=== PATIENT | male | born 1945 | race Caucasian/White ===

== ENCOUNTER → 2020-04-19 11:30 | Outpatient (BNVA) | payer MEDICARE, MEDICAID, SELFPAY | PROVIDERS: PCP Internal Medicine; Visit Provider Internal Medicine Endocrinology, Diabetes & Metabolism | DX: Z13.89 Encounter for screening for other disorder (principal) | CPT/HCPCS: Q3014 ==

== ENCOUNTER → 2020-05-31 14:21 | Outpatient (BNVA) | payer MEDICARE, MEDICAID, SELFPAY | PROVIDERS: PCP Internal Medicine; Visit Provider Nurse Practitioner Gerontology | DX: M81.0 Age-related osteoporosis without current pathological fracture (principal) | CPT/HCPCS: 96402 ==

== ENCOUNTER 2020-06-21 10:52 | Outpatient (REF) | payer MEDICARE, MEDICAID, SELFPAY ==
[2020-06-21 11:31] LABS: MANUAL DIFF FLAG NO
[2020-06-21 11:42] LABS: Basophils Percent Auto 0.7 % (0-2); Eosinophils Absolute Auto 0.1 X10*3/uL (0.0-0.4); Eosinophils Percent Auto 2.5 % (0-4); Hematocrit 31.5 % (42-52); Imm Gran Abs Auto 0.01 X10*3/uL (0.00-0.03); Imm Gran Pct Auto 0.2 % (0.0-0.4); Immature Retic Fraction 17.3 % (2.3-13.4); Lymphocytes Absolute Auto 0.9 X10*3/uL (1.2-4.9); Lymphocytes Percent Auto 20.5 % (20-40); Mean Corpuscular HGB Conc 31.7 g/dl (31.0-36.0); Mean Corpuscular Hemoglobin 30.7 pg (27.0-33.0); Mean Corpuscular Volume 96.6 fL (80-98); Mean Platelet Volume 9.9 fL (9.4-12.4); Monocytes Absolute Auto 0.4 X10*3/uL (0.1-1.2); Monocytes Percent Auto 8.1 % (2-11); Platelet Count 220 X10*3/uL (160-400); Red Blood Count 3.26 X10*6/uL (4.60-5.80); Red Cell Distribution Width 14.5 % (11.0-16.0); Retic HGB Equivalent 34.8 pg (30.0-35.0); Reticulocyte Percent 1.3 % (0.5-1.8); Reticulocytes Absolute 0.042 X10*6/uL (0.026-0.095); White Blood Count 4.4 X10*3/uL (4.8-10.8)
[2020-06-21 11:45] LABS: Estimated Average Glucose 111 mg/dL; Hemoglobin A1c % 5.5 %
[2020-06-21 12:08] LABS: Albumin Level 3.5 g/dL (3.5-5.0); Calcium 8.4 mg/dL (8.4-10.2)
[2020-06-21 12:17] LABS: Ferritin 37 ng/mL (20-250); Free T4 (Free Thyroxine) 1.26 ng/dL (0.71-1.85); Thyroid Stimulating Hormone 1.12 uIU/mL (0.32-4.0); Vitamin D 25-OH Total 47.9 ng/mL (>30)
[2020-06-21 12:18] LABS: Alanine Aminotransferase 25 U/L (0-40); Albumin Level 3.6 g/dL (3.5-5.0); Alkaline Phosphatase 57 U/L (39-117); Anion Gap 11 (12-20); Aspartate Amino Transferase 21 U/L (5-37); Bilirubin Total 0.6 mg/dL (0.0-1.0); Blood Urea Nitrogen 31 mg/dL (9-16); Calcium 8.3 mg/dL (8.4-10.2); Carbon Dioxide 25 mmol/L (22-29); Chloride 110 mmol/L (96-108); Cholesterol 165 mg/dL; Estimated Glomerular Filt Rate 37; Glucose Random 136 mg/dL (60-115); HDL Cholesterol 61 mg/dL; Iron 106 mcg/dL (45-160); LDL Cholesterol Calculated 84 mg/dl; Percent Iron Saturation 35 % (15-50); Sodium 141 mmol/L (135-145); Total Iron Binding Capacity 307 mcg/dL (228-428); Total Protein 6.2 g/dL (6.5-8.0); Triglycerides 102 mg/dL; Unsaturated Iron Binding 201 ug/dL
[2020-06-21 12:58] LABS: Folate > 20.0 ng/mL (> or = 4.0); Vitamin B12 1331 pg/mL (200-900)
== END 2020-06-21 10:53 | disposition home or self-care (01) ==
LOC: HO.LAB 10:52
PROVIDERS: Absent Provider Internal Medicine Endocrinology, Diabetes & Metabolism; PCP Internal Medicine; Visit Provider Internal Medicine
DX: M81.0 Age-related osteoporosis without current pathological fracture (principal); M80.80XD Other osteoporosis with current pathological fracture, unspecified site, subsequent encounter for fracture with routine healing; R73.01 Impaired fasting glucose; I10 Essential (primary) hypertension; I25.10 Atherosclerotic heart disease of native coronary artery without angina pectoris; E78.00 Pure hypercholesterolemia, unspecified
CPT/HCPCS: 36415; 80053; 80061; 82040; 82306; 82310; 82607; 82728; 82746; 83036; 83540; 84439; 84443; 85025; 85045

== ENCOUNTER 2020-06-25 16:08 | Outpatient (REF) | payer MEDICARE, MEDICAID, SELFPAY ==
[2020-07-03 10:22] LABS: N-Telopeptide 18 (see note); NTXCreaRU 83 mg/dL (20-320)
== END 2020-06-25 16:09 | disposition home or self-care (01) ==
LOC: HO.LNP 16:08
PROVIDERS: Visit Provider Internal Medicine Endocrinology, Diabetes & Metabolism
DX: M80.80XD Other osteoporosis with current pathological fracture, unspecified site, subsequent encounter for fracture with routine healing (principal)
CPT/HCPCS: 82523

== ENCOUNTER → 2020-07-03 14:02 | Outpatient (BNVA) | payer MEDICARE, MEDICAID, SELFPAY | PROVIDERS: PCP Internal Medicine; Visit Provider Nurse Practitioner | DX: K22.4 Dyskinesia of esophagus (principal); K22.2 Esophageal obstruction; K21.9 Gastro-esophageal reflux disease without esophagitis | CPT/HCPCS: Q3014 ==

== ENCOUNTER 2020-07-17 15:07 | Outpatient (REF) | payer MEDICARE, MEDICAID, SELFPAY ==
[2020-07-17 17:13] LABS: Prostate Specific Antigen < 0.05 ng/mL (<0.05-4.0)
== END 2020-07-17 15:08 | disposition home or self-care (01) ==
LOC: HO.LAB 15:07
PROVIDERS: Internal Medicine Endocrinology, Diabetes & Metabolism; PCP Internal Medicine; Visit Provider Urology
DX: Z12.5 Encounter for screening for malignant neoplasm of prostate (principal); C61 Malignant neoplasm of prostate; N13.8 Other obstructive and reflux uropathy; N40.1 Benign prostatic hyperplasia with lower urinary tract symptoms; M81.0 Age-related osteoporosis without current pathological fracture
CPT/HCPCS: 36415; 82306; 84153

== ENCOUNTER → 2020-07-18 14:01 | Outpatient (BNVA) | payer MEDICARE, MEDICAID, SELFPAY | PROVIDERS: PCP Internal Medicine; Visit Provider Urology | DX: C61 Malignant neoplasm of prostate (principal); R39.15 Urgency of urination; R35.0 Frequency of micturition | CPT/HCPCS: 99212 ==

== ENCOUNTER → 2020-10-25 12:22 | Outpatient (BNVA) | payer MEDICARE, MEDICAID, SELFPAY | PROVIDERS: PCP Internal Medicine; Visit Provider Internal Medicine Endocrinology, Diabetes & Metabolism | DX: Z13.89 Encounter for screening for other disorder (principal) | CPT/HCPCS: Q3014 ==

== ENCOUNTER 2020-11-22 19:05 | Emergency (ER) | payer MEDICARE, MEDICAID, SELFPAY ==
--- NOTE | ~2020-11-22 | XR_ITS ---
Examination: XR knee LT 4V, XR tibia fibula RT 2V, XR hip RT w PEL1V Indication: Pain s/p fall Comparison: No pertinent prior studies are currently available for comparison. Technique: Frontal view the pelvis with coned frontal and lateral views of the right hip including the entirety of the right femoral intramedullary ronaldo. 2 views of the right tibia and fibula and 4 views of the left knee. Findings: Pelvis/right hip: Femoral heads are both well-seated in their respected acetabula. Compression hip screw with long intramedullary ronaldo is seen extending through the right femur with no evidence for periprosthetic fracture. The previously noted fracture line is no longer apparent. No evidence for periprosthetic fracture or loosening. Prominent vascular calcification is seen. Vertebroplasty cement in the visualized lower lumbar spine. Right tibia and fibula: Bones are normal anatomic alignment with no acute fracture or dislocation seen. Mild degenerative changes in the knee. Left knee: No significant joint effusion. Bones are normal anatomic alignment with no acute fracture or dislocation. Prominent vascular calcification XR/XR knee LT 4V Impression: Chronic appearing and postoperative changes but no acute fracture or dislocation noted.
--- NOTE | ~2020-11-22 | XR_ITS ---
Examination: XR knee LT 4V, XR tibia fibula RT 2V, XR hip RT w PEL1V Indication: Pain s/p fall Comparison: No pertinent prior studies are currently available for comparison. Technique: Frontal view the pelvis with coned frontal and lateral views of the right hip including the entirety of the right femoral intramedullary ronaldo. 2 views of the right tibia and fibula and 4 views of the left knee. Findings: Pelvis/right hip: Femoral heads are both well-seated in their respected acetabula. Compression hip screw with long intramedullary ronaldo is seen extending through the right femur with no evidence for periprosthetic fracture. The previously noted fracture line is no longer apparent. No evidence for periprosthetic fracture or loosening. Prominent vascular calcification is seen. Vertebroplasty cement in the visualized lower lumbar spine. Right tibia and fibula: Bones are normal anatomic alignment with no acute fracture or dislocation seen. Mild degenerative changes in the knee. Left knee: No significant joint effusion. Bones are normal anatomic alignment with no acute fracture or dislocation. Prominent vascular calcification XR/XR hip RT w PEL1V Impression: Chronic appearing and postoperative changes but no acute fracture or dislocation noted.
--- NOTE | ~2020-11-22 | XR_ITS ---
Examination: XR knee LT 4V, XR tibia fibula RT 2V, XR hip RT w PEL1V Indication: Pain s/p fall Comparison: No pertinent prior studies are currently available for comparison. Technique: Frontal view the pelvis with coned frontal and lateral views of the right hip including the entirety of the right femoral intramedullary ronaldo. 2 views of the right tibia and fibula and 4 views of the left knee. Findings: Pelvis/right hip: Femoral heads are both well-seated in their respected acetabula. Compression hip screw with long intramedullary ronaldo is seen extending through the right femur with no evidence for periprosthetic fracture. The previously noted fracture line is no longer apparent. No evidence for periprosthetic fracture or loosening. Prominent vascular calcification is seen. Vertebroplasty cement in the visualized lower lumbar spine. Right tibia and fibula: Bones are normal anatomic alignment with no acute fracture or dislocation seen. Mild degenerative changes in the knee. Left knee: No significant joint effusion. Bones are normal anatomic alignment with no acute fracture or dislocation. Prominent vascular calcification XR/XR tibia fibula RT 2V Impression: Chronic appearing and postoperative changes but no acute fracture or dislocation noted.
[2020-11-22 20:45] VITALS: BP 140/78; PULSE 77; RESP 16; TEMP 36.6; O2SAT 100; BMI 26.4
[2020-11-22 21:29] VITALS: BP 128/38; PULSE 63; RESP 18; O2SAT 100
--- NOTE | 2020-11-22 23:11 | ED.EXTPRO ---
HPI - Extremity Problem General Chief complaint: Extremity Injury, Lower Stated complaint: leg pain Time Seen by Provider: 11/22/20 23:11 Source: patient Mode of arrival: ambulatory Limitations: no limitations History of Present Illness HPI Narrative: 75-year-old male came in for evaluation of right lower extremities pain that started few months ago. Patient status post right femur fracture that required ronaldo placement. Patient declined any recent fall or trauma to his right leg, patient complain of chronic right leg pain for at least 6-7 months but lately is getting worse, patient is still able to ambulate using the walker, patient using also a chronic pain medication prescribed to him by his PCP. Related Data Home Medications Medication Instructions Recorded Confirmed albuterol sulfate 2.5 mg INHALATION Q4-6H PRN 03/22/20 10/25/20 bupropion HCl 200 mg tablet,12 hr PO 03/22/20 10/25/20 sustained-release cyanocobalamin (vitamin B-12) 1,000 mcg PO DAILY 03/22/20 10/25/20 1,000 mcg capsule fluticasone propionate 50 2 spray INTRANASAL DAILY 03/22/20 10/25/20 mcg/actuation nasal spray,suspension mirabegron 25 mg tablet,extended 25 mg PO DAILY 03/22/20 10/25/20 release 24 hr (Myrbetriq) mometasone 0.1 % topical ointment 1 appl TOPICAL DAILY 03/22/20 10/25/20 nitroglycerin 0.4 mg sublingual 0.4 mg SUBLINGUAL Q5M PRN 03/22/20 10/25/20 tablet paroxetine HCl 40 mg tablet 40 mg PO DAILY 03/22/20 10/25/20 tamsulosin 0.4 mg capsule 0.4 mg PO DAILY 03/22/20 10/25/20 trazodone 150 mg tablet 150 mg PO BEDTIME PRN 03/22/20 10/25/20 vitamin B complex 1 tab PO DAILY 03/22/20 10/25/20 paroxetine HCl 30 mg tablet 30 mg PO DAILY 07/03/20 10/25/20 furosemide 20 mg tablet 20 mg PO DAILY 10/25/20 10/25/20 Previous Rx's Medication Instructions Recorded aspirin 81 mg tablet,delayed 81 mg PO DAILY #90 tab 02/28/20 release (Adult Low Dose Aspirin) polyethylene glycol 3350 17 17 g PO DAILY PRN 130 Days #2210 g 02/29/20 gram/dose oral powder (Miralax) denosumab 60 mg/mL subcutaneous 60 mg SUBCUT [id number] 1 Days #1 ml 03/05/20 syringe (Prolia) ketoconazole 2 % topical cream 1 appl TOPICAL BID #30 g 03/22/20 albuterol sulfate 90 mcg/actuation 2 puff INHALATION QID PRN #8.5 g 04/05/20 aerosol inhaler budesonide-formoterol HFA 160 2 puff INHALATION BID #10.2 g 04/19/20 mcg-4.5 mcg/actuation aerosol inhaler (Symbicort) folic acid 1 mg tablet 1 mg PO DAILY #30 tab 05/03/20 mirabegron 50 mg tablet,extended 50 mg PO DAILY 90 Days #90 tab 07/24/20 release 24 hr (Myrbetriq) imipramine HCl 10 mg tablet 10 mg PO BID 90 Days #180 tab 08/07/20 omeprazole 20 mg capsule,delayed 20 mg PO BID #180 cap 09/17/20 release ezetimibe 10 mg tablet 10 mg PO DAILY #90 tab 09/20/20 lactulose 20 gram/30 mL oral 20 g PO BID 90 Days #5400 ml 09/20/20 solution oxycodone 5 mg tablet 5 mg PO BID PRN #50 tab 09/20/20 rosuvastatin 40 mg tablet 40 mg PO DAILY 90 Days #90 tab 09/20/20 calcium citrate 500 mg PO BID 30 Days #120 tab 10/25/20 cholecalciferol (vitamin D3) 25 25 mcg PO DAILY 90 Days #90 cap 10/25/20 mcg (1,000 unit) capsule atenolol 25 mg tablet 25 mg PO DAILY 90 Days #90 tab 11/09/20 Allergies Allergy/AdvReac Type Severity Reaction Status Date / Time quetiapine [From SEROQUEL] Allergy Unknown UNKNOWN Verified 10/25/20 12:25 Review of Systems Review of Systems: All other systems are reviewed and are negative Constitutional: Reports as per HPI and Reports no additional constitutional complaints Eyes: Reports as per HPI and Reports no additional eye complaints Reports system reviewed and no additional complaints, except as documented Cardiovascular: Reports as per HPI and Reports no additional cardiovascular complaints Respiratory: Reports as per HPI and Reports no additional respiratory complaints Gastrointestinal: Reports as per HPI and Reports no additional gastrointestinal complaints Genitourinary: Reports no additional female genitourinary complaints Musculoskeletal: Reports no additional musculoskeletal complaints Skin/Breast: Reports system reviewed and no additional complaints, except as docu Psychiatric: Reports no additional psychiatric complaints Endocrine: Reports no additional endocrine complaints Hematologic/Lymphatic: Reports no additional hematologic/lymphatic complaints Allergic/Immunologic: Reports no additional allergic/immunologic complaints Reports system reviewed and no additional complaints, except as documented and Reports Abnormal speech present [facility] Past Medical History Medical History Bipolar disorder Chronic kidney disease (CKD) stage G3b/A1, moderately decreased glomerular filtration rate (GFR) between 30-44 mL/min/1.73 square meter and albuminuria creatinine ratio less than 30 mg/g COPD (chronic obstructive pulmonary disease) Coronary artery disease DDD (degenerative disc disease), lumbar Dementia in Alzheimer's disease Hypercholesterolemia Hypertension Impaired fasting glucose Metacarpal bone fracture Non-toxic multinodular goiter Obstructive sleep apnea Osteoporosis Peripheral vascular disease Prostate cancer T12 compression fracture Thyroid nodule Vitamin B12 deficiency Surgical History History of angioplasty History of appendectomy History of cataract surgery History of esophageal dilatation History of orthopedic surgery Family History Family History Father Thyroid cancer Mother Colon cancer Daughter Primary squamous cell carcinoma of throat Social History Social History Household Members: Children Housing: House Alcohol intake: former Patient Tobacco Use Status: Former Tobacco user Tobacco use type: Cigarette Advance Directives: No Advance Directives Information Provided: No Current occupational status: disabled Current occupational exposures/hazards: No Physical Exam Vital Signs: Vital Signs: Last Vital Signs Temp 97.9 F 11/22/20 20:45 Pulse 63 11/22/20 21:29 Resp 18 11/22/20 21:29 BP 128/38 L 11/22/20 21:29 Pulse Ox 100 11/22/20 21:29 Body Mass Index 26.4 Vital signs have been reviewed as appeared to be correct. Blood pressure normal. Heart rate normal. Respiration rate normal. Temperature normal. Oxygen saturation normal. Appearance: Alert. Oriented X3. No acute distress. Head: Normal external exam. Normocephalic. Atraumatic. No Trejo signs noted. No raccoon eyes noted Eyes: PERRLA. EOMI. Conjunctiva and sclera normal. Eyelids normal. ENT: TM's Normal. Pharynx normal. Uvula midline. Moist mucous membranes. No trismus noted. No drooling noted. No muffled voice noted. Neck: Normal inspection. Neck supple. FROM. No adenopathy. Thyroid Normal. No meningeal signs. No neck mass noted. CVS: Normal heart rate and rhythm. Heart sound normal. No murmurs noted. Pulses normal throughout. Respiratory: No respiratory distress. Painless inspiration. Breath sounds normal. No wheezes/rales/rhonchi noted. Chest nontender. No accessory muscle usage noted or decreased air movement noted. Abdomen: Soft and nontender. Bowel sounds normal in all 4 quadrants. No distention noted. No organomegaly noted. No visible injury noted. Back: No CVA tenderness. Full range of motion noted. Skin: Skin warm and dry. Normal skin color. Normal skin turgor. No rashes/lesions/lacerations noted. Extremities: No lower extremity edema. Extremities exhibit normal range of motion. Extremities nontender. Neuro: Oriented X 3. Cranial nerve exam: II-XII are grossly intact No motor deficit. No sensory deficit. Reflexes normal. Course Course Course Narrative: Chronic right lower extremities pain with previous surgery in the past. No recent trauma or fall, x-ray is unremarkable, patient to follow-up with orthopedic. MDM - Extremity (Nontraumatic) Imaging Data Right hip/right femur/right knee/tib fib x-ray: Radiologist's impression: Impression: Chronic appearing and postoperative changes but no acute fracture or dislocation noted. Discharge Plan Discharge Clinical Impression: DDD (degenerative disc disease), lumbar, Hip pain, right Patient Disposition: Home, Self-Care Instructions: Arthritis (ED) Prescriptions: No Action aspirin [Adult Low Dose Aspirin] 81 mg tablet,delayed release (DR/EC) 81 mg PO DAILY Qty: 90 RF: 3 polyethylene glycol 3350 [Miralax] 17 gram/dose powder 17 g PO DAILY PRN (Reason: constipation) 130 Days Qty: 2210 RF: 2 Prolia 60 mg/mL syringe 60 mg subcut [id number] 1 Days Qty: 1 RF: 1 albuterol sulfate 90 mcg/actuation HFA aerosol inhaler 2 puff inhalation QID PRN (Reason: shortness of breath or wheezing) Qty: 8.5 RF: 0 budesonide-formoterol [Symbicort] 160-4.5 mcg/actuation HFA aerosol inhaler 2 puff inhalation BID Qty: 10.2 RF: 11 folic acid 1 mg tablet 1 mg PO DAILY Qty: 30 RF: 11 Myrbetriq 50 mg tablet extended release 24 hr 50 mg PO DAILY 90 Days Qty: 90 RF: 2 imipramine HCl 10 mg tablet 10 mg PO BID 90 Days Qty: 180 RF: 2 omeprazole 20 mg capsule,delayed release(DR/EC) 20 mg PO BID Qty: 180 RF: 0 atenolol 25 mg tablet 25 mg PO DAILY 90 Days Qty: 90 RF: 0 nitroglycerin 0.4 mg tablet, sublingual 0.4 mg sublingual Q5M PRNRF: 0 tamsulosin 0.4 mg capsule 0.4 mg PO DAILY RF: 0 Myrbetriq 25 mg tablet extended release 24 hr 25 mg PO DAILY RF: 0 cyanocobalamin (vitamin B-12) 1,000 mcg capsule 1,000 mcg PO DAILY RF: 0 vitamin B complex Tablet 1 tab PO DAILY RF: 0 fluticasone propionate 50 mcg/actuation spray,suspension 2 spray intranasal DAILY RF: 0 mometasone 0.1 % ointment 1 appl topical DAILY RF: 0 trazodone 150 mg tablet 150 mg PO BEDTIME PRNRF: 0 paroxetine HCl 40 mg tablet 40 mg PO DAILY RF: 0 bupropion HCl 200 mg tablet sustained-release 12 hr PO RF: 0 albuterol sulfate 2.5 mg /3 mL (0.083 %) solution for nebulization 2.5 mg inhalation Q4-6H PRNRF: 0 ketoconazole 2 % cream 1 appl topical BID Qty: 30 RF: 0 rosuvastatin 40 mg tablet 40 mg PO DAILY 90 Days Qty: 90 RF: 1 ezetimibe 10 mg tablet 10 mg PO DAILY Qty: 90 RF: 1 oxycodone 5 mg tablet 5 mg PO BID PRN (Reason: pain) Qty: 50 RF: 0 lactulose 20 gram/30 mL solution 20 g PO BID 90 Days Qty: 5400 RF: 0 paroxetine HCl 30 mg tablet 30 mg PO DAILY RF: 0 furosemide 20 mg tablet 20 mg PO DAILY RF: 0 calcium citrate 250 mg calcium tablet 500 mg PO BID 30 Days Qty: 120 RF: 6 cholecalciferol (vitamin D3) 25 mcg (1,000 unit) capsule 25 mcg PO DAILY 90 Days Qty: 90 RF: 2 Referrals: Ashish Loza MD [Physician] - 2 days
[2020-11-22 23:21] VITALS: BP 128/55; PULSE 68; RESP 17; O2SAT 99
== END 2020-11-22 23:36 | disposition home or self-care (01) ==
PROVIDERS: Emergency Provider Emergency Medicine; PCP Internal Medicine
DX: M51.36 Other intervertebral disc degeneration, lumbar region (principal); M25.551 Pain in right hip; M79.661 Pain in right lower leg; I12.9 Hypertensive chronic kidney disease with stage 1 through stage 4 chronic kidney disease, or unspecified chronic kidney disease; N18.30 Chronic kidney disease, stage 3 unspecified; G30.9 Alzheimer's disease, unspecified; F02.80 Dementia in other diseases classified elsewhere, unspecified severity, without behavioral disturbance, psychotic disturbance, mood disturbance, and anxiety; Z79.899 Other long term (current) drug therapy; Z79.82 Long term (current) use of aspirin
CPT/HCPCS: 73502; 73564; 73590; 99283; 99284

== ENCOUNTER 2020-11-26 08:27 | Emergency (ER) | payer MEDICARE, MEDICAID, SELFPAY ==
--- NOTE | ~2020-11-26 | XR_ITS ---
EXAMINATION: XR CHEST CLINICAL INFORMATION: Chest pain. COMPARISON: None TECHNIQUE: Frontal view of the chest was obtained. FINDINGS: The lungs are well-expanded and clear of acute process. Heart size and pulmonary vascularity is normal. There is old healed the fracture left lateral seventh rib XR/XR chest 1V IMPRESSION: No acute cardiopulmonary process seen. There is an old the left lateral seventh rib fracture
--- NOTE | 2020-11-26 08:30 | ED.CHESTPAIN ---
HPI - Chest Pain General Chief Complaint: Chest Pain Stated Complaint: CHEST PAIN Time Seen by Provider: 11/26/20 08:30 Source: patient and EMS Mode of arrival: EMS Limitations: no limitations History of Present Illness MD complaint: chest pain Pertinent past history: coronary artery disease Onset (ago): hour(s) (woke up with symptoms around 4am) Timing of current episode: constant Prior episodes: Yes Onset: during rest Pain location: substernal Pain radiation: none Severity: mild Quality: other (pressure) Relieving factors: nothing Exacerbating factors: nothing Associated symptoms: dyspnea Treatment prior to arrival: aspirin Related Data Home Medications Medication Instructions Recorded Confirmed albuterol sulfate 2.5 mg INHALATION Q4-6H PRN 03/22/20 10/25/20 bupropion HCl 200 mg tablet,12 hr PO 03/22/20 10/25/20 sustained-release cyanocobalamin (vitamin B-12) 1,000 mcg PO DAILY 03/22/20 10/25/20 1,000 mcg capsule fluticasone propionate 50 2 spray INTRANASAL DAILY 03/22/20 10/25/20 mcg/actuation nasal spray,suspension mirabegron 25 mg tablet,extended 25 mg PO DAILY 03/22/20 10/25/20 release 24 hr (Myrbetriq) mometasone 0.1 % topical ointment 1 appl TOPICAL DAILY 03/22/20 10/25/20 nitroglycerin 0.4 mg sublingual 0.4 mg SUBLINGUAL Q5M PRN 03/22/20 10/25/20 tablet paroxetine HCl 40 mg tablet 40 mg PO DAILY 03/22/20 10/25/20 tamsulosin 0.4 mg capsule 0.4 mg PO DAILY 03/22/20 10/25/20 trazodone 150 mg tablet 150 mg PO BEDTIME PRN 03/22/20 10/25/20 vitamin B complex 1 tab PO DAILY 03/22/20 10/25/20 paroxetine HCl 30 mg tablet 30 mg PO DAILY 07/03/20 10/25/20 furosemide 20 mg tablet 20 mg PO DAILY 10/25/20 10/25/20 Previous Rx's Medication Instructions Recorded aspirin 81 mg tablet,delayed 81 mg PO DAILY #90 tab 02/28/20 release (Adult Low Dose Aspirin) polyethylene glycol 3350 17 17 g PO DAILY PRN 130 Days #2210 g 02/29/20 gram/dose oral powder (Miralax) denosumab 60 mg/mL subcutaneous 60 mg SUBCUT [id number] 1 Days #1 ml 03/05/20 syringe (Prolia) ketoconazole 2 % topical cream 1 appl TOPICAL BID #30 g 03/22/20 albuterol sulfate 90 mcg/actuation 2 puff INHALATION QID PRN #8.5 g 04/05/20 aerosol inhaler budesonide-formoterol HFA 160 2 puff INHALATION BID #10.2 g 04/19/20 mcg-4.5 mcg/actuation aerosol inhaler (Symbicort) folic acid 1 mg tablet 1 mg PO DAILY #30 tab 05/03/20 mirabegron 50 mg tablet,extended 50 mg PO DAILY 90 Days #90 tab 07/24/20 release 24 hr (Myrbetriq) imipramine HCl 10 mg tablet 10 mg PO BID 90 Days #180 tab 08/07/20 omeprazole 20 mg capsule,delayed 20 mg PO BID #180 cap 09/17/20 release ezetimibe 10 mg tablet 10 mg PO DAILY #90 tab 09/20/20 lactulose 20 gram/30 mL oral 20 g PO BID 90 Days #5400 ml 09/20/20 solution oxycodone 5 mg tablet 5 mg PO BID PRN #50 tab 09/20/20 rosuvastatin 40 mg tablet 40 mg PO DAILY 90 Days #90 tab 09/20/20 calcium citrate 500 mg PO BID 30 Days #120 tab 10/25/20 cholecalciferol (vitamin D3) 25 25 mcg PO DAILY 90 Days #90 cap 10/25/20 mcg (1,000 unit) capsule atenolol 25 mg tablet 25 mg PO DAILY 90 Days #90 tab 11/09/20 Allergies Allergy/AdvReac Type Severity Reaction Status Date / Time quetiapine [From SEROQUEL] Allergy Unknown UNKNOWN Verified 10/25/20 12:25 Review of Systems Review of Systems: Constitutional : No Weight loss, No Fever, No Chills ENT/Mouth : No sore throat, No Rhinorrhea Eyes: No Eye Pain, No Swelling Cardiovascular : pos Chest Pain, pos SOB, no Dyspnea on Exertion, No Orthopnea, No Edema, No Palpitations Respiratory : No Cough, No Sputum Gastrointestinal : no Nausea, No Vomiting, No Diarrhea, No abdominal Pain, No Hematochezia, No Melena Genitourinary : No Dysuria, No Urinary Frequency Musculoskeletal : No joint pain, No Myalgias, No Joint Swelling Skin : No Skin Lesions, No rash Neuro : No Weakness, No Numbness, No Dizziness, No Headache Psych : No Anxiety/Panic, No Depression Heme/Lymph: No Bruising, No Lymphadenopathy Endocrine : No Polyuria, No Polydipsia All other systems reviewed and are negative [facility] Past Medical History Attestation statement: The following information was validated with the patient. Medical History Bipolar disorder Chronic kidney disease (CKD) stage G3b/A1, moderately decreased glomerular filtration rate (GFR) between 30-44 mL/min/1.73 square meter and albuminuria creatinine ratio less than 30 mg/g COPD (chronic obstructive pulmonary disease) COPD (chronic obstructive pulmonary disease) Coronary artery disease DDD (degenerative disc disease), lumbar Dementia in Alzheimer's disease Hypercholesterolemia Hypertension Impaired fasting glucose Metacarpal bone fracture Non-toxic multinodular goiter Obstructive sleep apnea Osteoporosis Peripheral vascular disease Prostate cancer T12 compression fracture Thyroid nodule Vitamin B12 deficiency Surgical History History of angioplasty History of appendectomy History of cataract surgery History of esophageal dilatation History of orthopedic surgery Family History Family History Father Thyroid cancer Mother Colon cancer Daughter Primary squamous cell carcinoma of throat Social History Social History Household Members: Children Housing: House Alcohol intake: former Patient Tobacco Use Status: Former Tobacco user Tobacco use type: Cigarette Use of substances other than those prescribed or required for medical reasons: No Advance Directives: Yes Advance Directives Information Provided: Yes Advance Directives on File: No Current occupational status: disabled Current occupational exposures/hazards: No Physical Exam Vital Signs: Vital Signs: Last Vital Signs Temp 97.7 F 11/26/20 08:39 Pulse 59 11/26/20 11:40 Resp 18 11/26/20 11:40 BP 107/53 L 11/26/20 11:40 Pulse Ox 97 11/26/20 11:40 Body Mass Index 26.4 Appearance: Alert. Oriented X3. No acute distress. Eyes: Pupils equal, round and reactive to light. ENT: Pharynx normal. Neck: Normal inspection. Neck supple. CVS: Normal heart rate and rhythm. Pulses normal. Respiratory: No respiratory distress. Breath sounds slightly diminished throughout Abdomen: Soft and non-tender. Skin: Skin warm and dry. pale skin color. Normal skin turgor. Extremities: No lower extremity edema. No calf ttp Neuro: Oriented X 3. No motor deficit. No sensory deficit. Course Course Course Narrative: pain resolved on its own, not related to nitro, feels fine now, two troponins flat, negative EKG - will instruct patient to follow up with Delivery Table Feeder MDM - Chest Pain MDM Narrative Medical decision making narrative: 75 yo male with hx of COPD, GERD, esophageal dysmotility, CAD s/p stent he states 20 years ago, CKD comes in with almost 5 hours of chest pain and mild shortness of breath. Already given aspirin [address] [address] [employer]. At this time EKG, troponin x 2, nitro for pain. Could be ACS vs esophageal spasm. Not pleuritic no signs of DVT, no hypoxia doubt PE. Dispo per results and findings. Lab Data Result diagrams: 11/26/20 09:12 11/26/20 09:12 Labs: Lab Results 11/26/20 11/26/20 11/26/20 Range/Units 09:11 09:12 09:12 WBC 9.1 (4.8-10.8) X10*3/uL RBC 3.09 L (4.60-5.80) X10*6/uL Hgb 9.5 L (14.0-18.0) g/dl Hct 29.2 L (42-52) % MCV 94.5 (80-98) fL MCH 30.7 (27.0-33.0) pg MCHC 32.5 (31.0-36.0) g/dl RDW 13.9 (11.0-16.0) % Plt Count 178 (160-400) X10*3/uL MPV 10.1 (9.4-12.4) fL Immature Gran % (Auto) 0.3 (0.0-0.4) % Neut % (Auto) 73.4 H (45-73) % Lymph % (Auto) 13.7 L (20-40) % Falls % (Auto) 8.8 (2-11) % Eos % (Auto) 3.4 (0-4) % Baso % (Auto) 0.4 (0-2) % Lymph # (Auto) 1.2 (1.2-4.9) X10*3/uL Falls # (Auto) 0.8 (0.1-1.2) X10*3/uL Eos # (Auto) 0.3 (0.0-0.4) X10*3/uL Baso # (Auto) 0.0 (0.0-0.2) X10*3/uL Abs Immat Gran (auto) 0.03 (0.00-0.03) X10*3/uL Absolute Neuts (auto) 6.7 (2.0-8.3) X10*3/uL Absolute Nucleated RBC 0.000 (0.0-0.012) X10*3/uL Nucleated RBC % (auto) 0.0 (0.0-0.2) /100WBC PT (9.9-13.0) SEC INR (0.9-1.1) APTT (24.1-38.0) SEC Sodium 141 (135-145) mmol/L Potassium 4.9 (3.3-5.1) mmol/L Chloride 108 (96-108) mmol/L Carbon Dioxide 25 (22-29) mmol/L Anion Gap 13 (12-20) BUN 34 H (9-16) mg/dL Creatinine 1.84 H (0.5-1.4) mg/dL Estim Creat Clear Calc 25.9 Estimated GFR 36 Random Glucose 129 H (60-115) mg/dL Calcium 8.9 (8.4-10.2) mg/dL Magnesium (1.6-2.6) mg/dL Total Bilirubin 0.4 (0.0-1.0) mg/dL Direct Bilirubin < 0.2 (0.0-0.5) mg/dL AST 25 (5-37) U/L ALT 33 (0-40) U/L Alkaline Phosphatase 43 D (39-117) U/L Troponin I High Sens (<3.5-35.0) ng/L B-Natriuretic Peptide (<100) pg/mL Total Protein 6.0 L (6.5-8.0) g/dL Albumin 3.5 (3.5-5.0) g/dL Lipase 32 (8-78) U/L COVID-19 (RENNY) Negative (Negative) COVID-19 Clin Com See Note 11/26/20 11/26/20 11/26/20 Range/Units 09:12 09:12 09:12 WBC (4.8-10.8) X10*3/uL RBC (4.60-5.80) X10*6/uL Hgb (14.0-18.0) g/dl Hct (42-52) % MCV (80-98) fL MCH (27.0-33.0) pg MCHC (31.0-36.0) g/dl RDW (11.0-16.0) % Plt Count (160-400) X10*3/uL MPV (9.4-12.4) fL Immature Gran % (Auto) (0.0-0.4) % Neut % (Auto) (45-73) % Lymph % (Auto) (20-40) % Falls % (Auto) (2-11) % Eos % (Auto) (0-4) % Baso % (Auto) (0-2) % Lymph # (Auto) (1.2-4.9) X10*3/uL Falls # (Auto) (0.1-1.2) X10*3/uL Eos # (Auto) (0.0-0.4) X10*3/uL Baso # (Auto) (0.0-0.2) X10*3/uL Abs Immat Gran (auto) (0.00-0.03) X10*3/uL Absolute Neuts (auto) (2.0-8.3) X10*3/uL Absolute Nucleated RBC (0.0-0.012) X10*3/uL Nucleated RBC % (auto) (0.0-0.2) /100WBC PT 11.0 (9.9-13.0) SEC INR 1.0 (0.9-1.1) APTT 29.1 (24.1-38.0) SEC Sodium (135-145) mmol/L Potassium (3.3-5.1) mmol/L Chloride (96-108) mmol/L Carbon Dioxide (22-29) mmol/L Anion Gap (12-20) BUN (9-16) mg/dL Creatinine (0.5-1.4) mg/dL Estim Creat Clear Calc Estimated GFR Random Glucose (60-115) mg/dL Calcium (8.4-10.2) mg/dL Magnesium 2.4 (1.6-2.6) mg/dL Total Bilirubin (0.0-1.0) mg/dL Direct Bilirubin (0.0-0.5) mg/dL AST (5-37) U/L ALT (0-40) U/L Alkaline Phosphatase (39-117) U/L Troponin I High Sens (<3.5-35.0) ng/L B-Natriuretic Peptide 55 (<100) pg/mL Total Protein (6.5-8.0) g/dL Albumin (3.5-5.0) g/dL Lipase (8-78) U/L COVID-19 (RENNY) (Negative) COVID-19 Clin Com 11/26/20 11/26/20 Range/Units 09:12 11:40 WBC (4.8-10.8) X10*3/uL RBC (4.60-5.80) X10*6/uL Hgb (14.0-18.0) g/dl Hct (42-52) % MCV (80-98) fL MCH (27.0-33.0) pg MCHC (31.0-36.0) g/dl RDW (11.0-16.0) % Plt Count (160-400) X10*3/uL MPV (9.4-12.4) fL Immature Gran % (Auto) (0.0-0.4) % Neut % (Auto) (45-73) % Lymph % (Auto) (20-40) % Falls % (Auto) (2-11) % Eos % (Auto) (0-4) % Baso % (Auto) (0-2) % Lymph # (Auto) (1.2-4.9) X10*3/uL Falls # (Auto) (0.1-1.2) X10*3/uL Eos # (Auto) (0.0-0.4) X10*3/uL Baso # (Auto) (0.0-0.2) X10*3/uL Abs Immat Gran (auto) (0.00-0.03) X10*3/uL Absolute Neuts (auto) (2.0-8.3) X10*3/uL Absolute Nucleated RBC (0.0-0.012) X10*3/uL Nucleated RBC % (auto) (0.0-0.2) /100WBC PT (9.9-13.0) SEC INR (0.9-1.1) APTT (24.1-38.0) SEC Sodium (135-145) mmol/L Potassium (3.3-5.1) mmol/L Chloride (96-108) mmol/L Carbon Dioxide (22-29) mmol/L Anion Gap (12-20) BUN (9-16) mg/dL Creatinine (0.5-1.4) mg/dL Estim Creat Clear Calc Estimated GFR Random Glucose (60-115) mg/dL Calcium (8.4-10.2) mg/dL Magnesium (1.6-2.6) mg/dL Total Bilirubin (0.0-1.0) mg/dL Direct Bilirubin (0.0-0.5) mg/dL AST (5-37) U/L ALT (0-40) U/L Alkaline Phosphatase (39-117) U/L Troponin I High Sens 6.1 6.2 (<3.5-35.0) ng/L B-Natriuretic Peptide (<100) pg/mL Total Protein (6.5-8.0) g/dL Albumin (3.5-5.0) g/dL Lipase (8-78) U/L COVID-19 (RENNY) (Negative) COVID-19 Clin Com ECG Data ECG #1: Attestation: I personally reviewed and interpreted this ECG as follows: ECG interpretation date: 11/26/20 ECG interpretation time: 08:56 Interpretation: Rate: 78 Rhythm: NSR [place]: left Normal P waves. Normal TO. Normal QRS complex. ST T wave : no [place], nonspecific qTC: normal prior studies: no acute ischemia The study has been interpreted contemporaneously by me. . Discharge Plan Discharge Clinical Impression: Chest pain Qualifiers: Chest pain type: unspecified Qualified Code(s): R07.9 - Chest pain, unspecified Patient Disposition: Home, Self-Care Instructions: Chest Pain (ED) Additional Instructions: return to ED for any worsening symptoms or concerns please follow up with your human resources district manager Prescriptions: No Action aspirin [Adult Low Dose Aspirin] 81 mg tablet,delayed release (DR/EC) 81 mg PO DAILY Qty: 90 RF: 3 polyethylene glycol 3350 [Miralax] 17 gram/dose powder 17 g PO DAILY PRN (Reason: constipation) 130 Days Qty: 2210 RF: 2 Prolia 60 mg/mL syringe 60 mg subcut [id number] 1 Days Qty: 1 RF: 1 albuterol sulfate 90 mcg/actuation HFA aerosol inhaler 2 puff inhalation QID PRN (Reason: shortness of breath or wheezing) Qty: 8.5 RF: 0 budesonide-formoterol [Symbicort] 160-4.5 mcg/actuation HFA aerosol inhaler 2 puff inhalation BID Qty: 10.2 RF: 11 folic acid 1 mg tablet 1 mg PO DAILY Qty: 30 RF: 11 Myrbetriq 50 mg tablet extended release 24 hr 50 mg PO DAILY 90 Days Qty: 90 RF: 2 imipramine HCl 10 mg tablet 10 mg PO BID 90 Days Qty: 180 RF: 2 omeprazole 20 mg capsule,delayed release(DR/EC) 20 mg PO BID Qty: 180 RF: 0 atenolol 25 mg tablet 25 mg PO DAILY 90 Days Qty: 90 RF: 0 nitroglycerin 0.4 mg tablet, sublingual 0.4 mg sublingual Q5M PRNRF: 0 tamsulosin 0.4 mg capsule 0.4 mg PO DAILY RF: 0 Myrbetriq 25 mg tablet extended release 24 hr 25 mg PO DAILY RF: 0 cyanocobalamin (vitamin B-12) 1,000 mcg capsule 1,000 mcg PO DAILY RF: 0 vitamin B complex Tablet 1 tab PO DAILY RF: 0 fluticasone propionate 50 mcg/actuation spray,suspension 2 spray intranasal DAILY RF: 0 mometasone 0.1 % ointment 1 appl topical DAILY RF: 0 trazodone 150 mg tablet 150 mg PO BEDTIME PRNRF: 0 paroxetine HCl 40 mg tablet 40 mg PO DAILY RF: 0 bupropion HCl 200 mg tablet sustained-release 12 hr PO RF: 0 albuterol sulfate 2.5 mg /3 mL (0.083 %) solution for nebulization 2.5 mg inhalation Q4-6H PRNRF: 0 ketoconazole 2 % cream 1 appl topical BID Qty: 30 RF: 0 rosuvastatin 40 mg tablet 40 mg PO DAILY 90 Days Qty: 90 RF: 1 ezetimibe 10 mg tablet 10 mg PO DAILY Qty: 90 RF: 1 oxycodone 5 mg tablet 5 mg PO BID PRN (Reason: pain) Qty: 50 RF: 0 lactulose 20 gram/30 mL solution 20 g PO BID 90 Days Qty: 5400 RF: 0 paroxetine HCl 30 mg tablet 30 mg PO DAILY RF: 0 furosemide 20 mg tablet 20 mg PO DAILY RF: 0 calcium citrate 250 mg calcium tablet 500 mg PO BID 30 Days Qty: 120 RF: 6 cholecalciferol (vitamin D3) 25 mcg (1,000 unit) capsule 25 mcg PO DAILY 90 Days Qty: 90 RF: 2 Referrals: Gokul James MD [Physician] - 1 week (call for appointment)
--- NOTE | 2020-11-26 08:36 | ECG_ITS ---
Test Reason : CHEST PAIN Blood Pressure : / mmHG Vent. Rate : 078 BPM Atrial Rate : 078 BPM P-R Int : 150 ms QRS Dur : 082 ms QT Int : 394 ms P-R-T Axes : 002 -30 -07 degrees QTc Int : 449 ms Sinus rhythm with marked sinus arrhythmia Left axis deviation Abnormal ECG When compared with ECG of 07-SEP-2018 17:46, No significant change was found Referred By: Estee Sadler Electronically Signed By:PATTIE LARSON
[2020-11-26 08:39] VITALS: BP 145/78; BP 147/70; PULSE 70; PULSE 77; RESP 18; TEMP 36.5; O2SAT 97; O2SAT 98; BMI 26.4
[2020-11-26 09:18] LABS: MANUAL DIFF FLAG NO
[2020-11-26 09:21] VITALS: BP 130/63; PULSE 75
[2020-11-26] MEDS: Nitroglycerin 0.4 MG TAB.SUBL SUBLINGUAL (09:21)
[2020-11-26 09:24] VITALS: BP 130/63; PULSE 76; RESP 18
[2020-11-26 09:25] LABS: Basophils Percent Auto 0.4 % (0-2); Eosinophils Absolute Auto 0.3 X10*3/uL (0.0-0.4); Eosinophils Percent Auto 3.4 % (0-4); Hematocrit 29.2 % (42-52); Hemoglobin 9.5 g/dl (14.0-18.0); Imm Gran Abs Auto 0.03 X10*3/uL (0.00-0.03); Imm Gran Pct Auto 0.3 % (0.0-0.4); Lymphocytes Absolute Auto 1.2 X10*3/uL (1.2-4.9); Lymphocytes Percent Auto 13.7 % (20-40); Mean Corpuscular HGB Conc 32.5 g/dl (31.0-36.0); Mean Corpuscular Hemoglobin 30.7 pg (27.0-33.0); Mean Corpuscular Volume 94.5 fL (80-98); Mean Platelet Volume 10.1 fL (9.4-12.4); Monocytes Absolute Auto 0.8 X10*3/uL (0.1-1.2); Monocytes Percent Auto 8.8 % (2-11); Neutrophils Absolute Auto 6.7 X10*3/uL (2.0-8.3); Neutrophils Percent Auto 73.4 % (45-73); Platelet Count 178 X10*3/uL (160-400); Red Blood Count 3.09 X10*6/uL (4.60-5.80); Red Cell Distribution Width 13.9 % (11.0-16.0); White Blood Count 9.1 X10*3/uL (4.8-10.8)
[2020-11-26 09:29] LABS: Partial Thromboplastin Time 29.1 SEC (24.1-38.0)
[2020-11-26 09:38] LABS: COVID-19 Test Negative (Negative)
[2020-11-26 09:41] LABS: Magnesium 2.4 mg/dL (1.6-2.6)
[2020-11-26 09:46] LABS: B Type Natriuretic Peptide 55 pg/mL (<100); Troponin-I High Sensitivity 6.1 ng/L (<3.5-35.0)
[2020-11-26 09:50] LABS: Alanine Aminotransferase 33 U/L (0-40); Albumin Level 3.5 g/dL (3.5-5.0); Alkaline Phosphatase 43 U/L (39-117); Anion Gap 13 (12-20); Aspartate Amino Transferase 25 U/L (5-37); Bilirubin Direct < 0.2 mg/dL (0.0-0.5); Bilirubin Total 0.4 mg/dL (0.0-1.0); Blood Urea Nitrogen 34 mg/dL (9-16); Calcium 8.9 mg/dL (8.4-10.2); Carbon Dioxide 25 mmol/L (22-29); Chloride 108 mmol/L (96-108); Creatinine Clr Calc Pharmacy 25.9; Estimated Glomerular Filt Rate 36; Glucose Random 129 mg/dL (60-115); Lipase 32 U/L (8-78); Potassium 4.9 mmol/L (3.3-5.1); Sodium 141 mmol/L (135-145)
--- NOTE | 2020-11-26 09:52 | PC.NURSE ---
PT REPORTS FEELING A LITTLE BETTER AFTER THE NITRO X1, PAIN AT 2/10, NS ON THE MONITOR
[2020-11-26 09:53] VITALS: BP 109/64; PULSE 74; RESP 18
[2020-11-26 10:53] VITALS: BP 128/53; PULSE 58; RESP 18
[2020-11-26 11:40] VITALS: BP 107/53; PULSE 59; RESP 18; O2SAT 97
[2020-11-26 12:14] LABS: Troponin-I High Sensitivity 6.2 ng/L (<3.5-35.0)
== END 2020-11-26 12:57 | disposition home or self-care (01) ==
PROVIDERS: Emergency Provider Emergency Medicine
DX: R07.9 Chest pain, unspecified (principal); R06.00 Dyspnea, unspecified; I25.10 Atherosclerotic heart disease of native coronary artery without angina pectoris; F17.210 Nicotine dependence, cigarettes, uncomplicated; Z79.899 Other long term (current) drug therapy; Z71.6 Tobacco abuse counseling; Z20.822 Contact with and (suspected) exposure to COVID-19
CPT/HCPCS: 36415; 71045; 80048; 80076; 83690; 83735; 83880; 84484; 85025; 85610; 85730; 87635; 93005; 99283; 99285

== ENCOUNTER 2020-12-03 14:13 | Outpatient (REF) | payer MEDICARE, MEDICAID, SELFPAY ==
[2020-12-03 16:17] LABS: Albumin Level 3.6 g/dL (3.5-5.0); Calcium 9.2 mg/dL (8.4-10.2)
[2020-12-03 16:45] LABS: Vitamin D 25-OH Total 55.9 ng/mL (>30)
== END 2020-12-03 14:14 | disposition home or self-care (01) ==
LOC: HO.LAB 14:13
PROVIDERS: Absent Provider Internal Medicine Endocrinology, Diabetes & Metabolism; PCP Internal Medicine; Visit Provider Internal Medicine
DX: I25.10 Atherosclerotic heart disease of native coronary artery without angina pectoris (principal); I10 Essential (primary) hypertension; Z79.899 Other long term (current) drug therapy; M81.0 Age-related osteoporosis without current pathological fracture
CPT/HCPCS: 36415; 82040; 82306; 82310; 99212

== ENCOUNTER 2020-12-04 14:52 | Outpatient (REF) | payer MEDICARE, MEDICAID, SELFPAY ==
[2020-12-08 13:57] LABS: N-Telopeptide 33 (see note); NTXCreaRU 135 mg/dL (20-320)
== END 2020-12-04 14:53 | disposition home or self-care (01) ==
LOC: HO.LNP 14:52
PROVIDERS: Visit Provider Internal Medicine Endocrinology, Diabetes & Metabolism
DX: M81.0 Age-related osteoporosis without current pathological fracture (principal)
CPT/HCPCS: 82523

== ENCOUNTER → 2020-12-06 10:04 | Outpatient (BNVA) | payer MEDICARE, MEDICAID, SELFPAY | PROVIDERS: PCP Internal Medicine; Visit Provider Internal Medicine | DX: M18.0 Bilateral primary osteoarthritis of first carpometacarpal joints (principal) | CPT/HCPCS: 96372 ==

== ENCOUNTER 2021-02-09 08:57 | Outpatient (REF) | payer MEDICARE, MEDICAID, SELFPAY ==
[2021-02-09 11:02] LABS: Alanine Aminotransferase 21 U/L (0-40); Albumin Level 3.5 g/dL (3.5-5.0); Alkaline Phosphatase 42 U/L (39-117); Anion Gap 12 (12-20); Aspartate Amino Transferase 23 U/L (5-37); Bilirubin Total 0.6 mg/dL (0.0-1.0); Blood Urea Nitrogen 29 mg/dL (9-16); Calcium 9.2 mg/dL (8.4-10.2); Carbon Dioxide 25 mmol/L (22-29); Chloride 110 mmol/L (96-108); Cholesterol 152 mg/dL; Estimated Glomerular Filt Rate 41; Glucose Random 153 mg/dL (60-115); HDL Cholesterol 55 mg/dL; LDL Cholesterol Calculated 73 mg/dl; Potassium 5.4 mmol/L (3.3-5.1); Sodium 142 mmol/L (135-145); Triglycerides 121 mg/dL
[2021-02-09 11:15] LABS: Prostate Specific Antigen < 0.05 ng/mL (<0.05-4.0)
[2021-02-11 13:21] LABS: Calcium (PTHI) 9.3 mg/dL (8.6-10.3); PTHI 46 pg/mL (14-64)
== END 2021-02-09 08:58 | disposition home or self-care (01) ==
LOC: HO.LAB 08:57
PROVIDERS: Urology; Absent Provider Internal Medicine; PCP Internal Medicine; Visit Provider Internal Medicine
DX: Z12.5 Encounter for screening for malignant neoplasm of prostate (principal); C61 Malignant neoplasm of prostate; M81.0 Age-related osteoporosis without current pathological fracture; E78.00 Pure hypercholesterolemia, unspecified
CPT/HCPCS: 36415; 80053; 80061; 82565; 83970; 84153

== ENCOUNTER → 2021-04-30 16:01 | Outpatient (REF) | payer MEDICARE, MEDICAID, SELFPAY ==
[2021-04-30 16:37] LABS: Estimated Average Glucose 117 mg/dL; Hemoglobin A1c % 5.7 %
[2021-04-30 16:56] LABS: Alanine Aminotransferase 18 U/L (0-40); Albumin Level 3.5 g/dL (3.5-5.0); Alkaline Phosphatase 42 U/L (39-117); Anion Gap 12 (12-20); Aspartate Amino Transferase 19 U/L (5-37); Bilirubin Total 0.3 mg/dL (0.0-1.0); Blood Urea Nitrogen 26 mg/dL (9-16); Calcium 9.4 mg/dL (8.4-10.2); Carbon Dioxide 25 mmol/L (22-29); Chloride 110 mmol/L (96-108); Estimated Glomerular Filt Rate 48; Glucose Random 135 mg/dL (60-115); Potassium 4.9 mmol/L (3.3-5.1); Sodium 142 mmol/L (135-145); Total Protein 6.1 g/dL (6.5-8.0)
== END ==
LOC: HO.SL 16:01
PROVIDERS: PCP Internal Medicine; Visit Provider Internal Medicine
DX: R73.01 Impaired fasting glucose (principal); G47.33 Obstructive sleep apnea (adult) (pediatric)
CPT/HCPCS: 36415; 80053; 83036; 95806

== ENCOUNTER → 2021-06-10 15:02 | Outpatient (BNVA) | payer MEDICARE, MEDICAID, SELFPAY | PROVIDERS: PCP Internal Medicine; Visit Provider Nurse Practitioner Gerontology | DX: M81.0 Age-related osteoporosis without current pathological fracture (principal) | CPT/HCPCS: 96372 ==

== ENCOUNTER → 2021-07-04 15:03 | Outpatient (BNVA) | payer MEDICARE, MEDICAID, SELFPAY | PROVIDERS: PCP Internal Medicine; Visit Provider Internal Medicine | DX: G47.33 Obstructive sleep apnea (adult) (pediatric) (principal); J43.9 Emphysema, unspecified | CPT/HCPCS: 99202 ==

== ENCOUNTER 2021-07-09 08:22 | Outpatient (REF) | payer MEDICARE, MEDICAID, SELFPAY ==
--- NOTE | ~2021-07-09 | US_ITS ---
EXAMINATION: US THYROID CLINICAL INFORMATION: Nontoxic multinodular goiter. COMPARISON: Thyroid ultrasound 10/25/2019 and 08/25/2018. TECHNIQUE: Linear transducer grayscale and color Doppler examination with attention to the region of the thyroid. Technically limited study secondary to low position in neck (especially right side). FINDINGS: SIZE: Measurements of the thyroid lobes and nodules are given in sagittal, anteroposterior and transverse dimensions respectively. Right Thyroid Lobe: 3.0 x 1.1 x 1.9 cm, volume 3.4 mL. Previously 4.1 x 1.5 x 1.2 cm, volume 3.9 mL. Parenchyma: The gland echotexture is homogeneous. Thyroid vascularity is normal. Left Thyroid Lobe: 4.3 x 1.9 x 1.7 cm, volume 7.6 mL. Previously 4.3 x 2.2 x 1.4 cm, volume 6.8 mL. Parenchyma: The gland echotexture is homogeneous. Thyroid vascularity is normal. Isthmus: 0.5 cm in maximum AP dimension. Previously 0.5 cm. Estimated total number of nodules greater than or equal to 1 cm: 1. Plumbing Mechanic nodules are described as follows: 1. Location: Left inferior. Size: 1.6 x 1.5 x 1.4 cm, volume 1.73 mL. Previously: 1.2 x 1.4 x 1.1 cm, volume 0.97 mL. Nodule characteristics: Composition: Solid (2). Echogenicity: Isoechoic (1). Shape: Not taller than wide (0). Margins: Smooth (0). Echogenic Foci: None (0). ACR TI-RADS total points: 3 ACR TI-RADS category: 3 Significant change in size (>/= 20% in 2 dimensions and minimal increase of 2 mm or 50% or greater increase in volume): Yes Change in features: No Change in ACR TI-RADS risk category: Not applicable 2. Location: Left mid. Size: 0.4 x 0.6 x 0.4 cm, volume 0.06 mL. Previously: Not seen on the previous study. Nodule characteristics: Composition: Solid (2). Echogenicity: Hypoechoic (2). Shape: Not taller than wide (0). Margins: Smooth (0). Echogenic Foci: None (0). ACR TI-RADS total points: 4 ACR TI-RADS category: 4 3. Location: Left superior. Size: 0.3 x 0.3 x 0.2 cm, volume 0.01 mL. Previously: Not seen on the previous study. Nodule characteristics: Composition: Solid (2). Echogenicity: Hypoechoic (2). Shape: Not taller than wide (0). Margins: Smooth (0). Echogenic Foci: None (0). ACR TI-RADS total points: 4 ACR TI-RADS category: 4 4. Location: Right mid. Size: 0.6 x 0.5 x 0.3 cm, volume 0.05 mL. Previously: 0.5 x 0.3 x 0.4 cm, volume 0.03 mL. Nodule characteristics: Composition: Cystic(0). ACR TI-RADS total points: 0 ACR TI-RADS category: 1 Significant change in size (>/= 20% in 2 dimensions and minimal increase of 2 mm or 50% or greater increase in volume): No Change in features: No Change in ACR TI-RADS risk category: Not applicable NODES: No lymphadenopathy is seen in the tissue surrounding the thyroid gland. US/US thyroid IMPRESSION: 2 small newly appreciated thyroid nodules. Interval increase in size in the nodule in the inferior left lobe. Stable nodule in the mid right lobe. ACR TI-RADS RECOMMENDATION REFERENCE: Ultrasound-guided fine-needle aspiration, followup ultrasound, no further follow up. * TR1 (0 point) and TR 2 (2 points): No FNA or follow up * TR3 (3 points): FNA if more than or equal to 2.5 cm in maximum dimension, followup ultrasound in 1, 3 and 5 years if 1.5 to 2.4 cm in maximum dimension. * TR4 (4-6 points): FNA if more than or equal to 1.5 cm in maximum dimension, followup ultrasound in 1, 2, 3 and 5 years if 1 to 1.4 cm in maximum dimension. * TR5 (more than or equal to 7 points): FNA if more than or equal to 1 cm in maximum dimension, followup ultrasound every year for 5 years if 0.5 to 0.9 cm in maximum dimension. * TR3, TR4 or TR5 nodules that are below the size threshold for follow up receive no follow up.
== END 2021-07-09 08:23 | disposition home or self-care (01) ==
LOC: HO.US 08:22
PROVIDERS: PCP Internal Medicine Endocrinology, Diabetes & Metabolism; Visit Provider Internal Medicine Endocrinology, Diabetes & Metabolism
DX: E04.2 Nontoxic multinodular goiter (principal)
CPT/HCPCS: 76536

== ENCOUNTER 2021-07-16 14:25 | Outpatient (REF) | payer MEDICARE, MEDICAID, SELFPAY ==
[2021-07-16 14:42] LABS: MANUAL DIFF FLAG NO
[2021-07-16 15:05] LABS: Basophils Percent Auto 0.5 % (0-2); Eosinophils Absolute Auto 0.2 X10*3/uL (0.0-0.4); Eosinophils Percent Auto 2.7 % (0-4); Hematocrit 31.8 % (42.0-52.0); Hemoglobin 10.3 g/dl (14.0-18.0); Imm Gran Abs Auto 0.01 X10*3/uL (0.00-0.03); Imm Gran Pct Auto 0.2 % (0.0-0.4); Lymphocytes Absolute Auto 1.6 X10*3/uL (1.2-4.9); Lymphocytes Percent Auto 27.8 % (20-40); Mean Corpuscular HGB Conc 32.4 g/dl (31.0-36.0); Mean Corpuscular Hemoglobin 30.7 pg (27.0-33.0); Mean Corpuscular Volume 94.9 fL (80.0-98.0); Mean Platelet Volume 9.9 fL (9.4-12.4); Monocytes Absolute Auto 0.6 X10*3/uL (0.1-1.2); Monocytes Percent Auto 9.9 % (2-11); Neutrophils Absolute Auto 3.3 x10*3/uL (2.0-8.3); Neutrophils Percent Auto 58.9 % (45-73); Platelet Count 199 X10*3/uL (160-400); Red Blood Count 3.35 X10*6/uL (4.60-5.80); Red Cell Distribution Width 13.1 % (11.0-16.0); White Blood Count 5.6 X10*3/uL (4.8-10.8)
[2021-07-16 15:24] LABS: Appearance Urine CLEAR; Color Urine YELLOW; Glucose Urine UA NEG (NEG); Leukocyte Esterase Urine NEG (NEG); Nitrite Urine NEG (NEG); PH 5.5 (5.0-8.0); Urine Blood NEG (NEG); Urine Ketones NEG (NEG); Urine Protein NEG (NEG-TRACE)
[2021-07-16 15:29] LABS: Albumin Level 3.5 g/dL (3.5-5.0); Anion Gap 14 (12-20); Blood Urea Nitrogen 39 mg/dL (9-16); Calcium 9.5 mg/dL (8.4-10.2); Carbon Dioxide 26 mmol/L (22-29); Chloride 107 mmol/L (96-108); Estimated Glomerular Filt Rate 33; Magnesium 2.2 mg/dL (1.6-2.6); Phosphorus 4.3 mg/dL (2.7-4.5); Potassium 5.1 mmol/L (3.3-5.1); Sodium 142 mmol/L (135-145)
[2021-07-16 15:48] LABS: Microalbum/Creatinine Ratio Ur 16.8 ug/mg cr; Total Protein Urine Random < 7 mg/dL (<12)
[2021-07-16 15:51] LABS: Vitamin D 25-OH Total 57.3 ng/mL (>30)
[2021-07-17 11:31] LABS: Calcium (PTHI) 9.1 mg/dL (8.6-10.3); PTHI 62 pg/mL (16-77)
== END 2021-07-16 14:26 | disposition home or self-care (01) ==
LOC: HO.LAB 14:25
PROVIDERS: PCP Internal Medicine; Visit Provider Internal Medicine Nephrology
DX: N25.0 Renal osteodystrophy (principal); N18.32 Chronic kidney disease, stage 3b; M81.0 Age-related osteoporosis without current pathological fracture; E04.2 Nontoxic multinodular goiter
CPT/HCPCS: 36415; 80051; 81003; 82040; 82043; 82306; 82310; 82565; 83735; 83970; 84100; 84156; 84520; 85025; 87086; 99212

== ENCOUNTER → 2021-08-09 13:26 | Outpatient (BNVA) | payer MEDICARE, MEDICAID, SELFPAY | PROVIDERS: PCP Internal Medicine; Visit Provider Nurse Practitioner | DX: K21.9 Gastro-esophageal reflux disease without esophagitis (principal); K22.2 Esophageal obstruction; K22.4 Dyskinesia of esophagus | CPT/HCPCS: 99212 ==

== ENCOUNTER → 2021-12-03 15:03 | Outpatient (BNVA) | payer MEDICARE, MEDICAID, SELFPAY | PROVIDERS: PCP Internal Medicine; Referring Provider Internal Medicine; Visit Provider Internal Medicine | DX: I25.10 Atherosclerotic heart disease of native coronary artery without angina pectoris (principal); I10 Essential (primary) hypertension | CPT/HCPCS: 93005; 99212 ==

== ENCOUNTER 2021-12-18 07:33 | Outpatient (REF) | payer MEDICARE, MEDICAID, SELFPAY ==
[2021-12-18 07:49] LABS: MANUAL DIFF FLAG NO
[2021-12-18 07:56] LABS: Basophils Absolute Auto 0.1 X10*3/uL (0.0-0.2); Basophils Percent Auto 0.9 % (0-2); Eosinophils Absolute Auto 0.2 X10*3/uL (0.0-0.4); Eosinophils Percent Auto 3.3 % (0-4); Hematocrit 31.2 % (42.0-52.0); Hemoglobin 10.4 g/dl (14.0-18.0); Imm Gran Abs Auto 0.01 X10*3/uL (0.00-0.03); Imm Gran Pct Auto 0.2 % (0.0-0.4); Lymphocytes Percent Auto 36.2 % (20-40); Mean Corpuscular HGB Conc 33.3 g/dl (31.0-36.0); Mean Corpuscular Volume 93.1 fL (80.0-98.0); Mean Platelet Volume 9.8 fL (9.4-12.4); Monocytes Absolute Auto 0.5 X10*3/uL (0.1-1.2); Monocytes Percent Auto 9.8 % (2-11); Neutrophils Absolute Auto 2.7 x10*3/uL (2.0-8.3); Neutrophils Percent Auto 49.6 % (45-73); Platelet Count 186 X10*3/uL (160-400); Red Blood Count 3.35 X10*6/uL (4.60-5.80); Red Cell Distribution Width 12.9 % (11.0-16.0); White Blood Count 5.4 X10*3/uL (4.8-10.8)
[2021-12-18 08:05] LABS: Estimated Average Glucose 120 mg/dL; Hemoglobin A1c % 5.8 %
[2021-12-18 08:22] LABS: Alanine Aminotransferase 31 U/L (0-40); Albumin Level 3.5 g/dL (3.5-5.0); Alkaline Phosphatase 46 U/L (39-117); Anion Gap 15 (12-20); Aspartate Amino Transferase 29 U/L (5-37); Bilirubin Total 0.2 mg/dL (0.0-1.0); Blood Urea Nitrogen 39 mg/dL (9-16); Calcium 9.1 mg/dL (8.4-10.2); Carbon Dioxide 24 mmol/L (22-29); Chloride 107 mmol/L (96-108); Cholesterol 152 mg/dL; Estimated Glomerular Filt Rate 36; Glucose Random 116 mg/dL (60-115); HDL Cholesterol 56 mg/dL; Iron 76 mcg/dL (45-160); LDL Cholesterol Calculated 72 mg/dl; Percent Iron Saturation 24 % (15-50); Potassium 4.4 mmol/L (3.3-5.1); Sodium 142 mmol/L (135-145); Total Iron Binding Capacity 313 mcg/dL (228-428); Total Protein 6.1 g/dL (6.5-8.0); Triglycerides 124 mg/dL; Unsaturated Iron Binding 237 ug/dL
[2021-12-18 08:43] LABS: Ferritin 21 ng/mL (20-250); Free T4 (Free Thyroxine) 1.38 ng/dL (0.71-1.85); Thyroid Stimulating Hormone 1.21 uIU/mL (0.32-4.0); Vitamin D 25-OH Total 56.3 ng/mL (>30)
[2021-12-18 09:22] LABS: Folate > 20.0 ng/mL (> or = 4.0); Vitamin B12 > 2000 pg/mL (200-900)
[2021-12-25 21:06] LABS: PSA, Ultra Sensitive <0.02 ng/mL
== END 2021-12-18 07:34 | disposition home or self-care (01) ==
LOC: HO.LAB 07:33
PROVIDERS: Absent Provider Urology; PCP Internal Medicine; Visit Provider Internal Medicine Endocrinology, Diabetes & Metabolism
DX: Z12.5 Encounter for screening for malignant neoplasm of prostate (principal); E11.65 Type 2 diabetes mellitus with hyperglycemia; I10 Essential (primary) hypertension; C61 Malignant neoplasm of prostate; E78.00 Pure hypercholesterolemia, unspecified; M81.0 Age-related osteoporosis without current pathological fracture
CPT/HCPCS: 36415; 80053; 80061; 82043; 82306; 82607; 82728; 82746; 83036; 83540; 84153; 84439; 84443; 85025

== ENCOUNTER 2021-12-18 07:53 | Outpatient (REF) | payer MEDICARE, MEDICAID, SELFPAY ==
[2021-12-19 08:55] LABS: Creatinine Urine 154.06 mg/dL
[2021-12-19 08:57] LABS: Creatinine Urine 156.13 mg/dL; Microalbum/Creatinine Ratio Ur 8.3 ug/mg cr
== END 2021-12-18 07:54 | disposition home or self-care (01) ==
LOC: HO.LNP 07:53
PROVIDERS: Visit Provider Internal Medicine
DX: Z13.89 Encounter for screening for other disorder (principal)
CPT/HCPCS: 82043

== ENCOUNTER → 2021-12-19 14:06 | Outpatient (BNVA) | payer MEDICARE, MEDICAID, SELFPAY | PROVIDERS: PCP Internal Medicine; Visit Provider Internal Medicine Endocrinology, Diabetes & Metabolism | DX: M81.0 Age-related osteoporosis without current pathological fracture (principal); E04.2 Nontoxic multinodular goiter | CPT/HCPCS: 96372; 99212 ==

== ENCOUNTER → 2021-12-31 11:05 | Outpatient (BNVA) | payer MEDICARE, MEDICAID, SELFPAY | PROVIDERS: PCP Internal Medicine; Visit Provider Internal Medicine | DX: J43.9 Emphysema, unspecified (principal); G47.33 Obstructive sleep apnea (adult) (pediatric); Z79.899 Other long term (current) drug therapy; Z99.89 Dependence on other enabling machines and devices | CPT/HCPCS: 99212 ==

== ENCOUNTER 2022-01-01 10:20 | Outpatient (REF) | payer MEDICARE, MEDICAID, SELFPAY ==
--- NOTE | ~2022-01-01 | MM_ITS ---
EXAMINATION: BONE DENSITOMETRY CLINICAL INDICATION: Age-related osteoporosis without current pathological fracture. Prior lumbar vertebral augmentation at L3-L5. COMPARISON: Previous BD dated 12/22/2019 and baseline BD dated 12/06/2015. TECHNIQUE: Using a [employer] DXA System (software version: 13.1) manufactured by [employer], dual-energy x-ray absorptiometry was performed of the lumbar spine and left hip. The images are of good technical quality. Summary results are attached. FINDINGS: AP SPINE L1-L2 (excluding L3 and L4): The data of L1-L4 has been changed to exclude the L3 and L4 vertebral bodies, because prior vertebral augmentation at these levels may cause overestimation of lumbar spine density. Current: BMD 0.980 g/cm2, Z-score -0.6, T-score -1.8, osteopenia, 5.7% increase from previous, 75.3% increase from baseline (<5% change is not significant). Prior: BMD 0.927 g/cm2. Baseline: BMD 0.559 g/cm2. LEFT FEMUR, NECK: Current: BMD 0.742 g/cm2, Z-score -0.7, T-score -2.5, osteoporosis. Prior: BMD 0.739 g/cm2. Baseline: BMD 0.733 g/cm2. LEFT FEMUR, TOTAL: Current: BMD 0.614 g/cm2, Z-score -2.0, T-score -3.4, osteoporosis, 1.3% decrease from previous, 5.9% increase from baseline (<5% change is not significant). Prior: BMD 0.622 g/cm2. Baseline: BMD 0.580 g/cm2. IDENTIFIED RISK FACTORS: Osteoporosis, renal, dementia, height loss, history of fracture (adult). HISTORY OF FRACTURE: Spine, femur/hip, wrist. MEDICATIONS: Calcium supplements or multivitamin, vitamin D. MM/XR DEXA axial skeleton IMPRESSION: 1. DIAGNOSIS: Osteoporosis based on the lowest T-score value of -3.4 in the total femur applying World Health Organization criteria. 2. 10-YEAR FRACTURE RISK PREDICTION, FRAX: According to the guidelines, FRAX calculation should only be performed on patients in the osteopenia bone density category. Therefore, FRAX was not performed on this patient. 3. Treatment Recommendations: NOF guidelines recommend consideration for treatment in postmenopausal women and men age 50 and older presenting with the following: -A hip or vertebral (clinical or morphometric) fracture. -T-score less than or equal to -2.5 at the femoral neck or spine after appropriate evaluation to exclude secondary causes. -Low bone mass at the hip or spine and a 10-year fracture probability by FRAX of greater than or equal to 3% for hip fracture or greater than or equal to 20% for major osteoporotic fracture based on the [place] adapted WHO algorithm. 4. Other Recommendations: All treatment decisions require clinical judgment and consideration of individual patient factors, including patient preferences, comorbidities, previous drug use, risk factors not captured in the FRAX model (e.g. frailty, falls, vitamin D deficiency, increased bone turnover, interval significant decline in bone density) and possible under or overestimation of fracture risk by FRAX. Additional medical evaluation for secondary cause of low bone mineral density may be appropriate. FUTURE SCAN RECOMMENDATION: People with diagnosed cases of osteoporosis or at high risk for fracture should have regular bone mineral density tests. For patients eligible for Medicare, routine testing is allowed once every 2 years. The testing frequency can be increased to one year for patients who have rapidly progressing disease, those who are receiving or discontinuing medical therapy to restore bone mass, or have additional risk factors.
== END 2022-01-01 10:21 | disposition home or self-care (01) ==
LOC: HO.MAMMO 10:20
PROVIDERS: PCP Internal Medicine; Visit Provider Internal Medicine Endocrinology, Diabetes & Metabolism
DX: M81.0 Age-related osteoporosis without current pathological fracture (principal)
CPT/HCPCS: 77080

== ENCOUNTER 2022-01-31 19:13 | Emergency (ER) | payer MEDICARE, MEDICAID, SELFPAY ==
--- NOTE | ~2022-01-31 | XR_ITS ---
EXAMINATION: XR FOOT, RIGHT CLINICAL INFORMATION: Fifth toe infection rule out bony erosion. COMPARISON: None TECHNIQUE: AP, lateral, and oblique views of the right foot. FINDINGS: There is soft tissue swelling at the fifth toe. No appreciable osteolysis to indicate acute osteomyelitis. No additional soft tissue swelling is evident in the dorsal aspect of the forefoot and midfoot. No fractures. Mild first MTP osteoarthritis. Bones are osteopenic diffusely. XR/XR foot RT 2V IMPRESSION: Soft tissue swelling at the fifth toe. No radiographic findings of osteomyelitis.
[2022-01-31 20:31] VITALS: BP 111/47; PULSE 63; RESP 17; TEMP 36.8; O2SAT 99; BMI 26.5
--- NOTE | 2022-01-31 23:01 | ED_ITS ---
HPI - Extremity Problem General Chief complaint: Wound/Laceration Stated complaint: infection right toe swollen Time Seen by Provider: 01/31/22 22:49 Source: patient Mode of arrival: ambulatory Limitations: no limitations History of Present Illness HPI Narrative: Patient with history of mild diabetes noticed small callus with surrounding redness at the tip of right 5th toe 3 days ago home visiting nurse came started 3 days ago to cut the toenail but did not touch it as it seems to be infected since then redness has increased from the toe to the dorsum of the foot. No fever no pus discharge Related Data Home Medications Medication Instructions Recorded Confirmed bupropion HCl 200 mg tablet,12 hr PO 03/22/20 12/03/21 sustained-release cyanocobalamin (vitamin B-12) 1,000 mcg PO DAILY 03/22/20 12/03/21 1,000 mcg capsule trazodone 150 mg tablet 150 mg PO BEDTIME PRN 03/22/20 12/03/21 vitamin B complex 1 tab PO DAILY 03/22/20 12/03/21 furosemide 20 mg tablet 20 mg PO DAILY 10/25/20 12/03/21 citalopram 10 mg tablet 10 mg PO DAILY 12/03/21 12/03/21 Previous Rx's Medication Instructions Recorded albuterol sulfate 90 mcg/actuation 2 puff inhalation QID PRN 04/05/20 aerosol inhaler shortness of breath or wheezing #8.5 grams cholecalciferol (vitamin D3) 25 25 mcg PO DAILY 90 days #90 caps 10/25/20 mcg (1,000 unit) capsule nitroglycerin 0.4 mg sublingual 0.4 mg sublingual Q5M PRN chest 12/03/20 tablet pain #30 tabs commode bedside #1 ea 12/21/20 mirabegron 50 mg tablet,extended 50 mg PO DAILY 90 days #90 tabs 01/23/21 release 24 hr (Myrbetriq) ezetimibe 10 mg tablet 10 mg PO DAILY #90 tabs 03/11/21 aspirin 81 mg tablet,delayed 81 mg PO DAILY #90 tabs 03/26/21 release (Adult Low Dose Aspirin) rosuvastatin 40 mg tablet 40 mg PO DAILY 90 days #90 tabs 03/26/21 folic acid 1 mg tablet 1 mg PO DAILY #90 tabs 04/26/21 AUTOPAP 6-20 cm H20 humidified air #1 ea 05/27/21 budesonide-formoterol HFA 160 2 puff inhalation BID #10.2 grams 07/08/21 mcg-4.5 mcg/actuation aerosol inhaler (Symbicort) omeprazole 20 mg capsule,delayed 20 mg PO BID #180 caps 08/09/21 release oxycodone 5 mg tablet 5 mg PO BID PRN pain #30 tabs 10/24/21 atenolol 25 mg tablet 25 mg PO DAILY #90 tabs 11/19/21 calcium citrate 500 mg PO BID #120 tabs 01/08/22 imipramine HCl 10 mg tablet 10 mg PO BID 30 days #60 tabs 01/21/22 cephalexin 500 mg capsule 500 mg PO QID 10 days #40 caps 01/31/22 doxycycline hyclate 100 mg tablet 100 mg PO BID #20 tabs 01/31/22 mupirocin 2 % topical ointment 1 appl topical BID #15 grams 01/31/22 Allergies Allergy/AdvReac Type Severity Reaction Status Date / Time quetiapine [From SEROQUEL] Allergy Unknown UNKNOWN Verified 01/31/22 20:33 Review of Systems Review of Systems: Yes all other systems are reviewed and are negative PMFSH Past Medical History Medical History Bipolar disorder Chronic kidney disease (CKD) stage G3b/A1, moderately decreased glomerular filtration rate (GFR) between 30-44 mL/min/1.73 square meter and albuminuria creatinine ratio less than 30 mg/g COPD (chronic obstructive pulmonary disease) COPD (chronic obstructive pulmonary disease) Coronary artery disease DDD (degenerative disc disease), lumbar Dementia in Alzheimer's disease Hypercholesterolemia Impaired fasting glucose Metacarpal bone fracture Non-toxic multinodular goiter Obstructive sleep apnea Osteoporosis Peripheral vascular disease Prostate cancer T12 compression fracture Thyroid nodule Vitamin B12 deficiency Surgical History H/O kyphoplasty History of angioplasty History of appendectomy History of cataract surgery History of esophageal dilatation History of orthopedic surgery S/P fine needle aspiration Family History Family History Father Thyroid cancer Mother Colon cancer Daughter Primary squamous cell carcinoma of throat Social History Social History Household Members: Children Housing: House Alcohol intake: former Patient Tobacco Use Status: Former Tobacco user Tobacco use type: Cigarette e-Cigarette/Vaping Use: Never Used Second Hand Smoke Exposure: No Advance Directives: No Current occupational status: disabled Current occupational exposures/hazards: No Cognitive needs: No Hearing needs: Yes Vision needs: No Physical Exam Vital Signs: Vital Signs: Last Vital Signs Temp 98 F 01/31/22 23:39 Pulse 71 01/31/22 23:39 Resp 15 01/31/22 23:39 BP 184/74 H 01/31/22 23:39 Pulse Ox 99 01/31/22 23:39 O2 Del Method 01/31/22 23:39 BMI result Body Mass Index 26.5 Appearance: Alert. Oriented X3. No acute distress. CVS: Normal heart rate and rhythm. Pulses normal. Respiratory: No respiratory distress. Equal air entry bilateral, no wheezing/r ales/rhonchi Abdomen: Soft and nontender. Bowel sounds are present, Skin: Skin warm and dry. Normal skin color. Normal skin turgor. Extremities: No lower extremity edema. No calf tenderness/cellulitis on the dorsum of the right foot with infected callus right 5th toe no pus discharge Neuro: Oriented X 3. No motor deficit. No sensory deficit Extrem: Ankle/foot/toe images: 1. Small scab with surrounding cellulitis MDM - Extremity (Nontraumatic) MDM Narrative Medical decision making narrative: Patient with scab with cellulitis of 5th r toe, scab was removed ,will prescribe doxycycline Keflex, poc was 94 Procedures Abscess I/D Site: foot Side (if applicable): right Local Anesthetic: lidocaine 1% Amount of anesthesia used (mL): 1 Technique: incised with blade Amount of fluid expressed (mL): 0.5 Sent for culture/gram staining?: No Irrigation: No Discharge Plan Discharge Clinical Impression: Cellulitis of fifth toe of right foot Patient Disposition: Home, Self-Care Instructions: Cellulitis (ED) Additional Instructions: Local care as advised Apply Bactroban ointment twice daily at the affected area Antibiotic as prescribed Report to the ER/PCP spreading of the redness or swelling or fever Prescriptions: New cephalexin 500 mg capsule 500 mg PO QID 10 Days Qty: 40 0RF doxycycline hyclate 100 mg tablet 100 mg PO BID Qty: 20 0RF mupirocin 2 % ointment 1 appl topical BID Qty: 15 0RF No Action albuterol sulfate 90 mcg/actuation HFA aerosol inhaler 2 puff inhalation QID PRN (Reason: shortness of breath or wheezing) Qty: 8.5 0RF Myrbetriq 50 mg tablet extended release 24 hr 50 mg PO DAILY 90 Days Qty: 90 2RF ezetimibe 10 mg tablet 10 mg PO DAILY Qty: 90 3RF folic acid 1 mg tablet 1 mg PO DAILY Qty: 90 3RF budesonide-formoterol [Symbicort] 160-4.5 mcg/actuation HFA aerosol inhaler 2 puff inhalation BID Qty: 10.2 11RF atenolol 25 mg tablet 25 mg PO DAILY Qty: 90 3RF calcium citrate 250 mg calcium tablet 500 mg PO BID Qty: 120 0RF imipramine HCl 10 mg tablet 10 mg PO BID 30 Days Qty: 60 1RF (DME) commode bedside See Rx Instructions .Route .MEDSUPPLY Qty: 1 0RF Rx Instructions: As directed aspirin [Adult Low Dose Aspirin] 81 mg tablet,delayed release (DR/EC) 81 mg PO DAILY Qty: 90 3RF rosuvastatin 40 mg tablet 40 mg PO DAILY 90 Days Qty: 90 3RF cyanocobalamin (vitamin B-12) 1,000 mcg capsule 1,000 mcg PO DAILY vitamin B complex Tablet 1 tab PO DAILY trazodone 150 mg tablet 150 mg PO BEDTIME PRN bupropion HCl 200 mg tablet sustained-release 12 hr PO oxycodone 5 mg tablet 5 mg PO BID PRN (Reason: pain) Qty: 30 0RF Rx Instructions: Partial Fill upon patient request. (DME) AUTOPAP 6-20 cm H20 humidified air See Rx Instructions .Route .MEDSUPPLY Qty: 1 0RF Rx Instructions: As directed nitroglycerin 0.4 mg tablet, sublingual 0.4 mg sublingual Q5M PRN (Reason: chest pain) Qty: 30 5RF Rx Instructions: do not exceed 3 doses per episode citalopram 10 mg tablet 10 mg PO DAILY furosemide 20 mg tablet 20 mg PO DAILY cholecalciferol (vitamin D3) 25 mcg (1,000 unit) capsule 25 mcg PO DAILY 90 Days Qty: 90 2RF omeprazole 20 mg capsule,delayed release(DR/EC) 20 mg PO BID Qty: 180 2RF
[2022-01-31 23:39] VITALS: BP 184/74; PULSE 71; RESP 15; TEMP 36.6; O2SAT 99
--- NOTE | 2022-01-31 23:45 | PC.NURSE ---
Dr. Fox requested PT POC . Results at 92. AWARE OF RESULTS
[2022-01-31 23:50] LABS: Glucose, Whole Blood 92 mg/dL (60-115)
[2022-01-31] MEDS: Lidocaine HCl 1 % MPF 2 ML VIAL INFILTRATI (23:55)
== END 2022-01-31 23:58 | disposition home or self-care (01) ==
PROVIDERS: Emergency Provider Internal Medicine; PCP Internal Medicine
DX: L03.031 Cellulitis of right toe (principal); Z87.891 Personal history of nicotine dependence; Z79.899 Other long term (current) drug therapy
CPT/HCPCS: 10060; 73620; 82947; 99283; 99284

== ENCOUNTER 2022-02-11 11:13 | Outpatient (REF) | payer MEDICARE, MEDICAID, SELFPAY ==
[2022-02-11 12:05] LABS: MANUAL DIFF FLAG NO
[2022-02-11 12:45] LABS: Basophils Absolute Auto 0.1 X10*3/uL (0.0-0.2); Basophils Percent Auto 0.8 % (0-2); Eosinophils Absolute Auto 0.1 X10*3/uL (0.0-0.4); Eosinophils Percent Auto 1.6 % (0-4); Hematocrit 33.4 % (42.0-52.0); Imm Gran Abs Auto 0.02 X10*3/uL (0.00-0.03); Imm Gran Pct Auto 0.3 % (0.0-0.4); Lymphocytes Absolute Auto 1.5 X10*3/uL (1.2-4.9); Lymphocytes Percent Auto 22.8 % (20-40); Mean Corpuscular HGB Conc 32.9 g/dl (31.0-36.0); Mean Corpuscular Hemoglobin 30.6 pg (27.0-33.0); Mean Platelet Volume 10.1 fL (9.4-12.4); Monocytes Absolute Auto 0.4 X10*3/uL (0.1-1.2); Monocytes Percent Auto 6.9 % (2-11); Neutrophils Absolute Auto 4.3 x10*3/uL (2.0-8.3); Neutrophils Percent Auto 67.6 % (45-73); Platelet Count 207 X10*3/uL (160-400); Red Blood Count 3.59 X10*6/uL (4.60-5.80); Red Cell Distribution Width 13.3 % (11.0-16.0); White Blood Count 6.4 X10*3/uL (4.8-10.8)
[2022-02-11 13:36] LABS: Alanine Aminotransferase 23 U/L (0-40); Albumin Level 3.4 g/dL (3.5-5.0); Alkaline Phosphatase 50 U/L (39-117); Anion Gap 14 (12-20); Aspartate Amino Transferase 26 U/L (5-37); Bilirubin Total 0.3 mg/dL (0.0-1.0); Blood Urea Nitrogen 58 mg/dL (9-16); Calcium 9.5 mg/dL (8.4-10.2); Carbon Dioxide 23 mmol/L (22-29); Chloride 107 mmol/L (96-108); Estimated Glomerular Filt Rate 33; Glucose Random 140 mg/dL (60-115); Sodium 139 mmol/L (135-145); TSH reflex Free T4 0.64 uIU/mL (0.32-4.0)
[2022-02-11 16:19] LABS: Folate > 20.0 ng/mL (> or = 4.0); Vitamin B12 > 2000 pg/mL (200-900)
[2022-02-12 05:48] LABS: Syphilis Screen Nonreactive (Nonreactive)
== END 2022-02-11 11:14 | disposition home or self-care (01) ==
LOC: HO.LAB 11:13
PROVIDERS: Absent Provider Nurse Practitioner Psychiatric/Mental Health; PCP Internal Medicine; Visit Provider Urology
DX: K21.9 Gastro-esophageal reflux disease without esophagitis (principal); K22.2 Esophageal obstruction; K22.4 Dyskinesia of esophagus; K59.00 Constipation, unspecified; D12.6 Benign neoplasm of colon, unspecified
CPT/HCPCS: 36415; 80053; 82607; 82746; 84443; 85025; 86780; 99212

== ENCOUNTER → 2022-02-25 11:06 | Outpatient (BNVA) | payer MEDICARE, MEDICAID, SELFPAY | PROVIDERS: PCP Internal Medicine; Visit Provider Urology | DX: C61 Malignant neoplasm of prostate (principal); R35.0 Frequency of micturition | CPT/HCPCS: Q3014 ==

== ENCOUNTER 2022-04-11 10:32 | Outpatient (RCR) | payer MEDICARE, MEDICAID, SELFPAY | END 2022-05-06 13:59 | disposition home or self-care (01) | LOC: HO.WCC 10:32 | PROVIDERS: PCP Internal Medicine; Visit Provider Physician Assistant | DX: L97.511 Non-pressure chronic ulcer of other part of right foot limited to breakdown of skin (principal); I73.9 Peripheral vascular disease, unspecified; R60.9 Edema, unspecified; M20.40 Other hammer toe(s) (acquired), unspecified foot; R73.03 Prediabetes; J44.9 Chronic obstructive pulmonary disease, unspecified; I25.10 Atherosclerotic heart disease of native coronary artery without angina pectoris; I25.2 Old myocardial infarction; I12.9 Hypertensive chronic kidney disease with stage 1 through stage 4 chronic kidney disease, or unspecified chronic kidney disease; N18.9 Chronic kidney disease, unspecified; Z87.891 Personal history of nicotine dependence; Z92.3 Personal history of irradiation | CPT/HCPCS: 97597; 99212 ==

== ENCOUNTER 2022-04-21 12:52 | Outpatient (REF) | payer MEDICARE, MEDICAID, SELFPAY ==
--- NOTE | ~2022-04-21 | US_ITS ---
EXAMINATION: NONINVASIVE ASSESSMENT OF THE ARTERIES OF THE RIGHT LOWER EXTREMITIES WITH PVR EXAM AND RIGHT LOWER EXTREMITY DUPLEX Antoinette Archibald MD CLINICAL INFORMATION: Peripheral vascular disease TECHNIQUE: Ankle pulse volume recordings, ankle pressure measurements and ankle brachial indices were obtained of the lower extremity arterial system bilaterally in addition to duplex Doppler techniques with wave form analysis and measurement of velocities in the common femoral, profunda femoral, superficial femoral, popliteal and tibial arteries. The study was performed only at rest. COMPARISON: None FINDINGS: a) AT REST: RIGHT LE. The right ankle-brachial index is: 0.79 * >0.97-1.25 = normal - no significant arterial disease * 0.75-0.96 = mild peripheral arterial disease * 0.5-0.74 = moderate peripheral arterial disease * <0.50 = severe peripheral arterial disease 2. Right ankle pressure: Abnormal 3. Right ankle PVR waveform: Abnormal 4. Right direct duplex Doppler findings: Common femoral artery: 91 cm/s, monophasic Profunda femoris artery: 456 cm/s, monophasic4 Superficial femoral artery (proximal): 481 cm/s, monophasic Superficial femoral artery (mid): 21 cm/s, monophasic Superficial femoral artery (distal): Occluded Proximal Popliteal artery: 530 cm/s, monophasic Mid posterior tibial artery: 41 cm/s, monophasic US/US arterial duplex LE RT IMPRESSION: RIGHT LOWER EXTREMITY: Severe peripheral arterial disease with monophasic flow throughout the right lower extremity. Severe stenosis of the right profunda, proximal-mid SFA, and popliteal artery. Short segment occlusion of the distal SFA.
--- NOTE | ~2022-04-21 | US_ITS ---
EXAMINATION: NONINVASIVE ASSESSMENT OF THE ARTERIES OF THE RIGHT LOWER EXTREMITIES WITH PVR EXAM AND RIGHT LOWER EXTREMITY DUPLEX Antoinette Archibald MD CLINICAL INFORMATION: Peripheral vascular disease TECHNIQUE: Ankle pulse volume recordings, ankle pressure measurements and ankle brachial indices were obtained of the lower extremity arterial system bilaterally in addition to duplex Doppler techniques with wave form analysis and measurement of velocities in the common femoral, profunda femoral, superficial femoral, popliteal and tibial arteries. The study was performed only at rest. COMPARISON: None FINDINGS: a) AT REST: RIGHT LE. The right ankle-brachial index is: 0.79 * >0.97-1.25 = normal - no significant arterial disease * 0.75-0.96 = mild peripheral arterial disease * 0.5-0.74 = moderate peripheral arterial disease * <0.50 = severe peripheral arterial disease 2. Right ankle pressure: Abnormal 3. Right ankle PVR waveform: Abnormal 4. Right direct duplex Doppler findings: Common femoral artery: 91 cm/s, monophasic Profunda femoris artery: 456 cm/s, monophasic4 Superficial femoral artery (proximal): 481 cm/s, monophasic Superficial femoral artery (mid): 21 cm/s, monophasic Superficial femoral artery (distal): Occluded Proximal Popliteal artery: 530 cm/s, monophasic Mid posterior tibial artery: 41 cm/s, monophasic US/US KIMI complete IMPRESSION: RIGHT LOWER EXTREMITY: Severe peripheral arterial disease with monophasic flow throughout the right lower extremity. Severe stenosis of the right profunda, proximal-mid SFA, and popliteal artery. Short segment occlusion of the distal SFA.
== END 2022-04-21 12:53 | disposition home or self-care (01) ==
LOC: HO.US 12:52
PROVIDERS: PCP Internal Medicine; Visit Provider Physician Assistant
DX: L97.511 Non-pressure chronic ulcer of other part of right foot limited to breakdown of skin (principal); I73.9 Peripheral vascular disease, unspecified
CPT/HCPCS: 93923; 93926

== ENCOUNTER 2022-06-18 13:51 | Outpatient (REF) | payer MEDICARE, MEDICAID, SELFPAY ==
[2022-06-18 16:19] LABS: Albumin Level 3.1 g/dL (3.5-5.0); Anion Gap 12 (12-20); Blood Urea Nitrogen 26 mg/dL (9-16); Calcium 8.7 mg/dL (8.4-10.2); Carbon Dioxide 26 mmol/L (22-29); Chloride 111 mmol/L (96-108); Estimated Glomerular Filt Rate 50; Glucose Random 83 mg/dL (60-115); Potassium 5.3 mmol/L (3.3-5.1); Sodium 144 mmol/L (135-145)
== END 2022-06-18 13:52 | disposition home or self-care (01) ==
LOC: HO.LAB 13:51
PROVIDERS: PCP Internal Medicine; Visit Provider Internal Medicine Endocrinology, Diabetes & Metabolism
DX: M81.0 Age-related osteoporosis without current pathological fracture (principal); E04.2 Nontoxic multinodular goiter
CPT/HCPCS: 36415; 80048; 82040; 99212

== ENCOUNTER → 2022-08-12 14:22 | Outpatient (BNVA) | payer MEDICARE, MEDICAID, SELFPAY | PROVIDERS: PCP Internal Medicine; Visit Provider Internal Medicine Endocrinology, Diabetes & Metabolism | DX: M81.0 Age-related osteoporosis without current pathological fracture (principal) | CPT/HCPCS: 96372 ==

== ENCOUNTER 2022-08-19 14:23 | Outpatient (REF) | payer MEDICARE, MEDICAID, SELFPAY ==
--- NOTE | ~2022-08-19 | XR_ITS ---
EXAMINATION: XR LUMBOSACRAL SPINE CLINICAL INFORMATION: Lower back pain after fall. COMPARISON: CT lumbar spine 04/14/2016. TECHNIQUE: Three views of the lumbosacral spine. FINDINGS: There is normal lumbar lordosis. There is cement augmentation for old compression fractures L3, L4, and L5 vertebra. Moderate loss of L1, T12 and T10 vertebral heights is noted. The L1 compression fracture is new since 2017 CT. There is diffuse osteopenia. No lytic or sclerotic process seen. The paravertebral soft tissues are normal. SI joints are normal. XR/XR lumbar spine 2-3V IMPRESSION: 1. L1 compression fracture is new since the 2016 CT. 2. There are old compression fractures L3, L4 and L5 vertebra with cement augmentation. 3. There is moderate loss of T10, T12 and L1 vertebral heights. The T12 fracture is old and visualized on previous CT exam 2017. 4. There is diffuse osteopenia.
== END 2022-08-19 14:24 | disposition home or self-care (01) ==
LOC: HO.XRAY 14:23
PROVIDERS: PCP Internal Medicine; Visit Provider Internal Medicine
DX: M51.36 Other intervertebral disc degeneration, lumbar region (principal)
CPT/HCPCS: 72100

== ENCOUNTER 2022-08-26 14:13 | Outpatient (REF) | payer MEDICARE, MEDICAID, SELFPAY ==
[2022-08-26 14:42] LABS: MANUAL DIFF FLAG NO
[2022-08-26 15:11] LABS: Basophils Percent Auto 0.5 % (0-2); Eosinophils Absolute Auto 0.1 X10*3/uL (0.0-0.4); Eosinophils Percent Auto 2.2 % (0-4); Hematocrit 30.8 % (42.0-52.0); Hemoglobin 9.9 g/dl (14.0-18.0); Imm Gran Abs Auto 0.01 X10*3/uL (0.00-0.03); Imm Gran Pct Auto 0.2 % (0.0-0.4); Lymphocytes Absolute Auto 1.5 X10*3/uL (1.2-4.9); Lymphocytes Percent Auto 26.5 % (20-40); Mean Corpuscular HGB Conc 32.1 g/dl (31.0-36.0); Mean Corpuscular Hemoglobin 30.2 pg (27.0-33.0); Mean Corpuscular Volume 93.9 fL (80.0-98.0); Monocytes Absolute Auto 0.5 X10*3/uL (0.1-1.2); Monocytes Percent Auto 9.3 % (2-11); Neutrophils Absolute Auto 3.4 x10*3/uL (2.0-8.3); Neutrophils Percent Auto 61.3 % (45-73); Platelet Count 215 X10*3/uL (160-400); Red Blood Count 3.28 X10*6/uL (4.60-5.80); Red Cell Distribution Width 14.2 % (11.0-16.0); White Blood Count 5.5 X10*3/uL (4.8-10.8)
[2022-08-26 15:13] LABS: Appearance Urine Clear; Color Urine Yellow; Glucose Urine UA Negative (Negative); Leukocyte Esterase Urine Negative (Negative); Nitrite Urine Negative (Negative); PH 5.5 (5.0-9.0); Urine Blood Negative (Negative); Urine Ketones Negative (Negative); Urine Protein Negative (Neg-Trace)
[2022-08-26 15:44] LABS: Albumin Level 3.4 g/dL (3.5-5.0); Anion Gap 10 (12-20); Blood Urea Nitrogen 31 mg/dL (9-16); Calcium 8.2 mg/dL (8.4-10.2); Carbon Dioxide 23 mmol/L (22-29); Chloride 114 mmol/L (96-108); Creatinine Urine 65.48 mg/dL; Estimated Glomerular Filt Rate 47; Magnesium 2.4 mg/dL (1.6-2.6); Microalbum/Creatinine Ratio Ur 35.1 ug/mg cr; Phosphorus 2.8 mg/dL (2.7-4.5); Potassium 5.2 mmol/L (3.3-5.1); Protein/Creatinine Ratio, Ur 0.12 (<0.2); Sodium 142 mmol/L (135-145); Total Protein Urine Random 8 mg/dL (<12)
[2022-08-26 16:00] LABS: Vitamin D 25-OH Total 60.9 ng/mL (>30)
[2022-08-26 16:05] LABS: Prostate Specific Antigen < 0.10 ng/mL (<0.05-4.0)
[2022-08-27 14:09] LABS: Calcium (PTHI) 8.3 mg/dL (8.6-10.3); PTHI 187 pg/mL (16-77)
== END 2022-08-26 14:14 | disposition home or self-care (01) ==
LOC: HO.LAB 14:13
PROVIDERS: Urology; PCP Internal Medicine; Visit Provider Internal Medicine Nephrology
DX: Z12.5 Encounter for screening for malignant neoplasm of prostate (principal); R35.0 Frequency of micturition; C61 Malignant neoplasm of prostate; Z13.89 Encounter for screening for other disorder
CPT/HCPCS: 36415; 80051; 81003; 82040; 82043; 82306; 82310; 82565; 83735; 83970; 84100; 84153; 84156; 84520; 85025; 87086; 87088; 87186

== ENCOUNTER → 2022-10-01 10:21 | Outpatient (BNVA) | payer MEDICARE, MEDICAID, SELFPAY | PROVIDERS: PCP Internal Medicine; Visit Provider Nurse Practitioner | DX: Z01.818 Encounter for other preprocedural examination (principal); K21.9 Gastro-esophageal reflux disease without esophagitis; K59.00 Constipation, unspecified; Z86.010 Personal history of colon polyps; Z79.899 Other long term (current) drug therapy | CPT/HCPCS: 99212 ==

== ENCOUNTER 2023-01-06 15:04 | Outpatient (AMB) | payer MEDICARE, MEDICAID, SELFPAY ==
[2023-01-06 15:19] VITALS: BP 130/62; PULSE 66; BMI 27.0
--- NOTE | 2023-01-06 15:19 | MHC.OFFVIS ---
Intake Vital Signs 01/06/23 15:19 Height 5 ft Weight 138 lb 0.15 oz BMI 27.0 BP 130/62 Blood Pressure Location Lt brachial Position Sitting Pulse 66 Intake Visit Reasons: 1 year follow up Intake Note: 1 year f/u Allergies quetiapine [From SEROQUEL] Allergy (Unknown, Verified 01/06/23 15:24) UNKNOWN Medication List - Last Reconciled 01/06/23 by MEDARDO Harper albuterol sulfate 90 mcg/actuation 2 puffs inhalation QID PRN aspirin (Adult Low Dose Aspirin) 81 mg PO DAILY atenolol 25 mg PO DAILY [AUTOPAP 6-20 cm H20 humidified air As directed] budesonide-formoterol 160-4.5 mcg/actuation (Symbicort) 2 puffs inhalation BID bupropion HCl 200 mg PO DAILY calcium citrate 500 mg (2 x 250 mg calcium) PO BID cholecalciferol (vitamin D3) 25 mcg PO DAILY 90 days citalopram 15 mg PO DAILY [commode bedside As directed] cyanocobalamin (vitamin B-12) 1,000 mcg PO DAILY denosumab (Prolia) 60 mg subcut [id number] ezetimibe 10 mg PO DAILY folic acid 1 mg PO DAILY furosemide 20 mg PO DAILY imipramine HCl 10 mg PO BID 90 days lactulose mL PO mirabegron ER (Myrbetriq) 50 mg PO DAILY 30 days mupirocin 2% 1 appl topical BID nitroglycerin 0.4 mg sublingual Q5M PRN omeprazole 20 mg PO BID oxycodone 5 mg PO BID PRN peg 3350-electrolytes 236-22.74-6.74 -5.86 gram (Golytely) 240 mL PO Q10M 1 day rosuvastatin 40 mg PO DAILY 90 days trazodone 150 mg PO BEDTIME PRN vitamin B complex 1 tab PO DAILY HPI 1 year follow up HPI Details Jorge Luis is a 77-year-old male with past medical history of hyperlipidemia, impaired fasting glucose, peripheral vascular disease, coronary artery disease who presents for follow-up. Today he reports that he has not had any known cardiac issues since his last visit here 12/03/2021. He has had issues with compression fractures and underwent kyphoplasty on 2 or 3 occasions. He also describes having a nonhealing wound on his right toe then had amputation of the toe and stents placed in his right leg arteries. He has not been experiencing any chest discomfort at rest or with activity. He is only mild shortness of breath with exertion but admits to being mostly sedentary. No shortness of breath at rest, PND, orthopnea. He does have some mildly pitting edema in his lower legs, left greater than right. According to patient this is not a new finding for him. Ambulates only short distances at home due to his back. He is in a wheelchair at this visit. Family member present. Taking all meds as directed. [facility] Medical History (Updated 01/06/23 @ 16:27 by Purvi Rodríguez, ELIAN-C) Presence of stent in artery COPD (chronic obstructive pulmonary disease) Non-toxic multinodular goiter T12 compression fracture Peripheral vascular disease Hypercholesterolemia Thyroid nodule Vitamin B12 deficiency Chronic kidney disease (CKD) stage G3b/A1, moderately decreased glomerular filtration rate (GFR) between 30-44 mL/min/1.73 square meter and albuminuria creatinine ratio less than 30 mg/g Prostate cancer Obstructive sleep apnea Dementia in Alzheimer's disease Bipolar disorder COPD (chronic obstructive pulmonary disease) Coronary artery disease Metacarpal bone fracture Impaired fasting glucose Osteoporosis DDD (degenerative disc disease), lumbar Surgical History H/O colonoscopy S/P fine needle aspiration H/O kyphoplasty History of esophageal dilatation History of cataract surgery History of orthopedic surgery History of angioplasty History of appendectomy Family History Father Thyroid cancer Mother Colon cancer Daughter Primary squamous cell carcinoma of throat Social History Household Members: Children Housing: House Alcohol intake: former Patient Tobacco Use Status: Former Tobacco user Tobacco use type: Cigarette e-Cigarette/Vaping Use: Never Used Second Hand Smoke Exposure: No service: No Current occupational status: disabled Current occupational exposures/hazards: No Cognitive needs: No Hearing needs: Yes Vision needs: No Review of Systems Const Details: Chronic back pain, mostly sedentary, using wheelchair today, uses walker at home All systems reviewed & are unremarkable except as noted in HPI and below ENT Denies dizziness Card Denies chest pain, Denies chest pain at rest, Denies chest pain with activity, Denies pedal edema, Denies edema, Denies leg edema, Denies lightheadedness, Denies palpitations, Denies dyspnea, Reports dyspnea on exertion and Denies orthopnea Resp Denies cough, Denies dyspnea and Reports dyspnea on exertion GI Denies hematochezia and Denies change in stool character Musc Reports abnormal gait, Reports limited range of motion, Denies muscle cramps, Denies muscle weakness, Denies numbness, Denies radiating pain into limb, Denies stiffness and Denies tingling Neuro Reports abnormal gait, Denies dizziness, Denies numbness and Denies tingling Endo Denies palpitations Physical Exam Vital Signs: Last Vital Signs Pulse 66 01/06/23 15:19 BP 130/62 01/06/23 15:19 BMI result Body Mass Index 27.0 Const Other: Frail elderly male General: cooperative, comfortable and no acute distress Orientation/consciousness: patient oriented x3 Neck Neck: Yes normal visual inspection Resp Effort & Inspection: normal respiratory effort Auscultation: clear to auscultation bilaterally, no crackles, no rales, no rhonchi and no wheezes Cardio Jugular venous distension: no JVD Rate: regular rate Rhythm: regular rhythm Heart sounds: S1 normal heart sound present, S2 normal heart sound present, no murmurs and no rubs Neuro General: patient oriented x3 Extrem General: Yes normal to inspection Psych Appearance: grossly normal Mental Status: mental status grossly normal Assessment & Plan Assessment & Plan (1) Coronary artery disease: Comment: Lack stent placement in left circumflex 1999 clear stress test August 2008 and negative stress test August 05 1019-echo normal LV grade 1 diastolic dysfunction August 2018 Code(s): I25.10 - Atherosclerotic heart disease of [place] coronary artery without angina pectoris Qualifiers: Associated angina: without angina Coronary Disease-Associated Artery/Lesion type: [place] artery [place] vs. transplanted heart: [place] heart Qualified Code(s): I25.10 - Atherosclerotic heart disease of [place] coronary artery without angina pectoris Plan: Reported history of CAD with prior left circumflex stent, remotely. Last echo done 2018 showing EF 60-65%, mild diastolic dysfunction, mild aortic regurgitation. EKG done today showing normal sinus rhythm with no acute ST or T-wave abnormalities, rate 66, QTC 457 milliseconds. No reports of chest discomfort at rest or with activity. Mostly sedentary. Will continue med management for stable CAD including aspirin indefinitely, continue rosuvastatin and Zetia with LDL goal less than 70. Last lipids in our system 12/18/21 shows LDL 72. He is due for updated lipid profile, labs followed by PCP. Signs and symptoms of angina reviewed with him. Emergency care if ever needed for symptoms. Cardiology follow-up in 1 year, sooner if needed (2) Essential hypertension: Code(s): I10 - Essential (primary) hypertension Plan: Well controlled at present. No med changes made. Continue atenolol (3) Peripheral vascular disease: Code(s): I73.9 - Peripheral vascular disease, unspecified Plan: Lower extremity peripheral vascular disease followed by Dr. Booth at [facility] [place]. Recently had PCI to his right leg receiving right SFA to right popliteal stent and 2nd stent in right SFA. Coding Level of Care Code Est Pt Level 4 (66792) Diagnoses Coronary artery disease involving [place] coronary artery of [place] heart without angina pectoris I25.10 Associated angina: without angina Coronary Disease-Associated Artery/Lesion type: [place] artery [place] vs. transplanted heart: [place] heart Essential hypertension I10 Peripheral vascular disease I73.9 Time Spent (min) 28
== END 2023-01-06 15:53 | disposition home or self-care (01) ==
PROVIDERS: PCP Internal Medicine; Visit Provider Nurse Practitioner Family
DX: I25.10 Atherosclerotic heart disease of native coronary artery without angina pectoris (principal); I10 Essential (primary) hypertension; I73.9 Peripheral vascular disease, unspecified
CPT/HCPCS: 99214

== ENCOUNTER → 2023-01-06 15:04 | Outpatient (BNVA) | payer MEDICARE, MEDICAID, SELFPAY | PROVIDERS: PCP Internal Medicine; Visit Provider Nurse Practitioner Family | DX: I25.10 Atherosclerotic heart disease of native coronary artery without angina pectoris (principal); I10 Essential (primary) hypertension; I73.9 Peripheral vascular disease, unspecified; Z79.82 Long term (current) use of aspirin; Z79.899 Other long term (current) drug therapy; Z95.820 Peripheral vascular angioplasty status with implants and grafts | CPT/HCPCS: 99212 ==

== ENCOUNTER 2023-02-03 06:59 | Day surgery (SDC) | payer MEDICARE, MEDICAID, SELFPAY ==
[2023-01-30 13:56] VITALS: BMI 25.8
[2023-02-03 07:13] VITALS: BMI 26.4
--- NOTE | 2023-02-03 07:34 | P.CONAN_ITS ---
[facility] Active Problems Active Problems: All Active Problems (Updated 01/30/23 @ 13:44 by Yulisa Ferrer RN) Pre-op examination (Acute) Lumbar vertebral fracture (Acute) Peripheral arterial disease (Acute) Foot ulcer, right (Acute) Cellulitis of toe of right foot (Acute) Tubular adenoma of colon (Acute) Type 2 diabetes mellitus with hyperglycemia (Acute) Onychodystrophy (Acute) Essential hypertension (Acute) Atherosclerotic cardiovascular disease (Acute) Constipation (Acute) Hip pain, right (Acute) Urinary frequency (Acute) Urinary urgency (Acute) Esophageal dysmotility (Acute) Esophageal stricture (Acute) GERD (gastroesophageal reflux disease) (Acute) Dermatitis (Acute) Tinea corporis (Acute) Somnambulism (Acute) Peripheral vascular disease (Acute) DDD (degenerative disc disease), lumbar (Acute) Osteoporosis (Acute) Coronary artery disease (Acute) COPD (chronic obstructive pulmonary disease) (Acute) Bipolar disorder (Acute) Obstructive sleep apnea (Acute) Prostate cancer (Acute) Chronic kidney disease (CKD) stage G3b/A1, moderately decreased glomerular filtration rate (GFR) between 30-44 mL/min/1.73 square meter and albuminuria creatinine ratio less than 30 mg/g (Acute) Hypercholesterolemia (Acute) Non-toxic multinodular goiter (Acute) Past Medical History Medical History CAD (coronary artery disease) Presence of stent in artery Non-toxic multinodular goiter T12 compression fracture Peripheral vascular disease Hypercholesterolemia Thyroid nodule Vitamin B12 deficiency Chronic kidney disease (CKD) stage G3b/A1, moderately decreased glomerular filtration rate (GFR) between 30-44 mL/min/1.73 square meter and albuminuria creatinine ratio less than 30 mg/g Prostate cancer Obstructive sleep apnea Dementia in Alzheimer's disease Bipolar disorder COPD (chronic obstructive pulmonary disease) Coronary artery disease Metacarpal bone fracture Impaired fasting glucose Osteoporosis DDD (degenerative disc disease), lumbar Family History Family History Father Thyroid cancer Mother Colon cancer Daughter Primary squamous cell carcinoma of throat Surgical History Surgical History H/O colonoscopy S/P fine needle aspiration H/O kyphoplasty History of esophageal dilatation History of cataract surgery History of orthopedic surgery History of angioplasty History of appendectomy History of Problems with Anesthesia: No Social History Social History Household Members: Children Housing: House Alcohol intake: former Patient Tobacco Use Status: Former Tobacco user Quit Date: 30 yr ago Tobacco use type: Cigarette e-Cigarette/Vaping Use: Never Used Second Hand Smoke Exposure: No Use of substances other than those prescribed or required for medical reasons: No Are you DNR?: No Advance Directives: No Advance Directives Information Provided: Yes service: No Current occupational status: disabled Current occupational exposures/hazards: No Cognitive needs: No Hearing needs: Yes Vision needs: No Meds Allergies Allergy/AdvReac Type Severity Reaction Status Date / Time quetiapine [From SEROQUEL] Allergy Unknown UNKNOWN Verified 01/06/23 15:24 Active Medications: Current Medications Lactated Ringer's (Lr) 1,000 mls @ 50 mls/hr IVCONT .Q20H [facility] Home Medications Medication Instructions Recorded Confirmed Last Taken Type cyanocobalamin (vitamin B-12) 1,000 mcg PO DAILY 03/22/20 01/30/23 Unknown History 1,000 mcg capsule trazodone 150 mg tablet 150 mg PO BEDTIME PRN Insomnia 03/22/20 01/30/23 Unknown History vitamin B complex 1 tab PO DAILY 03/22/20 01/30/23 Unknown History bupropion HCl 200 mg tablet,12 hr 200 mg PO DAILY 02/11/22 01/30/23 Unknown History sustained-release lactulose 10 gram/15 mL oral 10 ml PO DAILY 02/11/22 01/30/23 Unknown History solution citalopram 10 mg tablet 15 mg PO DAILY 08/19/22 01/30/23 Unknown History Exam Exam Date and Time: February 03, 2023 0734 Height,Weight and Vital Signs: Height 5 ft Weight 61.235 kg Airway Mallampati Class: II (edentulous) Loose/Missing/Broken Teeth: Yes, Upper and Lower Heart: RRR Lungs: CTA Assessment and Plan Assessment Anesthesia Assessment: Anesthesia Plan Discussed and Chart Reviewed Final Anesthetic Review History of Problems with Anesthesia: No NPO: Yes ASA Class: III Final Preanesthetic Review: Meds/Allgs Chart Reviewed, Consent Obtained/Reviewed and Anes Risks/Benef Reviewed Patient Risk: Intermediate Procedure Risk: Low Anesthetic Plan Anesthetic Plan: MAC: Disposition: Standard PACU
[2023-02-03 07:35] VITALS: BP 186/70; PULSE 78; RESP 18; TEMP 36.1; O2SAT 99
[2023-02-03 07:41] LABS: Glucose, Whole Blood 110 mg/dL (60-115)
--- NOTE | 2023-02-03 08:10 | MHC.SHP ---
Pre-Procedural Eval Section A Date of Service: 02/03/23 Section B Chief Complaint: Benign neoplasm of colon,constipation Relevant Family History (Specify if Yes): No Relevant Social History: None Present Medications: see Short Stay Collaborative assessment Medical History: Significant History (CAD (coronary artery disease) Presence of stent in artery Non-toxic multinodular goiter T12 compression fracture Peripheral vascular disease Hypercholesterolemia Thyroid nodule Vitamin B12 deficiency Chronic kidney disease (CKD) stage G3b/A1, moderately decreased glomerular filtration rate (GFR) bet) History of Previous Operations: Relevant previous surgery/procedure and date(s) (CAD (coronary artery disease) Presence of stent in artery Non-toxic multinodular goiter T12 compression fracture Peripheral vascular disease Hypercholesterolemia Thyroid nodule Vitamin B12 deficiency Chronic kidney disease (CKD) stage G3b/A1, moderately decreased glomerular filtration rate (GFR) bet) Allergies: Allergies Allergy/AdvReac Type Severity Reaction Status Date / Time quetiapine [From SEROQUEL] Allergy Unknown UNKNOWN Verified 01/06/23 15:24 Review of Systems Sugical H&P ROS: Negative: Constitution, Cardiovascular, Respiratory, Neurological, Psychiatric, Hem-Onc, Allergic/Immunologic, Gastrointestinal, Genitourinary, Musculoskeletal, Integumentary, Endocrine and Eyes/Ears/Nose/Throat Exam Surgical H&P Exam: Normal: HEENT, Normal: Heart, Normal: Lungs, Normal: Extremities, Normal: Abdomen, Normal: Skin and Normal: Neurological Plan Diagnosis/Plan: Unchanged I have reviewed the history and physical and performed a pertinent physical examination on my patient. No changes have occurred unless specified. Time Spent With Patient Time: Total time managing care of this patient today ____ minutes.
--- NOTE | 2023-02-03 09:01 | W.PM.OPN ---
Operative Note Operative Note Date of Service: 02/03/23 Narrative: Operative Information Procedure Description: Colonoscopy Indication: hx of colon polyps Anesthesia: MAC COLONOSCOPY Instrument: Olympus variable stiffness pediatric scope 190L Colonoscopy Monitoring: Vital signs and clinical assessment, continuous EKG monitoring, Pulse oximetry, Carbon Dioxide monitoring and blood pressure monitoring were done throughout the procedure. Colon withdrawal time was 19 minutes. Procedure: The patient was placed in the left lateral decubitis position and pre-procedure medications were administered. After a digital rectal examination of the ano-rectum, the video colonoscope was inserted into the rectum and advanced through the colon to the cecum/TI. The colonoscope was slowly withdrawn in a retrograde panoramic fashion and the colon mucosa was carefully examined including a retroflexed view of the rectum. Findings and interventions are described below. Procedure Difficulty: moderate Findings: Terminal Ileum-normal Cecum: x2 sessile polyps 6-9 mm, one was over the orifice and was lifted with eleview. Both were removed with cold forceps. Ascending Colon: x2 sessile polyps 10-12 mm removed with cold snare Transverse Colon - x 2 sessile polyps, 5-12 mm removed with cold snare, x 1 clip applied for hemostasis Descending Colon:normal Sigmoid Colon: moderate severe diverticulosis Rectum: Retroflexion with small internal hemorrhoids, grade I Anorectum - normal Colon preparation: [place] Bowel Preparation Scale Right colon; 1-2 Transverse colon: 2 Left colon; 2 (0 = Unprepared colon segment with mucosa not seen due to solid stool that cannot be cleared. 1 = Portion of mucosa of the colon segment seen, but other areas of the colon segment not well seen due to staining, residual stool and/or opaque liquid. 2 = Minor amount of residual staining, small fragments of stool and/or opaque liquid, but mucosa of colon segment seen well. 3 = Entire mucosa of colon segment seen well with no residual staining, small fragments of stool or opaque liquid) Impression and Post Procedure Diagnosis: polyps internal hemorrhoids diverticular disease Plan: High fiber diet leaflet Avoid straining at stool, epsom salts and sitz bath, anusol supps or cream Repeat Colonoscopy in 1-2 years due to polyp burden if health allows or earlier if clinically indicated Above findings were reviewed with the patient and relevant handouts were provided if indicated.
[2023-02-03 09:10] VITALS: BP 166/66; PULSE 78; RESP 18; TEMP 36.2; O2SAT 100
[2023-02-03 09:25] VITALS: BP 181/78; PULSE 79; RESP 18; TEMP 36.2; O2SAT 100
== END 2023-02-03 10:20 | disposition home or self-care (01) ==
PROVIDERS: PCP Internal Medicine; Visit Provider Internal Medicine Gastroenterology
PROC: 0DJD8ZZ Inspection of Lower Intestinal Tract, Via Natural or Artificial Opening Endoscopic (ICD-10-PCS; CPT 45378; principal; 2023-02-03 08:10)
DX: Z12.11 Encounter for screening for malignant neoplasm of colon (principal); Z86.010 Personal history of colon polyps; D12.0 Benign neoplasm of cecum; D12.2 Benign neoplasm of ascending colon; D12.3 Benign neoplasm of transverse colon; K57.30 Diverticulosis of large intestine without perforation or abscess without bleeding; K64.0 First degree hemorrhoids; K59.00 Constipation, unspecified; K21.9 Gastro-esophageal reflux disease without esophagitis; K22.2 Esophageal obstruction; K22.4 Dyskinesia of esophagus; N18.32 Chronic kidney disease, stage 3b; E11.22 Type 2 diabetes mellitus with diabetic chronic kidney disease; E11.65 Type 2 diabetes mellitus with hyperglycemia; I12.9 Hypertensive chronic kidney disease with stage 1 through stage 4 chronic kidney disease, or unspecified chronic kidney disease; I25.10 Atherosclerotic heart disease of native coronary artery without angina pectoris; Z95.5 Presence of coronary angioplasty implant and graft; G30.9 Alzheimer's disease, unspecified; F02.80 Dementia in other diseases classified elsewhere, unspecified severity, without behavioral disturbance, psychotic disturbance, mood disturbance, and anxiety; J44.9 Chronic obstructive pulmonary disease, unspecified; E78.00 Pure hypercholesterolemia, unspecified; I73.9 Peripheral vascular disease, unspecified; G47.33 Obstructive sleep apnea (adult) (pediatric); E04.2 Nontoxic multinodular goiter; Z79.51 Long term (current) use of inhaled steroids; Z79.82 Long term (current) use of aspirin; Z79.899 Other long term (current) drug therapy; Z88.8 Allergy status to other drugs, medicaments and biological substances; Z87.891 Personal history of nicotine dependence
CPT/HCPCS: 45385; 45380; 45381; 82947; 88305

== ENCOUNTER → 2023-02-03 06:59 | Outpatient (BNV) | payer MEDICARE, MEDICAID, SELFPAY | PROVIDERS: PCP Internal Medicine; Visit Provider Internal Medicine Gastroenterology | DX: Z12.11 Encounter for screening for malignant neoplasm of colon (principal); Z86.010 Personal history of colon polyps; D12.0 Benign neoplasm of cecum; D12.2 Benign neoplasm of ascending colon; D12.3 Benign neoplasm of transverse colon; K57.30 Diverticulosis of large intestine without perforation or abscess without bleeding; K64.0 First degree hemorrhoids | CPT/HCPCS: 45380; 45381; 45385 ==

== ENCOUNTER 2023-02-11 12:14 | Outpatient (REF) | payer MEDICARE, MEDICAID, SELFPAY ==
[2023-02-11 12:28] LABS: MANUAL DIFF FLAG NO
[2023-02-11 13:48] LABS: Basophils Percent Auto 0.7 % (0-2); Eosinophils Absolute Auto 0.2 X10*3/uL (0.0-0.4); Eosinophils Percent Auto 2.6 % (0-4); Hematocrit 30.2 % (42.0-52.0); Hemoglobin 9.6 g/dl (14.0-18.0); Imm Gran Abs Auto 0.03 X10*3/uL (0.00-0.03); Imm Gran Pct Auto 0.5 % (0.0-0.4); Lymphocytes Absolute Auto 1.3 X10*3/uL (1.2-4.9); Lymphocytes Percent Auto 22.7 % (20-40); Mean Corpuscular HGB Conc 31.8 g/dl (31.0-36.0); Mean Corpuscular Hemoglobin 30.1 pg (27.0-33.0); Mean Corpuscular Volume 94.7 fL (80.0-98.0); Mean Platelet Volume 10.9 fL (9.4-12.4); Monocytes Absolute Auto 0.5 X10*3/uL (0.1-1.2); Monocytes Percent Auto 8.3 % (2-11); Neutrophils Absolute Auto 3.8 x10*3/uL (2.0-8.3); Neutrophils Percent Auto 65.2 % (45-73); Platelet Count 193 X10*3/uL (160-400); Red Blood Count 3.19 X10*6/uL (4.60-5.80); Red Cell Distribution Width 13.9 % (11.0-16.0); Retic HGB Equivalent 35.9 pg (30.0-35.0); Reticulocyte Percent 1.3 % (0.5-1.8); Reticulocytes Absolute 0.042 X10*6/uL (0.026-0.095); White Blood Count 5.8 X10*3/uL (4.8-10.8)
[2023-02-11 14:25] LABS: Alanine Aminotransferase 22 U/L (0-40); Albumin Level 3.4 g/dL (3.5-5.0); Alkaline Phosphatase 47 U/L (39-117); Anion Gap 12 (12-20); Aspartate Amino Transferase 22 U/L (5-37); Bilirubin Total 0.3 mg/dL (0.0-1.0); Blood Urea Nitrogen 32 mg/dL (9-16); Calcium 9.4 mg/dL (8.4-10.2); Carbon Dioxide 27 mmol/L (22-29); Chloride 108 mmol/L (96-108); Cholesterol 132 mg/dL (<200); Estimated Glomerular Filt Rate 42; Glucose Random 84 mg/dL (60-115); HDL Cholesterol 52 mg/dL (>40); Iron 75 mcg/dL (45-160); LDL Cholesterol Calculated 61 mg/dL (<100); Percent Iron Saturation 30 % (15-50); Potassium 4.4 mmol/L (3.3-5.1); Sodium 143 mmol/L (135-145); Total Iron Binding Capacity 252 mcg/dL (228-428); Total Protein 6.3 g/dL (6.5-8.0); Triglycerides 96 mg/dL (<150); Unsaturated Iron Binding 177 ug/dL
[2023-02-11 14:42] LABS: Ferritin 32 ng/mL (20-250); PSA,Total (Free>4and<10) < 0.10 ng/mL (0.00-4.00); Thyroid Stimulating Hormone 0.83 uIU/mL (0.32-4.0)
[2023-02-11 14:57] LABS: Folate > 20.0 ng/mL (> or = 4.0); Vitamin B12 > 2000 pg/mL (200-900)
[2023-02-11 15:01] LABS: Appearance Urine Clear; Color Urine Yellow; Glucose Urine UA Negative (Negative); Leukocyte Esterase Urine Negative (Negative); Nitrite Urine Negative (Negative); Urine Blood Negative (Negative); Urine Ketones Negative (Negative); Urine Protein Negative (Neg-Trace)
[2023-02-11 15:07] LABS: Bacteria Urine None Seen (None Seen); Hyaline Casts Urine 0-2 /LPF (0-2); RBC Urine 0-2 /HPF (0-2); Squamous Epithelial Cell Urine 0-2 /HPF (0-2); WBC Urine 0-5 /HPF (0-5)
== END 2023-02-11 12:15 | disposition home or self-care (01) ==
LOC: HO.LAB 12:14
PROVIDERS: Absent Provider Internal Medicine Endocrinology, Diabetes & Metabolism; PCP Internal Medicine; Visit Provider Internal Medicine
DX: C61 Malignant neoplasm of prostate (principal); I25.10 Atherosclerotic heart disease of native coronary artery without angina pectoris; E78.00 Pure hypercholesterolemia, unspecified; Z12.5 Encounter for screening for malignant neoplasm of prostate
CPT/HCPCS: 36415; 80053; 80061; 81001; 82607; 82728; 82746; 83540; 84153; 84439; 84443; 85025; 85045

== ENCOUNTER 2023-02-11 14:08 | Outpatient (AMB) | payer MEDICARE, MEDICAID, SELFPAY ==
--- NOTE | 2023-02-11 14:14 | A.OFFPC_ITS ---
Vital Signs 02/11/23 14:15 Height 5 ft Weight 137 lb 2.04 oz BMI 26.8 BP 110/60 Blood Pressure Location Lt brachial Position Sitting Pulse 63 Pulse Source Pulse Oximeter Pulse Oximetry (%) 98 Oxygen Delivery Method Room Air Intake Visit Reasons: Med Follow up Intake Note: Patient is here to follow up on medication management, post- colonoscopy Vice President Of Customer Service Required: No Fan Engine Engineer: Present Accompanied by: Daughter Allergies quetiapine [From SEROQUEL] Allergy (Unknown, Verified 02/11/23 14:15) UNKNOWN Medication List - Last Reconciled 02/11/23 by Jermaine Lopez MD albuterol sulfate 90 mcg/actuation 2 puffs inhalation QID PRN aspirin (Adult Low Dose Aspirin) 81 mg PO DAILY atenolol 25 mg PO DAILY [AUTOPAP 6-20 cm H20 humidified air As directed] budesonide-formoterol 160-4.5 mcg/actuation (Symbicort) 2 puffs inhalation BID bupropion HCl 200 mg PO DAILY calcium citrate 500 mg (2 x 250 mg calcium) PO BID cholecalciferol (vitamin D3) 25 mcg PO DAILY 90 days citalopram 15 mg PO DAILY [commode bedside As directed] cyanocobalamin (vitamin B-12) 1,000 mcg PO DAILY denosumab (Prolia) 60 mg subcut [id number] ezetimibe 10 mg PO DAILY folic acid 1 mg PO DAILY furosemide 20 mg PO DAILY imipramine HCl 10 mg PO BID 90 days lactulose 10 mL PO DAILY mupirocin 2% 1 appl topical BID nitroglycerin 0.4 mg sublingual Q5M PRN omeprazole 20 mg PO BID oxycodone 5 mg PO BID PRN rosuvastatin 40 mg PO DAILY 90 days trazodone 150 mg PO BEDTIME PRN vitamin B complex 1 tab PO DAILY Tobacco use date assessed: 02/11/23 Fall risk assessment: 2 + Falls in past year Last assessed Fall Risk: 02/11/23 Dental Screening Dental Screen Date: 02/11/23 Did you have a dental visit in the last 12 months?: No Did you have a dental problem in the last 6 months where you did not have access to dental care?: No Was dental information given to patient?: No HPI Med Follow up HPI Details 77-year-old male with a history of coron jessie artery disease COPD diabetes mellitus osteoporosis lumbar degenerative disc disease peripheral tear disease bipolar disorder chronic kidney disease GERD coming in for follow-up. Last seen in August 2022. Patient's colonoscopy is up-to-date had it done January 2023 and advised to follow-up in 1-2 years. Bone density up-to-date with December 2021. This was done in May 2022 patient had under abdominal aortogram with right leg angiography with 3rd order catheterization right, common femoral shock wave lithotripsy and angioplasty using drug coated balloon right SFA and popliteal artery angioplasty with stent placement and right 5th toe amputation to the proximal phalanx.. Patient follows up with Cardiology CAD aspirin, rosuvastatin. October [address] Mcdonough regarding the kyphoplasty T6-7 8 vertebral bodies. Patient also follows up with vascular for leg arterial disease. Patient also has followed up with Nephrology August 2022 diagnosis of chronic kidney disease stage 3 hypertension continue with present medication [facility] Medical History CAD (coronary artery disease) Presence of stent in artery Non-toxic multinodular goiter T12 compression fracture Peripheral vascular disease Hypercholesterolemia Thyroid nodule Vitamin B12 deficiency Chronic kidney disease (CKD) stage G3b/A1, moderately decreased glomerular filtration rate (GFR) between 30-44 mL/min/1.73 square meter and albuminuria creatinine ratio less than 30 mg/g Prostate cancer Obstructive sleep apnea Dementia in Alzheimer's disease Bipolar disorder COPD (chronic obstructive pulmonary disease) Coronary artery disease Metacarpal bone fracture Impaired fasting glucose Osteoporosis DDD (degenerative disc disease), lumbar Surgical History H/O colonoscopy S/P fine needle aspiration H/O kyphoplasty History of esophageal dilatation History of cataract surgery History of orthopedic surgery History of angioplasty History of appendectomy Family History (Updated 02/11/23 @ 14:14 by DINAH Zabala) Father Thyroid cancer Mother Colon cancer Daughter Primary squamous cell carcinoma of throat Social History Household Members: Children Housing: House Alcohol intake: former Patient Tobacco Use Status: Former Tobacco user Quit Date: 30 yr ago Tobacco use type: Cigarette e-Cigarette/Vaping Use: Never Used Second Hand Smoke Exposure: No service: No Current occupational status: disabled Current occupational exposures/hazards: No Cognitive needs: Yes (wheelchair, walker) Hearing needs: Yes (hearing aide) Vision needs: No Questionnaire Thrive Questionnaire Date Thrive assessed: 05/16/22 OWEN-7 AMB Questionnaire OWEN-7 Date OWEN - 7 assessed: 05/16/22 Source: Developed by Drs. Orlando Adams, Janna Mahoney, Casey Acevedo and colleagues, with an educational adam from [employer] Physical exam (Primary Care) Vital Signs: Last Vital Signs Pulse 63 02/11/23 14:15 BP 110/60 02/11/23 14:15 Pulse Ox 98 02/11/23 14:15 Oxygen Delivery Method Room Air 02/11/23 14:15 BMI result Body Mass Index 26.8 Tobacco/Smoking Status: Tobacco use Status Tobacco use date assessed 02/11/23 02/11/23 14:27 Patient Tobacco Use Status Former Tobacco user 02/11/23 14:27 Tobacco use type Cigarette 02/11/23 14:27 e-Cigarette/Vaping Use Never Used 02/11/23 14:27 Thrive Assessment: Date of Thrive Assessment Date Thrive assessed 05/16/22 02/11/23 14:27 Const General: alert; No acute distress Eyes Conjunctivae: conjunctivae normal Resp Auscultation: clear to auscultation bilaterally Cardio Rate: regular rate Rhythm: regular rhythm GI Inspection: Yes normal to inspection Extrem General: Yes normal to inspection and No edema Assessment and Plan Assessment & Plan (1) Hypercholesterolemia: Code(s): E78.00 - Pure hypercholesterolemia, unspecified Plan: Avoid fried foods, chicken skin, eggs, butter margarine, pastries and meat. Be it pork or beef they have a lot of cholesterol LDL goal of less than 70 and triglyceride of less than 150 patient is on Zetia and rosuvastatin (2) Chronic kidney disease (CKD) stage G3b/A1, moderately decreased glomerular f iltration rate (GFR) between 30-44 mL/min/1.73 square meter and albuminuria creatinine ratio less than 30 mg/g: Code(s): N18.32 - Chronic kidney disease, stage 3b Plan: Continue to follow-up with Nephrology avoid NSAIDs keep well hydrated (3) Bipolar disorder: Comment: psychiatrist [place] Code(s): F31.9 - Bipolar disorder, unspecified Qualifiers: Active/Remission status: currently active Current bipolar episode type: mixed Current episode severity: moderate Qualified Code(s): F31.62 - Bipolar disorder, current episode mixed, moderate Plan: Continue with counseling and therapy (4) COPD (chronic obstructive pulmonary disease): Comment: PATIENT HAS PAST HISTORY OF SMOKING, HE HAS CLINICAL FEATURES OF CHRONIC OBSTRUCTIVE PULMONARY DISEASE, PROBABLY MILD AND STABLE AT THIS TIME. TX CONTINUE SYMBICORT 160-4.52 PUFFS AT LEAST ONCE A DAY IN THE MORNING AND IF SYMPTOMS GET WORSE THEN GO BACK TO B.I.D. AND ALBUTEROL HFA 2 PUFFS Q 4-6 HOURS ONLY P.R.N.. Code(s): J44.9 - Chronic obstructive pulmonary disease, unspecified Qualifiers: COPD type: emphysema Emphysema type: unspecified Qualified Code(s): J43.9 - Emphysema, unspecified Plan: Continue with inhalers as needed (5) Coronary artery disease: Comment: Lack stent placement in left circumflex 1999 clear stress test August 2008 and negative stress test August 05 1019-echo normal LV grade 1 diastolic dysfunction August 2018 Code(s): I25.10 - Atherosclerotic heart disease of [place] coronary artery without angina pectoris Qualifiers: Coronary Disease-Associated Artery/Lesion type: [place] artery [place] vs. transplanted heart: [place] heart Associated angina: without angina Qualified Code(s): I25.10 - Atherosclerotic heart disease of [place] coronary artery without angina pectoris Plan: Control the cholesterol, weight, blood pressure, diabetes continue with aspirin 81 mg once a day (6) Osteoporosis: Comment: December 2021 bone density Code(s): M81.0 - Age-related osteoporosis without current pathological fracture Qualifiers: Osteoporosis type: age-related Presence of current pathological fracture: without current pathological fracture Qualified Code(s): M81.0 - Age- related osteoporosis without current pathological fracture Plan: Calcium and vitamin-D and on Prolia right now (7) GERD (gastroesophageal reflux disease): Code(s): K21.9 - Gastro-esophageal reflux disease without esophagitis Qualifiers: Esophagitis presence: without esophagitis Qualified Code(s): K21.9 - Gastro-esophageal reflux disease without esophagitis Plan: Avoid the foods that causes that usually spicy foods, tomato products, juices, coffee, soda and foods that your sensitive to. After eating do not lie down, allow 3-4 hours before in lie down. And keep the head of bed above 30 degrees to avoid the acid from going up. (8) Esophageal stricture: Comment: No remaining ring on EGD 2018, esophageal dysmotility, [facility] Code(s): K22.2 - Esophageal obstruction Plan: Continue to follow-up with gastroenterology (9) Type 2 diabetes mellitus with hyperglycemia: Code(s): E11.65 - Type 2 diabetes mellitus with hyperglycemia Plan: Decrease the amount of carbohydrate intake, pasta, bread, rice and potatoes are all sugar and that is aside from all the sweet stuff, remember that fruits are good but they are Sweet also. Diet controlled (10) Lumbar vertebral fracture: Code(s): S32.009A - Unspecified fracture of unspecified lumbar vertebra, initial encounter for closed fracture Plan: Patient has had kyphoplasty, concerns on fractures stable Medications: Changed From lactulose 10 mL PO DAILY To lactulose 30 mL PO DAILY PRN 946 mL 0RF constipation Refilled budesonide-formoterol 160-4.5 mcg/actuation (Symbicort) 2 puffs inhalation BID 10.2 grams 11RF J43.9 - Emphysema, unspecified Coding Level of Care Code Est Pt Level 4 (73780) Diagnoses Hypercholesterolemia E78.00 Chronic kidney disease (CKD) stage G3b/A1, moderately decreased glomerular filtration rate (GFR) between 30-44 mL/min/1.73 square meter and albuminuria creatinine ratio less than 30 mg/g N18.32 Bipolar disorder, current episode mixed, moderate F31.62 Active/Remission status: currently active Current bipolar episode type: mixed Current episode severity: moderate Pulmonary emphysema, unspecified emphysema type J43.9 COPD type: emphysema Emphysema type: unspecified Coronary artery disease involving [place] coronary artery of [place] heart without angina pectoris I25.10 Coronary Disease-Associated Artery/Lesion type: [place] artery [place] vs. transplanted heart: [place] heart Associated angina: without angina Age-related osteoporosis without current pathological fracture M81.0 Osteoporosis type: age-related Presence of current pathological fracture: without current pathological fracture Gastroesophageal reflux disease without esophagitis K21.9 Esophagitis presence: without esophagitis Esophageal stricture K22.2 Type 2 diabetes mellitus with hyperglycemia E11.65 Lumbar vertebral fracture S32.009A
[2023-02-11 14:15] VITALS: BP 110/60; PULSE 63; O2SAT 98; BMI 26.8
== END 2023-02-11 15:00 | disposition home or self-care (01) ==
PROVIDERS: PCP Internal Medicine; Visit Provider Internal Medicine
DX: N18.32 Chronic kidney disease, stage 3b (principal); F31.62 Bipolar disorder, current episode mixed, moderate; J43.9 Emphysema, unspecified; E11.65 Type 2 diabetes mellitus with hyperglycemia; S32.009A Unspecified fracture of unspecified lumbar vertebra, initial encounter for closed fracture; E78.00 Pure hypercholesterolemia, unspecified; M81.0 Age-related osteoporosis without current pathological fracture; I25.10 Atherosclerotic heart disease of native coronary artery without angina pectoris; K21.9 Gastro-esophageal reflux disease without esophagitis; K22.2 Esophageal obstruction
CPT/HCPCS: 99214

== ENCOUNTER 2023-02-12 14:24 | Outpatient (AMB) | payer MEDICARE, MEDICAID, SELFPAY ==
[2023-02-12 14:31] VITALS: BP 120/50; PULSE 63
--- NOTE | 2023-02-12 14:31 | A.OFFVIS_ITS ---
Intake Vital Signs 02/12/23 14:31 Height 5 ft BP 120/50 L Blood Pressure Location Lt brachial Position Sitting Pulse 63 Pulse Source Pulse Oximeter Intake Visit Reasons: f/u osteoporosis and MNG/Prolia Intake Note: Patient present for Osteoporosis and MNG follow up visit. 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 Accompanied by: Daughter Allergies quetiapine [From SEROQUEL] Allergy (Unknown, Verified 02/12/23 14:38) UNKNOWN Medication List - Last Reconciled 02/12/23 by Orlando Chavez MD albuterol sulfate 90 mcg/actuation 2 puffs inhalation QID PRN aspirin (Adult Low Dose Aspirin) 81 mg PO DAILY atenolol 25 mg PO DAILY [AUTOPAP 6-20 cm H20 humidified air As directed] budesonide-formoterol 160-4.5 mcg/actuation (Symbicort) 2 puffs inhalation BID bupropion HCl 200 mg PO DAILY calcium citrate 500 mg (2 x 250 mg calcium) PO BID cholecalciferol (vitamin D3) 25 mcg PO DAILY 90 days citalopram 15 mg PO DAILY [commode bedside As directed] cyanocobalamin (vitamin B-12) 1,000 mcg PO DAILY denosumab (Prolia) 60 mg subcut [id number] ezetimibe 10 mg PO DAILY folic acid 1 mg PO DAILY furosemide 20 mg PO DAILY imipramine HCl 10 mg PO BID 90 days lactulose 30 mL PO DAILY PRN mupirocin 2% 1 appl topical BID nitroglycerin 0.4 mg sublingual Q5M PRN omeprazole 20 mg PO BID oxycodone 5 mg PO BID PRN rosuvastatin 40 mg PO DAILY 90 days trazodone 150 mg PO BEDTIME PRN vitamin B complex 1 tab PO DAILY HPI HPI Comments History of Present Illness Details 77 yo male today for fup visit, His feeling well. He has severe osteoporosis, with vertebral fractures, NTMNG. He has been on Prolia since 2016 , his last dose was 06/2021. His calcium remains normal. He had FNA on 09/10/17 of left lower pole medial and lateral nodules, both nodules benign consistent with follicular nodules. He had FNA on 04/24/16 inadequate, repeat FNA on 07/03/16 was consistent with benign follicular nodule. Recent ultrasound showed minimal increase in left lower pole nodule but stable compared to original l ultrasound Patient has history of high risk prostate cancer S/P 2 dose of Lupron, s/p RT, esophageal stricture, CKD 3, secondary hyperparathyroidism. + multiple spine compression fracture s/p kyphoplasty of L4, Calcium intake: calcium citrate 1000 mg daily. Vitamin D: 1000 units daily. 10/25/2019 US thyroid Right Thyroid Lobe: 4.1 x 1.5 x 1.2 cm, volume 3.9 mL. Previously 4.6 x 1.7 x 1.3 cm, volume 5.4 mL. Parenchyma: The gland echotexture is homogeneous. Thyroid vascularity is normal. Left Thyroid Lobe: 4.3 x 2.2 x 1.4 cm, volume 6.8 mL. Previously 5.9 x 2.5 x 1.5 cm, volume 11.5 mL. Parenchyma: The gland echotexture is homogeneous. Thyroid vascularity is normal. Isthmus: 0.5 cm in maximum AP dimension. Previously 0.3 cm. RIGHT THYROID LOBE: There are 3 nodules seen. 1. Location: Mid. Size: 0.8 x 0.7 x 0.8 cm. Previous: 0.8 x 0.6 x 0.7 cm. Nodule characteristics: Isoechoic, hypoechoic rind with peripheral intranodular flow. 2. Location: Lower. Size: 0.5 x 0.3 x 0.4 cm. Previous: 0.6 x 0.3 x 0.4 cm. Nodule characteristics: Hypoechoic, smoothly marginated with no intranodular flow. 3. Location: Upper/mid. Size: 0.4 x 0.2 x 0.3 cm. Previous: 0.4 x 2.2 x 0.3 cm. Nodule characteristics: Hypoechoic, smoothly marginated with no intranodular flow. ISTHMUS: No nodules. LEFT THYROID LOBE: There is 1 nodule seen. 1. Location: Lower. Size: 1.2 x 1.4 x 1.1 cm. Previous: 1.9 x 1.4 x 1.6 cm. Nodule characteristics: Heterogeneous with a hypoechoic rind and intranodular flow. NODES: No lymphadenopathy is seen in the tissue surrounding the thyroid gland. Laboratory Tests 06/21/20 06/25/20 07/17/20 11:20 11:00 15:35 Creatinine 1.80 H Estimated GFR 37 Calcium 8.3 L Albumin 3.6 N-Telopeptide X-li nked 18 25-OH Vitamin D To sara 48.0 TSH 1.12 Free T4 1.26 Laboratory Tests 05/30/19 11/21/19 12:39 14:47 Creatinine 1.95 H Est GFR (Non-Af Am er) 34 Calcium 9.0 Albumin 3.6 Collgn I C-Telopep tide 104 25-OH Vitamin D To sara 50.1 Free T4 1.31 TSH 3rd Generation 0.75 He is due for his Prolia injection today.. Recent DEXA showed increases in bone density . MRI in 08/2022 showed subacute chronic fractures after a fall [facility] Medical History CAD (coronary artery disease) Presence of stent in artery Non-toxic multinodular goiter T12 compression fracture Peripheral vascular disease Hypercholesterolemia Thyroid nodule Vitamin B12 deficiency Chronic kidney disease (CKD) stage G3b/A1, moderately decreased glomerular filtration rate (GFR) between 30-44 mL/min/1.73 square meter and albuminuria creatinine ratio less than 30 mg/g Prostate cancer Obstructive sleep apnea Dementia in Alzheimer's disease Bipolar disorder COPD (chronic obstructive pulmonary disease) Coronary artery disease Metacarpal bone fracture Impaired fasting glucose Osteoporosis DDD (degenerative disc disease), lumbar Surgical History H/O colonoscopy S/P fine needle aspiration H/O kyphoplasty History of esophageal dilatation History of cataract surgery History of orthopedic surgery History of angioplasty History of appendectomy Family History (Updated 02/11/23 @ 14:14 by DINAH Zabala) Father Thyroid cancer Mother Colon cancer Daughter Primary squamous cell carcinoma of throat Social History Household Members: Children Housing: House Alcohol intake: former Patient Tobacco Use Status: Former Tobacco user Quit Date: 30 yr ago Tobacco use type: Cigarette e-Cigarette/Vaping Use: Never Used Second Hand Smoke Exposure: No service: No Current occupational status: disabled Current occupational exposures/hazards: No Cognitive needs: Yes (wheelchair, walker) Hearing needs: Yes (hearing aide) Vision needs: No Physical Exam Vital Signs: Last Vital Signs Pulse 63 02/12/23 14:31 BP 120/50 L 02/12/23 14:31 Assessment & Plan Assessment & Plan (1) Osteoporosis: Comment: December 2021 bone density Code(s): M81.0 - Age-related osteoporosis without current pathological fracture Qualifiers: Osteoporosis type: age-related Presence of current pathological fracture: without current pathological fracture Qualified Code(s): M81.0 - Age- related osteoporosis without current pathological fracture Plan: This 76-year-old white male with a history of osteoporosis being treated with Prolia in the setting of CKD. He has a history of vertebral compression fractures . Plan is to continue the current treatment. Will give Prolia injection today. . Subacute compression fracture may have been a result of trauma from fall (2) Non-toxic multinodular goiter: Code(s): E04.2 - Nontoxic multinodular goiter Plan: Is status post FNA of 2 left lower pole nodule with benign cytology. Recent thyroid ultrasound shows stability of the size of the nodules . He appears to be clinically and biochemically euthyroid Plan is for continued observation . Orders: Orders AMB Denosumab Injection Patient Supplied Today M81.0 - Age-related osteoporosis without current pathological fracture Medications: New Prolia (denosumab) 60 mg subcut ONCE 1 mL 0RF NS M81.0 - Age-related osteoporosis without current pathological fracture Refilled denosumab (Prolia) 60 mg subcut [id number] 1 mL 6RF Coding Level of Care Code Est Pt Level 3 (51924) Diagnoses Age-related osteoporosis without current pathological fracture M81.0 Osteoporosis type: age-related Presence of current pathological fracture: without current pathological fracture Non-toxic multinodular goiter E04.2
--- NOTE | 2023-02-12 14:50 | AM.OFFVISNUR ---
Intake Vital Signs 02/12/23 14:31 Height 5 ft BP 120/50 L Blood Pressure Location Lt brachial Position Sitting Pulse 63 Pulse Source Pulse Oximeter Intake Visit Reasons: f/u osteoporosis and MNG/Prolia Allergies quetiapine [From SEROQUEL] Allergy (Unknown, Verified 02/12/23 14:38) UNKNOWN Medication List - Last Reconciled 02/12/23 by Orlando Chavez MD albuterol sulfate 90 mcg/actuation 2 puffs inhalation QID PRN aspirin (Adult Low Dose Aspirin) 81 mg PO DAILY atenolol 25 mg PO DAILY [AUTOPAP 6-20 cm H20 humidified air As directed] budesonide-formoterol 160-4.5 mcg/actuation (Symbicort) 2 puffs inhalation BID bupropion HCl 200 mg PO DAILY calcium citrate 500 mg (2 x 250 mg calcium) PO BID cholecalciferol (vitamin D3) 25 mcg PO DAILY 90 days citalopram 15 mg PO DAILY [commode bedside As directed] cyanocobalamin (vitamin B-12) 1,000 mcg PO DAILY denosumab (Prolia) 60 mg subcut [id number] ezetimibe 10 mg PO DAILY folic acid 1 mg PO DAILY furosemide 20 mg PO DAILY imipramine HCl 10 mg PO BID 90 days lactulose 30 mL PO DAILY PRN mupirocin 2% 1 appl topical BID nitroglycerin 0.4 mg sublingual Q5M PRN omeprazole 20 mg PO BID oxycodone 5 mg PO BID PRN rosuvastatin 40 mg PO DAILY 90 days trazodone 150 mg PO BEDTIME PRN vitamin B complex 1 tab PO DAILY Nursing Note Patient A&O x3. Signed consent form. He denies adverse effects including pain, nausea, and rash. Administered 1mL of 60mg denosumab in the patient's right arm. Office Meds Prolia 60 mg/mL subcutaneous syringe Performing Provider: Orlando Chavez MD [place] [facility] [place] Administered by: Rashid Limon RN on 02/12/23 14:50 Dose Route Admin Location Dispensed Lot Number Expiration Date NDC Zipper Slide Attacher 60 mg subcut R arm 1 mL [id number] 06/03/25 Coding Diagnoses Age-related osteoporosis without current pathological fracture M81.0 Osteoporosis type: age-related Presence of current pathological fracture: without current pathological fracture Non-toxic multinodular goiter E04.2 Assessment & Plan Assessment & Plan (1) Osteoporosis: Comment: December 2021 bone density Code(s): M81.0 - Age-related osteoporosis without current pathological fracture Qualifiers: Osteoporosis type: age-related Presence of current pathological fracture: without current pathological fracture Qualified Code(s): M81.0 - Age-related osteoporosis without current pathological fracture (2) Non-toxic multinodular goiter: Code(s): E04.2 - Nontoxic multinodular goiter Orders: Orders AMB Denosumab Injection Patient Supplied Today M81.0 - Age-related osteoporosis without current pathological fracture Medications: Refilled denosumab (Prolia) 60 mg subcut [id number] 1 mL 6RF
== END 2023-02-12 14:49 | disposition home or self-care (01) ==
PROVIDERS: PCP Internal Medicine; Visit Provider Internal Medicine Endocrinology, Diabetes & Metabolism
DX: M81.0 Age-related osteoporosis without current pathological fracture (principal); E04.2 Nontoxic multinodular goiter
CPT/HCPCS: 99213

== ENCOUNTER → 2023-02-12 14:24 | Outpatient (BNVA) | payer MEDICARE, MEDICAID, SELFPAY | PROVIDERS: PCP Internal Medicine; Visit Provider Internal Medicine Endocrinology, Diabetes & Metabolism | DX: M81.0 Age-related osteoporosis without current pathological fracture (principal); E04.2 Nontoxic multinodular goiter; Z79.620 Long term (current) use of immunosuppressive biologic | CPT/HCPCS: 96372; 99212; J0897 ==

== ENCOUNTER 2023-03-17 16:02 | Outpatient (AMB) | payer MEDICARE, MEDICAID, SELFPAY ==
--- NOTE | 2023-03-17 16:09 | MHC.OFFVIS ---
Intake Vital Signs 03/17/23 16:13 Height 5 ft Weight 137 lb BMI 26.8 BP 137/60 Blood Pressure Location Lt brachial Position Sitting Pulse 65 Intake Visit Reasons: S/p colon García Intake Note: Jorge Luis presents in the office as a follow up colonoscopy. CC: states that he is not having any concerns since his procedure. Allergies quetiapine [From SEROQUEL] Allergy (Unknown, Verified 03/17/23 16:13) UNKNOWN HPI S/p colon García HPI Details Assessment & Plan (1) GERD (gastroesophageal reflux disease): Code(s): K21.9 - Gastro-esophageal reflux disease without esophagitis Qualifiers: Esophagitis presence: without esophagitis Qualified Code(s): K21.9 - Gastro-esophageal reflux disease without esophagitis Plan: He is here today with a female family member who is supportive. He fell and developed several thoracic compression fractures - he is having kyphoplasty at [facility]. He can't walk very far now he will shake in pain. His GERD and dysphagia continues to do well. He is due for colonoscopy screening r/t TA. He is agreeable to having the scheduled. There are no prior problems with anesthesia or sedation. He has DAXA and COPD that is controlled, hx of CAD with stent that is stable. No ID problems ROV 6 mos and after colonoscopy (2) Esophageal stricture: Comment: No remaining ring on EGD 2018, esophageal dysmotility, but stricture seen at [facility] on barium swallow after EGD Code(s): K22.2 - Esophageal obstruction (3) Constipation: Code(s): K59.00 - Constipation, unspecified (4) Tubular adenoma of colon: Comment: last 2017=TA repeat 2022 aeb Code(s): D12.6 - Benign neoplasm of colon, unspecified (5) Pre-op examination: Code(s): Z01.818 - Encounter for other preprocedural examination Medications: New peg 3350-electroly leon 236-22.74-6.74 -5.86 gram (Golyt artem) until feca l effluent is willam r; do not exceed a total volume of 2 ,000 mL 240 mL PO Q10M 1 day 4,000 mL 0RF Z12.11 - Encounter for screening for malignant neoplas m of colon Refilled omeprazole 20 mg PO BID 180 caps 2RF COLONOSCOPY 02/03/23 Findings: Terminal Ileum-normal Cecum: x2 sessile polyps 6-9 mm, one was over the orifice and was lifted with eleview. Both were removed with cold forceps. Ascending Colon: x2 sessile polyps 10-12 mm removed with cold snare Transverse Colon - x 2 sessile polyps, 5-12 mm removed with cold snare, x 1 clip applied for hemostasis Descending Colon:normal Sigmoid Colon: moderate severe diverticulosis Rectum: Retroflexion with small internal hemorrhoids, grade I Anorectum - normal Impression and Post Procedure Diagnosis: polyps internal hemorrhoids diverticular disease Plan: High fiber diet leaflet Avoid straining at stool, epsom salts and sitz bath, anusol supps or cream Repeat Colonoscopy in 1-2 years due to polyp burden if health allows or earlier if clinically indicated BIOPSY Received: 02/03/23 Diagnosis A. Colon, ascending, polypectomies (2): Fragments of tubular adenomata; negative for high-grade dysplasia or carcinoma. B. Cecum, polypectomies (2): Fragments of tubular adenomata; negative for high-grade dysplasia or carcinoma. C. Colon, transverse, polypectomies (2): Fragments of tubular and tubulovillous adenomata; negative for high-grade dysplasia or carcinoma. TODAY'S VISIT THE PROCEDURE SHOULD BE REPEATED in 1-2 years if his health allows due to the finding of 5 tubular adenomas and 1 tubulovillous a too cold and I think we can accommodate this. The procedure was well tolerated. The results were explained and the patient is agreeable to the follow-up interval as stated. The bowel pattern has returned to normal. Education was provided to tell any 1st degree relatives about their findings to be sure that they are screened by age 45. Educated that they will be put on a recall list when it is time for their repeat scope but should they move out of state or away from the hospital they will need to remember along with their primary to repeat the procedure in a timely fashion to avoid any adverse complications. He then tells me that he is coughing up everything that he tries to swallow so it is likely that his esophageal stricture has returned and needs to be dilated. He has responded extremely well to dilations in the past. Because choking is an extremely serious possible complication we will try to get an corky EGD and I will see him after the procedure. Has COPD and DAXA which he says are well controlled as well as his cardiac problems. He also has chronic kidney disease stage 3. There are no prior problems with anesthesia or sedation. There are no infectious disease problems.. For I will see him after the procedure, but in the future they would like to do a 1 year follow-up sometime perhaps in the fall before the weather gets PFSH Medical History (Updated 03/17/23 @ 16:33 by BARB Cruz) Pre-op examination Lumbar vertebral fracture Hip pain, right Urinary frequency Urinary urgency Dermatitis Non-toxic multinodular goiter Tinea corporis Prostate cancer CAD (coronary artery disease) Presence of stent in artery T12 compression fracture Peripheral vascular disease Hypercholesterolemia Thyroid nodule Vitamin B12 deficiency Chronic kidney disease (CKD) stage G3b/A1, moderately decreased glomerular filtration rate (GFR) between 30-44 mL/min/1.73 square meter and albuminuria creatinine ratio less than 30 mg/g Obstructive sleep apnea Dementia in Alzheimer's disease Bipolar disorder COPD (chronic obstructive pulmonary disease) Coronary artery disease Metacarpal bone fracture Impaired fasting glucose Osteoporosis DDD (degenerative disc disease), lumbar Surgical History H/O colonoscopy S/P fine needle aspiration H/O kyphoplasty History of esophageal dilatation History of cataract surgery History of orthopedic surgery History of angioplasty History of appendectomy Family History Father Thyroid cancer Mother Colon cancer Daughter Primary squamous cell carcinoma of throat Social History Household Members: Children Housing: House Alcohol intake: former Patient Tobacco Use Status: Former Tobacco user Quit Date: 30 yr ago Tobacco use type: Cigarette e-Cigarette/Vaping Use: Never Used Second Hand Smoke Exposure: No service: No Current occupational status: disabled Current occupational exposures/hazards: No Cognitive needs: Yes (wheelchair, walker) Hearing needs: Yes (hearing aide) Vision needs: No Review of Systems Const Denies fatigue, Denies fever(s), Denies night sweats, Denies poor appetite and Denies weight loss ENT Reports Normal hearing present, Denies dental pain, Reports dysphagia, Denies hearing loss, Denies mouth pain, Denies odynophagia, Denies throat swelling, Denies tongue swelling and Reports other (Dentition adequate) Card Reports no additional complaints Resp Reports no additional complaints GI Denies abdominal pain, Denies melena, Denies bloating, Denies hematochezia, Reports constipation, Denies GI cramping, Reports dysphagia, Denies excessive flatus, Denies early satiety, Reports heartburn, Denies diarrhea, Denies nausea, Denies odynophagia, Denies vomiting and Denies hematemesis Musc Reports abnormal gait and Reports back pain Skin/Breast Denies pruritus, Denies lesions, Denies rash and Denies jaundice Neuro Reports Normal hearing present, Denies Abnormal speech present and Reports abnormal gait Endo Denies fatigue Aller/Immun Denies throat swelling and Denies tongue swelling Physical Exam Vital Signs: Last Vital Signs Pulse 65 03/17/23 16:13 BP 137/60 03/17/23 16:13 BMI result Body Mass Index 26.8 Const General: cooperative, no acute distress, well developed and well groomed Nutritional Appearance: average body habitus and well nourished Orientation/consciousness: oriented to person, oriented to place and oriented to time Limitations: No language barrier and wheelchair HEENT Head: Yes normocephalic and Yes atraumatic Eyes General: appearance normal, both eyes and all related structures Pupils: Equal, round and reactive pupils present Neck Neck: Yes normal visual inspection and Yes no lymphadenopathy Thyroid: Thyroid normal Resp Effort & Inspection: normal respiratory effort and able to speak in complete sentences Auscultation: clear to auscultation bilaterally Cardio Rate: regular rate Rhythm: regular rhythm Heart sounds: Normal, physiologic split S2 sound present Peripheral pulses: radial pulses present and posterior tibial pulses present GI Inspection: No distended and No Abdominal panniculus present Palpation (GI): Soft to palpation, nontender, no guarding, not rigid and No hepatosplenomegaly present Percussion: Yes normal to percussion Auscultation: normal bowel sounds Rectal Exam - Male: Yes deferred Skin General skin exam: no rashes or lesions noted, turgor normal, skin not dry, no jaundice, No spider nevi and no striae Rashes: no rashes Nails: normal Neuro General: oriented to person, oriented to place and oriented to time Cranial nerves: Yes Equal, round and reactive pupils present and Yes Normal hearing present Speech: No Abnormal speech present Extrem General: Yes normal to inspection, No clubbing, No cyanosis and No edema Psych Appearance: grossly normal and well kempt Mental Status: mental status grossly normal Speech and movement: Normal speech and movement present Affect: normal affect Attitude: cooperative Thought process: Circumstantial thought process present and not confabulating Thought content: Normal thought content present Insight: Limited insight present (Psych) Judgement: Limited judgement present (Psych) Assessment & Plan Assessment & Plan (1) Tubulovillous adenoma of colon: Comment: On 2022 scope along with 5 other tubular adenomas repeat in 1-2 years Code(s): D12.6 - Benign neoplasm of colon, unspecified (2) Tubular adenoma of colon: Comment: 2022 scope= 5 TA is and 1 tva repeat in 1-2 years; last 2018=TA repeat 2022 aeb Code(s): D12.6 - Benign neoplasm of colon, unspecified (3) Multiple adenomatous polyps: Code(s): D36.9 - Benign neoplasm, unspecified site (4) GERD (gastroesophageal reflux disease): Code(s): K21.9 - Gastro-esophageal reflux disease without esophagitis Qualifiers: Esophagitis presence: without esophagitis Qualified Code(s): K21.9 - Gastro-esophageal reflux disease without esophagitis (5) Esophageal stricture: Comment: No remaining ring on EGD 2018, [facility] dysmotility, [facility] Code(s): K22.2 - Esophageal obstruction (6) Esophageal dysmotility: Code(s): K22.4 - Dyskinesia of esophagus (7) Dysphagia: Code(s): R13.10 - Dysphagia, unspecified (8) Obstructive sleep apnea: Comment: THIS GENTLEMAN DOES HAVE RATHER SEVERE DEGREE OF OBSTRUCTIVE SLEEP APNEA, TST AHI= 58.5 IN THE PAST HE USED CPAP FOR A WHILE AND THEN STOPPED. HE IS USING HIS CPAP VERY REGULARLY EVERY NIGHT, HE FEELS BETTER, AND SLEEPS GOOD FOR AT LEAST 6 HOURS PER NIGHT. THERE IS A MILD TO MODERATE AIR LEAK ISSUE. IS BECAUSE OF HIS FELDMAN, HE IS ADVISED TO TIGHTEN THE STRAPS AT NIGHT MUCH HE CAN. Code(s): G47.33 - Obstructive sleep apnea (adult) (pediatric) (9) Chronic kidney disease (CKD) stage G3b/A1, moderately decreased glomerular filtration rate (GFR) between 30-44 mL/min/1.73 square meter and albuminuria creatinine ratio less than 30 mg/g: Code(s): N18.32 - Chronic kidney disease, stage 3b (10) COPD (chronic obstructive pulmonary disease): Comment: PATIENT HAS PAST HISTORY OF SMOKING, HE HAS CLINICAL FEATURES OF CHRONIC OBSTRUCTIVE PULMONARY DISEASE, PROBABLY MILD AND STABLE AT THIS TIME. TX CONTINUE SYMBICORT 160-4.52 PUFFS AT LEAST ONCE A DAY IN THE MORNING AND IF SYMPTOMS GET WORSE THEN GO BACK TO B.I.D. AND ALBUTEROL HFA 2 PUFFS Q 4-6 HOURS ONLY P.R.N.. Code(s): J44.9 - Chronic obstructive pulmonary disease, unspecified Qualifiers: COPD type: emphysema Emphysema type: unspecified Qualified Code(s): J43.9 - Emphysema, unspecified Plan THE PROCEDURE SHOULD BE REPEATED in 1-2 years if his health allows due to the finding of 5 tubular adenomas and 1 tubulovillous a too cold and I think we can accommodate this. The procedure was well tolerated. The results were explained and the patient is agreeable to the follow-up interval as stated. The bowel pattern has returned to normal. Education was provided to tell any 1st degree relatives about their findings to be sure that they are screened by age 45. Educated that they will be put on a recall list when it is time for their repeat scope but should they move out of state or away from the hospital they will need to remember along with their primary to repeat the procedure in a timely fashion to avoid any adverse complications. He then tells me that he is coughing up everything that he tries to swallow so it is likely that his esophageal stricture has returned and needs to be dilated. He has responded extremely well to dilations in the past. Because choking is an extremely serious possible complication we will try to get an corky EGD and I will see him after the procedure. Has COPD and DAXA which he says are well controlled as well as his cardiac problems. He also has chronic kidney disease stage 3. There are no prior problems with anesthesia or sedation. There are no infectious disease problems.. For I will see him after the procedure, but in the future they would like to do a 1 year follow-up sometime perhaps in the fall before the weather gets Orders: Orders EGD with [facility] - GI Use Only Today K22.2 - Esophageal obstruction, K22.4 - Dyskinesia of esophagus, R13.10 - Dysphagia, unspecified Coding Level of Care Code Est Pt Level 4 (63996) Diagnoses Tubulovillous adenoma of colon D12.6 Tubular adenoma of colon D12.6 Multiple adenomatous polyps D36.9 Gastroesophageal reflux disease without esophagitis K21.9 Esophagitis presence: without esophagitis Esophageal stricture K22.2 Esophageal dysmotility K22.4 Dysphagia R13.10 Obstructive sleep apnea G47.33 Chronic kidney disease (CKD) stage G3b/A1, moderately decreased glomerular filtration rate (GFR) between 30-44 mL/min/1.73 square meter and albuminuria creatinine ratio less than 30 mg/g N18.32 Pulmonary emphysema, unspecified emphysema type J43.9 COPD type: emphysema Emphysema type: unspecified
[2023-03-17 16:13] VITALS: BP 137/60; PULSE 65; BMI 26.8
== END 2023-03-17 16:59 | disposition home or self-care (01) ==
PROVIDERS: PCP Internal Medicine; Visit Provider Nurse Practitioner
DX: D12.6 Benign neoplasm of colon, unspecified (principal); D36.9 Benign neoplasm, unspecified site; K21.9 Gastro-esophageal reflux disease without esophagitis; K22.2 Esophageal obstruction; K22.4 Dyskinesia of esophagus; R13.10 Dysphagia, unspecified; G47.33 Obstructive sleep apnea (adult) (pediatric); N18.32 Chronic kidney disease, stage 3b; J43.9 Emphysema, unspecified
CPT/HCPCS: 99214

== ENCOUNTER → 2023-03-17 16:02 | Outpatient (BNVA) | payer MEDICARE, MEDICAID, SELFPAY | PROVIDERS: PCP Internal Medicine; Visit Provider Nurse Practitioner | DX: D12.6 Benign neoplasm of colon, unspecified (principal); D36.9 Benign neoplasm, unspecified site; K21.9 Gastro-esophageal reflux disease without esophagitis; K22.2 Esophageal obstruction; K22.4 Dyskinesia of esophagus; R13.10 Dysphagia, unspecified; G47.33 Obstructive sleep apnea (adult) (pediatric); N18.32 Chronic kidney disease, stage 3b; J43.9 Emphysema, unspecified | CPT/HCPCS: 99212 ==

== ENCOUNTER 2023-03-23 10:44 | Outpatient (AMB) | payer MEDICARE, MEDICAID, SELFPAY ==
[2023-03-23 10:51] VITALS: BP 132/88; PULSE 68; O2SAT 95; BMI 26.8
--- NOTE | 2023-03-23 10:51 | A.OFFPC_ITS ---
Vital Signs 03/23/23 10:51 Height 5 ft Weight 137 lb 5.568 oz BMI 26.8 BP 132/88 Blood Pressure Location Lt brachial Position Sitting Pulse 68 Pulse Source Pulse Oximeter Pulse Oximetry (%) 95 Oxygen Delivery Method Room Air Intake Visit Reasons: right leg pain Python Web Developer Required: No Accompanied by: Self / Same As Patient Allergies quetiapine [From SEROQUEL] Allergy (Unknown, Verified 03/23/23 11:27) UNKNOWN Medication List - Last Reconciled 03/23/23 by Justin Fontaine MD albuterol sulfate 90 mcg/actuation 2 puffs inhalation QID PRN aspirin (Adult Low Dose Aspirin) 81 mg PO DAILY atenolol 25 mg PO DAILY [AUTOPAP 6-20 cm H20 humidified air As directed] budesonide-formoterol 160-4.5 mcg/actuation (Symbicort) 2 puffs inhalation BID bupropion HCl 200 mg PO DAILY calcium citrate 500 mg (2 x 250 mg calcium) PO BID cholecalciferol (vitamin D3) 25 mcg PO DAILY 90 days citalopram 15 mg PO DAILY [commode bedside As directed] cyanocobalamin (vitamin B-12) 1,000 mcg PO DAILY denosumab (Prolia) 60 mg subcut [id number] ezetimibe 10 mg PO DAILY folic acid 1 mg PO DAILY furosemide 20 mg PO DAILY imipramine HCl 10 mg PO BID 90 days lactulose 30 mL PO DAILY PRN mupirocin 2% 1 appl topical BID nitroglycerin 0.4 mg sublingual Q5M PRN omeprazole 20 mg PO BID oxycodone 5 mg PO BID PRN rosuvastatin 40 mg PO DAILY 90 days trazodone 150 mg PO BEDTIME PRN vitamin B complex 1 tab PO DAILY Tobacco use date assessed: 03/23/23 Fall risk assessment: 2 + Falls in past year Last assessed Fall Risk: 03/23/23 Dental Screening Dental Screen Date: 03/23/23 Did you have a dental visit in the last 12 months?: No Did you have a dental problem in the last 6 months where you did not have access to dental care?: No Was dental information given to patient?: No HPI right leg pain HPI Details Patient comes in today complaining of on and off increased pain in his right lower leg States that he's had the right leg pain for a while but feels that the pain is getting worse lately States that the pain is mostly over the side of his leg and he describes his symptoms as a painful tight sensation in his leg often Notes that the pain is usually worse when he is standing on his leg and putting weight on it; states that it does not bother him as much when he is sitting down Also reports increasing right knee pain lately States that he recently completed PT for his low back pain and is wondering if his physical therapy sessions may have triggered something to cause his increased leg pain; he denies any other recent injury or trauma Recalls (+) Hx of fracture of his right femur and is hoping that his current symptoms have nothing to do with his Hx of femur/thigh fracture No other acute issues or complaints are noted at present [facility] Medical History Pre-op examination Lumbar vertebral fracture Hip pain, right Urinary frequency Urinary urgency Dermatitis Non-toxic multinodular goiter Tinea corporis Prostate cancer CAD (coronary artery disease) Presence of stent in artery T12 compression fracture Peripheral vascular disease Hypercholesterolemia Thyroid nodule Vitamin B12 deficiency Chronic kidney disease (CKD) stage G3b/A1, moderately decreased glomerular filtration rate (GFR) between 30-44 mL/min/1.73 square meter and albuminuria creatinine ratio less than 30 mg/g Obstructive sleep apnea Dementia in Alzheimer's disease Bipolar disorder COPD (chronic obstructive pulmonary disease) Coronary artery disease Metacarpal bone fracture Impaired fasting glucose Osteoporosis DDD (degenerative disc disease), lumbar Surgical History H/O colonoscopy S/P fine needle aspiration H/O kyphoplasty History of esophageal dilatation History of cataract surgery History of orthopedic surgery History of angioplasty History of appendectomy Family History Father Thyroid cancer Mother Colon cancer Daughter Primary squamous cell carcinoma of throat Social History Household Members: Children Housing: House Alcohol intake: former Patient Tobacco Use Status: Former Tobacco user Quit Date: 30 yr ago Tobacco use type: Cigarette e-Cigarette/Vaping Use: Never Used Second Hand Smoke Exposure: No service: No Current occupational status: disabled Current occupational exposures/hazards: No Cognitive needs: Yes (wheelchair, walker) Hearing needs: Yes (hearing aide) Vision needs: No Questionnaire PHQ-9 Over the last 2 weeks, how often have you been bothered by any of the following problems? 1. Little interest or pleasure in doing things: not at all 2. Feeling down, depressed, or hopeless: not at all 3. Trouble falling or staying asleep, or sleeping too much: not at all 4. Feeling tired or having little energy: not at all 5. Poor appetite or overeating: not at all 6. Feeling bad about yourself - or that you are a failure or have let yourself or your family down: not at all 7. Trouble concentrating on things, such as reading the newspaper or watching television: not at all 8. Moving or speaking so slowly that other people could have noticed. Or the opposite - being so fidgety or restless that you have been moving around a lot more than usual: not at all 9. Thoughts that you would be better off or of hurting yourself in some way: not at all Total score: 0 Depression Screening Interpretation: Negative Depression Screening Done: Yes 42946 - PHQ-9 Billing: Yes Source: Developed by Drs. Orlando Adams, Janna Mahoney, Casey Acevedo and colleagues, with an educational adam from [employer]. Thrive Questionnaire Date Thrive assessed: 03/23/23 I am a: Patient What is your living situation today?: I have a steady place to live Within the past 12 months, did the food you bought not last and you didn't have the money to get more?: Never true Within the past 12 months, did you worry whether your food would run out before you got money to buy more?: Never true Do you have trouble paying for medicines?: No Do you have trouble getting transportation to medical appointments?: No Do you have trouble paying your heating and electricity bill?: No Do you have trouble taking care of your child, family member or friend?: No Do you have trouble with day-to-day activities such as bathing, preparing meals, shopping, managing finances, etc.?: No Are you currently unemployed and looking for a job?: No Are you interested in more education?: No Please select the resources that you would like help with: None Currently or been in a relationship where the following occur: no concerns reported AUDIT C Alcohol Use Questionnaire (AUDIT-C) 1. How often do you have a drink containing alcohol?: Never 3. How often do you have six or more drinks on one occasion?: Never Total Score: 0 Score Reviewed/Action Taken: Yes OWEN-7 AMB Questionnaire OWEN-7 Date OWEN - 7 assessed: 03/23/23 Feeling nervous, anxious, or on edge: 0 = Not at all Not being able to stop or control worryin = Not at all Worrying too much about different things: 0 = Not at all Trouble relaxin = Not at all Being so restless that it is hard to sit still: 0 = Not at all Becoming easily annoyed or irritable: 0 = Not at all Feeling afraid as if something awful might happen: 0 = Not at all Total OWEN-7 score (0-4 normal; 5-9 mild; 10-14 moderate; 15-21 severe): 0 Source: Developed by Drs. Orlando Adams, Janna Mahoney, Casey Acevedo and colleagues, with an educational adam from [employer]. Review of Systems Const Reports fatigue, Denies fever(s) and Denies headache(s) ENT Denies dysphagia, Denies dizziness, Denies headache(s), Denies neck pain, Denies odynophagia and Denies sore throat Card Denies chest pain, Denies palpitations and Denies dyspnea Resp Denies cough and Denies dyspnea GI Denies abdominal pain, Denies constipation, Denies dysphagia, Denies heartburn, Denies diarrhea, Denies nausea, Denies odynophagia and Denies vomiting Denies dysuria, Denies nocturia and Denies urinary frequency Musc Reports back pain (chronic), Reports arthralgias (involving multiple joints; increased right knee/leg pain lately), Reports muscle cramps (on and off in the right leg), Denies neck pain and Reports stiffness Skin/Breast Denies rash Neuro Denies dizziness and Denies headache(s) Endo Reports fatigue and Denies palpitations Physical exam (Primary Care) Vital Signs: Last Vital Signs Pulse 68 03/23/23 10:51 BP 132/88 03/23/23 10:51 Pulse Ox 95 03/23/23 10:51 Oxygen Delivery Method Room Air 03/23/23 10:51 BMI result Body Mass Index 26.8 Tobacco/Smoking Status: Tobacco use Status Tobacco use date assessed 03/23/23 03/23/23 10:58 Patient Tobacco Use Status Former Tobacco user 03/23/23 10:58 Tobacco use type Cigarette 03/23/23 10:58 e-Cigarette/Vaping Use Never Used 03/23/23 10:58 PHQ-9: PHQ-9 Score PHQ-9: Total score 0 03/23/23 10:58 Depression Screening Interpretation: Negative Thrive Assessment: Date of Thrive Assessment Date Thrive assessed 03/23/23 03/23/23 10:58 Currently or been in a relationship where the following occur: no concerns reported Const General: no acute distress and alert HENMT Throat: Yes posterior oropharynx normal and Yes tonsils normal Neck Neck: Yes no lymphadenopathy and Yes supple Resp Auscultation: clear to auscultation bilaterally, no rales and no wheezes Cardio Rate: regular rate Rhythm: regular rhythm Heart sounds: no murmurs GI Palpation (GI): Soft to palpation and nontender Auscultation: normal bowel sounds Back/Spine/Pelvis Thoracic/Lumbar Spine: lumbar spinal tenderness Skin Rashes: no rashes Extrem General: No clubbing, No cyanosis and Yes edema (trace, bilaterally) Right lower extremity: knee Details: no tenderness and no swelling and lower leg Details: no tenderness Assessment and Plan Assessment & Plan (1) Right leg pain: Code(s): M79.604 - Pain in right leg Plan: Patient is advised that his recently increasing right lower leg pain is most likely due to musculoskeletal pain (also possible muscle cramping) related to his right knee issues as physical exam today on his right leg failed to elicit any pertinent findings - there is NO reproducible pain noted on exam of his knee or leg Will send him for x-rays of the right lower leg for further evaluation although doubt this his leg x-rays will reveal anything significant Previous x-rays done in 2020 revealed only (+) chronic appearing post-op changes in the tibia and fibula with no acute findings (2) Right knee pain: Code(s): M25.561 - Pain in right knee Qualifiers: Chronicity: unspecified Qualified Code(s): M25.561 - Pain in right knee Plan: Will send patient for x-rays of the right knee for further evaluation Advised that further intervention or Tx will depend on how his x-rays come out Plan Follow up with PCP as scheduled in May 2023 Orders: Orders XR knee RT 4V Today M25.561 - Pain in right knee XR tibia fibula RT 2V Today M79.604 - Pain in right leg Coding Level of Care Code Est Pt Level 3 (23078) Diagnoses Right leg pain M79.604 Right knee pain, unspecified chronicity M25.561 Chronicity: unspecified
== END 2023-03-23 11:36 | disposition home or self-care (01) ==
PROVIDERS: PCP Internal Medicine; Visit Provider Internal Medicine
DX: M79.604 Pain in right leg (principal); M25.561 Pain in right knee
CPT/HCPCS: 99213

== ENCOUNTER 2023-03-23 11:56 | Outpatient (REF) | payer MEDICARE, MEDICAID, SELFPAY ==
--- NOTE | ~2023-03-23 | XR_ITS ---
EXAMINATION: XR TIBIA AND FIBULA, RIGHT CLINICAL INFORMATION: Pain COMPARISON: Right tibia-fibula November 2020 TECHNIQUE: AP and lateral views of the right tibia and fibula were obtained. FINDINGS: Arterial calcification present. Bone and joints otherwise unremarkable. No fracture. No osseous lesions. XR/XR tibia fibula RT 2V IMPRESSION: 1. No acute abnormality. 2. Calcific atherosclerotic disease.
--- NOTE | ~2023-03-23 | XR_ITS ---
EXAMINATION: XR KNEE, RIGHT CLINICAL INFORMATION: Pain in the right knee COMPARISON: X-ray the right femur May 2016 TECHNIQUE: Four views of the right knee. FINDINGS: Distal end of the femoral ronaldo and screws noted with unchanged appearance. No periprosthetic fracture or suspicious area of lucency. Vascular graft noted in the femoral region. Minimal osteoarthritis of the medial compartment and patellofemoral compartment manifested by small marginal osteophytes without joint space narrowing. Lateral compartment normal. XR/XR knee RT 4V IMPRESSION: Postoperative changes partially visualized in the distal femur unchanged. Minimal osteoarthritis of the right knee
== END 2023-03-23 11:57 | disposition home or self-care (01) ==
LOC: HO.XRAY 11:56
PROVIDERS: PCP Internal Medicine; Visit Provider Internal Medicine
DX: M79.604 Pain in right leg (principal); M25.561 Pain in right knee
CPT/HCPCS: 73564; 73590

== ENCOUNTER 2023-03-26 09:21 | Day surgery (SDC) | payer MEDICARE, MEDICAID, SELFPAY ==
--- NOTE | 2023-03-25 10:50 | HO.ANESPROP2 ---
Documented by User: Radha Eagle NP 03/25/23 10:55 HPI - Anesthesia Eval Consult details Narrative: 77yo M for Upper Endoscopy with Balloon Dilitation [place] [facility] [place] with stent 1999. 2018 cardiac testing WNL. Last office visit 01/2023, stable and 1 year f/u COUNT INCLUDES [facility] Active Problems Active Problems: All Active Problems (Updated 03/23/23 @ 12:42 by Justin Fontaine MD) Right leg pain (Acute) Right knee pain (Acute) Dysphagia (Acute) Multiple adenomatous polyps (Acute) Tubulovillous adenoma of colon (Acute) Peripheral arterial disease (Acute) Foot ulcer, right (Acute) Cellulitis of toe of right foot (Acute) Tubular adenoma of colon (Acute) Type 2 diabetes mellitus with hyperglycemia (Acute) Onychodystrophy (Acute) Essential hypertension (Acute) Atherosclerotic cardiovascular disease (Acute) Constipation (Acute) Esophageal dysmotility (Acute) Esophageal stricture (Acute) GERD (gastroesophageal reflux disease) (Acute) Somnambulism (Acute) Peripheral vascular disease (Acute) DDD (degenerative disc disease), lumbar (Acute) Osteoporosis (Acute) Coronary artery disease (Acute) COPD (chronic obstructive pulmonary disease) (Acute) Bipolar disorder (Acute) Obstructive sleep apnea (Acute) Chronic kidney disease (CKD) stage G3b/A1, moderately decreased glomerular filtration rate (GFR) between 30-44 mL/min/1.73 square meter and albuminuria creatinine ratio less than 30 mg/g (Acute) Hypercholesterolemia (Acute) Past Medical History Medical History GERD (gastroesophageal reflux disease) CAD (coronary artery disease) Pre-op examination Presence of stent in artery Lumbar vertebral fracture Hip pain, right Urinary frequency Urinary urgency Dermatitis Non-toxic multinodular goiter Tinea corporis T12 compression fracture Peripheral vascular disease Hypercholesterolemia Thyroid nodule Vitamin B12 deficiency Chronic kidney disease (CKD) stage G3b/A1, moderately decreased glomerular filtration rate (GFR) between 30-44 mL/min/1.73 square meter and albuminuria creatinine ratio less than 30 mg/g Prostate cancer Obstructive sleep apnea Dementia in Alzheimer's disease Bipolar disorder COPD (chronic obstructive pulmonary disease) Coronary artery disease Metacarpal bone fracture Impaired fasting glucose Osteoporosis DDD (degenerative disc disease), lumbar Family History Family History Father Thyroid cancer Mother Colon cancer Daughter Primary squamous cell carcinoma of throat Surgical History Surgical History H/O colonoscopy S/P fine needle aspiration H/O kyphoplasty History of esophageal dilatation History of cataract surgery History of orthopedic surgery History of angioplasty History of appendectomy History of Problems with Anesthesia: No Social History Social History Household Members: Children Housing: House Alcohol intake: former Patient Tobacco Use Status: Former Tobacco user Quit Date: 30 yrs ago Tobacco use type: Cigarette e-Cigarette/Vaping Use: Never Used Second Hand Smoke Exposure: No Use of substances other than those prescribed or required for medical reasons: No Are you DNR?: Yes Advance Directives: No Advance Directives Information Provided: Yes service: No Current occupational status: disabled Current occupational exposures/hazards: No Cognitive needs: Yes (wheelchair, walker) Hearing needs: Yes (hearing aide) Vision needs: No Meds Allergies Allergy/AdvReac Type Severity Reaction Status Date / Time quetiapine [From SEROQUEL] Allergy Unknown UNKNOWN Verified 03/26/23 09:37 Home Medications Medication Instructions Recorded Confirmed Last Taken Type cyanocobalamin (vitamin B-12) 1,000 mcg PO DAILY 03/22/20 03/26/23 Unknown History 1,000 mcg capsule trazodone 150 mg tablet 150 mg PO BEDTIME PRN Insomnia 03/22/20 03/26/23 Unknown History vitamin B complex 1 tab PO DAILY 03/22/20 03/26/23 Unknown History bupropion HCl 200 mg tablet,12 hr 200 mg PO DAILY 02/11/22 03/26/23 Unknown History sustained-release citalopram 10 mg tablet 15 mg PO DAILY 08/19/22 03/26/23 Unknown History ascorbic acid (vitamin C) 250 mg 250 mg PO DAILY 03/26/23 03/26/23 Unknown History tablet (Vitamin C) Exam Pertinent Lab Results Pertinent Lab Results: Laboratory Tests 02/11/23 12:27 WBC 5.8 Hgb 9.6 L Hct 30.2 L Plt Count 193 Sodium 143 Potassium 4.4 Chloride 108 Carbon Dioxide 27 BUN 32 H Creatinine 1.60 H Narrative Narrative: EKG 01/06/23 normal sinus rhythm, no acute ST or T-wave abnormalities, QTC 457 milliseconds, rate 66. Per 01/2023 cardiac note: negative stress test Aug 05 1018-echo normal LV grade 1 diastolic dysfunction August 2018 Assessment and Plan Assessment Anesthesia Assessment: Chart Reviewed Final Anesthetic Review History of Problems with Anesthesia: No Documented by User: Sherrill Cintron MD 03/26/23 10:19 COUNT INCLUDES [facility] Active Problems Active Problems: All Active Problems (Updated 03/26/23 @ 09:42 by Sherrill Cintron MD) Right leg pain (Acute) Right knee pain (Acute) Dysphagia (Acute) Multiple adenomatous polyps (Acute) Tubulovillous adenoma of colon (Acute) Peripheral arterial disease (Acute) Foot ulcer, right (Acute) Cellulitis of toe of right foot (Acute) Tubular adenoma of colon (Acute) Type 2 diabetes mellitus with hyperglycemia (Acute) Onychodystrophy (Acute) Essential hypertension (Acute) Atherosclerotic cardiovascular disease (Acute) Constipation (Acute) Esophageal dysmotility (Acute) Esophageal stricture (Acute) GERD (gastroesophageal reflux disease) (Acute) Somnambulism (Acute) Peripheral vascular disease (Acute) DDD (degenerative disc disease), lumbar (Acute) Osteoporosis (Acute) Coronary artery disease (Acute) COPD (chronic obstructive pulmonary disease) (Acute) Bipolar disorder (Acute) Obstructive sleep apnea (Acute) Chronic kidney disease (CKD) stage G3b/A1, moderately decreased glomerular filtration rate (GFR) between 30-44 mL/min/1.73 square meter and albuminuria creatinine ratio less than 30 mg/g (Acute) Hypercholesterolemia (Acute) Past Medical History Medical History GERD (gastroesophageal reflux disease) CAD (coronary artery disease) Pre-op examination Presence of stent in artery Lumbar vertebral fracture Hip pain, right Urinary frequency Urinary urgency Dermatitis Non-toxic multinodular goiter Tinea corporis T12 compression fracture Peripheral vascular disease Hypercholesterolemia Thyroid nodule Vitamin B12 deficiency Chronic kidney disease (CKD) stage G3b/A1, moderately decreased glomerular filtration rate (GFR) between 30-44 mL/min/1.73 square meter and albuminuria creatinine ratio less than 30 mg/g Prostate cancer Obstructive sleep apnea Dementia in Alzheimer's disease Bipolar disorder COPD (chronic obstructive pulmonary disease) Coronary artery disease Metacarpal bone fracture Impaired fasting glucose Osteoporosis DDD (degenerative disc disease), lumbar Family History Family History Father Thyroid cancer Mother Colon cancer Daughter Primary squamous cell carcinoma of throat Family history of problems with anesthesia: No Surgical History Surgical History H/O colonoscopy S/P fine needle aspiration H/O kyphoplasty History of esophageal dilatation History of cataract surgery History of orthopedic surgery History of angioplasty History of appendectomy Social History Social History Household Members: Children Housing: House Alcohol intake: former Patient Tobacco Use Status: Former Tobacco user Quit Date: 30 yrs ago Tobacco use type: Cigarette e-Cigarette/Vaping Use: Never Used Second Hand Smoke Exposure: No Use of substances other than those prescribed or required for medical reasons: No Are you DNR?: Yes Advance Directives: No Advance Directives Information Provided: Yes service: No Current occupational status: disabled Current occupational exposures/hazards: No Cognitive needs: Yes (wheelchair, walker) Hearing needs: Yes (hearing aide) Vision needs: No Meds Allergies Allergy/AdvReac Type Severity Reaction Status Date / Time quetiapine [From SEROQUEL] Allergy Unknown UNKNOWN Verified 03/26/23 09:37 Home Medications Medication Instructions Recorded Confirmed Last Taken Type cyanocobalamin (vitamin B-12) 1,000 mcg PO DAILY 03/22/20 03/26/23 Unknown History 1,000 mcg capsule trazodone 150 mg tablet 150 mg PO BEDTIME PRN Insomnia 03/22/20 03/26/23 Unknown History vitamin B complex 1 tab PO DAILY 03/22/20 03/26/23 Unknown History bupropion HCl 200 mg tablet,12 hr 200 mg PO DAILY 02/11/22 03/26/23 Unknown History sustained-release citalopram 10 mg tablet 15 mg PO DAILY 08/19/22 03/26/23 Unknown History ascorbic acid (vitamin C) 250 mg 250 mg PO DAILY 03/26/23 03/26/23 Unknown History tablet (Vitamin C) Exam Height,Weight and Vital Signs: Height 5 ft Weight 61.144 kg Vital Signs Temp Pulse Resp BP Pulse Ox O2 Del Method 03/26/23 09:39 97.0 F 66 18 186/64 H 99 Room Air Airway Mallampati Class: II TM Dist: >3cm Neck ROM: Full Denture: Upper and Lower Loose/Missing/Broken Teeth: Yes (No teeth. Left dentures at home) Heart: RRR Lungs: CTAB Assessment and Plan Assessment Anesthesia Assessment: Anesthesia Plan Discussed Final Anesthetic Review Family History of Problems with Anesthesia: No NPO: Yes ASA Class: III Final Preanesthetic Review: No Changes in Pt Med Stat, Meds/Allgs Chart Reviewed, Consent Obtained/Reviewed and Anes Risks/Benef Reviewed Patient Risk: Intermediate Procedure Risk: Low Assessment/Block/Sedation in SS: Assess/Block/Sedation-SS Anesthetic Plan Anesthetic Plan: MAC: Disposition: Standard PACU
--- NOTE | 2023-03-26 09:32 | MHC.SHP ---
Pre-Procedural Eval Section A Date of Service: 03/26/23 Section B Chief Complaint: Dyskinesia of esophagus,Esophageal obstruction Relevant Family History (Specify if Yes): No Relevant Social History: None Present Medications: see Short Stay Collaborative assessment Medical History: Significant History (Lumbar vertebral fracture Hip pain, right Urinary frequency Urinary urgency Dermatitis Non-toxic multinodular goiter Tinea corporis Prostate cancer CAD (coronary artery disease) Presence of stent in artery T12 compression fracture Peripheral vascular disease Hypercholesterolemia Thyroid nodule Vitam) History of Previous Operations: Relevant previous surgery/procedure and date(s) ( H/O colonoscopy S/P fine needle aspiration H/O kyphoplasty History of esophageal dilatation History of cataract surgery History of orthopedic surgery History of angioplasty History of appendectomy) Allergies: Allergies Allergy/AdvReac Type Severity Reaction Status Date / Time quetiapine [From SEROQUEL] Allergy Unknown UNKNOWN Verified 03/23/23 11:27 Review of Systems Sugical H&P ROS: Negative: Constitution, Cardiovascular, Respiratory, Neurological, Psychiatric, Hem-Onc, Allergic/Immunologic, Gastrointestinal, Genitourinary, Musculoskeletal, Integumentary, Endocrine and Eyes/Ears/Nose/Throat Exam Surgical H&P Exam: Normal: HEENT, Normal: Heart, Normal: Lungs, Normal: Extremities, Normal: Abdomen, Normal: Skin and Normal: Neurological Plan Diagnosis/Plan: Unchanged I have reviewed the history and physical and performed a pertinent physical examination on my patient. No changes have occurred unless specified. Time Spent With Patient Time: Total time managing care of this patient today ____ minutes.
[2023-03-26 09:39] VITALS: BP 186/64; PULSE 66; RESP 18; TEMP 36.1; O2SAT 99; BMI 26.3
[2023-03-26] MEDS: Lactated Ringers 1,000 ML 100 ML IVCONT (09:55)
--- NOTE | 2023-03-26 10:18 | W.PM.OPN ---
Operative Note Operative Note Date of Service: 03/26/23 Narrative: Procedure Description: EGD Indication: dysphagia Anesthesia: MAC FLEXIBLE TRANSORAL UPPER GASTROINTESTINAL ENDOSCOPY UPPER ENDOSCOPY Consent: Indications for the procedure and potential complications of bleeding, perforation, reaction to medications and missed diagnosis were discussed with the patient and informed consent was obtained. Instrument: Olympus GIF H 190 J mid size upper endoscope Monitoring: Vital signs and clinical assessment, continuous EKG monitoring, Pulse oximetry, Carbon Dioxide monitoring and blood pressure monitoring were done throughout the procedure. Procedure: The patient was placed in the left lateral decubitis position and pre-procedure medications were administered and a bite block was placed. The endoscope was inserted into the mouth and advanced under direct vision to the third part of duodenum. A careful inspection was made as the upper endoscope was withdrawn including a retroflexed examination of the proximal stomach; Findings and interventions are described below. Findings: Larynx:normal Esophagus: GE junction at 30 cm, diaphragm hiatus at 34 cm, 4 cm sliding hiatal hernia noted, balloon dilation done to 20 mm at UES and LES, no tears seen Stomach: Normal mucosa Grade 2 flap valve on retroflexed examination of the cardia. Duodenum: Normal bulb and descending duodenum, Intervention: Balloon dilation Impression/Findings: hiatal hernia PLAN: normal diet today as tolerated, if ongoing sx refer for hernia repair and possible manometry
[2023-03-26 10:23] VITALS: BP 160/59; PULSE 58; RESP 12; TEMP 36.6; O2SAT 99
[2023-03-26 10:38] VITALS: BP 129/45; PULSE 66; RESP 16; TEMP 36.4; O2SAT 97
== END 2023-03-26 11:20 | disposition home or self-care (01) ==
PROVIDERS: PCP Internal Medicine; Visit Provider Internal Medicine Gastroenterology
PROC: (CPT 43249; principal; 2023-03-26 14:40)
DX: K22.2 Esophageal obstruction (principal); K22.4 Dyskinesia of esophagus; K21.9 Gastro-esophageal reflux disease without esophagitis; K44.9 Diaphragmatic hernia without obstruction or gangrene; I25.10 Atherosclerotic heart disease of native coronary artery without angina pectoris; Z98.61 Coronary angioplasty status; I73.9 Peripheral vascular disease, unspecified; J43.9 Emphysema, unspecified; G47.33 Obstructive sleep apnea (adult) (pediatric); M81.0 Age-related osteoporosis without current pathological fracture; E11.22 Type 2 diabetes mellitus with diabetic chronic kidney disease; I12.9 Hypertensive chronic kidney disease with stage 1 through stage 4 chronic kidney disease, or unspecified chronic kidney disease; N18.32 Chronic kidney disease, stage 3b; E11.65 Type 2 diabetes mellitus with hyperglycemia; E04.2 Nontoxic multinodular goiter; G30.9 Alzheimer's disease, unspecified; F02.80 Dementia in other diseases classified elsewhere, unspecified severity, without behavioral disturbance, psychotic disturbance, mood disturbance, and anxiety; Z66 Do not resuscitate; Z99.89 Dependence on other enabling machines and devices; Z79.899 Other long term (current) drug therapy; Z88.8 Allergy status to other drugs, medicaments and biological substances; Z87.891 Personal history of nicotine dependence
CPT/HCPCS: 43249; C1726; J2704

== ENCOUNTER → 2023-03-26 09:21 | Outpatient (BNV) | payer MEDICARE, MEDICAID, SELFPAY | PROVIDERS: PCP Internal Medicine; Visit Provider Internal Medicine Gastroenterology | DX: R13.10 Dysphagia, unspecified (principal) | CPT/HCPCS: 43249 ==

== ENCOUNTER 2023-04-15 14:24 | Outpatient (AMB) | payer MEDICARE, MEDICAID, SELFPAY ==
--- NOTE | 2023-04-15 14:30 | A.OFFVIS_ITS ---
Intake Vital Signs 04/15/23 14:38 Height 5 ft BP 154/65 H Blood Pressure Location Rt brachial Position Sitting Pulse 66 Intake Visit Reasons: s/p urgent egd Intake Note: Patient presents to in office visit today in follow up s/p urgent EGD. CC: Mr. Giles underwent urgent EGD on 03/26/23. He reports doing well today and denies having any GI concerns. Allergies quetiapine [From SEROQUEL] Allergy (Unknown, Verified 04/15/23 14:42) UNKNOWN HPI s/p urgent egd HPI Details Assessment & Plan (1) Tubulovillous adenoma of colon: Comment: On 2022 scope along with 5 other tubular adenomas repeat in 1-2 years Code(s): D12.6 - Benign neoplasm of colon, unspecified (2) Tubular adenoma of colon: Comment: 2022 scope= 5 TA is and 1 tva repeat in 1-2 years; last 2018=TA repeat 2022 aeb Code(s): D12.6 - Benign neoplasm of colon, unspecified (3) Multiple adenomatous polyps: Code(s): D36.9 - Benign neoplasm, unspecified site (4) GERD (gastroesophageal reflux diseas e): Code(s): K21.9 - Gastro-esophageal reflux disease without esophagitis Qualifiers: Esophagitis presence: without esophagitis Qualified Code(s): K21.9 - Gastro-esophageal reflux disease without esophagitis (5) Esophageal stricture: Comment: No remaining ring on EGD 2018, esophageal dysmotility, but stricture seen at GE jxn on barium swallow after EGD Code(s): K22.2 - Esophageal obstruction (6) Esophageal dysmotility: Code(s): K22.4 - Dyskinesia of esophagus (7) Dysphagia: Code(s): R13.10 - Dysphagia, unspecified (8) Obstructive sleep apnea: Comment: THIS GENTLEMAN DOES HAVE RATHER SEVERE DEGREE OF OBSTRUCTIVE SLEEP APNEA, TST AHI= 58.5 IN THE PAST HE USED CPAP FOR A WHILE AND THEN STOPPED. HE IS USING HIS CPAP VERY REGULARLY EVERY NIGHT, HE FEELS BETTER, AND SLEEPS GOOD FOR AT LEAST 6 HOURS PER NIGHT. THERE IS A MILD TO MODERATE AIR LEAK ISSUE. IS BECAUSE OF HIS FELDMAN, HE IS ADVISED TO TIGHTEN THE STRAPS AT NIGHT MUCH HE CAN. Code(s): G47.33 - Obstructive sleep apnea (adult) (pediatric) (9) Chronic kidney disease (CKD) stage G 3b/A1, moderately decreased glomerular filtration rate (GFR) between 30-44 mL/min/1.73 square meter and albuminuria creatinine ratio less than 30 mg/g: Code(s): N18.32 - Chronic kidney disease, stage 3b (10) COPD (chronic obstructive pulmonary disease): Comment: PATIENT HAS PAST HISTORY OF SMOKING, HE HAS CLINICAL FEATURES OF CHRONIC OBSTRUCTIVE PULMONARY DISEASE, PROBABLY MILD AND STABLE AT THIS TIME. TX CONTINUE SYMBICORT 160-4.52 PUFFS AT LEAST ONCE A DAY IN THE MORNING AND IF SYMPTOMS GET WORSE THEN GO BACK TO B.I.D. AND ALBUTEROL HFA 2 PUFFS Q 4-6 HOURS ONLY P.R.N.. Code(s): J44.9 - Chronic obstructive pulmonary disease, unspecified Qualifiers: COPD type: emphysema Emphysema type: unspecified Qualified Code(s): J43.9 - Emphysema, unspecified Plan THE PROCEDURE SHOULD BE REPEATED in 1-2 years if his health allows due to the finding of 5 tubular adenomas and 1 tubulovillous a too cold and I think we can accommodate this. The procedure was well tolerated. The results were explained and the patient is agreeable to the follow-up interval as stated. The bowel pattern has returned to normal. Education was provided to tell any 1st degree relatives about their findings to be sure that they are screened by age 45. Educated that they will be put on a recall list when it is time for their repeat scope but should they move out of state or away from the hospital they will need to remember along with their primary to repeat the procedure in a timely fashion to avoid any adverse complications. He then tells me that he is coughing up everything that he tries to swallow so it is likely that his esophageal stricture has returned and needs to be dilated. He has responded extremely well to dilations in the past. Because choking is an extremely serious possible complication we will try to get an corky EGD and I will see him after the procedure. Has COPD and DAXA which he says are well controlled as well as his cardiac problems. He also has chronic kidney disease stage 3. There are no prior problems with anesthesia or sedation. There are no infectious disease problems.. For I will see him after the procedure, but in the future they would like to do a 1 year follow-up sometime perhaps in the fall before the weather gets Orders: Orders EGD with [facility] - G I Use Only Today K22.2 - Esophageal obstruction, K22. 4 - Dyskinesia of esophagus, R13.10 - Dysphagia, unspe cified EGD 03/26/23 Findings: Larynx:normal Esophagus: GE junction at 30 cm, diaphragm hiatus at 34 cm, 4 cm sliding hiatal hernia noted, balloon dilation done to 20 mm at UES and LES, no tears seen Stomach: Normal mucosa Grade 2 flap valve on retroflexed examination of the cardia. Duodenum: Normal bulb and descending duodenum, Intervention: Balloon dilation Impression/Findings: hiatal hernia PLAN: normal diet today as tolerated, if ongoing sx refer for hernia repair and possible manometry TODAY'S VISIT His swallowing is greatly improved. He continues on his omeprazole 20mg bid. ROV 6 mos. PFS Medical History GERD (gastroesophageal reflux disease) CAD (coronary artery disease) Pre-op examination Presence of stent in artery Lumbar vertebral fracture Hip pain, right Urinary frequency Urinary urgency Dermatitis Non-toxic multinodular goiter Tinea corporis T12 compression fracture Peripheral vascular disease Hypercholesterolemia Thyroid nodule Vitamin B12 deficiency Chronic kidney disease (CKD) stage G3b/A1, moderately decreased glomerular filtration rate (GFR) between 30-44 mL/min/1.73 square meter and albuminuria creatinine ratio less than 30 mg/g Prostate cancer Obstructive sleep apnea Dementia in Alzheimer's disease Bipolar disorder COPD (chronic obstructive pulmonary disease) Coronary artery disease Metacarpal bone fracture Impaired fasting glucose Osteoporosis DDD (degenerative disc disease), lumbar Surgical History History of esophagogastroduodenoscopy (EGD) H/O colonoscopy S/P fine needle aspiration H/O kyphoplasty History of esophageal dilatation History of cataract surgery History of orthopedic surgery History of angioplasty History of appendectomy Family History Father Thyroid cancer Mother Colon cancer Daughter Primary squamous cell carcinoma of throat Social History Household Members: Children Housing: House Alcohol intake: former Patient Tobacco Use Status: Former Tobacco user Quit Date: 30 yrs ago Tobacco use type: Cigarette e-Cigarette/Vaping Use: Never Used Second Hand Smoke Exposure: No service: No Current occupational status: disabled Current occupational exposures/hazards: No Cognitive needs: Yes (wheelchair, walker) Hearing needs: Yes (hearing aide) Vision needs: No Review of Systems Const Denies fatigue, Denies fever(s), Denies night sweats, Denies poor appetite and Denies weight loss ENT Reports Normal hearing present, Denies dental pain, Denies dysphagia, Denies hearing loss, Denies mouth pain, Denies odynophagia, Denies throat swelling, Denies tongue swelling and Reports other (Dentition adequate) Card Reports no additional complaints Resp Reports no additional complaints GI Denies abdominal pain, Denies melena, Denies bloating, Denies hematochezia, Denies constipation, Denies GI cramping, Denies dysphagia, Denies excessive flatus, Denies early satiety, Reports heartburn, Denies diarrhea, Denies nausea, Denies odynophagia, Denies vomiting and Denies hematemesis Musc Reports abnormal gait Skin/Breast Denies pruritus, Denies lesions, Denies rash and Denies jaundice Neuro Reports Normal hearing present, Denies Abnormal speech present and Reports abnormal gait Endo Denies fatigue Aller/Immun Denies throat swelling and Denies tongue swelling Physical Exam Vital Signs: Last Vital Signs Pulse 66 04/15/23 14:38 BP 154/65 H 04/15/23 14:38 Const General: cooperative, no acute distress, well developed and well groomed Nutritional Appearance: well nourished and thin Orientation/consciousness: oriented to person, oriented to place and oriented to time Limitations: No language barrier and wheelchair HEENT Head: Yes normocephalic and Yes atraumatic Eyes General: appearance normal, both eyes and all related structures Pupils: Equal, round and reactive pupils present Neck Neck: Yes normal visual inspection and Yes no lymphadenopathy Thyroid: Thyroid normal Resp Effort & Inspection: normal respiratory effort and able to speak in complete sentences Auscultation: clear to auscultation bilaterally Cardio Rate: regular rate Rhythm: regular rhythm Heart sounds: Normal, physiologic split S2 sound present Peripheral pulses: radial pulses present and posterior tibial pulses present GI Inspection: No distended and No Abdominal panniculus present Palpation (GI): Soft to palpation, nontender, no guarding, not rigid and No hepatosplenomegaly present Percussion: Yes normal to percussion Auscultation: normal bowel sounds Rectal Exam - Male: Yes deferred Skin General skin exam: no rashes or lesions noted, turgor normal, skin not dry, no jaundice, No spider nevi and no striae Rashes: no rashes Nails: normal Neuro General: oriented to person, oriented to place and oriented to time Cranial nerves: Yes Equal, round and reactive pupils present and Yes Normal hearing present Speech: No Abnormal speech present Extrem General: Yes normal to inspection, No clubbing, No cyanosis and No edema Psych Appearance: grossly normal and well kempt Mental Status: mental status grossly normal Speech and movement: Normal speech and movement present Affect: normal affect Attitude: cooperative Thought process: Normal thought process present and not confabulating Thought content: Normal thought content present Insight: Limited insight present (Psych) Judgement: Limited judgement present (Psych) Results Reviewed Results Reviewed: EGD 03/26/23 Findings: Larynx:normal Esophagus: GE junction at 30 cm, diaphragm hiatus at 34 cm, 4 cm sliding hiatal hernia noted, balloon dilation done to 20 mm at UES and LES, no tears seen Stomach: Normal mucosa Grade 2 flap valve on retroflexed examination of the cardia. Duodenum: Normal bulb and descending duodenum, Intervention: Balloon dilation Impression/Findings: hiatal hernia PLAN: normal diet today as tolerated, if ongoing sx refer for hernia repair and possible manometry Assessment & Plan Assessment & Plan (1) Esophageal stricture: Comment: No remaining ring on EGD 2018, esophageal dysmotility, but stricture seen at [facility] on barium swallow after EGD Code(s): K22.2 - Esophageal obstruction (2) GERD (gastroesophageal reflux disease): Code(s): K21.9 - Gastro-esophageal reflux disease without esophagitis Qualifiers: Esophagitis presence: without esophagitis Qualified Code(s): K21.9 - Gastro-esophageal reflux disease without esophagitis Plan His swallowing is greatly improved. He continues on his omeprazole 20mg bid. ROV 6 mos. Medications: Refilled omeprazole 20 mg PO BID 180 caps 2RF Coding Level of Care Code Est Pt Level 3 (50031) Diagnoses Esophageal stricture K22.2 Gastroesophageal reflux disease without esophagitis K21.9 Esophagitis presence: without esophagitis
[2023-04-15 14:38] VITALS: BP 154/65; PULSE 66
== END 2023-04-15 15:53 | disposition home or self-care (01) ==
PROVIDERS: PCP Internal Medicine; Visit Provider Nurse Practitioner
DX: K22.2 Esophageal obstruction (principal); K21.9 Gastro-esophageal reflux disease without esophagitis
CPT/HCPCS: 99213

== ENCOUNTER → 2023-04-15 14:24 | Outpatient (BNVA) | payer MEDICARE, MEDICAID, SELFPAY | PROVIDERS: PCP Internal Medicine; Visit Provider Nurse Practitioner | DX: K22.2 Esophageal obstruction (principal); K21.9 Gastro-esophageal reflux disease without esophagitis | CPT/HCPCS: 99212 ==

== ENCOUNTER 2023-04-21 10:59 | Outpatient (AMB) | payer MEDICARE, MEDICAID, SELFPAY ==
[2023-04-21 11:14] VITALS: BP 120/50; PULSE 63; O2SAT 98
--- NOTE | 2023-04-21 11:14 | A.OFFVIS_ITS ---
Intake Vital Signs 04/21/23 11:14 Height 5 ft BP 120/50 L Blood Pressure Location Lt brachial Position Sitting Pulse 63 Pulse Source Pulse Oximeter Pulse Oximetry (%) 98 Oxygen Delivery Method Room Air Intake Visit Reasons: jeff Intake Note: pt is here for follow up and states his breathing is going well. cpap usage is low, but he tries but just doesn't reach 4 hours. Certified Dental Assistant Required: No Allergies quetiapine [From SEROQUEL] Allergy (Unknown, Verified 04/21/23 11:31) UNKNOWN Medication List - Last Reconciled 04/21/23 by Hemal Manzanares MD albuterol sulfate 90 mcg/actuation 2 puffs inhalation QID PRN ascorbic acid (vitamin C) (Vitamin C) 250 mg PO DAILY aspirin (Adult Low Dose Aspirin) 81 mg PO DAILY atenolol 25 mg PO DAILY [AUTOPAP 6-20 cm H20 humidified air As directed] budesonide-formoterol 160-4.5 mcg/actuation (Symbicort) 2 puffs inhalation BID bupropion HCl 200 mg PO DAILY calcium citrate 500 mg (2 x 250 mg calcium) PO BID cholecalciferol (vitamin D3) 25 mcg PO DAILY 90 days citalopram 15 mg PO DAILY [commode bedside As directed] cyanocobalamin (vitamin B-12) 1,000 mcg PO DAILY denosumab (Prolia) 60 mg subcut [id number] ezetimibe 10 mg PO DAILY folic acid 1 mg PO DAILY furosemide 20 mg PO DAILY imipramine HCl 10 mg PO BID 90 days lactulose 30 mL PO DAILY PRN mupirocin 2% 1 appl topical BID nitroglycerin 0.4 mg sublingual Q5M PRN omeprazole 20 mg PO BID oxycodone 5 mg PO BID PRN rosuvastatin 40 mg PO DAILY 90 days trazodone 150 mg PO BEDTIME PRN vitamin B complex 1 tab PO DAILY Do you need a note to return to daycare/school/sports/work: No HPI jeff HPI Details THIS 77 YEARS OLD GENTLEMAN IS HERE FOR 6 MONTHS FOLLOW-UP FOR HIS SLEEP APNEA AND COPD. BREATHING ROSADO HAS BEEN STABLE, AND HE IS USING SYMBICORT ONLY NEEDED. ON DAILY BASIS HIS PHYSICAL ACTIVITY IS RELATIVELY LOW, HE IS REMAINING MOSTLY IN THE HOUSE, WALKS SLOWLY WITH THE WALKER, SO HE DOES NOT EXPERIENCE MUCH SHORTNESS OF BREATH. ALSO HE HAS HAD NO ATTACKS OF WHEEZING OR COUGH. FOR HIS SLEEP APNEA HE DOES HAVE CPAP AND PUTS THE CPAP ON EVERY NIGHT, BUT DURING THE NIGHT IT SOMEWHAT SLIPS OFF, AND HE USES ONLY FOR 1 OR 2 HOURS. HE CLAIMS THAT HE IS SLEEPING FAIRLY WELL. THIS GENTLEMAN HAS CHRONIC KIDNEY DISEASE, HYPERTENSION, ANEMIA, AND BIPOLAR DISORDER/DEPRESSION HIS HIS MAINLY THE CARE PROVIDER. [facility] Medical History GERD (gastroesophageal reflux disease) CAD (coronary artery disease) Pre-op examination Presence of stent in artery Lumbar vertebral fracture Hip pain, right Urinary frequency Urinary urgency Dermatitis Non-toxic multinodular goiter Tinea corporis T12 compression fracture Peripheral vascular disease Hypercholesterolemia Thyroid nodule Vitamin B12 deficiency Chronic kidney disease (CKD) stage G3b/A1, moderately decreased glomerular filtration rate (GFR) between 30-44 mL/min/1.73 square meter and albuminuria creatinine ratio less than 30 mg/g Prostate cancer Obstructive sleep apnea Dementia in Alzheimer's disease Bipolar disorder COPD (chronic obstructive pulmonary disease) Coronary artery disease Metacarpal bone fracture Impaired fasting glucose Osteoporosis DDD (degenerative disc disease), lumbar Surgical History History of esophagogastroduodenoscopy (EGD) H/O colonoscopy S/P fine needle aspiration H/O kyphoplasty History of esophageal dilatation History of cataract surgery History of orthopedic surgery History of angioplasty History of appendectomy Family History Father Thyroid cancer Mother Colon cancer Daughter Primary squamous cell carcinoma of throat Social History Household Members: Children Housing: House Alcohol intake: former Patient Tobacco Use Status: Former Tobacco user Quit Date: 30 yrs ago Tobacco use type: Cigarette e-Cigarette/Vaping Use: Never Used Second Hand Smoke Exposure: No service: No Current occupational status: disabled Current occupational exposures/hazards: No Cognitive needs: Yes (wheelchair, walker) Hearing needs: Yes (hearing aide) Vision needs: No Review of Systems Const All systems reviewed & are unremarkable except as noted in HPI and below Reports weakness (General muscle weakness) Eyes Reports no additional complaints ENT Reports no additional complaints Card Denies chest pain, Denies irregular heart rhythm, Denies leg edema and Reports dyspnea on exertion (Mild) Resp Reports cough (occasional ), Reports dyspnea on exertion (Mild) and Denies wheezing GI Reports no additional complaints Musc Reports abnormal gait and Reports back pain Skin/Breast Reports system reviewed and no additional complaints, except as documented Neuro Reports abnormal gait and Reports weakness (General muscle weakness) Psych Reports no additional complaints Aller/Immun Denies wheezing Physical Exam Vital Signs: Last Vital Signs Pulse 63 04/21/23 11:14 BP 120/50 L 04/21/23 11:14 Pulse Ox 98 04/21/23 11:14 Oxygen Delivery Method Room Air 04/21/23 11:14 Const General: comfortable, no acute distress, alert and awake Orientation/consciousness: patient oriented x3 HEENT Other: He is edentulous. There is some recession of the chin. Oropharynx is narrow with Mallampati class 4. Head: Yes normal to inspection General nose exam: No nasal polyps present and No nasal discharge present Face and sinus: Yes sinuses nontender Mouth: oropharynx normal Throat: Yes posterior oropharynx normal Eyes General: appearance normal, both eyes and all related structures Neck Neck: Yes normal visual inspection, Yes no lymphadenopathy, Yes trachea midline and Yes no JVD Thyroid: Thyroid normal Chest Chest palpation & inspection: normal inspection of the chest, normal palpation of entire chest wall and no tenderness Resp Other: Percussion note resonant on both sides. Breath sounds are distant with prolonged expiratory phase. Both lungs are very clear without any wheezes or Creps. Cardio Palpation: normal PMI Rate: regular rate Rhythm: regular rhythm Heart sounds: no gallops and no murmurs GI Palpation (GI): Soft to palpation, nontender, No hepatosplenomegaly present and no masses Auscultation: normal bowel sounds Back/Spine/Pelvis Other: There is a midline scar over the lumbosacral area. The whole spine is very stiff, with limited movements. Skin General skin exam: no rashes or lesions noted Neuro General: patient oriented x3, No gait normal (In wheelchair) and no focal motor deficits Cranial nerves: Yes CN's II-XII intact bilaterally Extrem General: Yes normal to inspection, Yes no clubbing, cyanosis or edema and Yes no calf tenderness Psych Appearance: grossly normal and well kempt Speech and movement: Normal speech and movement present Results Reviewed Results Reviewed: COMPLIANCE REPORT FOR THE LAST 30 NIGHTS IS REVIEWED. HE HAS USED 25/30 NIGHTS, 83%. HIS USAGE PER NIGHT IS ONLY 1 HOUR 9 MINUTES. PRESSURE USED 9-10 CM. THERE IS SIGNIFICANT AIR LEAK, MAXIMUM 73.1. THERE IS STILL CONSIDERABLE RESIDUAL SLEEP APNEA, AHI 33.6 AND ALSO HAS SOME DEGREE OF CENTRAL APNEA Assessment & Plan Assessment & Plan (1) COPD (chronic obstructive pulmonary disease): Comment: PATIENT HAS PAST HISTORY OF SMOKING, HE HAS CLINICAL FEATURES OF CHRONIC OBSTRUCTIVE PULMONARY DISEASE, PROBABLY MILD AND STABLE AT THIS TIME. Code(s): J44.9 - Chronic obstructive pulmonary disease, unspecified Qualifiers: COPD type: emphysema Emphysema type: unspecified Qualified Code(s): J43.9 - Emphysema, unspecified Plan: TX CONTINUE SYMBICORT 160-4.52 PUFFS AND MAY USE ONLY P.R.N.. AND ALBUTEROL HFA 2 PUFFS Q 4-6 HOURS ONLY P.R.N.. (2) Obstructive sleep apnea: Comment: THIS GENTLEMAN DOES HAVE RATHER SEVERE DEGREE OF OBSTRUCTIVE SLEEP APNEA, TST AHI= 58.5 ON HIS LAST VISIT THE COMPLIANCE WAS GOOD. THIS TIME THE COMPLIANCE REPORT INDICATES THAT HIS USAGE IS SUBOPTIMAL, USING ONLY ABOUT 1 HOUR PER NIGHT. ACCORDING TO HIS THE MASK DOES NOT STAY ON HIS FACE, AND THERE IS AIR LEAK. Code(s): G47.33 - Obstructive sleep apnea (adult) (pediatric) Plan: TALKED TO HIM ABOUT USE OF CPAP, REGULARLY EVERY NIGHT AND FOR AT LEAST 4-5 HOURS PER NIGHT. HE IS GOING TO TIGHTEN THE STRAPS AND TRY TO KEEP THE MASK ON HIS FACE THROUGH OUT THE NIGHT. HE WILL BE RECHECKED IN 3 MONTHS WITH COMPLIANCE REPORT. Coding Level of Care Code Est Pt Level 3 (41697) Diagnoses Pulmonary emphysema, unspecified emphysema type J43.9 COPD type: emphysema Emphysema type: unspecified Obstructive sleep apnea G47.33
== END 2023-04-21 11:29 | disposition home or self-care (01) ==
PROVIDERS: PCP Internal Medicine; Visit Provider Internal Medicine
DX: J43.9 Emphysema, unspecified (principal); G47.33 Obstructive sleep apnea (adult) (pediatric)
CPT/HCPCS: 99213

== ENCOUNTER → 2023-04-21 10:59 | Outpatient (BNVA) | payer MEDICARE, MEDICAID, SELFPAY | PROVIDERS: PCP Internal Medicine; Visit Provider Internal Medicine | DX: J43.9 Emphysema, unspecified (principal); G47.33 Obstructive sleep apnea (adult) (pediatric) | CPT/HCPCS: 99212 ==

== ENCOUNTER 2023-05-14 11:41 | Outpatient (AMB) | payer MEDICARE, MEDICAID, SELFPAY ==
[2023-05-14 11:42] VITALS: BP 146/60; PULSE 66; O2SAT 99; BMI 26.4
--- NOTE | 2023-05-14 11:42 | A.OFFPC_ITS ---
Vital Signs 05/14/23 11:42 Height 5 ft Weight 135 lb 5.821 oz BMI 26.4 BP 146/60 H Blood Pressure Location Lt brachial Position Sitting Pulse 66 Pulse Source Pulse Oximeter Pulse Oximetry (%) 99 Oxygen Delivery Method Room Air Intake Visit Reasons: Med Follow up Intake Note: Patient is here to follow up on medication [facility] Required: No Allergies quetiapine [From SEROQUEL] Allergy (Unknown, Verified 05/14/23 11:49) UNKNOWN Tobacco use date assessed: 05/14/23 Fall risk assessment: 1 Fall in past year Last assessed Fall Risk: 05/14/23 Dental Screening Dental Screen Date: 05/14/23 HPI Med Follow up HPI Details 77-year-old male with a history of chron ic kidney disease hypercholesterolemia COPD CAD GERD diabetes mellitus history of lumbar vertebral fracture on pain medication coming in for follow-up last seen in February 2023. Patient's colonoscopy is up-to-date January 2023 and bone density is due for later this year. Review of the notes has seen Pulmonary in April 21 obstructive sleep apnea problem and COPD on Symbicort and albuterol. Patient has sleep apnea AHI 58. Patient has also seen the gastroenterology EGD in 03/26/2023 had tubular adenoma on colon test [facility] Medical History GERD (gastroesophageal reflux disease) CAD (coronary artery disease) Pre-op examination Presence of stent in artery Lumbar vertebral fracture Hip pain, right Urinary frequency Urinary urgency Dermatitis Non-toxic multinodular goiter Tinea corporis T12 compression fracture Peripheral vascular disease Hypercholesterolemia Thyroid nodule Vitamin B12 deficiency Chronic kidney disease (CKD) stage G3b/A1, moderately decreased glomerular filtration rate (GFR) between 30-44 mL/min/1.73 square meter and albuminuria cr eatinine ratio less than 30 mg/g Prostate cancer Obstructive sleep apnea Dementia in Alzheimer's disease Bipolar disorder COPD (chronic obstructive pulmonary disease) Coronary artery disease Metacarpal bone fracture Impaired fasting glucose Osteoporosis DDD (degenerative disc disease), lumbar Surgical History History of esophagogastroduodenoscopy (EGD) H/O colonoscopy S/P fine needle aspiration H/O kyphoplasty History of esophageal dilatation History of cataract surgery History of orthopedic surgery History of angioplasty History of appendectomy Family History Father Thyroid cancer Mother Colon cancer Daughter Primary squamous cell carcinoma of throat Social History Household Members: Children Housing: House Alcohol intake: former Patient Tobacco Use Status: Former Tobacco user Quit Date: 30 yrs ago Tobacco use type: Cigarette e-Cigarette/Vaping Use: Never Used Second Hand Smoke Exposure: No service: No Current occupational status: disabled Current occupational exposures/hazards: No Cognitive needs: Yes (wheelchair, walker) Hearing needs: Yes (hearing aide) Vision needs: No Questionnaire Thrive Questionnaire Date Thrive assessed: 05/14/23 AUDIT C Alcohol Use Questionnaire (AUDIT-C) 1. How often do you have a drink containing alcohol?: Never 3. How often do you have six or more drinks on one occasion?: Never Total Score: 0 Score Reviewed/Action Taken: Yes OWEN-7 AMB Questionnaire OWEN-7 Date OWEN - 7 assessed: 05/14/23 Source: Developed by Drs. Orlando Adams, Janna Mahoney, Casey Acevedo and colleagues, with an educational adam from [employer]. Physical exam (Primary Care) Vital Signs: Last Vital Signs Pulse 66 05/14/23 11:42 BP 146/60 H 05/14/23 11:42 Pulse Ox 99 05/14/23 11:42 Oxygen Delivery Method Room Air 05/14/23 11:42 BMI result Body Mass Index 26.4 Tobacco/Smoking Status: Tobacco use Status Tobacco use date assessed 05/14/23 05/14/23 11:53 Patient Tobacco Use Status Former Tobacco user 05/14/23 11:53 Tobacco use type Cigarette 05/14/23 11:53 e-Cigarette/Vaping Use Never Used 05/14/23 11:53 Thrive Assessment: Date of Thrive Assessment Date Thrive assessed 05/14/23 05/14/23 11:53 Const General: alert; No acute distress Eyes Conjunctivae: conjunctivae normal Resp Auscultation: clear to auscultation bilaterally Cardio Rate: regular rate Rhythm: regular rhythm GI Inspection: Yes normal to inspection Extrem Other: R fifth toe amputation , 4th toe has 1 cm ulcer scabbed and midl redness General: Yes edema Results AMB Hemoglobin A1c AMB Hemoglobin A1c 6.3 % Last Edit by DINAH Agosto on 05/14/23 11:54 Results Reviewed Results Reviewed: Laboratory Last Values Hgb A1c (Clinic) 6.3 % (4.0-6.0) H 05/14/23 11:32 Assessment and Plan Assessment & Plan (1) Tubulovillous adenoma of colon: Comment: On 2022 scope along with 5 other tubular adenomas repeat in 1-2 years Code(s): D12.6 - Benign neoplasm of colon, unspecified Plan: Patient follows up with Gastroenterology and advised repeat colonoscopy in 1-2 years (2) Type 2 diabetes mellitus with hyperglycemia: Code(s): E11.65 - Type 2 diabetes mellitus with hyperglycemia Plan: Decrease the amount of carbohydrate intake, pasta, bread, rice and potatoes are all sugar and that is aside from all the sweet stuff, remember that fruits are good but they are Sweet also. Hemoglobin A1c goal of less than 7.0. Patient on diet control (3) Atherosclerotic cardiovascular disease: Code(s): I25.10 - Atherosclerotic heart disease of [place] coronary artery without angina pectoris Plan: Control the cholesterol, weight, blood pressure, diabetes continue with aspirin 81 mg once a day (4) GERD (gastroesophageal reflux disease): Code(s): K21.9 - Gastro-esophageal reflux disease without esophagitis Qualifiers: Esophagitis presence: without esophagitis Qualified Code(s): K21.9 - Gastro-esophageal reflux disease without esophagitis Plan: Avoid the foods that causes that usually spicy foods, tomato products, juices, coffee, soda and foods that your sensitive to. After eating do not lie down, allow 3-4 hours before in lie down. And keep the head of bed above 30 degrees to avoid the acid from going up. (5) COPD (chronic obstructive pulmonary disease): Comment: PATIENT HAS PAST HISTORY OF SMOKING, HE HAS CLINICAL FEATURES OF CHRONIC OBSTRUCTIVE PULMONARY DISEASE, PROBABLY MILD AND STABLE AT THIS TIME. Code(s): J44.9 - Chronic obstructive pulmonary disease, unspecified Qualifiers: COPD type: emphysema Emphysema type: unspecified Qualified Code(s): J43.9 - Emphysema, unspecified Plan: Continue with the inhaler albuterol follows up with Pulmonary. (6) Obstructive sleep apnea: Comment: THIS GENTLEMAN DOES HAVE RATHER SEVERE DEGREE OF OBSTRUCTIVE SLEEP APNEA, TST AHI= 58.5 ON HIS LAST VISIT THE COMPLIANCE WAS GOOD. THIS TIME THE COMPLIANCE REPORT INDICATES THAT HIS USAGE IS SUBOPTIMAL, USING ONLY ABOUT 1 HOUR PER NIGHT. ACCORDING TO HIS THE MASK DOES NOT STAY ON HIS FACE, AND THERE IS AIR LEAK. Code(s): G47.33 - Obstructive sleep apnea (adult) (pediatric) Plan: Patient follows up with Pulmonary and encouraged to continue using the CPAP every day (7) Chronic kidney disease (CKD) stage G3b/A1, moderately decreased glomerular filtration rate (GFR) between 30-44 mL/min/1.73 square meter and albuminuria creatinine ratio less than 30 mg/g: Code(s): N18.32 - Chronic kidney disease, stage 3b Plan: Keep well hydrated avoid NSAIDs (8) Hypercholesterolemia: Code(s): E78.00 - Pure hypercholesterolemia, unspecified Plan: Avoid fried foods, chicken skin, eggs, butter margarine, pastries and meat. Be it pork or beef they have a lot of cholesterol November last blood work LDL goal of less than 70. Patient is on rosuvastatin and Zetia (9) Toe ulcer, right: Comment: r 4th toe ulcer scab Code(s): L97.519 - Non-pressure chronic ulcer of other part of right foot with unspecified severity Plan: referral to Wound care Orders: Orders AMB Hemoglobin A1c Today E11.65 - Type 2 diabetes mellitus with hyperglycemia Referrals Wound Care Referral L97.519 - Non-pressure chronic ulcer of other part of right foot with unspecified severity Medications: Refilled nitroglycerin do not exceed 3 doses per episode 0.4 mg sublingual Q5M PRN 30 tabs 5RF chest pain budesonide-formoterol 160-4.5 mcg/actuation (Symbicort) 2 puffs inhalation BID 10.2 grams 11RF J43.9 - Emphysema, unspecified Coding Level of Care Code Est Pt Level 4 (46713) Diagnoses Tubulovillous adenoma of colon D12.6 Type 2 diabetes mellitus with hyperglycemia E11.65 Atherosclerotic cardiovascular disease I25.10 Gastroesophageal reflux disease without esophagitis K21.9 Esophagitis presence: without esophagitis Pulmonary emphysema, unspecified emphysema type J43.9 COPD type: emphysema Emphysema type: unspecified Obstructive sleep apnea G47.33 Chronic kidney disease (CKD) stage G3b/A1, moderately decreased glomerular filtration rate (GFR) between 30-44 mL/min/1.73 square meter and albuminuria creatinine ratio less than 30 mg/g N18.32 Hypercholesterolemia E78.00 Toe ulcer, right L97.519
== END 2023-05-14 12:51 | disposition home or self-care (01) ==
PROVIDERS: PCP Internal Medicine; Visit Provider Internal Medicine
DX: E11.65 Type 2 diabetes mellitus with hyperglycemia (principal); J43.9 Emphysema, unspecified; N18.32 Chronic kidney disease, stage 3b; L97.519 Non-pressure chronic ulcer of other part of right foot with unspecified severity; D12.6 Benign neoplasm of colon, unspecified; I25.10 Atherosclerotic heart disease of native coronary artery without angina pectoris; K21.9 Gastro-esophageal reflux disease without esophagitis; G47.33 Obstructive sleep apnea (adult) (pediatric); E78.00 Pure hypercholesterolemia, unspecified
CPT/HCPCS: 83036; 99214

== ENCOUNTER 2023-06-01 12:36 | Outpatient (RCR) | payer MEDICARE, MEDICAID, SELFPAY ==
--- NOTE | ~2023-06-01 | XR_ITS ---
EXAMINATION: XR FOOT, RIGHT CLINICAL INFORMATION: Nonhealing wound, fourth toe DIP. COMPARISON: None available. TECHNIQUE: AP, lateral, and oblique views of the right foot. FINDINGS: Evaluation of the fourth digit is somewhat limited, as it is held in flexion on all views, overlaps with the remaining digits on lateral view, and is obscured by overlying bandage. No lytic lesion or periosteal reaction of the fourth digit is identified to suggest osteomyelitis. No fracture or dislocation is seen. Suspect mild overlying soft tissue swelling. 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 Mild degenerative change of the first MTP joint. Joint spaces otherwise appear maintained. Small plantar calcaneal spur. XR/XR foot RT min 3V IMPRESSION: Findings as above.
== END 2023-07-13 12:09 | disposition home or self-care (01) ==
LOC: HO.WCC 12:36
PROVIDERS: PCP Internal Medicine; Visit Provider Surgery
DX: L97.518 Non-pressure chronic ulcer of other part of right foot with other specified severity (principal); R73.03 Prediabetes; I73.9 Peripheral vascular disease, unspecified; R68.89 Other general symptoms and signs; I10 Essential (primary) hypertension; N18.9 Chronic kidney disease, unspecified; Z92.3 Personal history of irradiation; Z87.891 Personal history of nicotine dependence; Z89.421 Acquired absence of other right toe(s)
CPT/HCPCS: 11042; 73630; 97597; 99212

== ENCOUNTER 2023-06-03 09:51 | Outpatient (AMB) | payer MEDICARE, MEDICAID, SELFPAY ==
[2023-06-03 10:11] VITALS: BP 114/62; PULSE 64; O2SAT 97; BMI 26.8
--- NOTE | 2023-06-03 10:11 | A.OFFPC_ITS ---
Vital Signs 06/03/23 10:11 Height 5 ft Weight 137 lb 2.04 oz BMI 26.8 BP 114/62 Blood Pressure Location Lt brachial Position Sitting Pulse 64 Pulse Source Pulse Oximeter Pulse Oximetry (%) 97 Oxygen Delivery Method Room Air Intake Visit Reasons: cad Allergies quetiapine [From SEROQUEL] Allergy (Unknown, Verified 06/03/23 10:11) UNKNOWN Medication List - Last Reconciled 06/03/23 by Jermaine Lopez, albuterol sulfate 90 mcg/actuation 2 puffs inhalation QID PRN ascorbic acid (vitamin C) (Vitamin C) 250 mg PO DAILY aspirin (Adult Low Dose Aspirin) 81 mg PO DAILY atenolol 25 mg PO DAILY [AUTOPAP 6-20 cm H20 humidified air As directed] budesonide-formoterol 160-4.5 mcg/actuation (Symbicort) 2 puffs inhalation BID bupropion HCl 200 mg PO DAILY calcium citrate 500 mg (2 x 250 mg calcium) PO BID cholecalciferol (vitamin D3) 25 mcg PO DAILY 90 days citalopram 15 mg PO DAILY [commode bedside As directed] cyanocobalamin (vitamin B-12) 1,000 mcg PO DAILY denosumab (Prolia) 60 mg subcut [id number] diclofenac sodium 1% (Arthritis Pain (diclofenac)) 4 grams topical QID ezetimibe 10 mg PO DAILY folic acid 1 mg PO DAILY furosemide 20 mg PO DAILY imipramine HCl 10 mg PO BID 90 days lactulose 30 mL PO DAILY PRN mupirocin 2% 1 appl topical BID nitroglycerin 0.4 mg sublingual Q5M PRN omeprazole 20 mg PO BID oxycodone 5 mg PO BID PRN rosuvastatin 40 mg PO DAILY 90 days trazodone 150 mg PO BEDTIME PRN vitamin B complex 1 tab PO DAILY Tobacco use date assessed: 05/14/23 Fall risk assessment: No Falls in past year Last assessed Fall Risk: 06/03/23 Dental Screening Dental Screen Date: 06/03/23 Did you have a dental visit in the last 12 months?: Yes Did you have a dental problem in the last 6 months where you did not have access to dental care?: No Was dental information given to patient?: Patient has dentist HPI cad HPI Details 77-year-old male with diabetes mellitus controlled coronary artery disease GERD COPD obstructive sleep apnea chronic kidney disease hypercholesterolemia last seen in May 2023. Patient had a right toe ulcer and has been referred to wound care. [facility] Medical History GERD (gastroesophageal reflux disease) CAD (coronary artery disease) Pre-op examination Presence of stent in artery Lumbar vertebral fracture Hip pain, right Urinary frequency Urinary urgency Dermatitis Non-toxic multinodular goiter Tinea corporis T12 compression fracture Peripheral vascular disease Hypercholesterolemia Thyroid nodule Vitamin B12 deficiency Chronic kidney disease (CKD) stage G3b/A1, moderately decreased glomerular filtration rate (GFR) between 30-44 mL/min/1.73 square meter and albuminuria creatinine ratio less than 30 mg/g Prostate cancer Obstructive sleep apnea Dementia in Alzheimer's disease Bipolar disorder COPD (chronic obstructive pulmonary disease) Coronary artery disease Metacarpal bone fracture Impaired fasting glucose Osteoporosis DDD (degenerative disc disease), lumbar Surgical History History of esophagogastroduodenoscopy (EGD) H/O colonoscopy S/P fine needle aspiration H/O kyphoplasty History of esophageal dilatation History of cataract surgery History of orthopedic surgery History of angioplasty History of appendectomy Family History Father Thyroid cancer Mother Colon cancer Daughter Primary squamous cell carcinoma of throat Social History Household Members: Children Housing: House Alcohol intake: former Patient Tobacco Use Status: Former Tobacco user Quit Date: 30 yrs ago Tobacco use type: Cigarette e-Cigarette/Vaping Use: Never Used Second Hand Smoke Exposure: No service: No Current occupational status: disabled Current occupational exposures/hazards: No Cognitive needs: Yes (wheelchair, walker) Hearing needs: Yes (hearing aide) Vision needs: No Questionnaire PHQ-9 Over the last 2 weeks, how often have you been bothered by any of the following problems? 1. Little interest or pleasure in doing things: not at all 2. Feeling down, depressed, or hopeless: not at all 3. Trouble falling or staying asleep, or sleeping too much: not at all 4. Feeling tired or having little energy: not at all 5. Poor appetite or overeating: not at all 6. Feeling bad about yourself - or that you are a failure or have let yourself or your family down: not at all 7. Trouble concentrating on things, such as reading the newspaper or watching television: not at all 8. Moving or speaking so slowly that other people could have noticed. Or the opposite - being so fidgety or restless that you have been moving around a lot more than usual: not at all 9. Thoughts that you would be better off or of hurting yourself in some way: not at all Total score: 0 Depression Screening Interpretation: Negative Depression Screening Done: Yes [id number] - PHQ-9 Billing: Yes Source: Developed by Drs. Orlando Adams, Janna Mahoney, Casey Acevedo and colleagues, with an educational adam from [employer]. Thrive Questionnaire Date Thrive assessed: 05/14/23 AUDIT C Alcohol Use Questionnaire (AUDIT-C) 1. How often do you have a drink containing alcohol?: Never 3. How often do you have six or more drinks on one occasion?: Never Total Score: 0 Score Reviewed/Action Taken: Yes OWEN-7 AMB Questionnaire OWEN-7 Date OWEN - 7 assessed: 05/14/23 Source: Developed by Drs. Orlando Adams, Janna Mahoney, Casey Acevedo and colleagues, with an educational adam from [employer]. Physical exam (Primary Care) Vital Signs: Last Vital Signs Pulse 64 06/03/23 10:11 BP 114/62 06/03/23 10:11 Pulse Ox 97 06/03/23 10:11 Oxygen Delivery Method Room Air 06/03/23 10:11 BMI result Body Mass Index 26.8 Tobacco/Smoking Status: Tobacco use Status Tobacco use date assessed 05/14/23 06/03/23 10:16 Patient Tobacco Use Status Former Tobacco user 06/03/23 10:16 Tobacco use type Cigarette 06/03/23 10:16 e-Cigarette/Vaping Use Never Used 06/03/23 10:16 PHQ-9: PHQ-9 Score PHQ-9: Total score 0 06/03/23 10:16 Depression Screening Interpretation: Negative Thrive Assessment: Date of Thrive Assessment Date Thrive assessed 05/14/23 06/03/23 10:16 Const General: alert; No acute distress Eyes Conjunctivae: conjunctivae normal Resp Auscultation: clear to auscultation bilaterally Cardio Rate: regular rate Rhythm: regular rhythm GI Inspection: Yes normal to inspection Assessment and Plan Assessment & Plan (1) Toe ulcer, right: Comment: r 4th toe ulcer scab Code(s): L97.519 - Non-pressure chronic ulcer of other part of right foot with unspecified severity Plan: Patient has been referred to wound care. Has been seen 2 days ago and x-ray was requested. (2) Type 2 diabetes mellitus with hyperglycemia: Code(s): E11.65 - Type 2 diabetes mellitus with hyperglycemia Plan: Decrease the amount of carbohydrate intake, pasta, bread, rice and potatoes are all sugar and that is aside from all the sweet stuff, remember that fruits are good but they are Sweet also. Hemoglobin A1c goal of less than 7.0 patient is on diet control (3) Essential hypertension: Code(s): I10 - Essential (primary) hypertension Plan: Continue with blood pressure medication. Decrease salt intake and exercise atenolol 25 mg once a day (4) Peripheral vascular disease: Code(s): I73.9 - Peripheral vascular disease, unspecified Plan: When sitting down elevate the legs, exercise, and support stockings (5) Bipolar disorder: Comment: psychiatrist [place] Code(s): F31.9 - Bipolar disorder, unspecified Qualifiers: Active/Remission status: currently active Current bipolar episode type: mixed Current episode severity: moderate Qualified Code(s): F31.62 - Bipolar disorder, current episode mixed, moderate Plan: Continue with counseling and therapy (6) Obstructive sleep apnea: Comment: THIS GENTLEMAN DOES HAVE RATHER SEVERE DEGREE OF OBSTRUCTIVE SLEEP APNEA, TST AHI= 58.5 ON HIS LAST VISIT THE COMPLIANCE WAS GOOD. THIS TIME THE COMPLIANCE REPORT INDICATES THAT HIS USAGE IS SUBOPTIMAL, USING ONLY ABOUT 1 HOUR PER NIGHT. ACCORDING TO HIS THE MASK DOES NOT STAY ON HIS FACE, AND THERE IS AIR LEAK. Code(s): G47.33 - Obstructive sleep apnea (adult) (pediatric) Plan: Continue to use the CPAP more than 4 hours a night and benefits from this. (7) Chronic kidney disease (CKD) stage G3b/A1, moderately decreased glomerular filtration rate (GFR) between 30-44 mL/min/1.73 square meter and albuminuria creatinine ratio less than 30 mg/g: Code(s): N18.32 - Chronic kidney disease, stage 3b Plan: Keep well hydrated, control the blood pressure control cholesterol avoid NSAIDs (8) Right knee pain: Code(s): M25.561 - Pain in right knee Qualifiers: Chronicity: unspecified Qualified Code(s): M25.561 - Pain in right knee Plan: Patient was asking for arthritis medication and discussed about diclofenac gel which is safe. Patient does have chronic kidney disease and was advised to avoid NSAIDs. Medications: New diclofenac sodium 1% (Arthritis Pain (diclofenac)) apply to single knee, ankle, foot; for foot includes sole/toes/top of foot 4 grams topical QID 100 grams 4RF M25.561 - Pain in right knee Changed From oxycodone Partial Fill upon patient request. 30-7-=23 5 mg PO BID PRN 23 tabs 0RF pain M51.36 - Other intervertebral disc degeneration, lumbar region To oxycodone 5 mg PO BID PRN 45 tabs 0RF pain M51.36 - Other intervertebral disc degeneration, lumbar region Coding Level of Care Code Est Pt Level 4 (95615) Diagnoses Toe ulcer, right L97.519 Type 2 diabetes mellitus with hyperglycemia E11.65 Essential hypertension I10 Peripheral vascular disease I73.9 Bipolar disorder, current episode mixed, moderate F31.62 Active/Remission status: currently active Current bipolar episode type: mixed Current episode severity: moderate Obstructive sleep apnea G47.33 Chronic kidney disease (CKD) stage G3b/A1, moderately decreased glomerular filtration rate (GFR) between 30-44 mL/min/1.73 square meter and albuminuria creatinine ratio less than 30 mg/g N18.32 Right knee pain, unspecified chronicity M25.561 Chronicity: unspecified
== END 2023-06-03 11:02 | disposition home or self-care (01) ==
PROVIDERS: PCP Internal Medicine; Visit Provider Internal Medicine
DX: E11.65 Type 2 diabetes mellitus with hyperglycemia (principal); L97.519 Non-pressure chronic ulcer of other part of right foot with unspecified severity; I73.9 Peripheral vascular disease, unspecified; N18.32 Chronic kidney disease, stage 3b; F31.62 Bipolar disorder, current episode mixed, moderate; I10 Essential (primary) hypertension; G47.33 Obstructive sleep apnea (adult) (pediatric); M25.561 Pain in right knee
CPT/HCPCS: 99214

== ENCOUNTER 2023-07-27 10:33 | Outpatient (AMB) | payer MEDICARE, MEDICAID, SELFPAY ==
--- NOTE | 2023-07-27 11:00 | MHC.OFFVIS ---
Vital Signs 07/27/23 11:01 Height 5 ft BP 102/62 Blood Pressure Location Lt brachial Position Sitting Pulse 58 Pulse Source Pulse Oximeter Pulse Oximetry (%) 98 Oxygen Delivery Method Room Air Intake Visit Reasons: jeff Intake Note: pt is here for follow up and states he is having some runny nose, but usng cpap but runny nose stops him from using it at times. Education And Training Coordinator Required: No Allergies quetiapine [From SEROQUEL] Allergy (Unknown, Verified 07/27/23 11:36) UNKNOWN Medication List - Last Reconciled 07/27/23 by Hemal Manzanares MD albuterol sulfate 90 mcg/actuation 2 puffs inhalation QID PRN ascorbic acid (vitamin C) (Vitamin C) 250 mg PO DAILY aspirin (Adult Low Dose Aspirin) 81 mg PO DAILY atenolol 25 mg PO DAILY [AUTOPAP 6-20 cm H20 humidified air As directed] budesonide-formoterol 160-4.5 mcg/actuation (Symbicort) 2 puffs inhalation BID bupropion HCl SR 200 mg PO DAILY calcium citrate 500 mg (2 x 250 mg calcium) PO BID cholecalciferol (vitamin D3) 25 mcg PO DAILY 90 days citalopram 15 mg PO DAILY [commode bedside As directed] cyanocobalamin (vitamin B-12) 1,000 mcg PO DAILY denosumab (Prolia) 60 mg subcut [id number] diclofenac sodium 1% (Arthritis Pain (diclofenac)) 4 grams topical QID ezetimibe 10 mg PO DAILY folic acid 1 mg PO DAILY furosemide 20 mg PO DAILY imipramine HCl 10 mg PO BID 90 days lactulose 30 mL PO DAILY PRN mupirocin 2% 1 appl topical BID nitroglycerin 0.4 mg sublingual Q5M PRN omeprazole 20 mg PO BID oxycodone 5 mg PO BID PRN rosuvastatin 40 mg PO DAILY 90 days trazodone 150 mg PO BEDTIME PRN vitamin B complex 1 tab PO DAILY Do you need a note to return to daycare/school/sports/work: No HPI HPI jeff: Details: Mr. Giles is 78 years old gentleman, comes in wheelchair. His COPD is relatively stable. He uses Symbicort 2 puffs b.i.d. but only p.r.n. on the days when he feels congested. Complains of frequent runny nose. As far as CPAP, is concerned he claims that he puts it on every night when he goes to sleep but then the mask slips off, And practically he is sleeps without the mask for most of the night. So is compliance remains grossly suboptimal . [facility]LY [facility] Medical History GERD (gastroesophageal reflux disease) CAD (coronary artery disease) Pre-op examination Presence of stent in artery Lumbar vertebral fracture Hip pain, right Urinary frequency Urinary urgency Dermatitis Non-toxic multinodular goiter Tinea corporis T12 compression fracture Peripheral vascular disease Hypercholesterolemia Thyroid nodule Vitamin B12 deficiency Chronic kidney disease (CKD) stage G3b/A1, moderately decreased glomerular filtration rate (GFR) between 30-44 mL/min/1.73 square meter and albuminuria creatinine ratio less than 30 mg/g Prostate cancer Obstructive sleep apnea Dementia in Alzheimer's disease Bipolar disorder COPD (chronic obstructive pulmonary disease) Coronary artery disease Metacarpal bone fracture Impaired fasting glucose Osteoporosis DDD (degenerative disc disease), lumbar Surgical History History of esophagogastroduodenoscopy (EGD) H/O colonoscopy S/P fine needle aspiration H/O kyphoplasty History of esophageal dilatation History of cataract surgery History of orthopedic surgery History of angioplasty History of appendectomy Family History Father Thyroid cancer Mother Colon cancer Daughter Primary squamous cell carcinoma of throat Social History Household Members: Children Housing: House Alcohol intake: former Patient Tobacco Use Status: Former Tobacco user Quit Date: 30 yrs ago Tobacco use type: Cigarette e-Cigarette/Vaping Use: Never Used Second Hand Smoke Exposure: No service: No Current occupational status: disabled Current occupational exposures/hazards: No Cognitive needs: Yes (wheelchair, walker) Hearing needs: Yes (hearing aide) Vision needs: No Review of Systems Const All systems reviewed & are unremarkable except as noted in HPI and below Reports weakness (General muscle weakness) Eyes Reports no additional complaints ENT Reports no additional complaints Card Denies chest pain, Denies irregular heart rhythm, Denies leg edema and Reports dyspnea on exertion (Mild) Resp Reports cough (occasional ), Reports dyspnea on exertion (Mild) and Denies wheezing GI Reports no additional complaints Musc Reports abnormal gait and Reports back pain Skin/Breast Reports system reviewed and no additional complaints, except as documented Neuro Reports abnormal gait and Reports weakness (General muscle weakness) Psych Reports no additional complaints Aller/Immun Denies wheezing Physical Exam Vital Signs: Last Vital Signs Pulse 58 07/27/23 11:01 BP 102/62 07/27/23 11:01 Pulse Ox 98 07/27/23 11:01 Oxygen Delivery Method Room Air 07/27/23 11:01 Const General: comfortable, no acute distress, alert and awake Orientation/consciousness: patient oriented x3 HEENT Other: He is edentulous. There is some recession of the chin. Oropharynx is narrow with Mallampati class 4. Head: Yes normal to inspection General nose exam: No nasal polyps present and No nasal discharge present Face and sinus: Yes sinuses nontender Mouth: oropharynx normal Throat: Yes posterior oropharynx normal Eyes General: appearance normal, both eyes and all related structures Neck Neck: Yes normal visual inspection, Yes no lymphadenopathy, Yes trachea midline and Yes no JVD Thyroid: Thyroid normal Chest Chest palpation & inspection: normal inspection of the chest, normal palpation of entire chest wall and no tenderness Resp Other: Percussion note resonant on both sides. Breath sounds are distant with prolonged expiratory phase. Both lungs are very clear without any wheezes or Creps. Cardio Palpation: normal PMI Rate: regular rate Rhythm: regular rhythm Heart sounds: no gallops and no murmurs GI Palpation (GI): Soft to palpation, nontender, No hepatosplenomegaly present and no masses Auscultation: normal bowel sounds Back/Spine/Pelvis Other: There is a midline scar over the lumbosacral area. The whole spine is very stiff, with limited movements. Skin General skin exam: no rashes or lesions noted Neuro General: patient oriented x3, No gait normal (In wheelchair) and no focal motor deficits Cranial nerves: Yes CN's II-XII intact bilaterally Extrem General: Yes normal to inspection, Yes no clubbing, cyanosis or edema and Yes no calf tenderness Psych Appearance: grossly normal and well kempt Speech and movement: Normal speech and movement present Results Reviewed Results Reviewed: Compliance report for. The last 30 nights Is reviewed he did used 27/30 nights., 90% But his average usage was 1 hours 16 minutes only. He still has residual AHI 22.7 Assessment & Plan Assessment & Plan (1) COPD (chronic obstructive pulmonary disease): Comment: PATIENT HAS PAST HISTORY OF SMOKING, HE HAS CLINICAL FEATURES OF CHRONIC OBSTRUCTIVE PULMONARY DISEASE, PROBABLY MILD TO MODERATE , AND STABLE AT THIS TIME. Code(s): J44.9 - Chronic obstructive pulmonary disease, unspecified Category: Medical Qualifiers: COPD type: emphysema Emphysema type: unspecified Qualified Code(s): J43.9 - Emphysema, unspecified Plan: SYMBICORT 160-4.52 PUFFS B.I.D., ADVISE THAT HE MAY USE IT P.R.N. IF HIS SYMPTOMS START GETTING ANY WORSE. ALBUTEROL HFA 2 PUFFS Q 4-6 HOURS P.R.N. (2) Obstructive sleep apnea: Comment: THIS GENTLEMAN DOES HAVE RATHER SEVERE DEGREE OF OBSTRUCTIVE SLEEP APNEA, TST AHI= 58.5 HE DOES USE CPAP EVERY NIGHT BUT HIS USAGE IS VERY SUBOPTIMAL. Code(s): G47.33 - Obstructive sleep apnea (adult) (pediatric) Category: Medical Plan: COUNSELED ABOUT THE PROPER USE OF CPAP. HE MUST USE IT AT LEAST FOR 4 HOURS PER NIGHT. ADVISED TO KEEP THE STRAPS TIGHTENED.
[2023-07-27 11:01] VITALS: BP 102/62; PULSE 58; O2SAT 98
== END 2023-07-27 11:24 | disposition home or self-care (01) ==
LOC: HO.HPS 10:35
PROVIDERS: PCP Internal Medicine; Visit Provider Internal Medicine
DX: J43.9 Emphysema, unspecified (principal); G47.33 Obstructive sleep apnea (adult) (pediatric)
CPT/HCPCS: 99213

== ENCOUNTER → 2023-07-27 10:35 | Outpatient (BNVA) | payer MEDICARE, MEDICAID, SELFPAY | PROVIDERS: PCP Internal Medicine; Visit Provider Internal Medicine | DX: G47.33 Obstructive sleep apnea (adult) (pediatric) (principal); J43.9 Emphysema, unspecified | CPT/HCPCS: 99212 ==

== ENCOUNTER 2023-08-12 10:53 | Outpatient (AMB) | payer MEDICARE, MEDICAID, SELFPAY ==
[2023-08-12 11:15] VITALS: BP 102/52; PULSE 57; O2SAT 98; BMI 25.6
--- NOTE | 2023-08-12 11:15 | A.OFFPC_ITS ---
Vital Signs 08/12/23 11:15 08/12/23 11:32 Height 5 ft Weight 130 lb 15.273 oz BMI 25.6 BP 102/52 L 120/80 Blood Pressure Location Lt brachial Lt brachial Position Sitting Sitting Pulse 57 Pulse Source Pulse Oximeter Pulse Oximetry (%) 98 Oxygen Delivery Method Room Air Intake Visit Reasons: Med Follow Up Allergies quetiapine [From SEROQUEL] Allergy (Unknown, Verified 08/12/23 11:16) UNKNOWN Tobacco use date assessed: 05/14/23 Fall risk assessment: No Falls in past year Last assessed Fall Risk: 08/12/23 Dental Screening Dental Screen Date: 06/03/23 HPI Med Follow Up HPI Details 78-year-old male with multiple medical p roblems diabetes mellitus with the right toe ulcer referred for wound care. Hypertension peripheral vascular disease bipolar disorder obstructive sleep apnea chronic kidney disease coming in for follow-up. Last seen in May 2023. Review of the notes has seen Pulmonary for the obstructive sleep apnea July 26 and COPD continuing with Symbicort and albuterol CPAP use suboptimal February 2023 last blood work. [facility] Medical History GERD (gastroesophageal reflux disease) CAD (coronary artery disease) Pre-op examination Presence of stent in artery Lumbar vertebral fracture Hip pain, right Urinary frequency Urinary urgency Dermatitis Non-toxic multinodular goiter Tinea corporis T12 compression fracture Peripheral vascular disease Hypercholesterolemia Thyroid nodule Vitamin B12 deficiency Chronic kidney disease (CKD) stage G3b/A1, moderately decreased glomerular filtration rate (GFR) between 30-44 mL/min/1.73 square meter and albuminuria creatinine ratio less than 30 mg/g Prostate cancer Obstructive sleep apnea Dementia in Alzheimer's disease Bipolar disorder COPD (chronic obstructive pulmonary disease) Coronary artery disease Metacarpal bone fracture Impaired fasting glucose Osteoporosis DDD (degenerative disc disease), lumbar Surgical History History of esophagogastroduodenoscopy (EGD) H/O colonoscopy S/P fine needle aspiration H/O kyphoplasty History of esophageal dilatation History of cataract surgery History of orthopedic surgery History of angioplasty History of appendectomy Family History Father Thyroid cancer Mother Colon cancer Daughter Primary squamous cell carcinoma of throat Social History Household Members: Children Housing: House Alcohol intake: former Patient Tobacco Use Status: Former Tobacco user Quit Date: 30 yrs ago Tobacco use type: Cigarette e-Cigarette/Vaping Use: Never Used Second Hand Smoke Exposure: No service: No Current occupational status: disabled Current occupational exposures/hazards: No Cognitive needs: Yes (wheelchair, walker) Hearing needs: Yes (hearing aide) Vision needs: No Questionnaire PHQ-9 Over the last 2 weeks, how often have you been bothered by any of the following problems? 1. Little interest or pleasure in doing things: not at all 2. Feeling down, depressed, or hopeless: not at all 3. Trouble falling or staying asleep, or sleeping too much: not at all 4. Feeling tired or having little energy: not at all 5. Poor appetite or overeating: not at all 6. Feeling bad about yourself - or that you are a failure or have let yourself or your family down: not at all 7. Trouble concentrating on things, such as reading the newspaper or watching television: not at all 8. Moving or speaking so slowly that other people could have noticed. Or the opposite - being so fidgety or restless that you have been moving around a lot more than usual: not at all 9. Thoughts that you would be better off or of hurting yourself in some way: not at all Total score: 0 Depression Screening Interpretation: Negative Depression Screening Done: Yes [id number] - PHQ-9 Billing: Yes Source: Developed by Drs. Orlando Adams, Casey Aleman and colleagues, with an educational adam from [employer]. Thrive Questionnaire Date Thrive assessed: 05/14/23 AUDIT C Alcohol Use Questionnaire (AUDIT-C) 1. How often do you have a drink containing alcohol?: Never 3. How often do you have six or more drinks on one occasion?: Never Total Score: 0 Score Reviewed/Action Taken: Yes OWEN-7 AMB Questionnaire OWEN-7 Date OWEN - 7 assessed: 05/14/23 Source: Developed by Drs. Orlando Adams, Casey Aleman and colleagues, with an educational adam from [employer]. Physical exam (Primary Care) Vital Signs: Last Vital Signs Pulse 57 08/12/23 11:15 BP 120/80 08/12/23 11:32 Pulse Ox 98 08/12/23 11:15 Oxygen Delivery Method Room Air 08/12/23 11:15 BMI result Body Mass Index 25.6 Tobacco/Smoking Status: Tobacco use Status Tobacco use date assessed 05/14/23 08/12/23 11:21 Patient Tobacco Use Status Former Tobacco user 08/12/23 11:21 Tobacco use type Cigarette 08/12/23 11:21 e-Cigarette/Vaping Use Never Used 08/12/23 11:21 PHQ-9: PHQ-9 Score PHQ-9: Total score 0 08/12/23 11:31 Depression Screening Interpretation: Negative Thrive Assessment: Date of Thrive Assessment Date Thrive assessed 05/14/23 08/12/23 11:21 Const General: alert; No acute distress Eyes Conjunctivae: conjunctivae normal Resp Auscultation: clear to auscultation bilaterally Cardio Rate: regular rate Rhythm: regular rhythm GI Inspection: Yes normal to inspection Extrem General: Yes normal to inspection and No edema Assessment and Plan Assessment & Plan (1) Toe ulcer, right: Comment: r 4th toe ulcer scab Code(s): L97.519 - Non-pressure chronic ulcer of other part of right foot with unspecified severity Plan: Patient is being seen by wound care. (2) Type 2 diabetes mellitus with hyperglycemia: Code(s): E11.65 - Type 2 diabetes mellitus with hyperglycemia Plan: Decrease the amount of carbohydrate intake, pasta, bread, rice and potatoes are all sugar and that is aside from all the sweet stuff, remember that fruits are good but they are Sweet also. Hemoglobin A1c goal of less than 7.0. (3) Essential hypertension: Code(s): I10 - Essential (primary) hypertension Plan: Continue with blood pressure medication. Decrease salt intake and exercise concern on hypotension on atenolol 25 mg only (4) GERD (gastroesophageal reflux disease): Code(s): K21.9 - Gastro-esophageal reflux disease without esophagitis Qualifiers: Esophagitis presence: without esophagitis Qualified Code(s): K21.9 - Gastro-esophageal reflux disease without esophagitis Plan: Avoid the foods that causes that usually spicy foods, tomato products, juices, coffee, soda and foods that your sensitive to. After eating do not lie down, allow 3-4 hours before in lie down. And keep the head of bed above 30 degrees to avoid the acid from going up. (5) Coronary artery disease: Comment: Lack stent placement in left circumflex 1999 clear stress test August 2008 and negative stress test August 05 1019-echo normal LV grade 1 diastolic dysfunction August 2018 Code(s): I25.10 - Atherosclerotic heart disease of [place] coronary artery without angina pectoris Qualifiers: Associated angina: without angina Coronary Disease-Associated Artery/Lesion type: [place] artery [place] vs. transplanted heart: [place] heart Qualified Code(s): I25.10 - Atherosclerotic heart disease of [place] coronary artery without angina pectoris Plan: Control the cholesterol, weight, blood pressure, diabetes continue with aspirin 81 mg once a day (6) COPD (chronic obstructive pulmonary disease): Comment: PATIENT HAS PAST HISTORY OF SMOKING, HE HAS CLINICAL FEATURES OF CHRONIC OBSTRUCTIVE PULMONARY DISEASE, PROBABLY MILD TO MODERATE , AND STABLE AT THIS TIME. Code(s): J44.9 - Chronic obstructive pulmonary disease, unspecified Qualifiers: COPD type: emphysema Emphysema type: unspecified Qualified Code(s): J43.9 - Emphysema, unspecified Plan: Patient followed up by Pulmonary on Symbicort. Reminded to rinse mouth after using it (7) Bipolar disorder: Comment: psychiatrist [place] Code(s): F31.9 - Bipolar disorder, unspecified Qualifiers: Active/Remission status: currently active Current bipolar episode type: mixed Current episode severity: moderate Qualified Code(s): F31.62 - Bipolar disorder, current episode mixed, moderate Plan: Continue with counseling and therapy (8) Obstructive sleep apnea: Comment: THIS GENTLEMAN DOES HAVE RATHER SEVERE DEGREE OF OBSTRUCTIVE SLEEP APNEA, TST AHI= 58.5 HE DOES USE CPAP EVERY NIGHT BUT HIS USAGE IS VERY SUBOPTIMAL. Code(s): G47.33 - Obstructive sleep apnea (adult) (pediatric) Plan: Patient has been using the CPAP suboptimally and has been advised Medications: Refilled oxycodone 5 mg PO BID PRN 45 tabs 0RF pain M51.36 - Other intervertebral disc degeneration, lumbar region Coding Level of Care Code Est Pt Level 4 (26710) Diagnoses Toe ulcer, right L97.519 Type 2 diabetes mellitus with hyperglycemia E11.65 Essential hypertension I10 Gastroesophageal reflux disease without esophagitis K21.9 Esophagitis presence: without esophagitis Coronary artery disease involving [place] coronary artery of [place] heart without angina pectoris I25.10 Associated angina: without angina Coronary Disease-Associated Artery/Lesion type: [place] artery [place] vs. transplanted heart: [place] heart Pulmonary emphysema, unspecified emphysema type J43.9 COPD type: emphysema Emphysema type: unspecified Bipolar disorder, current episode mixed, moderate F31.62 Active/Remission status: currently active Current bipolar episode type: mixed Current episode severity: moderate Obstructive sleep apnea G47.33
[2023-08-12 11:32] VITALS: BP 120/80
== END 2023-08-12 11:42 | disposition home or self-care (01) ==
PROVIDERS: PCP Internal Medicine; Visit Provider Internal Medicine
DX: E11.65 Type 2 diabetes mellitus with hyperglycemia (principal); L97.519 Non-pressure chronic ulcer of other part of right foot with unspecified severity; J43.9 Emphysema, unspecified; F31.62 Bipolar disorder, current episode mixed, moderate; I10 Essential (primary) hypertension; K21.9 Gastro-esophageal reflux disease without esophagitis; I25.10 Atherosclerotic heart disease of native coronary artery without angina pectoris; G47.33 Obstructive sleep apnea (adult) (pediatric)
CPT/HCPCS: 99214

== ENCOUNTER 2023-08-12 11:49 | Outpatient (REF) | payer MEDICARE, MEDICAID, SELFPAY ==
[2023-08-12 13:03] LABS: Albumin Level 3.5 g/dL (3.5-5.0); Anion Gap 13 (12-20); Blood Urea Nitrogen 42 mg/dL (9-16); Calcium 9.6 mg/dL (8.4-10.2); Carbon Dioxide 25 mmol/L (22-29); Chloride 108 mmol/L (96-108); Estimated Glomerular Filt Rate 33; Glucose Random 151 mg/dL (60-115); Potassium 5.2 mmol/L (3.3-5.1); Sodium 141 mmol/L (135-145)
== END 2023-08-12 11:50 | disposition home or self-care (01) ==
LOC: HO.LAB 11:49
PROVIDERS: PCP Internal Medicine; Visit Provider Internal Medicine Endocrinology, Diabetes & Metabolism
DX: M81.0 Age-related osteoporosis without current pathological fracture (principal)
CPT/HCPCS: 36415; 80048; 82040

== ENCOUNTER 2023-08-18 15:42 | Outpatient (AMB) | payer MEDICARE, MEDICAID, SELFPAY ==
--- NOTE | 2023-08-18 16:13 | AM.OFFVISNUR ---
Intake Intake Visit Reasons: Prolia Allergies quetiapine [From SEROQUEL] Allergy (Unknown, Verified 08/18/23 15:49) UNKNOWN Office Meds Prolia 60 mg/mL subcutaneous syringe Performing Provider: Orlando Chavez MD Performing Location: [facility] Endocr[facility]ology Administered by: Liz Camargo RN on 08/18/23 16:05 Dose Route Admin Location Dispensed Lot Number Expiration Date NDC Skoog Operator 60 mg subcut Right upper arm 1 mL [id number] 10/03/25 30808-229-34 AMGEN Comments: Consent form signed. Pt tolerated injection well. Pt declines any adverse reactions to past prolia injections Coding Assessment & Plan Assessment & Plan Orders: Orders AMB Denosumab Injection Patient Supplied Today M81.0 - Age-related osteoporosis without current pathological fracture Medications: New Prolia (denosumab) 60 mg subcut ONCE 1 mL 0RF NS M81.0 - Age-related osteoporosis without current pathological fracture
== END 2023-08-18 16:08 | disposition home or self-care (01) ==
PROVIDERS: PCP Internal Medicine; Visit Provider Internal Medicine Endocrinology, Diabetes & Metabolism
DX: M81.0 Age-related osteoporosis without current pathological fracture (principal)

== ENCOUNTER 2023-08-18 15:42 | Outpatient (AMB) | payer MEDICARE, MEDICAID, SELFPAY ==
[2023-08-18 15:45] VITALS: BP 120/48; PULSE 60
--- NOTE | 2023-08-18 15:45 | MHC.OFFVIS ---
Vital Signs 08/18/23 15:45 Height 5 ft BP 120/48 L Blood Pressure Location Rt brachial Position Sitting Pulse 60 Pulse Source Pulse Oximeter Intake Visit Reasons: Osteoporosis and prolia Intake Note: Patient presents today for Osteoporosis follow up. Salesperson Terrazzo Tiles Required: No Accompanied by: Daughter Allergies quetiapine [From SEROQUEL] Allergy (Unknown, Verified 08/18/23 15:49) UNKNOWN Medication List - Last Reconciled 08/18/23 by Orlando Chavez MD albuterol sulfate 90 mcg/actuation 2 puffs inhalation QID PRN ascorbic acid (vitamin C) (Vitamin C) 250 mg PO DAILY aspirin (Adult Low Dose Aspirin) 81 mg PO DAILY atenolol 25 mg PO DAILY [AUTOPAP 6-20 cm H20 humidified air As directed] budesonide-formoterol 160-4.5 mcg/actuation (Symbicort) 2 puffs inhalation BID bupropion HCl SR 200 mg PO DAILY calcium citrate 500 mg (2 x 250 mg calcium) PO BID cholecalciferol (vitamin D3) 25 mcg PO DAILY 90 days citalopram 15 mg PO DAILY [commode bedside As directed] cyanocobalamin (vitamin B-12) 1,000 mcg PO DAILY denosumab (Prolia) 60 mg subcut [id number] diclofenac sodium 1% (Arthritis Pain (diclofenac)) 4 grams topical QID ezetimibe 10 mg PO DAILY folic acid 1 mg PO DAILY furosemide 20 mg PO DAILY imipramine HCl 10 mg PO BID 90 days lactulose 30 mL PO DAILY PRN mupirocin 2% 1 appl topical BID nitroglycerin 0.4 mg sublingual Q5M PRN omeprazole 20 mg PO BID oxycodone 5 mg PO BID PRN rosuvastatin 40 mg PO DAILY 90 days trazodone 150 mg PO BEDTIME PRN vitamin B complex 1 tab PO DAILY HPI Comments Details: 78 yo male today for fup visit, His feeling well. He has severe osteoporosis, with vertebral fractures, NTMNG. He has been on Prolia since 2016 , his last dose was 06/2021. His calcium remains normal. He had FNA on 09/10/17 of left lower pole medial and lateral nodules, both nodules benign consistent with follicular nodules. He had FNA on 04/24/16 inadequate, repeat FNA on 07/03/16 was consistent with benign follicular nodule. Recent ultrasound showed minimal increase in left lower pole nodule but stable compared to original l ultrasound Patient has history of high risk prostate cancer S/P 2 dose of Lupron, s/p RT, esophageal stricture, CKD 3, secondary hyperparathyroidism. + multiple spine compression fracture s/p kyphoplasty of L4, Calcium intake: calcium citrate 1000 mg daily. Vitamin D: 1000 units daily. 10/25/2019 US thyroid Right Thyroid Lobe: 4.1 x 1.5 x 1.2 cm, volume 3.9 mL. Previously 4.6 x 1.7 x 1.3 cm, volume 5.4 mL. Parenchyma: The gland echotexture is homogeneous. Thyroid vascularity is normal. Left Thyroid Lobe: 4.3 x 2.2 x 1.4 cm, volume 6.8 mL. Previously 5.9 x 2.5 x 1.5 cm, volume 11.5 mL. Parenchyma: The gland echotexture is homogeneous. Thyroid vascularity is normal. Isthmus: 0.5 cm in maximum AP dimension. Previously 0.3 cm. RIGHT THYROID LOBE: There are 3 nodules seen. 1. Location: Mid. Size: 0.8 x 0.7 x 0.8 cm. Previous: 0.8 x 0.6 x 0.7 cm. Nodule characteristics: Isoechoic, hypoechoic rind with peripheral intranodular flow. 2. Location: Lower. Size: 0.5 x 0.3 x 0.4 cm. Previous: 0.6 x 0.3 x 0.4 cm. Nodule characteristics: Hypoechoic, smoothly marginated with no intranodular flow. 3. Location: Upper/mid. Size: 0.4 x 0.2 x 0.3 cm. Previous: 0.4 x 2.2 x 0.3 cm. Nodule characteristics: Hypoechoic, smoothly marginated with no intranodular flow. ISTHMUS: No nodules. LEFT THYROID LOBE: There is 1 nodule seen. 1. Location: Lower. Size: 1.2 x 1.4 x 1.1 cm. Previous: 1.9 x 1.4 x 1.6 cm. Nodule characteristics: Heterogeneous with a hypoechoic rind and intranodular flow. NODES: No lymphadenopathy is seen in the tissue surrounding the thyroid gland. Laboratory Tests 06/21/20 06/25/20 07/17/20 11:20 11:00 15:35 Creatinine 1.80 H Estimated GFR 37 Calcium 8.3 L Albumin 3.6 N-Telopeptide X-linked 18 25-OH Vitamin D Total 48.0 TSH 1.12 Free T4 1.26 Laboratory Tests 05/30/19 11/21/19 12:39 14:47 Creatinine 1.95 H Est GFR (Non-Af Amer) 34 Calcium 9.0 Albumin 3.6 Collgn I C-Telopeptide 104 25-OH Vitamin D Total 50.1 Free T4 1.31 TSH 3rd Generation 0.75 He is due for his Prolia injection today.. Recent DEXA showed increases in bone density . MRI in 08/2022 showed subacute chronic fractures after a fall [facility] Medical History GERD (gastroesophageal reflux disease) CAD (coronary artery disease) Pre-op examination Presence of stent in artery Lumbar vertebral fracture Hip pain, right Urinary frequency Urinary urgency Dermatitis Non-toxic multinodular goiter Tinea corporis T12 compression fracture Peripheral vascular disease Hypercholesterolemia Thyroid nodule Vitamin B12 deficiency Chronic kidney disease (CKD) stage G3b/A1, moderately decreased glomerular filtration rate (GFR) between 30-44 mL/min/1.73 square meter and albuminuria creatinine ratio less than 30 mg/g Prostate cancer Obstructive sleep apnea Dementia in Alzheimer's disease Bipolar disorder COPD (chronic obstructive pulmonary disease) Coronary artery disease Metacarpal bone fracture Impaired fasting glucose Osteoporosis DDD (degenerative disc disease), lumbar Surgical History History of esophagogastroduodenoscopy (EGD) H/O colonoscopy S/P fine needle aspiration H/O kyphoplasty History of esophageal dilatation History of cataract surgery History of orthopedic surgery History of angioplasty History of appendectomy Family History Father Thyroid cancer Mother Colon cancer Daughter Primary squamous cell carcinoma of throat Social History Household Members: Children Housing: House Alcohol intake: former Patient Tobacco Use Status: Former Tobacco user Quit Date: 30 yrs ago Tobacco use type: Cigarette e-Cigarette/Vaping Use: Never Used Second Hand Smoke Exposure: No service: No Current occupational status: disabled Current occupational exposures/hazards: No Cognitive needs: Yes (wheelchair, walker) Hearing needs: Yes (hearing aide) Vision needs: No Physical Exam Vital Signs: Last Vital Signs Pulse 60 08/18/23 15:45 BP 120/48 L 08/18/23 15:45 Assessment & Plan Assessment & Plan (1) Osteoporosis: Comment: December 2021 bone density Code(s): M81.0 - Age-related osteoporosis without current pathological fracture Category: Medical Qualifiers: Osteoporosis type: age-related Presence of current pathological fracture: without current pathological fracture Qualified Code(s): M81.0 - Age-related osteoporosis without current pathological fracture Plan: This 76-year-old white male with a history of osteoporosis being treated with Prolia in the setting of CKD. He has a history of vertebral compression fractures . Plan is to continue the current treatment. Will give Prolia injection today. . Considering the declining kidney function and lack of alternatives and high risk for fracture will continue Prolia for full 10 years and then could consider potentially transitioning to oral alendronate (2) Non-toxic multinodular goiter: Code(s): E04.2 - Nontoxic multinodular goiter Category: Medical Plan: Is status post FNA of 2 left lower pole nodule with benign cytology. Recent thyroid ultrasound shows stability of the size of the nodules . He appears to be clinically and biochemically euthyroid Plan is for continued observation . May obtain repeat ultrasound in 1 year's time Coding Level of Care Code Est Pt Level 3 (85315) Diagnoses Age-related osteoporosis without current pathological fracture M81.0 Osteoporosis type: age-related Presence of current pathological fracture: without current pathological fracture Non-toxic multinodular goiter E04.2
== END 2023-08-18 15:57 | disposition home or self-care (01) ==
PROVIDERS: PCP Internal Medicine; Visit Provider Internal Medicine Endocrinology, Diabetes & Metabolism
DX: M81.0 Age-related osteoporosis without current pathological fracture (principal); E04.2 Nontoxic multinodular goiter
CPT/HCPCS: 99213

== ENCOUNTER → 2023-08-18 15:42 | Outpatient (BNVA) | payer MEDICARE, MEDICAID, SELFPAY | PROVIDERS: PCP Internal Medicine; Visit Provider Internal Medicine Endocrinology, Diabetes & Metabolism | DX: M81.0 Age-related osteoporosis without current pathological fracture (principal); E04.2 Nontoxic multinodular goiter; N18.9 Chronic kidney disease, unspecified | CPT/HCPCS: 96372; 99212; J0897 ==

== ENCOUNTER 2023-09-25 14:17 | Outpatient (AMB) | payer MEDICARE, MEDICAID, SELFPAY ==
--- NOTE | 2023-09-25 14:22 | A.OFFPC_ITS ---
Vital Signs 09/25/23 14:23 Height 5 ft Weight 120 lb 5.958 oz BMI 23.5 BP 116/66 Blood Pressure Location Rt brachial Position Sitting Pulse 62 Pulse Source Pulse Oximeter Pulse Oximetry (%) 95 Oxygen Delivery Method Room Air Intake Visit Reasons: HDF ~ Post hospital discharge FU Intake Note: Patient is here for hospital discharge follow up. Patient was discharged from [facility] on 09/19/23. Cnc Operator Programmer Required: No Social Organization Professor: Present Accompanied by: Daughter Allergies quetiapine [From SEROQUEL] Allergy (Unknown, Verified 09/25/23 14:23) UNKNOWN Tobacco use date assessed: 09/25/23 Fall risk assessment: No Falls in past year Last assessed Fall Risk: 09/25/23 Dental Screening Dental Screen Date: 06/03/23 HPI HPI Comments History of Present Illness Details 78 y/o male patient who presents to the clinic today for Hospital discharge follow up. Accompanied by daughter who helps with history collecting. DOS: 09/08/23 and DOD: 09/11/23 Pt was admitted to [facility] 09/07 for right Femoral Endarterectomy. He has a f/u appointment with [facility] Vascular surgery Wednesday 09/27 for Post-Op Appointment. Today reports feeling well, no concerns. [facility] Medical History (Updated 09/25/23 @ 14:30 by DINAH Zabala) GERD (gastroesophageal reflux disease) CAD (coronary artery disease) Pre-op examination Presence of stent in artery Lumbar vertebral fracture Hip pain, right Urinary frequency Urinary urgency Dermatitis Non-toxic multinodular goiter Tinea corporis T12 compression fracture Peripheral vascular disease Hypercholesterolemia Thyroid nodule Vitamin B12 deficiency Chronic kidney disease (CKD) stage G3b/A1, moderately decreased glomerular filtration rate (GFR) between 30-44 mL/min/1.73 square meter and albuminuria creatinine ratio less than 30 mg/g Prostate cancer Obstructive sleep apnea Dementia in Alzheimer's disease Bipolar disorder COPD (chronic obstructive pulmonary disease) Coronary artery disease Metacarpal bone fracture Impaired fasting glucose Osteoporosis DDD (degenerative disc disease), lumbar Surgical History (Updated 09/25/23 @ 14:30 by DINAH Zabala) History of vascular surgery History of heart artery stent History of esophagogastroduodenoscopy (EGD) H/O colonoscopy S/P fine needle aspiration H/O kyphoplasty History of esophageal dilatation History of cataract surgery History of orthopedic surgery History of angioplasty History of appendectomy Family History Father Thyroid cancer Mother Colon cancer Daughter Primary squamous cell carcinoma of throat Social History Household Members: Children Housing: House Alcohol intake: former Patient Tobacco Use Status: Former Tobacco user Tobacco use type: Cigarette e-Cigarette/Vaping Use: Never Used Second Hand Smoke Exposure: No service: No Current occupational status: disabled Current occupational exposures/hazards: No Cognitive needs: Yes (wheelchair, walker) Hearing needs: Yes (hearing aide) Vision needs: No Questionnaire Thrive Questionnaire Date Thrive assessed: 05/14/23 OWEN-7 AMB Questionnaire OWEN-7 Date OWEN - 7 assessed: 05/14/23 Source: Developed by Drs. Orlando Adams, Janna Mahoney, Caesy Acevedo and colleagues, with an educational adam from [email or web address]. Review of Systems Const All systems reviewed & are unremarkable except as noted in HPI and below Physical exam (Primary Care) Vital Signs: Last Vital Signs Pulse 62 09/25/23 14:23 BP 116/66 09/25/23 14:23 Pulse Ox 95 09/25/23 14:23 Oxygen Delivery Method Room Air 09/25/23 14:23 BMI result Body Mass Index 23.5 Tobacco/Smoking Status: Tobacco use Status Tobacco use date assessed 09/25/23 09/25/23 14:32 Patient Tobacco Use Status Former Tobacco user 09/25/23 14:32 Tobacco use type Cigarette 09/25/23 14:32 e-Cigarette/Vaping Use Never Used 09/25/23 14:32 Thrive Assessment: Date of Thrive Assessment Date Thrive assessed 05/14/23 09/25/23 14:32 Const General: cooperative, comfortable and no acute distress Nutritional Appearance: thin Orientation/consciousness: patient oriented x3 Limitations: wheelchair Resp Effort & Inspection: normal respiratory effort Cardio Heart sounds: S1 normal heart sound present and S2 normal heart sound present Neuro General: patient oriented x3 and moves all extremities Psych Speech and movement: Normal speech and movement present Attitude: cooperative Vital Signs: Last Vital Signs Pulse 62 09/25/23 14:23 BP 116/66 09/25/23 14:23 Pulse Ox 95 09/25/23 14:23 Oxygen Delivery Method Room Air 09/25/23 14:23 BMI result Body Mass Index 23.5 Const General: cooperative, comfortable and no acute distress Nutritional Appearance: thin Orientation/consciousness: patient oriented x3 Limitations: wheelchair Resp Effort & Inspection: normal respiratory effort Cardio Heart sounds: S1 normal heart sound present and S2 normal heart sound present Neuro General: patient oriented x3 and moves all extremities Psych Speech and movement: Normal speech and movement present Attitude: cooperative Assessment and Plan Assessment & Plan (1) Peripheral vascular disease: Code(s): I73.9 - Peripheral vascular disease, unspecified Plan F/U with PCP PRN F/U with Vascular as scheduled. Stable , no concerns. Medications: Refilled rosuvastatin 40 mg PO DAILY 90 days 90 tabs 0RF E78.00 - Pure hypercholesterolemia, unspecified Coding Level of Care Code Est Pt Level 4 (59035) Diagnoses Peripheral vascular disease I73.9 Comment 20 minutes spent on review of Hospital notes.
[2023-09-25 14:23] VITALS: BP 116/66; PULSE 62; O2SAT 95; BMI 23.5
== END 2023-09-25 16:32 | disposition home or self-care (01) ==
PROVIDERS: PCP Internal Medicine; Visit Provider Nurse Practitioner Family
DX: I73.9 Peripheral vascular disease, unspecified (principal)
CPT/HCPCS: 99214

== ENCOUNTER 2023-10-06 07:49 | Outpatient (AMB) | payer MEDICARE, MEDICAID, SELFPAY ==
--- NOTE | 2023-10-06 07:54 | MHC.OFFVIS ---
Vital Signs 10/06/23 07:56 Height 5 ft Weight 127 lb BMI 24.8 BP 123/61 Blood Pressure Location Lt brachial Position Sitting Pulse 60 Intake Visit Reasons: 6 months follow up Intake Note: Patient follow up for Esophageal stricture Patient cc: Swallowing problems even with liquid. Denies any other GI issues. Wallpaper Installer Required: No Accompanied by: Spouse Allergies quetiapine [From SEROQUEL] Allergy (Unknown, Verified 10/06/23 07:54) UNKNOWN HPI HPI 6 months follow up: Details: Assessment & Plan (1) Esophageal stricture: Comment: No remaining ring on EGD 2018, esophageal dysmotility, but stricture seen at [facility] on barium swallow after EGD Code(s): K22.2 - Esophageal obstruction (2) GERD (gastroesophageal reflux disease): Code(s): K21.9 - Gastro-esophageal reflux disease without esophagitis Qualifiers: Esophagitis presence: without esophagitis Qualified Code(s): K21.9 - Gastro-esophageal reflux disease without esophagitis Plan His swallowing is greatly improved. He continues on his omeprazole 20mg bid. ROV 6 mos. Medications: Refilled omeprazole 20 mg PO BID 180 caps 2RF [facility] SPEECH THERAPY REPORT sick PHARYNGEAL PHASE: Mildly impaired. Subglottic aspiration of thin liquids during the swallow with straw and 2nd oral hold from a cup. Inconsistent cough response with subglottic aspiration of thin liquids. Flash laryngeal penetration of nectar thick liquids during the swallow that cleared the laryngeal vestibule. Mild vallecular residuals with applesauce and pudding. Additional posterior pharyngeal wall that dropped to pyriform residuals with putting. Secondary and tertiary swallows cleared pharyngeal residuals. Inconsistent complete epiglottic inversion and reduced hyolaryngeal elevation. Pharyngeal swallow trigger delayed with thin liquids at Piriforms but timely with all the consistencies. Recommendations: Dysphagia advanced level 3 diet and nectar thick liquids. No mixed solid/liquids. LABS FROM [facility] 09/11/2023 Anemia with a hemoglobin and hematocrit 8.5/25.8 elevated MCV of 94.9, platelets at [id number], GFR 45 TODAY'S VISIT He is here today with his daughter who is supportive. He was at [facility] for vascular stents for PAD and they discovered he was coughing with liquids. Mod swallow was performed with speech therapy that showed some delay of the lingual phase and they recommended thickened liquids and soft foods. We will try another dilation to see if lower esophageal dysfunction is c/t the upper problem, but they are educated this may be a neurologic dysfunction that only diet changes can address. He continues on omeprazole. [facility] Medical History (Updated 10/06/23 @ 16:09 by BARB Cruz) Pre-op examination GERD (gastroesophageal reflux disease) CAD (coronary artery disease) Presence of stent in artery Lumbar vertebral fracture Hip pain, right Urinary frequency Urinary urgency Dermatitis Non-toxic multinodular goiter Tinea corporis T12 compression fracture Peripheral vascular disease Hypercholesterolemia Thyroid nodule Vitamin B12 deficiency Chronic kidney disease (CKD) stage G3b/A1, moderately decreased glomerular filtration rate (GFR) between 30-44 mL/min/1.73 square meter and albuminuria creatinine ratio less than 30 mg/g Prostate cancer Obstructive sleep apnea Dementia in Alzheimer's disease Bipolar disorder COPD (chronic obstructive pulmonary disease) Coronary artery disease Metacarpal bone fracture Impaired fasting glucose Osteoporosis DDD (degenerative disc disease), lumbar Surgical History History of vascular surgery History of heart artery stent History of esophagogastroduodenoscopy (EGD) H/O colonoscopy S/P fine needle aspiration H/O kyphoplasty History of esophageal dilatation History of cataract surgery History of orthopedic surgery History of angioplasty History of appendectomy Family History Father Thyroid cancer Mother Colon cancer Daughter Primary squamous cell carcinoma of throat Social History Household Members: Children Housing: House Alcohol intake: former Patient Tobacco Use Status: Former Tobacco user Tobacco use type: Cigarette e-Cigarette/Vaping Use: Never Used Second Hand Smoke Exposure: No service: No Current occupational status: disabled Current occupational exposures/hazards: No Cognitive needs: Yes (wheelchair, walker) Hearing needs: Yes (hearing aide) Vision needs: No Review of Systems Const Denies fatigue, Denies fever(s), Denies night sweats, Denies poor appetite and Denies weight loss ENT Reports Normal hearing present, Denies dental pain, Reports dysphagia, Denies hearing loss, Denies mouth pain, Denies odynophagia, Denies throat swelling, Denies tongue swelling and Reports other (Dentition adequate) Card Reports no additional complaints Resp Reports no additional complaints GI Details: Denies abdominal pain, Denies melena, Denies bloating, Denies hematochezia, Denies constipation, Denies GI cramping, Reports dysphagia, Denies excessive flatus, Denies early satiety, Reports heartburn, Denies diarrhea, Denies nausea, Denies odynophagia, Denies vomiting and Denies hematemesis Musc Reports abnormal gait, Reports back pain and Reports myalgias Skin/Breast Denies pruritus, Denies lesions, Denies rash and Denies jaundice Neuro Reports Normal hearing present, Denies Abnormal speech present, Reports abnormal gait and Reports lack of coordination Endo Denies fatigue Aller/Immun Denies throat swelling and Denies tongue swelling Physical Exam Vital Signs: Last Vital Signs Pulse 60 10/06/23 07:56 BP 123/61 10/06/23 07:56 BMI result Body Mass Index 24.8 Const General: cooperative, no acute distress, well developed and well groomed Nutritional Appearance: average body habitus and well nourished Orientation/consciousness: oriented to person, oriented to place and oriented to time Limitations: No language barrier and wheelchair HEENT Head: Yes normocephalic and Yes atraumatic Eyes General: appearance normal, both eyes and all related structures Pupils: Equal, round and reactive pupils present Neck Neck: Yes normal visual inspection and Yes no lymphadenopathy Thyroid: Thyroid normal Resp Effort & Inspection: normal respiratory effort and able to speak in complete sentences Auscultation: diminished lung sounds bilateral in the lower lung hurt Cardio Rate: regular rate Rhythm: regular rhythm Heart sounds: Normal, physiologic split S2 sound present Peripheral pulses: radial pulses present and posterior tibial pulses present GI Inspection: No distended and No Abdominal panniculus present Palpation (GI): Soft to palpation, nontender, no guarding, not rigid and No hepatosplenomegaly present Percussion: Yes normal to percussion Auscultation: normal bowel sounds Rectal Exam - Male: Yes deferred Skin General skin exam: no rashes or lesions noted, turgor normal, skin not dry, no jaundice, No spider nevi and no striae Rashes: no rashes Nails: normal Neuro General: oriented to person, oriented to place and oriented to time Cranial nerves: Yes Equal, round and reactive pupils present and Yes Normal hearing present Speech: No Abnormal speech present Extrem General: Yes normal to inspection, No clubbing, No cyanosis and No edema Psych Appearance: grossly normal and well kempt Mental Status: mental status grossly normal Speech and movement: Normal speech and movement present Affect: normal affect Attitude: cooperative Thought process: Normal thought process present and not confabulating Thought content: Normal thought content present Insight: Limited insight present (Psych) Judgement: Limited judgement present (Psych) Results Reviewed Results Reviewed: [facility] SPEECH THERAPY REPORT sick PHARYNGEAL PHASE: Mildly impaired. Subglottic aspiration of thin liquids during the swallow with straw and 2nd oral hold from a cup. Inconsistent cough response with subglottic aspiration of thin liquids. Flash laryngeal penetration of nectar thick liquids during the swallow that cleared the laryngeal vestibule. Mild vallecular residuals with applesauce and pudding. Additional posterior pharyngeal wall that dropped to pyriform residuals with putting. Secondary and tertiary swallows cleared pharyngeal residuals. Inconsistent complete epiglottic inversion and reduced hyolaryngeal elevation. Pharyngeal swallow trigger delayed with thin liquids at Piriforms but timely with all the consistencies. Recommendations: Dysphagia advanced level 3 diet and nectar thick liquids. No mixed solid/liquids. LABS FROM [facility] 09/11/2023 Anemia with a hemoglobin and hematocrit 8.5/25.8 elevated MCV of 94.9, platelets at [id number], GFR 45 Assessment & Plan Assessment & Plan (1) Esophageal stricture: Comment: No remaining ring on EGD 2018, esophageal dysmotility, but stricture seen at [facility] [address] on barium swallow after EGD Code(s): K22.2 - Esophageal obstruction Category: Medical (2) Dysphagia: Code(s): R13.10 - Dysphagia, unspecified Category: Medical (3) Pre-op examination: Code(s): Z01.818 - Encounter for other preprocedural examination Category: Medical Plan He is here today with his daughter who is supportive. He was at [facility] for vascular stents for PAD and they discovered he was coughing with liquids. Mod swallow was performed with speech therapy that showed some delay of the lingual phase and they recommended thickened liquids and soft foods. We will try another dilation to see if lower esophageal dysfunction is c/t the upper problem, but they are educated this may be a neurologic dysfunction that only diet changes can address. He continues on omeprazole. Orders: Orders EGD with [facility] - GI Use Only Today K22.2 - Esophageal obstruction, R13.10 - Dysphagia, unspecified Coding Level of Care Code Est Pt Level 4 (25285) Diagnoses Esophageal stricture K22.2 Dysphagia R13.10 Pre-op examination Z01.818
[2023-10-06 07:56] VITALS: BP 123/61; PULSE 60; BMI 24.8
== END 2023-10-06 08:26 | disposition home or self-care (01) ==
PROVIDERS: PCP Internal Medicine; Visit Provider Nurse Practitioner
DX: K22.2 Esophageal obstruction (principal); R13.10 Dysphagia, unspecified; Z01.818 Encounter for other preprocedural examination
CPT/HCPCS: 99214

== ENCOUNTER → 2023-10-06 07:49 | Outpatient (BNVA) | payer MEDICARE, MEDICAID, SELFPAY | PROVIDERS: PCP Internal Medicine; Visit Provider Nurse Practitioner | DX: Z01.818 Encounter for other preprocedural examination (principal); K22.2 Esophageal obstruction; R13.10 Dysphagia, unspecified | CPT/HCPCS: 99212 ==

== ENCOUNTER 2023-10-13 15:42 | Outpatient (REF) | payer MEDICARE, MEDICAID, SELFPAY ==
[2023-10-13 16:27] LABS: Calcium 9.7 mg/dL (8.4-10.2)
[2023-10-13 16:57] LABS: Prostate Specific Antigen < 0.10 ng/mL (<0.05-4.0)
== END 2023-10-13 15:43 | disposition home or self-care (01) ==
LOC: HO.LAB 15:42
PROVIDERS: Absent Provider Internal Medicine Endocrinology, Diabetes & Metabolism; PCP Internal Medicine; Visit Provider Urology
DX: C61 Malignant neoplasm of prostate (principal); M81.0 Age-related osteoporosis without current pathological fracture; Z12.5 Encounter for screening for malignant neoplasm of prostate
CPT/HCPCS: 36415; 82310; 84153

== ENCOUNTER 2023-10-20 15:05 | Outpatient (AMB) | payer MEDICARE, MEDICAID, SELFPAY ==
--- NOTE | 2023-10-20 15:26 | MHC.OFFVIS ---
Intake Visit Reasons: follow up/PVR/PSA(set) Allergies quetiapine [From SEROQUEL] Allergy (Unknown, Verified 10/06/23 07:54) UNKNOWN [facility] Medical History (Updated 10/06/23 @ 16:09 by BARB Cruz) Pre-op examination GERD (gastroesophageal reflux disease) CAD (coronary artery disease) Presence of stent in artery Lumbar vertebral fracture Hip pain, right Urinary frequency Urinary urgency Dermatitis Non-toxic multinodular goiter Tinea corporis T12 compression fracture Peripheral vascular disease Hypercholesterolemia Thyroid nodule Vitamin B12 deficiency Chronic kidney disease (CKD) stage G3b/A1, moderately decreased glomerular filtration rate (GFR) between 30-44 mL/min/1.73 square meter and albuminuria creatinine ratio less than 30 mg/g Prostate cancer Obstructive sleep apnea Dementia in Alzheimer's disease Bipolar disorder COPD (chronic obstructive pulmonary disease) Coronary artery disease Metacarpal bone fracture Impaired fasting glucose Osteoporosis DDD (degenerative disc disease), lumbar Surgical History History of vascular surgery History of heart artery stent History of esophagogastroduodenoscopy (EGD) H/O colonoscopy S/P fine needle aspiration H/O kyphoplasty History of esophageal dilatation History of cataract surgery History of orthopedic surgery History of angioplasty History of appendectomy Family History Father Thyroid cancer Mother Colon cancer Daughter Primary squamous cell carcinoma of throat Social History Household Members: Children Housing: House Alcohol intake: former Patient Tobacco Use Status: Former Tobacco user Tobacco use type: Cigarette e-Cigarette/Vaping Use: Never Used Second Hand Smoke Exposure: No service: No Current occupational status: disabled Current occupational exposures/hazards: No Cognitive needs: Yes (wheelchair, walker) Hearing needs: Yes (hearing aide) Vision needs: No Coding
--- NOTE | 2023-10-20 15:32 | MHC.OFFVIS ---
Intake Visit Reasons: follow up PSA(set) Intake Note: Patient is Present for Follow Up PSA Urology Medication:Imipramine Antibiotic Allergies: None Blood Thinners:Aspirin, Clopidogrel Allergies quetiapine [From SEROQUEL] Allergy (Unknown, Verified 10/06/23 07:54) UNKNOWN Medication List - Last Reconciled 10/20/23 by Michael Laguna MD albuterol sulfate 90 mcg/actuation 2 puffs inhalation QID PRN ascorbic acid (vitamin C) (Vitamin C) 250 mg PO DAILY aspirin (Adult Low Dose Aspirin) 81 mg PO DAILY atenolol 25 mg PO DAILY [AUTOPAP 6-20 cm H20 humidified air As directed] budesonide-formoterol 160-4.5 mcg/actuation (Symbicort) 2 puffs inhalation BID bupropion HCl SR 200 mg PO DAILY calcium citrate 500 mg (2 x 250 mg calcium) PO BID cholecalciferol (vitamin D3) 25 mcg PO DAILY 90 days citalopram 15 mg PO DAILY clopidogrel 75 mg PO DAILY [commode bedside As directed] cyanocobalamin (vitamin B-12) 1,000 mcg PO DAILY denosumab (Prolia) 60 mg subcut [id number] diclofenac sodium 1% (Arthritis Pain (diclofenac)) 4 grams topical QID ezetimibe 10 mg PO DAILY folic acid 1 mg PO DAILY furosemide 20 mg PO DAILY imipramine HCl 10 mg PO BID 90 days lactulose 30 mL PO DAILY PRN mupirocin 2% 1 appl topical BID nitroglycerin 0.4 mg sublingual Q5M PRN omeprazole 20 mg PO BID oxycodone 5 mg PO BID PRN rosuvastatin 40 mg PO DAILY 90 days trazodone 150 mg PO BEDTIME PRN vitamin B complex 1 tab PO DAILY HPI Comments Details: Dione is a very pleasant male. He is a patient of Dr. Lopez. He seen for the following urologic conditions - prostate cancer - overactive bladder Yearly follow-up PSA well controlled PSA 10/27 <0.1 Prior urinary urgency which was treated with Myrbetriq Currently minimal issues with urge Does have some degree of nocturia that has been progressive since imipramine completed Would like to go back on imipramine Prescription provided Prostate cancer radiation therapy 2014 Visit for further management of prostate cancer related symptoms Symptoms of urgency and frequency remain well managed on combination of Myrbetriq and imipramine Diagnosed January 2015 Initial therapy radiation therapy PSA - 12/24 <0.1, 07/25 <0.1 Associated symptoms urgency with frequency and nocturia Current management Myrbetriq 50 mg, imipramine 10 mg p.o. q.h.s. Continue to follow [facility] Medical History (Updated 10/20/23 @ 17:10 by Michael Laguna MD) Urinary urgency Prostate cancer Pre-op examination GERD (gastroesophageal reflux disease) CAD (coronary artery disease) Presence of stent in artery Lumbar vertebral fracture Hip pain, right Urinary frequency Dermatitis Non-toxic multinodular goiter Tinea corporis T12 compression fracture Peripheral vascular disease Hypercholesterolemia Thyroid nodule Vitamin B12 deficiency Chronic kidney disease (CKD) stage G3b/A1, moderately decreased glomerular filtration rate (GFR) between 30-44 mL/min/1.73 square meter and albuminuria creatinine ratio less than 30 mg/g Obstructive sleep apnea Dementia in Alzheimer's disease Bipolar disorder COPD (chronic obstructive pulmonary disease) Coronary artery disease Metacarpal bone fracture Impaired fasting glucose Osteoporosis DDD (degenerative disc disease), lumbar Surgical History History of vascular surgery History of heart artery stent History of esophagogastroduodenoscopy (EGD) H/O colonoscopy S/P fine needle aspiration H/O kyphoplasty History of esophageal dilatation History of cataract surgery History of orthopedic surgery History of angioplasty History of appendectomy Family History Father Thyroid cancer Mother Colon cancer Daughter Primary squamous cell carcinoma of throat Social History Household Members: Children Housing: House Alcohol intake: former Patient Tobacco Use Status: Former Tobacco user Tobacco use type: Cigarette e-Cigarette/Vaping Use: Never Used Second Hand Smoke Exposure: No service: No Current occupational status: disabled Current occupational exposures/hazards: No Cognitive needs: Yes (wheelchair, walker) Hearing needs: Yes (hearing aide) Vision needs: No Review of Systems Const Denies chills and Denies fever(s) Card Reports no additional complaints and Denies syncope Resp Denies cough GI Denies abdominal pain and Denies heartburn Reports as per HPI and Denies change in libido Neuro Denies syncope Psych Denies change in libido Endo Denies change in libido Physical Exam Const General: cooperative, healthy appearing, comfortable and no acute distress Orientation/consciousness: patient oriented x3 HEENT Face and sinus: Yes normal facial exam Mouth: moist mucous membranes Neck Neck: Yes normal visual inspection, Yes full ROM and Yes trachea midline Chest Chest palpation & inspection: normal inspection of the chest Resp Effort & Inspection: normal respiratory effort, able to speak in complete sentences and no respiratory distress GI Inspection: Yes normal to inspection Back/Spine/Pelvis Cervical Spine: normal cervical lordosis Thoracic/Lumbar Spine: thoracic and lumbar spine normal to inspection Skin General skin exam: no rashes or lesions noted Neuro General: patient oriented x3, gait normal, tone normal and moves all extremities Extrem General: Yes normal to inspection and Yes capillary refill normal Assessment & Plan Assessment & Plan (1) Prostate cancer: Comment: October 2014 myriam Baca radiation therapy April 2015 Code(s): C61 - Malignant neoplasm of prostate Category: Medical (2) Urinary urgency: Code(s): R39.15 - Urgency of urination Category: Medical Plan Refill imipramine Six-month follow-up Medications: Refilled imipramine HCl 10 mg PO BID 90 days 180 tabs 1RF Patient Instructions: Imaging studies, laboratory and physical exam results were discussed and reviewed in detail. No major barriers to patient understanding were identified. An opportunity to ask questions regarding the treatment plan was provided. All questions were answered. The patient expressed understanding and agreement with the above treatment plan. The patient is aware they should contact our office by phone for worsening of their current condition or the appearance of new urologic symptoms. Compliance is encouraged with any medications and followup testing that is ordered. It is a privilege to participate in the urologic care of your patient. If you have any questions or concerns regarding treatment for the above conditions, or other urologic issues, please do not hesitate to contact me. The office telephone contact is [phone]. This note is constructed using voice recognition software. While every effort has been made to ensure accuracy director statistical programming errors may have been included. Yours sincerely, Dr Michael Laguna MD, [facility] - Urology Providers of Expert, Compassionate Care for the Genitourinary System Coding Level of Care Code Est Pt Level 4 (76529) Diagnoses Prostate cancer C61 Urinary urgency R39.15
== END 2023-10-20 15:53 | disposition home or self-care (01) ==
PROVIDERS: PCP Internal Medicine; Visit Provider Urology
DX: C61 Malignant neoplasm of prostate (principal); R39.15 Urgency of urination
CPT/HCPCS: 99214

== ENCOUNTER → 2023-10-20 15:05 | Outpatient (BNVA) | payer MEDICARE, MEDICAID, SELFPAY | PROVIDERS: PCP Internal Medicine; Visit Provider Urology | DX: C61 Malignant neoplasm of prostate (principal); R39.15 Urgency of urination | CPT/HCPCS: 99212 ==

== ENCOUNTER 2023-11-04 10:38 | Outpatient (AMB) | payer MEDICARE, MEDICAID, SELFPAY ==
--- NOTE | 2023-11-04 10:55 | A.OFFVIS_ITS ---
Vital Signs 11/04/23 10:56 Height 5 ft Weight 122 lb 5.705 oz BMI 23.9 BP 122/70 Blood Pressure Location Rt brachial Position Sitting Pulse 69 Pulse Source Pulse Oximeter Pulse Oximetry (%) 98 Oxygen Delivery Method Room Air Intake Visit Reasons: Obstructive sleep apnea Intake Note: pt is here for follow up and states he is feeling okay, overly exertion will cause short of breath, but rests and it comes back, and [facility] is in home for physical therapy and skilled. pt needs substitute for symbicort, it is not covered by insurance. and refill albuterol hfa. And the mask is coming off the face, and has questions on mask. Assorter Laundry Required: No Allergies quetiapine [From SEROQUEL] Allergy (Unknown, Verified 11/04/23 11:59) UNKNOWN Medication List - Last Reconciled 11/04/23 by Hemal Manzanares MD albuterol sulfate 90 mcg/actuation 2 puffs inhalation QID PRN ascorbic acid (vitamin C) (Vitamin C) 250 mg PO DAILY aspirin (Adult Low Dose Aspirin) 81 mg PO DAILY atenolol 25 mg PO DAILY [AUTOPAP 6-20 cm H20 humidified air As directed] budesonide-formoterol 160-4.5 mcg/actuation (Symbicort) 2 puffs inhalation BID bupropion HCl SR 200 mg PO DAILY calcium citrate 500 mg (2 x 250 mg calcium) PO BID cholecalciferol (vitamin D3) 25 mcg PO DAILY 90 days citalopram 15 mg PO DAILY clopidogrel 75 mg PO DAILY [commode bedside As directed] cyanocobalamin (vitamin B-12) 1,000 mcg PO DAILY denosumab (Prolia) 60 mg subcut [id number] diclofenac sodium 1% (Arthritis Pain (diclofenac)) 4 grams topical QID ezetimibe 10 mg PO DAILY folic acid 1 mg PO DAILY furosemide 20 mg PO DAILY imipramine HCl 10 mg PO BID 90 days lactulose 30 mL PO DAILY PRN mupirocin 2% 1 appl topical BID nitroglycerin 0.4 mg sublingual Q5M PRN omeprazole 20 mg PO BID oxycodone 5 mg PO BID PRN rosuvastatin 40 mg PO DAILY 90 days trazodone 150 mg PO BEDTIME PRN vitamin B complex 1 tab PO DAILY Do you need a note to return to daycare/school/sports/work: No HPI HPI Obstructive sleep apnea: Details: THIS 78 YEARS OLD GENTLEMAN, CHRONICALLY SICK, DEBILITATED,, MOSTLY HOMEBOUND, WITH REMOTE PAST HISTORY OF SMOKING AND DRINKING. HE IS BEING FOLLOWED UP FOR COPD WELL FOR HIS OBSTRUCTIVE SLEEP APNEA. HE HAS BEEN USING HIS CPAP REGULARLY BUT CURRENTLY NOT ENOUGH BECAUSE OF HIS MASK , SLIPPING OFF HIS FACE AT NIGHT. HE PREFERS TO HAVE A LARGE FACE MASK WHICH WILL GO OVER HIS NOSE. COPD IS WELL CONTROLLED AND HE DOES USE HIS INHALER HOWEVER HE IS NOT ABLE TO GET SYMBICORT ANYMORE,. AND WOULD NEED A REPLACEMENT HE HAS ONLY MILD INTERMITTENT COUGH. DENIES ANY ATTACKS OF WHEEZING LUCKILY HAS HAD NO INFECTION OR ACUTE EXACERBATION [facility] Medical History Urinary urgency Prostate cancer Pre-op examination GERD (gastroesophageal reflux disease) CAD (coronary artery disease) Presence of stent in artery Lumbar vertebral fracture Hip pain, right Urinary frequency Dermatitis Non-toxic multinodular goiter Tinea corporis T12 compression fracture Peripheral vascular disease Hypercholesterolemia Thyroid nodule Vitamin B12 deficiency Chronic kidney disease (CKD) stage G3b/A1, moderately decreased glomerular filtration rate (GFR) between 30-44 mL/min/1.73 square meter and albuminuria creatinine ratio less than 30 mg/g Obstructive sleep apnea Dementia in Alzheimer's disease Bipolar disorder COPD (chronic obstructive pulmonary disease) Coronary artery disease Metacarpal bone fracture Impaired fasting glucose Osteoporosis DDD (degenerative disc disease), lumbar Surgical History History of vascular surgery History of heart artery stent History of esophagogastroduodenoscopy (EGD) H/O colonoscopy S/P fine needle aspiration H/O kyphoplasty History of esophageal dilatation History of cataract surgery History of orthopedic surgery History of angioplasty History of appendectomy Family History Father Thyroid cancer Mother Colon cancer Daughter Primary squamous cell carcinoma of throat Social History Household Members: Children Housing: House Alcohol intake: former Patient Tobacco Use Status: Former Tobacco user Tobacco use type: Cigarette e-Cigarette/Vaping Use: Never Used Second Hand Smoke Exposure: No service: No Current occupational status: disabled Current occupational exposures/hazards: No Cognitive needs: Yes (wheelchair, walker) Hearing needs: Yes (hearing aide) Vision needs: No Review of Systems Const All systems reviewed & are unremarkable except as noted in HPI and below Reports weakness (General muscle weakness) Eyes Reports no additional complaints ENT Reports no additional complaints Card Denies chest pain, Denies irregular heart rhythm, Denies leg edema and Reports dyspnea on exertion (Mild) Resp Reports cough (occasional ), Reports dyspnea on exertion (Mild) and Denies wheezing GI Reports no additional complaints Musc Reports abnormal gait and Reports back pain Skin/Breast Reports system reviewed and no additional complaints, except as documented Neuro Reports abnormal gait and Reports weakness (General muscle weakness) Psych Reports no additional complaints Aller/Immun Denies wheezing Physical Exam Vital Signs: Last Vital Signs Pulse 69 11/04/23 10:56 BP 122/70 11/04/23 10:56 Pulse Ox 98 11/04/23 10:56 Oxygen Delivery Method Room Air 11/04/23 10:56 BMI result Body Mass Index 23.9 HE IS OF A THIN BUILD, CHRONICALLY SICK AND INITIATED, SITTING IN CHAIR Const General: comfortable, no acute distress, alert and awake Orientation/consciousness: patient oriented x3 HEENT Other: He is edentulous. There is some recession of the chin. Oropharynx is narrow with Mallampati class 4. Head: Yes normal to inspection General nose exam: No nasal polyps present and No nasal discharge present Face and sinus: Yes sinuses nontender Mouth: oropharynx normal Throat: Yes posterior oropharynx normal Eyes General: appearance normal, both eyes and all related structures Neck Neck: Yes normal visual inspection, Yes no lymphadenopathy, Yes trachea midline and Yes no JVD Thyroid: Thyroid normal Chest Chest palpation & inspection: normal inspection of the chest, normal palpation of entire chest wall and no tenderness Resp Other: Percussion note resonant on both sides. Breath sounds are distant with prolonged expiratory phase. Both lungs are very clear without any wheezes or Creps. Cardio Palpation: normal PMI Rate: regular rate Rhythm: regular rhythm Heart sounds: no gallops and no murmurs GI Palpation (GI): Soft to palpation, nontender, No hepatosplenomegaly present and no masses Auscultation: normal bowel sounds Back/Spine/Pelvis Other: There is a midline scar over the lumbosacral area. The whole spine is very stiff, with limited movements. Skin General skin exam: no rashes or lesions noted Neuro General: patient oriented x3, No gait normal (In wheelchair) and no focal motor deficits Cranial nerves: Yes CN's II-XII intact bilaterally Extrem General: Yes normal to inspection, Yes no clubbing, cyanosis or edema and Yes no calf tenderness Psych Appearance: grossly normal and well kempt Speech and movement: Normal speech and movement present Results Reviewed Results Reviewed: COMPLIANCE REPORT FOR THE LAST 30 NIGHTS REVEALS THAT HE HAS USED 25/30 NIGHTS, 83%. HOWEVER HIS AVERAGE USAGE AT NIGHT IS ONLY ABOUT 1 HOUR OR SO. HE CITES THE REASON THAT HIS MASK SLIPS OFF. HE DOES HAVE SIGNIFICANT AIR LEAK. AND HE HAS RESIDUAL AHI OF 25.6 Assessment & Plan Assessment & Plan (1) COPD (chronic obstructive pulmonary disease): Comment: PATIENT HAS PAST HISTORY OF SMOKING, HE HAS CLINICAL FEATURES OF CHRONIC OBSTRUCTIVE PULMONARY DISEASE, PROBABLY MILD TO MODERATE , AND STABLE AT THIS TIME. Code(s): J44.9 - Chronic obstructive pulmonary disease, unspecified Category: Medical Qualifiers: COPD type: emphysema Emphysema type: unspecified Qualified Code(s): J43.9 - Emphysema, unspecified Plan: PATIENT IS ADVISED TO CONTINUE ON HIS ICS/LABA INHALER AND, I WILL PRESCRIBE GENERIC BUDESONIDE-FORMOTEROL 160-4.5 2 PUFFS B.I.D. USE ALBUTEROL HFA 2 PUFFS Q 6 HOURS P.R.N. (2) Obstructive sleep apnea: Comment: THIS GENTLEMAN DOES HAVE RATHER SEVERE DEGREE OF OBSTRUCTIVE SLEEP APNEA, TST AHI= 58.5 HE DOES USE CPAP EVERY NIGHT BUT HIS USAGE IS VERY SUBOPTIMAL . HIS MASK DOES NOT STAY IN PLACE. HE CLAIMS THAT IT SLIPS OFF EASILY IN SPITE OF TIGHTENING THE STRAPS. Code(s): G47.33 - Obstructive sleep apnea (adult) (pediatric) Category: Medical Plan: WILL TRY FULLFACE MASK WITH OF A LARGE SIZE, WHICH WILL COVER HIS NOSE WELL. HE IS ADVISED TO KEEP HIS STRAPS RELATIVELY TIGHTENED. WILL RECHECK HIM. IN 4 MONTHS Medications: New budesonide-formoterol 160-4.5 mcg/actuation 2 puffs inhalation BID 30 days 10.2 grams 5RF J43.9 - Emphysema, unspecified Refilled albuterol sulfate 90 mcg/actuation 2 puffs inhalation QID PRN 8.5 grams 3RF shortness of breath or wheezing J43.9 - Emphysema, unspecified Coding Level of Care Code Est Pt Level 3 (21621) Diagnoses Pulmonary emphysema, unspecified emphysema type J43.9 COPD type: emphysema Emphysema type: unspecified Obstructive sleep apnea G47.33
[2023-11-04 10:56] VITALS: BP 122/70; PULSE 69; O2SAT 98; BMI 23.9
== END 2023-11-04 11:32 | disposition home or self-care (01) ==
PROVIDERS: PCP Internal Medicine; Visit Provider Internal Medicine
DX: J43.9 Emphysema, unspecified (principal); G47.33 Obstructive sleep apnea (adult) (pediatric)
CPT/HCPCS: 99213

== ENCOUNTER → 2023-11-04 10:38 | Outpatient (BNVA) | payer MEDICARE, MEDICAID, SELFPAY | PROVIDERS: PCP Internal Medicine; Visit Provider Internal Medicine | DX: J43.9 Emphysema, unspecified (principal); G47.33 Obstructive sleep apnea (adult) (pediatric) | CPT/HCPCS: 99212 ==

== ENCOUNTER → 2023-11-24 23:59 | Outpatient (BNV) | payer MEDICARE, MEDICAID, SELFPAY | PROVIDERS: PCP Internal Medicine; Visit Provider Internal Medicine | DX: I73.9 Peripheral vascular disease, unspecified (principal); K21.9 Gastro-esophageal reflux disease without esophagitis | CPT/HCPCS: G0179 ==

== ENCOUNTER 2024-01-12 00:45 | Inpatient (IN) | payer MEDICARE, MEDICAID, SELFPAY ==
[2024-01-12] VITALS (13 sets, daily range): BP systolic 140–217; BP diastolic 39–86; PULSE 64–85; RESP 16–23; TEMP 36.6–37; O2SAT 92–98; BMI 22.3
--- NOTE | ~2024-01-12 | CT_ITS ---
EXAMINATION: CT ANGIOGRAM OF THE CHEST WITH AND WITHOUT CONTRAST (CT PULMONARY ANGIOGRAM FOR PE) CLINICAL INFORMATION: fall new hypoxa COMPARISON: No pertinent prior studies are available for comparison. TECHNIQUE: Prior to contrast administration, noncontrast localization images were obtained. Subsequently, multidetector volumetric imaging was performed from the thoracic inlet to the pubic symphysis through the chest, abdomen, and pelvis following the administration of 65 mL Omnipaque 350 intravenous contrast. No contrast reaction reported Sagittal, coronal, and MIP oblique sagittal (through the chest only) reformatted images were obtained on the CT workstation, uploaded to PACS, and reviewed. This CT examination was performed using dose optimization techniques as appropriate, variously including the following: *Automated exposure control *Adjustment of mA and/or kV according to patient size (this includes techniques or standardized protocols for targeted exams where dose is matched to indication/reason for exam; i.e. extremities or head) *Use of iterative reconstruction technique Total exam dose-length product: 105 mGy-cm FINDINGS: QUALITY OF STUDY/CONTRAST BOLUS: Satisfactory. PULMONARY ARTERIES: No central or segmental pulmonary emboli. CORONARY ARTERY CALCIUM: Moderate THORACIC AORTA: No aneurysm or dissection. LUNG: Emphysematous changes are seen. Mild bronchial thickening is noted. There is bibasilar atelectasis present. There is areas of consolidation in the left lower lobe and to a lesser extent the right lower lobe and right middle lobe. PLEURA: No pleural effusion or pneumothorax. MEDIASTINUM: Normal heart size. No pericardial effusion. No hilar or mediastinal lymphadenopathy. No evidence of septal bowing or right heart strain. CHEST WALL/AXILLA: No axillary or internal mammary lymphadenopathy. OSSEOUS STRUCTURES: There is marked osteopenia. There are marked compression fractures involving T9, T11 and T12. Kyphoplasty changes are seen at T5-T7. The VISUALIZED ABDOMEN: A small hiatal hernia is present. No significant findings in the upper abdomen.Bilateral benign Bosniak class I renal cysts are noted which require no additional imaging or follow-up. No solid renal masses are seen. CT/CT angio chest PE protocol IMPRESSION: 1. No evidence of pulmonary emboli. 2. Bilateral lower lobe and right middle lobe consolidations. VTE: negative. Fleischner guidelines were followed. Electronically signed by: Graeme Ram MD 01/12/2024 01:59 PM EDT RP
--- NOTE | ~2024-01-12 | XR_ITS ---
EXAMINATION: XR CHEST CLINICAL INFORMATION: SOB, CHF COMPARISON: Chest xray on 01/14/24 TECHNIQUE: Frontal view of the chest was obtained. FINDINGS: Diffuse patchy bilateral airspace opacities, slightly improved. No pleural effusion or pneumothorax. Stable cardiomediastinal silhouette. Multilevel vertebroplasty are redemonstrated. XR/XR chest 1V IMPRESSION: Diffuse patchy bilateral airspace opacities, mild improved from prior. Electronically signed by: Antoinette Archibald MD 01/15/2024 07:44 PM EDT
--- NOTE | ~2024-01-12 | US_ITS ---
EXAMINATION: US RETROPERITONEAL LIMITED (RENAL ONLY) CLINICAL INFORMATION: Acute kidney injury. COMPARISON: MR abdomen 01/24/2006. CT abdomen arch 2005. TECHNIQUE: Real-time imaging of the kidneys. Severely limited exam, portable. Patient has involuntary movements, combative. Unable to obtain measurement/views of left kidney, inability to decubitus and remained with arms again side despite assistance. FINDINGS: RIGHT KIDNEY: 10.4 x 6.0 x 5.7 cm (SAG x AP x TRV). The kidney is normal in size, contour, and echogenicity. Renal cortical thickness is normal. No renal calculi or hydronephrosis. There are multiple renal cysts, the largest measures 6.6 x 7.1 x 6.4 cm. LEFT KIDNEY: Left kidney is not visualized on the current exam. US/US renal BI IMPRESSION: Limited exam. 1. The left kidney is not visualized on the current exam. 2. No hydronephrosis in the right kidney. 3. Multiple right renal cysts. Electronically signed by: Orlando Beltran MD 01/16/2024 02:47 PM EDT
--- NOTE | ~2024-01-12 | CT_ITS ---
EXAMINATION: CT CHEST WITHOUT CONTRAST CLINICAL INFORMATION: Worsening pneumonia COMPARISON: CT chest 01/12/2024 TECHNIQUE: Multidetector volumetric CT imaging of the chest was done. Axial MIP volume rendering provided. Sagittal and coronal reformatted images were obtained. This CT examination was performed using dose optimization techniques as appropriate, variously including the following: *Automated exposure control *Adjustment of mA and/or kV according to patient size (this includes techniques or standardized protocols for targeted exams where dose is matched to indication/reason for exam; i.e. extremities or head) *Use of iterative reconstruction technique DLP: 240 mGy-cm FINDINGS: LUNGS: There is a background of moderate to severe emphysema. There is diffuse bronchial wall thickening with significantly worsening consolidation in both lungs when compared with the recent prior exams. MEDIASTINUM: The heart is normal in size, no pericardial effusion. Atherosclerotic desiccation throughout the thoracic aorta which measures up to 4 cm. There is no bulky mediastinal lymphadenopathy. CORONARY ARTERY CALCIFICATION: Extensive three-vessel coronary artery disease. PLEURA: There is no pleural effusion. No pleural mass or thickening. AXILLA: No lymphadenopathy. UPPER ABDOMEN: Moderate hiatal hernia. Multiple renal cysts. Gallbladder is distended with some layering contrast OSSEOUS STRUCTURES: There is prior vertebral augmentation T5-T7. Moderate to severe compression deformities at T9, T11 and T12. Bones are diffusely demineralized. CT/CT chest wo IV con IMPRESSION: 1. Significantly worsening consolidation in both lungs when compared with the recent prior exams. 2. Moderate to severe emphysema. 3. Extensive three-vessel coronary artery disease. 4. Moderate hiatal hernia. 5. Bones are demineralized. Moderate to severe compression deformities at T9, T11 and T12. Fleischner guidelines were followed. Electronically signed by: Orlando Beltran MD 01/16/2024 04:27 PM EDT
--- NOTE | ~2024-01-12 | CT_ITS ---
EXAMINATION: CT CERVICAL SPINE WITHOUT CONTRAST; UNENHANCED CT OF THE HEAD. CLINICAL INFORMATION: Fall. COMPARISON: None TECHNIQUE: Routine unenhanced CT of the head with multiple coronal and sagittal reformatted images; routine unenhanced CT of the cervical spine with multiple coronal and sagittal reformatted images. This CT examination was performed using dose optimization techniques as appropriate, variously including the following: *Automated exposure control *Adjustment of mA and/or kV according to patient size (this includes techniques or standardized protocols for targeted exams where dose is matched to indication/reason for exam; i.e. extremities or head) *Use of iterative reconstruction technique DLP: 994 mGy-cm FINDINGS: CT head: No intracranial hemorrhage, tumors or acute infarcts identified. Moderate diffuse symmetric prominence of ventricles and sulci. Mild scattered subcortical and periventricular white matter patchy hypodensities. Dense opacification within the right maxillary sinus and chronic appearing thickening and sclerosis of the right maxillary sinus [place]. Bilateral ocular lens replacements. No gross extracranial soft tissue inflammatory changes. CT cervical spine: Diffuse osteopenia. No acute fractures or acute subluxations identified. Mild multilevel facet hypertrophic changes. Benign-appearing 1.2 cm lytic focus within the T2 vertebral body with a sharp zone of transition and no cortical breakthrough which may represent partial visualization of the hemangioma. No prevertebral fluid collections or soft tissue inflammatory changes. Moderate bilateral carotid bulb calcific atherosclerotic plaques. CT/CT cervical spine wo IV con IMPRESSION: CT head: *No acute intracranial abnormalities. *Moderate chronic microangiopathic ischemic changes. CT cervical spine: *No acute abnormalities. *Diffuse osteopenia. *The visualized lung apices demonstrate centrilobular emphysema. Electronically signed by: Tomer Franz MD 01/12/2024 04:01 AM EDT
--- NOTE | ~2024-01-12 | CT_ITS ---
EXAMINATION: CT CERVICAL SPINE WITHOUT CONTRAST; UNENHANCED CT OF THE HEAD. CLINICAL INFORMATION: Fall. COMPARISON: None TECHNIQUE: Routine unenhanced CT of the head with multiple coronal and sagittal reformatted images; routine unenhanced CT of the cervical spine with multiple coronal and sagittal reformatted images. This CT examination was performed using dose optimization techniques as appropriate, variously including the following: *Automated exposure control *Adjustment of mA and/or kV according to patient size (this includes techniques or standardized protocols for targeted exams where dose is matched to indication/reason for exam; i.e. extremities or head) *Use of iterative reconstruction technique DLP: 994 mGy-cm FINDINGS: CT head: No intracranial hemorrhage, tumors or acute infarcts identified. Moderate diffuse symmetric prominence of ventricles and sulci. Mild scattered subcortical and periventricular white matter patchy hypodensities. Dense opacification within the right maxillary sinus and chronic appearing thickening and sclerosis of the right maxillary sinus [place]. Bilateral ocular lens replacements. No gross extracranial soft tissue inflammatory changes. CT cervical spine: Diffuse osteopenia. No acute fractures or acute subluxations identified. Mild multilevel facet hypertrophic changes. Benign-appearing 1.2 cm lytic focus within the T2 vertebral body with a sharp zone of transition and no cortical breakthrough which may represent partial visualization of the hemangioma. No prevertebral fluid collections or soft tissue inflammatory changes. Moderate bilateral carotid bulb calcific atherosclerotic plaques. CT/CT head/brain wo IV con IMPRESSION: CT head: *No acute intracranial abnormalities. *Moderate chronic microangiopathic ischemic changes. CT cervical spine: *No acute abnormalities. *Diffuse osteopenia. *The visualized lung apices demonstrate centrilobular emphysema. Electronically signed by: Tomer Franz MD 01/12/2024 04:01 AM EDT
--- NOTE | ~2024-01-12 | XR_ITS ---
EXAMINATION: XR CHEST CLINICAL INFORMATION: Dyspnea. Cough. COMPARISON: CTA chest dated 01/12/2024. TECHNIQUE: Frontal view of the chest was obtained. FINDINGS: Diffuse, patchy bilateral airspace opacities, right greater than left. Findings are significantly increased when compared to the recent CT chest. No pleural effusion or pneumothorax. Stable cardiomediastinal silhouette. Multilevel vertebroplasty are redemonstrated. XR/XR chest 1V IMPRESSION: Diffuse, patchy bilateral airspace opacities, right greater than left. Findings are significantly increased when compared to the recent chest CT. Electronically signed by: Andrea iMchelle MD 01/14/2024 09:35 PM EDT
--- NOTE | ~2024-01-12 | XR_ITS ---
EXAMINATION: XR HIP 1 VIEW RIGHT WITH PELVIS, XR LUMBAR SPINE 2-3 VIEWS, XR RIBS 3 VIEWS MINIMUM WITH CHEST LEFT, XR HIP 2 OR MORE VIEWS LEFT CLINICAL INFORMATION: fall and hip pain COMPARISON: Chest radiograph 09/07/2018. Lumbar spine radiographs 08/19/2022. TECHNIQUE: AP and lateral radiographs of the left hip; AP chest; 3 view series left ribs; AP, lateral and coned lateral radiographs of the lumbar spine FINDINGS: Left hip: Marked diffuse atherosclerotic vascular calcifications. Visualized pelvis demonstrates no fractures. Visualized left femur demonstrates no fractures. No arthropathic changes of the left hip. No subluxations noted. Of the left hip. No subluxations noted. Diffuse osteopenia. CHEST and left RIBS: Normal cardiac silhouette. Dense aortic calcific atherosclerosis. No effusions or pneumothoraces. Grossly normal pattern of pulmonary vasculature making allowances for underpenetrated AP technique. Vertebroplasty cement is noted in the T6, T7 and T8 vertebral bodies. Marked compression deformities of the T10, T12 and L1 vertebral bodies are noted. These compression deformities are unchanged compared with 08/19/2022. Diffuse osteopenia is noted. No displaced rib fractures are visualized. Lumbar spine: Vertebroplasty cement is present in the L3, L4 and L5 vertebral bodies. Partial visualization is made of a screw within the right femoral head. Partial visualization is made of stents in the region of the left and right common iliac arteries. Marked compression deformities of the T12 and L1 vertebral bodies are present and unchanged compared with 08/19/2022. Dense aortoiliac calcific atherosclerosis is present. Visualized sacrum appears intact though is suboptimally visualized secondary to osteopenia. XR/XR ribs LT min 3V w CXR1V IMPRESSION: LEFT HIP: 1. No acute abnormalities. 2. Diffuse osteopenia. CHEST and left RIBS: 1. No acute cardiopulmonary abnormalities. 2. No acute left rib fractures identified. 3. Diffuse osteopenia 4. Vertebroplasty cement within the T6, T7 and T8 vertebral bodies. 5. Chronic vertebral body compression deformities of T10, T12 and L1 unchanged compared with 08/19/2022. LUMBAR SPINE: 1. No acute abnormalities identified. 2. Vertebral plasty cement within the L3, L4 and L5 vertebral bodies. 3. T12 and L1 vertebral body compression deformities unchanged compared with 08/19/2022. 4. Marked diffuse osteopenia. 5. Bilateral common iliac stents. Electronically signed by: Tomer Franz MD 01/12/2024 05:50 AM EDT RP
--- NOTE | ~2024-01-12 | CT_ITS ---
EXAMINATION: CT HEAD WITHOUT CONTRAST CLINICAL INFORMATION: Delirium. Altered sensorium. COMPARISON: CT head dated 01/12/2024. TECHNIQUE: Contiguous axial imaging was performed from the skull base to vertex without intravenous administration of contrast. This CT examination was performed using dose optimization techniques as appropriate, variously including the following: *Automated exposure control *Adjustment of mA and/or kV according to patient size (this includes techniques or standardized protocols for targeted exams where dose is matched to indication/reason for exam; i.e. extremities or head) *Use of iterative reconstruction technique DLP: 885 mGy-cm FINDINGS: No acute intracranial hemorrhage. No mass effect or midline shift. No parenchymal lesion. The gonzalez-white differentiation is maintained. No extra-axial fluid collection. The ventricles and sulci are unremarkable. The basal cisterns are patent. The calvarium is intact. Defect along the medial wall of the right maxillary sinus is redemonstrated with near complete opacification, unchanged when compared to the prior examination. Otherwise, the visualized paranasal sinuses and mastoid air cells are clear. CT/CT head/brain wo IV con IMPRESSION: No acute intracranial hemorrhage or mass effect. Electronically signed by: Andrea Michelle MD 01/14/2024 12:56 PM EDT
--- NOTE | 2024-01-12 01:08 | ECG_ITS ---
Test Reason : FALL Blood Pressure : / mmHG Vent. Rate : 065 BPM Atrial Rate : 065 BPM P-R Int : 144 ms QRS Dur : 086 ms QT Int : 446 ms P-R-T Axes : -02 -26 -15 degrees QTc Int : 463 ms Normal sinus rhythm with sinus arrhythmia Nonspecific ST and T wave abnormality Prolonged QT Abnormal ECG When compared with ECG of 26-NOV-2020 08:37, Nonspecific T wave abnormality now evident in Anterior leads Referred By: Tu Armstrong Electronically Signed By:SHUKRI GRIGSBY MD
--- NOTE | 2024-01-12 01:16 | ED_ITS ---
HPI - Fall General Chief Complaint: Fall Stated Complaint: fall Time Seen by Provider: 01/12/24 00:59 Source: patient and EMS Mode of arrival: EMS Limitations: no limitations History of Present Illness ED Provider: DR. Armstrong HPI Narrative: 78-year-old male came in from home by EMS for evaluation after a mechanical fall last night, patient thinks he tripped on something on the floor and fell backwards, hit his head patient claimed that he is on blood thinner, patient normally lives home with his daughter functional and active walks without assistance, complaining of mid back pain and epigastric pain, left side back pain, lower back pain, and right hip pain. No chest pain, no SOB, no LOC. Related Data Home Medications ?Medication ?Instructions ?Recorded ?Confirmed cyanocobalamin (vitamin B-12) 1,000 mcg PO DAILY 03/22/20 11/04/23 1,000 mcg capsule trazodone 150 mg tablet 150 mg PO BEDTIME PRN Insomnia 03/22/20 11/04/23 vitamin B complex 1 tab PO DAILY 03/22/20 11/04/23 bupropion HCl 200 mg tablet,12 hr 200 mg PO DAILY 02/11/22 11/04/23 sustained-release citalopram 10 mg tablet 15 mg PO DAILY 08/19/22 11/04/23 ascorbic acid (vitamin C) 250 mg 250 mg PO DAILY 03/26/23 11/04/23 tablet (Vitamin C) clopidogrel 75 mg tablet 75 mg PO DAILY 09/25/23 11/04/23 denosumab 60 mg/mL subcutaneous 60 mg subcut [id number] 01/08/24 syringe (Prolia) Previous Rx's ?Medication ?Instructions ?Recorded cholecalciferol (vitamin D3) 25 25 mcg PO DAILY 90 days #90 caps 10/25/20 mcg (1,000 unit) capsule commode bedside #1 ea 12/21/20 AUTOPAP 6-20 cm H20 humidified air #1 ea 05/27/21 mupirocin 2 % topical ointment 1 appl topical BID #15 grams 01/31/22 furosemide 20 mg tablet 20 mg PO DAILY #90 tabs 05/16/22 aspirin 81 mg tablet,delayed 81 mg PO DAILY #90 tabs 02/04/23 release (Adult Low Dose Aspirin) lactulose 10 gram/15 mL oral 30 ml PO DAILY PRN constipation 02/11/23 solution #946 mL atenolol 25 mg tablet 25 mg PO DAILY #90 tabs 02/19/23 omeprazole 20 mg capsule,delayed 20 mg PO BID #180 caps 04/15/23 release ezetimibe 10 mg tablet 10 mg PO DAILY #90 tabs 05/10/23 budesonide-formoterol HFA 160 2 puff inhalation BID #10.2 grams 05/14/23 mcg-4.5 mcg/actuation aerosol inhaler (Symbicort) nitroglycerin 0.4 mg sublingual 0.4 mg sublingual Q5M PRN chest 05/14/23 tablet pain #30 tabs diclofenac sodium 1 % topical gel 4 g topical QID #100 grams 06/03/23 (Arthritis Pain (diclofenac)) folic acid 1 mg tablet 1 mg PO DAILY #90 tabs 08/07/23 oxycodone 5 mg tablet 5 mg PO BID PRN pain #45 tabs 08/12/23 rosuvastatin 40 mg tablet 40 mg PO DAILY 90 days #90 tabs 09/25/23 imipramine HCl 10 mg tablet 10 mg PO BID 90 days #180 tabs 10/20/23 albuterol sulfate 90 mcg/actuation 2 puff inhalation QID PRN 11/04/23 aerosol inhaler shortness of breath or wheezing #8.5 grams budesonide-formoterol HFA 160 2 puff inhalation BID 30 days 11/04/23 mcg-4.5 mcg/actuation aerosol #10.2 grams inhaler calcium citrate 500 mg (2 x 250 mg calcium) PO BID 11/24/23 #360 tabs Allergies Allergy/AdvReac Type Severity Reaction Status Date / Time quetiapine [From SEROQUEL] Allergy Unknown UNKNOWN Verified 01/12/24 00:57 Review of Systems 2 Review of Systems: All other systems are reviewed and are negative Constitutional: Reports as per HPI and Reports no additional constitutional complaints Eyes: Reports as per HPI and Reports no additional eye complaints Reports system reviewed and no additional complaints, except as documented Cardiovascular: Reports as per HPI and Reports no additional cardiovascular complaints Respiratory: Reports as per HPI and Reports no additional respiratory complaints Gastrointestinal: Reports as per HPI and Reports no additional gastrointestinal complaints Genitourinary: Reports no additional female genitourinary complaints Musculoskeletal: Reports no additional musculoskeletal complaints Skin/Breast: Reports system reviewed and no additional complaints, except as docu Psychiatric: Reports no additional psychiatric complaints Endocrine: Reports no additional endocrine complaints Hematologic/Lymphatic: Reports no additional hematologic/lymphatic complaints Allergic/Immunologic: Reports no additional allergic/immunologic complaints Reports system reviewed and no additional complaints, except as documented and Reports Abnormal speech present [facility] Past Medical History Medical History Urinary urgency Prostate cancer Pre-op examination GERD (gastroesophageal reflux disease) CAD (coronary artery disease) Presence of stent in artery Lumbar vertebral fracture Hip pain, right Urinary frequency Dermatitis Non-toxic multinodular goiter Tinea corporis T12 compression fracture Peripheral vascular disease Hypercholesterolemia Thyroid nodule Vitamin B12 deficiency Chronic kidney disease (CKD) stage G3b/A1, moderately decreased glomerular filtration rate (GFR) between 30-44 mL/min/1.73 square meter and albuminuria creatinine ratio less than 30 mg/g Obstructive sleep apnea Dementia in Alzheimer's disease Bipolar disorder COPD (chronic obstructive pulmonary disease) Coronary artery disease Metacarpal bone fracture Impaired fasting glucose Osteoporosis DDD (degenerative disc disease), lumbar Surgical History History of vascular surgery History of heart artery stent History of esophagogastroduodenoscopy (EGD) H/O colonoscopy S/P fine needle aspiration H/O kyphoplasty History of esophageal dilatation History of cataract surgery History of orthopedic surgery History of angioplasty History of appendectomy Family History Family History Father Thyroid cancer Mother Colon cancer Daughter Primary squamous cell carcinoma of throat Social History Social History Household Members: Children Housing: House Alcohol intake: former Patient Tobacco Use Status: Former Tobacco user Tobacco use type: Cigarette e-Cigarette/Vaping Use: Never Used Second Hand Smoke Exposure: No Advance Directives: No Advance Directives Information Provided: No Do you have a plan to hurt others: No Plan service: No Current occupational status: disabled Current occupational exposures/hazards: No Cognitive needs: Yes (wheelchair, walker) Hearing needs: Yes (hearing aide) Vision needs: No Physical Exam 2 Vital Signs: Vital Signs: Last Vital Signs Temp 97.9 F 01/12/24 04:59 Pulse 66 01/12/24 04:59 Resp 20 01/12/24 04:59 BP 199/67 H 01/12/24 04:59 Pulse Ox 96 01/12/24 04:59 O2 Del Method Room Air 01/12/24 04:59 BMI result Body Mass Index 22.3 Vital signs have been reviewed and appear to be correct. Blood pressure elevated. Heart rate normal. Respiratory rate normal. Temperature normal. Oxygen saturation normal. Appearance: Alert. Oriented X3. No acute distress. Head: Normal external exam. Normocephalic. Atraumatic. No Trejo signs noted. No raccoon eyes noted Eyes: PERRLA. EOMI. Conjunctiva and sclera normal. Eyelids normal. ENT: TM's Normal. Pharynx normal. Uvula midline. Moist mucous membranes. No trismus noted. No drooling noted. No muffled voice noted. Neck: Normal inspection. Neck supple. FROM. No adenopathy. Thyroid Normal. No meningeal signs. No neck mass noted. CVS: Normal heart rate and rhythm. Heart sound normal. No murmurs noted. Pulses normal throughout. Respiratory: No respiratory distress. Painless inspiration. Breath sounds normal. No wheezes/rales/rhonchi noted. Chest nontender. No accessory muscle usage noted or decreased air movement noted. Abdomen: Soft and nontender. Bowel sounds normal in all 4 quadrants. No distention noted. No organomegaly noted. No visible injury noted. Back: No CVA tenderness. Full range of motion noted. Skin: Skin warm and dry. Normal skin color. Normal skin turgor. No rashes/lesions/lacerations noted. Extremities: right hip pain with no deformity. Neuro: Oriented X 3. Cranial nerve exam: II-XII are grossly intact No motor deficit. No sensory deficit. Reflexes normal. Course Reevaluation(s) Reevaluation #1: chronic anemia, patient declined rectal bleed or bleed. Negative head/C-spine CT, x-ray hips and rib with chest shows no acute pathology or fracture. Patient require 2 person to assist him get out of bed and walk will keep the patient for physician observation and physical therapy evaluation. Started physician observation. Time: 06:26 Medications Administered Discontinued Medications Generic Name Dose Route Start Last Admin Trade Name Freq PRN Reason Stop Dose Admin Acetaminophen 650 mg 01/12/24 01:09 01/12/24 02:29 Acetaminophen 325 Mg Tablet PO 01/12/24 01:10 650 mg ONCE ONE Administration Medical Decision Making Differential Diagnosis Differential Diagnoses: The differential diagnosis associated with the presentation includes ( Intracranial bleed, cervical spine fracture, hip fracture, rib fracture, pneumonia, pneumothorax, electrolyte derangement, severe anemia, ACS.) Admission/Observation Consideration of admission/observation: Escalation of care including admission/observation considered Lab Data MDM Lab Attestation statement: I reviewed the patient's lab results. 01/12/24 01:27 01/12/24 01:27 Labs: Lab Results 01/12/24 01/12/24 Range/Units 01:26 01:27 WBC 6.8 (4.8-10.8) X10*3/uL RBC 2.90 L (4.60-5.80) X10*6/uL Hgb 8.8 L (14.0-18.0) g/dl Hct 26.6 L (42.0-52.0) % MCV 91.7 (80.0-98.0) fL MCH 30.3 (27.0-33.0) pg MCHC 33.1 (31.0-36.0) g/dl RDW 14.0 (11.0-16.0) % Plt Count 170 (160-400) X10*3/uL MPV 10.4 (9.4-12.4) fL Immature Gran % (Auto) 0.3 (0.0-0.4) % Neut % (Auto) 71.1 (45-73) % Lymph % (Auto) 17.3 L (20-40) % [place] % (Auto) 10.0 (2-11) % Eos % (Auto) 1.0 (0-4) % Baso % (Auto) 0.3 (0-2) % Lymph # (Auto) 1.2 (1.2-4.9) X10*3/uL [place] # (Auto) 0.7 (0.1-1.2) X10*3/uL Eos # (Auto) 0.1 (0.0-0.4) X10*3/uL Baso # (Auto) 0.0 (0.0-0.2) X10*3/uL Abs Immat Gran (auto) 0.02 (0.00-0.03) X10*3/uL Absolute Neuts (auto) 4.9 (2.0-8.3) x10*3/uL Absolute Nucleated RBC 0.000 (0.0-0.012) X10*3/uL Nucleated RBC % (auto) 0.0 (0.0-0.2) /100WBC Sodium 145 (135-145) mmol/L Potassium 4.2 (3.3-5.1) mmol/L Chloride 113 H (96-108) mmol/L Carbon Dioxide 22 (22-29) mmol/L Anion Gap 14 (12-20) BUN 34 H (9-16) mg/dL Creatinine 1.62 H (0.5-1.4) mg/dL Estim Creat Clear Calc 25.7 Estimated GFR 41 Random Glucose 140 H (60-115) mg/dL Calcium 9.0 D (8.4-10.2) mg/dL Total Bilirubin 0.3 (0.0-1.0) mg/dL Direct Bilirubin 0.1 (0.0-0.5) mg/dL AST 19 (5-37) U/L ALT 18 (0-40) U/L Alkaline Phosphatase 48 (39-117) U/L Troponin I High Sens 11.2 (<3.5-35.0) ng/L B-Natriuretic Peptide 643 H (<100) pg/mL Total Protein 6.3 L (6.5-8.0) g/dL Albumin 3.3 L (3.5-5.0) g/dL Lipase 15 (8-78) U/L Independent Interpretation I performed an independent interpretation of an: Plain X-Ray ( hip/lumbar spine / rib/chest x-ray:. No acute abnormalities. 2. Diffuse osteopenia. CHEST and left RIBS: 1. No acute cardiopulmonary abnormalities. 2. No acute left rib fractures identified. 3. Diffuse osteopenia 4. Vertebroplasty cement within the T6, T7 and T8 vertebral bodies. 5. Chroni) and CT Scan ( Head cervical spine:CT head: *No acute intracranial abnormalities. *Moderate chronic microangiopathic ischemic changes. CT cervical spine: *No acute abnormalities. *Diffuse osteopenia. *The visualized lung apices demonstrate centrilobular emphysema. ) Radiology Impression Discussion of test interpretation with radiology: I have reviewed the radiologist's reading. Discharge Plan Discharge Clinical Impression: Fall, Closed head injury, Contusion of left chest wall, Anemia Patient Disposition: Still a Patient Prescriptions: No Action aspirin [Adult Low Dose Aspirin] 81 mg tablet,delayed release (DR/EC) 81 mg PO DAILY Qty: 90 3RF atenolol 25 mg tablet 25 mg PO DAILY Qty: 90 3RF ezetimibe 10 mg tablet 10 mg PO DAILY Qty: 90 3RF folic acid 1 mg tablet 1 mg PO DAILY Qty: 90 3RF calcium citrate 250 mg calcium tablet 500 mg PO BID Qty: 360 1RF Prolia 60 mg/mL syringe 60 mg subcut [id number] mupirocin 2 % ointment 1 appl topical BID Qty: 15 0RF ascorbic acid (vitamin C) [Vitamin C] 250 mg Tablet 250 mg PO DAILY (DME) commode bedside See Rx Instructions .Route .MEDSUPPLY Qty: 1 0RF Rx Instructions: As directed cyanocobalamin (vitamin B-12) 1,000 mcg capsule 1,000 mcg PO DAILY vitamin B complex Tablet 1 tab PO DAILY trazodone 150 mg tablet 150 mg PO BEDTIME PRN (Reason: Insomnia) bupropion HCl 200 mg tablet sustained-release 12 hr 200 mg PO DAILY furosemide 20 mg tablet 20 mg PO DAILY Qty: 90 0RF lactulose 10 gram/15 mL solution 30 ml PO DAILY PRN (Reason: constipation) Qty: 946 0RF budesonide-formoterol [Symbicort] 160-4.5 mcg/actuation HFA aerosol inhaler 2 puff inhalation BID Qty: 10.2 11RF nitroglycerin 0.4 mg tablet, sublingual 0.4 mg sublingual Q5M PRN (Reason: chest pain) Qty: 30 5RF Rx Instructions: do not exceed 3 doses per episode diclofenac sodium [Arthritis Pain (diclofenac)] 1 % gel 4 g topical QID Qty: 100 4RF Rx Instructions: apply to single knee, ankle, foot; for foot includes sole/toes/top of foot clopidogrel 75 mg tablet 75 mg PO DAILY rosuvastatin 40 mg tablet 40 mg PO DAILY 90 Days Qty: 90 0RF (DME) AUTOPAP 6-20 cm H20 humidified air See Rx Instructions .Route .MEDSUPPLY Qty: 1 0RF Rx Instructions: As directed oxycodone 5 mg tablet 5 mg PO BID PRN (Reason: pain) Qty: 45 0RF citalopram 10 mg tablet 15 mg PO DAILY cholecalciferol (vitamin D3) 25 mcg (1,000 unit) capsule 25 mcg PO DAILY 90 Days Qty: 90 2RF omeprazole 20 mg capsule,delayed release(DR/EC) 20 mg PO BID Qty: 180 2RF imipramine HCl 10 mg tablet 10 mg PO BID 90 Days Qty: 180 1RF budesonide-formoterol 160-4.5 mcg/actuation HFA aerosol inhaler 2 puff inhalation BID 30 Days Qty: 10.2 5RF albuterol sulfate 90 mcg/actuation HFA aerosol inhaler 2 puff inhalation QID PRN (Reason: shortness of breath or wheezing) Qty: 8.5 3RF Print Language: Occitan
[2024-01-12 01:31] LABS: MANUAL DIFF FLAG NO
[2024-01-12 01:32] LABS: Basophils Percent Auto 0.3 % (0-2); Eosinophils Absolute Auto 0.1 X10*3/uL (0.0-0.4); Hematocrit 26.6 % (42.0-52.0); Hemoglobin 8.8 g/dl (14.0-18.0); Imm Gran Abs Auto 0.02 X10*3/uL (0.00-0.03); Imm Gran Pct Auto 0.3 % (0.0-0.4); Lymphocytes Absolute Auto 1.2 X10*3/uL (1.2-4.9); Lymphocytes Percent Auto 17.3 % (20-40); Mean Corpuscular HGB Conc 33.1 g/dl (31.0-36.0); Mean Corpuscular Hemoglobin 30.3 pg (27.0-33.0); Mean Corpuscular Volume 91.7 fL (80.0-98.0); Mean Platelet Volume 10.4 fL (9.4-12.4); Monocytes Absolute Auto 0.7 X10*3/uL (0.1-1.2); Neutrophils Absolute Auto 4.9 x10*3/uL (2.0-8.3); Neutrophils Percent Auto 71.1 % (45-73); Platelet Count 170 X10*3/uL (160-400); White Blood Count 6.8 X10*3/uL (4.8-10.8)
[2024-01-12 01:46] LABS: Alanine Aminotransferase 18 U/L (0-40); Albumin Level 3.3 g/dL (3.5-5.0); Alkaline Phosphatase 48 U/L (39-117); Anion Gap 14 (12-20); Aspartate Amino Transferase 19 U/L (5-37); Bilirubin Direct 0.1 mg/dL (0.0-0.5); Bilirubin Total 0.3 mg/dL (0.0-1.0); Blood Urea Nitrogen 34 mg/dL (9-16); Carbon Dioxide 22 mmol/L (22-29); Chloride 113 mmol/L (96-108); Creatinine Clr Calc Pharmacy 25.7; Estimated Glomerular Filt Rate 41; Glucose Random 140 mg/dL (60-115); Lipase 15 U/L (8-78); Potassium 4.2 mmol/L (3.3-5.1); Sodium 145 mmol/L (135-145); Total Protein 6.3 g/dL (6.5-8.0)
[2024-01-12 01:52] LABS: B Type Natriuretic Peptide 643 pg/mL (<100); Troponin-I High Sensitivity 11.2 ng/L (<3.5-35.0)
[2024-01-12] MEDS: Acetaminophen 325 MG TABLET 650 MG PO (02:29)
--- NOTE | 2024-01-12 06:43 | PC.NURSE ---
pt failed swallow eval. coughed and choked after administering tylenol pills and water. MD ramirez aware. speech consult ordered
--- NOTE | 2024-01-12 07:11 | PC.NURSE ---
patient with episode of hypoxia - 83% on room air. placed on nasal cannula. provider made aware.
--- NOTE | 2024-01-12 07:44 | PC.NURSE ---
updated daughter mando on the phone, daughter states that her father has become used to taking medications crushed in applesauce/pudding at home.
--- NOTE | 2024-01-12 07:55 | PC.NURSE ---
IV established, awaiting ct scan at this time
--- NOTE | 2024-01-12 09:20 | PC.NURSE ---
Patient is away for CT scan. Will medicate upon return.
--- NOTE | 2024-01-12 09:43 | PC.NURSE ---
Patient returned from CT scan.
[2024-01-12] MEDS: iohexoL 350 MG/ML 100 ML INFUS..BTL IV (10:07)
--- NOTE | 2024-01-12 10:10 | MHC.SLORD ---
Speech Language Pathology Order Status: Pt awaiting CT scan this morning, ST to complete bedside swallow assessment when pt available this afternoon.
[2024-01-12] MEDS: Furosemide 20 MG TABLET PO (10:32)
[2024-01-12] MEDS: Clopidogrel Bisulfate 75 MG TABLET PO (10:33)
[2024-01-12] MEDS: atenoloL 25 MG TABLET PO (10:33)
[2024-01-12 11:14] LABS: COVID-19 Test Negative (Negative); IDNOW Serial# 152EDE1D
[2024-01-12 14:10] LABS: Appearance Urine Clear; Color Urine Dark Yellow; Glucose Urine UA Negative (Negative); Leukocyte Esterase Urine Negative (Negative); Nitrite Urine Negative (Negative); PH 5.5 (5.0-9.0); Specific Gravity - Urine >= 1.030 (1.005-1.025); Urine Blood Negative (Negative); Urine Ketones Negative (Negative); Urine Protein Trace mg/dL (Neg-Trace)
--- NOTE | 2024-01-12 14:39 | MHC.CM.ED ---
Received case management consult overnight. Patient came to the ER after a fall. Work up essentially negative. Physical therapy eval completed. Short term rehab is recommended. Met with patient and daughter, Radha, in regards to discharge planning. Patient lives with Olga Lidia, ambulates with a walker and has a [employer] COOK through [facility]. PCP verified. Patient has not been in patient in any facility in the past 30 days. Patient has [facility] Standard and will be able to go to a SNF under [facility] for room and board. Medicare B would cover rehab. Patient has been to [facility] in the past. Patient would prefer not to return. List of facilities contracted with [facility] and located within 15 miles of patient's home provided. Patient and Radha will provide 2-3 SNF choices to case management. Continue to monitor for d/c needs.
--- NOTE | 2024-01-12 15:10 | PC.NURSE ---
Requested that provider change the antibiotics to IV administration due to aspiration/swallowing difficulty. Awaiting Speech Language Pathologist evaluation & write up to determine diet needs.
--- NOTE | 2024-01-12 15:13 | PM.IMHP ---
History of Present Illness Date of Service: 01/12/24 Chief Complaint: fall, cough 78yo M with CAD s/p PCI, PAD s/p femoral endarterectomy and multiple stents, COPD not on home O2, prediabetes, prostate CA s/p XRT, CKD3, and bipolar disease. He lives with his daughter. Last night, he tripped on something on the floor and fell backwards, hitting his head. No loss of conscioussness. He came to the ED and was evaluated for traumatic injury, of which there was none on CT or plain film. Due to weakness requiring 2-person assist, he was placed in physician observation awaiting STR placement. However, he became hypoxic and was placed on 2L O2 via NC. CTA was done, which was negative for PE but did show bilateral lower and right middle lobe consolidation. He was given IV ceftriaxone and doxycycline. He has a chronic cough recently productive of some clear sputum. No real dyspnea. No chest pain. No fever. Notably, he has a history of dysphagia and has undergone balloon dilation for esophageal stricture, most recently in March 2023. His daughter says he has a lot of trouble swallowing liquids but not solids and he is supposed to see an COKE WORKER next week. His major complaint at this point is mid back pain. Review of Systems Review of Systems: Yes all other systems are reviewed and are negative [facility] Medical History Urinary urgency Prostate cancer Pre-op examination GERD (gastroesophageal reflux disease) CAD (coronary artery disease) Presence of stent in artery Lumbar vertebral fracture Hip pain, right Urinary frequency Dermatitis Non-toxic multinodular goiter Tinea corporis T12 compression fracture Peripheral vascular disease Hypercholesterolemia Thyroid nodule Vitamin B12 deficiency Chronic kidney disease (CKD) stage G3b/A1, moderately decreased glomerular filtration rate (GFR) between 30-44 mL/min/1.73 square meter and albuminuria creatinine ratio less than 30 mg/g Obstructive sleep apnea Dementia in Alzheimer's disease Bipolar disorder COPD (chronic obstructive pulmonary disease) Coronary artery disease Metacarpal bone fracture Impaired fasting glucose Osteoporosis DDD (degenerative disc disease), lumbar Family History Father Thyroid cancer Mother Colon cancer Daughter Primary squamous cell carcinoma of throat Surgical History History of vascular surgery History of heart artery stent History of esophagogastroduodenoscopy (EGD) H/O colonoscopy S/P fine needle aspiration H/O kyphoplasty History of esophageal dilatation History of cataract surgery History of orthopedic surgery History of angioplasty History of appendectomy Social History Household Members: Children Household Members Other:: Daughter Housing: House Do you presently have visiting nurse or other home services: No Alcohol intake: former Patient Tobacco Use Status: Former Tobacco user Tobacco use type: Cigarette Smoked in Last 30 Days: No e-Cigarette/Vaping Use: Never Used Second Hand Smoke Exposure: No Use of substances other than those prescribed or required for medical reasons: No Currently Displaying Signs/Symptoms of Drug Intoxication Withdrawal: No Advance Directives: No Advance Directives Information Provided: No Do you have a plan to hurt others: No Plan Nutrition Risks: Difficulty swallowing and On aspiration precautions service: No Current occupational status: disabled Current occupational exposures/hazards: No Cognitive needs: Yes (wheelchair, walker) Hearing needs: Yes (hearing aide) Vision needs: No Meds Allergies Allergy/AdvReac Type Severity Reaction Status Date / Time quetiapine [From SEROQUEL] Allergy Unknown UNKNOWN Verified 01/12/24 00:57 Active Medications: Current Medications Acetaminophen (Acetaminophen 325 Mg Tablet) 650 mg PO Q6H PRN PRN Reason: Pain, Mild (Pain Scale 1-3), fever or headache Albuterol/Ipratropium (Albuterol/Iprat 2.5/0.5mg 3 Ml Ampul.Neb) 3 ml INHALE RQ4H WHILE AWAKE PRN PRN Reason: shortness of breath or wheez Amlodipine Besylate (Amlodipine Besylate 2.5 Mg Tablet) 2.5 mg PO DAILY NESS; Protocol Enoxaparin Sodium (Enoxaparin Sodium 30 Mg/0.3 Ml Syringe) 30 mg SUBCUT Q24H NESS Ceftriaxone Sodium 1 gm/ (Sodium Chloride) 50 mls @ 100 mls/hr IV Q24H NESS Magnesium Hydroxide (Milk Of Magnesia 30 Ml Oral.Susp) 30 ml PO DAILY PRN PRN Reason: Constipation Melatonin (Melatonin 3 Mg Tablet) 6 mg PO BEDTIME PRN PRN Reason: Insomnia Ondansetron HCl (Ondansetron Hcl 4 Mg/2 Ml Vial) 4 mg IVPUSH Q4H PRN PRN Reason: Nausea and Vomiting Prednisone (Prednisone 20 Mg Tablet) 40 mg PO DAILY NESS Stop: 01/16/24 09:01 Sodium Chloride (0.9 % Sodium Chloride Flush 3 Ml Syringe) 3 ml IVFLUSH QSHIFT [facility] Home Medications ?Medication ?Instructions ?Recorded ?Confirmed ?Last Taken ?Type cyanocobalamin (vitamin B-12) 1,000 mcg PO DAILY 03/22/20 01/12/24 01/11/24 History 1,000 mcg capsule trazodone 150 mg tablet 150 mg PO BEDTIME PRN Insomnia 03/22/20 01/12/24 Unknown History vitamin B complex 1 tab PO DAILY 03/22/20 01/12/24 01/11/24 History bupropion HCl 200 mg tablet,12 hr 200 mg PO DAILY 02/11/22 01/12/24 01/11/24 History sustained-release citalopram 10 mg tablet 15 mg PO DAILY 08/19/22 01/12/24 01/11/24 History ascorbic acid (vitamin C) 250 mg 250 mg PO DAILY 03/26/23 01/12/24 01/11/24 History tablet (Vitamin C) clopidogrel 75 mg tablet 75 mg PO DAILY 09/25/23 01/12/24 01/11/24 History denosumab 60 mg/mL subcutaneous 60 mg subcut [id number] 01/08/24 01/12/24 07/24/23 History syringe (Prolia) budesonide-formoterol HFA 160 2 puff inhalation BID 01/12/24 01/12/24 01/11/24 History mcg-4.5 mcg/actuation aerosol inhaler (Breyna) Physical Exam Vital Signs and Narrative: Vital Signs: Last Vital Signs Temp 98.0 F 01/12/24 15:02 Pulse 72 01/12/24 15:02 Resp 16 01/12/24 15:02 BP 185/77 H 01/12/24 15:02 Pulse Ox 96 01/12/24 15:02 O2 Del Method Nasal Cannula 01/12/24 15:02 O2 Flow Rate 2 01/12/24 15:02 BMI result Body Mass Index 22.3 Gen: in no acute distress HEENT: sclera anicteric, moist mucus membranes Neck: supple Lungs: R inspiratory rhonchi and expiratory wheezing Heart: regular rate and rhythm, no murmurs Abd: soft, non-tender, non-distended Ext: no edema Skin: warm/well-perfused Neuro: alert and oriented x3, no focal findings Psych: appropriate affect Results Labs 01/13/24 05:51 01/13/24 05:51 Labs: Laboratory Results - last 24 hr 01/12/24 01/12/24 01/12/24 01:26 01:27 10:35 MCV 91.7 MCH 30.3 MCHC 33.1 RDW 14.0 Plt Count 170 MPV 10.4 Immature Gran % (Auto) 0.3 Neut % (Auto) 71.1 Lymph % (Auto) 17.3 L [place] % (Auto) 10.0 Eos % (Auto) 1.0 Baso % (Auto) 0.3 Lymph # (Auto) 1.2 [place] # (Auto) 0.7 Eos # (Auto) 0.1 Baso # (Auto) 0.0 Abs Immat Gran (auto) 0.02 Absolute Neuts (auto) 4.9 Absolute Nucleated RBC 0.000 Nucleated RBC % (auto) 0.0 Anion Gap 14 Estim Creat Clear Calc 25.7 Estimated GFR 41 Random Glucose 140 H Calcium 9.0 D Total Bilirubin 0.3 Direct Bilirubin 0.1 AST 19 ALT 18 Alkaline Phosphatase 48 Troponin I High Sens 11.2 B-Natriuretic Peptide 643 H Total Protein 6.3 L Albumin 3.3 L Lipase 15 Urine Color Urine Appearance Urine pH Ur Specific [place] Urine Protein Urine Glucose (UA) Urine Ketones Urine Blood Urine Nitrite Ur Leukocyte Esterase COVID-19 (RENNY) Negative COVID-19 Clin Com See Note 01/12/24 12:52 MCV MCH MCHC RDW Plt Count MPV Immature Gran % (Auto) Neut % (Auto) Lymph % (Auto) [place] % (Auto) Eos % (Auto) Baso % (Auto) Lymph # (Auto) [place] # (Auto) Eos # (Auto) Baso # (Auto) Abs Immat Gran (auto) Absolute Neuts (auto) Absolute Nucleated RBC Nucleated RBC % (auto) Anion Gap Estim Creat Clear Calc Estimated GFR Random Glucose Calcium Total Bilirubin Direct Bilirubin AST ALT Alkaline Phosphatase Troponin I High Sens B-Natriuretic Peptide Total Protein Albumin Lipase Urine Color Dark Yellow Urine Appearance Clear Urine pH 5.5 Ur Specific [place] >= 1.030 H Urine Protein Trace Urine Glucose (UA) Negative Urine Ketones Negative Urine Blood Negative Urine Nitrite Negative Ur Leukocyte Esterase Negative COVID-19 (RENNY) COVID-19 Clin Com Imaging Radiologist's Impressions: Impressions Cervical Spine CT 01/12/24 01:09 IMPRESSION: CT head: *No acute intracranial abnormalities. *Moderate chronic microangiopathic ischemic changes. CT cervical spine: *No acute abnormalities. *Diffuse osteopenia. *The visualized lung apices demonstrate centrilobular emphysema. Electronically signed by: Tomer Franz MD 01/12/2024 04:01 AM EDT [facility] Hip/Pelvis X-Ray 01/12/24 01:09 IMPRESSION: LEFT HIP: 1. No acute abnormalities. 2. Diffuse osteopenia. CHEST and left RIBS: 1. No acute cardiopulmonary abnormalities. 2. No acute left rib fractures identified. 3. Diffuse osteopenia 4. Vertebroplasty cement within the T6, T7 and T8 vertebral bodies. 5. Chronic vertebral body compression deformities of T10, T12 and L1 unchanged compared with 08/19/2022. LUMBAR SPINE: 1. No acute abnormalities identified. 2. Vertebral plasty cement within the L3, L4 and L5 vertebral bodies. 3. T12 and L1 vertebral body compression deformities unchanged compared with 08/19/2022. 4. Marked diffuse osteopenia. 5. Bilateral common iliac stents. Electronically signed by: Tomer Franz MD 01/12/2024 05:50 AM [place] [facility]TENDED [facility] Ribs X-Ray 01/12/24 01:09 IMPRESSION: LEFT HIP: 1. No acute abnormalities. 2. Diffuse osteopenia. CHEST and left RIBS: 1. No acute cardiopulmonary abnormalities. 2. No acute left rib fractures identified. 3. Diffuse osteopenia 4. Vertebroplasty cement within the T6, T7 and T8 vertebral bodies. 5. Chronic vertebral body compression deformities of T10, T12 and L1 unchanged compared with 08/19/2022. LUMBAR SPINE: 1. No acute abnormalities identified. 2. Vertebral plasty cement within the L3, L4 and L5 vertebral bodies. 3. T12 and L1 vertebral body compression deformities unchanged compared with 08/19/2022. 4. Marked diffuse osteopenia. 5. Bilateral common iliac stents. Electronically signed by: Tomer Franz MD 01/12/2024 05:50 AM EDT RP Head CT 01/12/24 01:32 IMPRESSION: CT head: *No acute intracranial abnormalities. *Moderate chronic microangiopathic ischemic changes. CT cervical spine: *No acute abnormalities. *Diffuse osteopenia. *The visualized lung apices demonstrate centrilobular emphysema. Electronically signed by: Tomer Franz MD 01/12/2024 04:01 AM EDT RP Lumbar Spine X-Ray 01/12/24 04:30 IMPRESSION: LEFT HIP: 1. No acute abnormalities. 2. Diffuse osteopenia. CHEST and left RIBS: 1. No acute cardiopulmonary abnormalities. 2. No acute left rib fractures identified. 3. Diffuse osteopenia 4. Vertebroplasty cement within the T6, T7 and T8 vertebral bodies. 5. Chronic vertebral body compression deformities of T10, T12 and L1 unchanged compared with 08/19/2022. LUMBAR SPINE: 1. No acute abnormalities identified. 2. Vertebral plasty cement within the L3, L4 and L5 vertebral bodies. 3. T12 and L1 vertebral body compression deformities unchanged compared with 08/19/2022. 4. Marked diffuse osteopenia. 5. Bilateral common iliac stents. Electronically signed by: Tomer Franz MD 01/12/2024 05:50 AM EDT RP Hip X-Ray 01/12/24 04:31 IMPRESSION: LEFT HIP: 1. No acute abnormalities. 2. Diffuse osteopenia. CHEST and left RIBS: 1. No acute cardiopulmonary abnormalities. 2. No acute left rib fractures identified. 3. Diffuse osteopenia 4. Vertebroplasty cement within the T6, T7 and T8 vertebral bodies. 5. Chronic vertebral body compression deformities of T10, T12 and L1 unchanged compared with 08/19/2022. LUMBAR SPINE: 1. No acute abnormalities identified. 2. Vertebral plasty cement within the L3, L4 and L5 vertebral bodies. 3. T12 and L1 vertebral body compression deformities unchanged compared with 08/19/2022. 4. Marked diffuse osteopenia. 5. Bilateral common iliac stents. Electronically signed by: Tomer Franz MD 01/12/2024 05:50 AM EDT RP Chest CTA 01/12/24 09:36 IMPRESSION: 1. No evidence of pulmonary emboli. 2. Bilateral lower lobe and right middle lobe consolidations. VTE: negative. Fleischner guidelines were followed. Electronically signed by: Graeme Ram MD 01/12/2024 01:59 PM EDT RP Assessment and Plan (1) Pneumonia: Status: Acute (2) COPD (chronic obstructive pulmonary disease): Qualifiers: COPD type: emphysema Emphysema type: unspecified Qualified Code(s): J43.9 - Emphysema, unspecified Status: Acute Plan 78yo M with CAD s/p PCI, PAD s/p femoral endarterectomy and multiple stents, COPD not on home O2, prediabetes, prostate CA s/p XRT, CKD3, and bipolar disease who had a mechanical fall last night and came in for evaluation. No acute traumatic injury but while awaiting STR placement, he became hypoxic and was found to have multifocal pneumonia. AHRF due to multifocal pneumonia and COPD exacerbation - PSI score 100, class IV, 8.2-9.3% mortality, hospitalization indicated - admit to med-surg, give ceftriaxone + doxycycline, check PCT, follow BCx, urinary antigens for Legionella and pneumococcus - wean O2 as tolerated - prn nebulizer treatments hx dysphagia + esophageal stricture - COKE WORKER evaluation + GI consultation; for now, place on NDD1 solids + honey thick liquids HTN urgency - atenolol; add amlodipine CAD PAD - ASA + clopidogrel, ezetimibe, atorvastatin bipolar disease - bupropion, citalopram DAXA - CPAP at night VTE prophylaxis - enoxaparin dispo - STR code - full I anticipate that the patient will stay at least 2 midnights as an inpatient in the hospital due to the above reasons. It is neither reasonable nor safe to care for them in a less acute setting. Quality Stroke Does the patient have a stroke diagnosis?: No VTE Prior VTE?: No VTE Risk Level:: Medical - moderate - high VTE Device Contraindication: N/A - Device Ordered VTE Drug Contraindication: N/A - Med Ordered
[2024-01-12 15:25] LABS: Procalcitonin 0.08 ng/mL
--- NOTE | 2024-01-12 15:43 | PC.NURSE ---
Blood cultures being drawn at this time. Plan for antibiotic administration after blood cultures are drawn.
[2024-01-12] MEDS: cefTRIAXone sodium 1 GM in 0.9 % Sodium Chloride 50 ML IV (16:30)
[2024-01-12] MEDS: Enoxaparin Sodium 30 MG/0.3 ML SYRINGE SUBCUT (16:30)
[2024-01-12] MEDS: amLODIPine Besylate 2.5 MG TABLET PO (16:31)
[2024-01-12] MEDS: 0.9 % Sodium Chloride Flush 3 ML SYRINGE IVFLUSH (16:31)
--- NOTE | 2024-01-12 16:38 | PHA.MEDREC ---
Addendum entered by Christian Zuleta swati 01/12/24 16:49: Med rec reviewed Original Note: Pharmacy Consult ? Medication Reconciliation Pharmacy has completed the medication reconciliation. Spoke to patients daughter over the phone to confirm med list. Daughter states patient is not using Diclofenac sodium 1% gel. Daughter states she thinks patient last dose for Prolia was 07/24/23, patient is due soon for next dose (she thinks middle of jan). Last fill date was 07/22/23. Daughter also states patient take Oxycodone 5 mg bid prn , last fill date was 08/12/23 for 22 days.
--- NOTE | 2024-01-12 17:03 | MHC.SL.SWA ---
Speech Pathologist Impression: Risk of Aspiration Due to: Medically Fragile Neurological Condition History of Pneumonia Poor PO Intake Reduced Cognition Weak Cough Dysphasia Diet Status: Liquid Consistency and Strategies for Safe Swallow: Liquid Intake Recommendation: NPO Liquid Intake Strategies: Solid Food Consistency: Dietary Recommendations: NPO Additional Modifications to Solid Foods: Recommending NPO Strict today. EXCELLENCE COACH will reassess tomorrow. Given his seemingly unclear etiology of dysphagia. He may benefit from an MBSS depending on his performance at follow-up. Oral Medication Intake: NPO Please contact the pharmacy regarding appropriate crushable or liquid drug formulations that are available whenever modified delivery is recommended. Compensatory Strategies and Precautions to be Taken for Safe Swallow: Sitting Upright (90 deg) Supervision While Eating and Drinking for Safe Swallow: PO with EXCELLENCE COACH Foods to Avoid: Swallowing Recommended Treatments: Compens. Strategy Educat. Recommendation for Speech: Inpatient Speech Therapy Comment: Frequency/Duration: Daily Date Range for Service Req: Admission Timeline to reassess: PRN Custom Bookbinder Clinican/Clinical Fellow: No Supervisory Statement: I have reviewed and agree with the student/clinical fellow's documentation: N/A Speech Language Pathologist: Eugene Degroot M.A., [facility]EXCELLENCE COACH
[2024-01-12] MEDS: hydrALAZINE HCl 20 MG/ML VIAL 10 MG IVPUSH (19:49)
--- NOTE | 2024-01-12 19:51 | PC.NURSE ---
notified provider of pt bp. new orders placed. Medications administered as per jun. plan of care ongoing
[2024-01-12] MEDS: Doxycycline Hyclate 100 MG in 0.9 % Sodium Chloride 250 ML 166.67 MG IV (21:59)
[2024-01-13] VITALS (8 sets, daily range): BP systolic 137–194; BP diastolic 58–82; PULSE 80–84; RESP 17–21; TEMP 36.4–37.2; O2SAT 95–99
[2024-01-13] MEDS: 0.9 % Sodium Chloride Flush 3 ML SYRINGE IVFLUSH ×3 (00:43→16:44)
[2024-01-13] MEDS: hydrALAZINE HCl 20 MG/ML VIAL IVPUSH (01:02)
[2024-01-13] MEDS: LORazepam 2 MG/ML VIAL 0.5 MG IVPUSH (03:34)
--- NOTE | 2024-01-13 03:41 | PC.NURSE ---
Pt. admitted to M/S around 00:15AM. BP elevated SBP >200 MD made aware and 20mg IV hydralazine administered with good effect. Pt. initially seemed to understand surroundings but when staff left bedside pt. would forget and try to get out of bed multiple times. Pt. wanted to go home but was able to be re-directed into bed. However after several attempts to get OOB and stating he was nervous and did not know where he was, MD was contacted for restlessness. Pt. has pending swallow eval and is currently honey thick liquids. 0.5mg IV ativan ordered and administered. High fall risk socks and wrist band are on and telesitter is in place. Will continue to monitor and re-assess.
[2024-01-13] MEDS: LORazepam 2 MG/ML VIAL 1 MG IVPUSH (04:35)
--- NOTE | 2024-01-13 06:03 | PC.NURSE ---
Pt. with continued restlessness and agitation. Getting OOB and trying to walk out door to go home. Visibly tremulous. Pt. mentions alcohol but states he does not drink and has not drank for 30 years. made aware of patients behaviors. An additional dose of 1mg IV ativan ordered and administered. Pt. was placed back into bed however not relaxed, continues to grab at sheets, crista gown, will not allow us to take his vitals. Pt. has strong tack picker but clearly disoriented and speech became more mumbled and incoherent. Rounder at bedside as a sitter. Spring Production Supervisor made aware. Pt. to have sitter placed for dayshift. Will report to oncoming RN.
[2024-01-13 06:30] LABS: Hematocrit 24.5 % (42.0-52.0); Mean Corpuscular HGB Conc 32.7 g/dl (31.0-36.0); Mean Corpuscular Hemoglobin 30.7 pg (27.0-33.0); Mean Corpuscular Volume 93.9 fL (80.0-98.0); Mean Platelet Volume 11.3 fL (9.4-12.4); Platelet Count 165 X10*3/uL (160-400); Red Blood Count 2.61 X10*6/uL (4.60-5.80); Red Cell Distribution Width 14.4 % (11.0-16.0); White Blood Count 7.7 X10*3/uL (4.8-10.8)
[2024-01-13 06:40] LABS: Anion Gap 14 (12-20); Blood Urea Nitrogen 32 mg/dL (9-16); Calcium 8.8 mg/dL (8.4-10.2); Carbon Dioxide 22 mmol/L (22-29); Chloride 113 mmol/L (96-108); Creatinine Clr Calc Pharmacy 26.3; Estimated Glomerular Filt Rate 42; Glucose Random 125 mg/dL (60-115); Potassium 4.1 mmol/L (3.3-5.1); Sodium 145 mmol/L (135-145)
[2024-01-13 07:30] LABS: Immature Retic Fraction 22.8 % (2.3-13.4); Retic HGB Equivalent 33.9 pg (30.0-35.0); Reticulocyte Percent 1.4 % (0.5-1.8); Reticulocytes Absolute 0.038 X10*6/uL (0.026-0.095)
[2024-01-13 07:43] LABS: Iron 27 mcg/dL (45-160); Lactate Dehydrogenase 322 U/L (118-273); Percent Iron Saturation 13 % (15-50); Total Iron Binding Capacity 210 mcg/dL (228-428); Unsaturated Iron Binding 183 ug/dL
[2024-01-13] MEDS: Pantoprazole Sodium 20 MG TABLET.DR 40 MG PO ×2 (07:51→16:43)
[2024-01-13] MEDS: amLODIPine Besylate 2.5 MG TABLET PO (07:51)
[2024-01-13] MEDS: Escitalopram Oxalate 5 MG TABLET 7.5 MG PO (07:51)
[2024-01-13] MEDS: Cyanocobalamin (Vitamin B-12) 1,000 MCG TABLET 1000 MCG PO (07:51)
[2024-01-13] MEDS: Multivitamin TABLET 1 TAB PO (07:51)
[2024-01-13] MEDS: Cholecalciferol (Vitamin D3) 25 MCG TABLET PO (07:51)
[2024-01-13] MEDS: Atorvastatin Calcium 80 MG TABLET PO (07:51)
[2024-01-13] MEDS: predniSONE 20 MG TABLET 40 MG PO (07:51)
[2024-01-13] MEDS: atenoloL 25 MG TABLET PO (07:52)
[2024-01-13] MEDS: Aspirin Enteric Coated 81 MG TABLET.DR PO (07:52)
[2024-01-13] MEDS: Ezetimibe 10 MG TABLET PO (07:52)
[2024-01-13] MEDS: Clopidogrel Bisulfate 75 MG TABLET PO (07:52)
[2024-01-13] MEDS: Folic Acid 1 MG TABLET PO (07:52)
[2024-01-13] MEDS: Furosemide 20 MG TABLET PO (07:52)
[2024-01-13] MEDS: buPROPion HCL 100 MG TABLET PO ×2 (07:54→20:10)
[2024-01-13 08:03] LABS: Ferritin 89 ng/mL (20-250)
[2024-01-13] MEDS: Doxycycline Hyclate 100 MG in 0.9 % Sodium Chloride 250 ML 166.67 MG IV (08:26)
--- NOTE | 2024-01-13 09:41 | MHC.CM.PN ---
Addendum entered by Bev Beltre 01/13/24 09:44: This CM placed a call to pts daughter/HCP Radha to discuss STR options, she requested a call back this afternoon as she was heading out to an appointment. Original Note: IMM 01/12. Pt lives at home with his daughter, uses a walker. [facility] services from [facility]. New HCP completed with pt, now on file.
[2024-01-13 10:39] LABS: Adenovirus PCR Not Detected (Not Detect.); Bordetella parapertussis PCR Not Detected (Not Detect.); Bordetella pertussis PCR Not Detected (Not Detect.); Chlamydia pneumoniae PCR Not Detected (Not Detect.); Coronavirus 229E PCR Not Detected (Not Detect.); Coronavirus HKU1 PCR Not Detected (Not Detect.); Coronavirus NL63 PCR Not Detected (Not Detect.); Coronavirus OC43 PCR Not Detected (Not Detect.); Human metapneumovirus PCR Not Detected (Not Detect.); Influenza A PCR Not Detected (Not Detect.); Influenza B PCR Not Detected (Not Detect.); Mycoplasma pneumoniae PCR Not Detected (Not Detect.); Parainfluenza 1 PCR Not Detected (Not Detect.); Parainfluenza 2 PCR Not Detected (Not Detect.); Parainfluenza 3 PCR Not Detected (Not Detect.); Parainfluenza 4 PCR Not Detected (Not Detect.); RSV PCR Not Detected (Not Detect.); Rhino/Enterovirus PCR Not Detected (Not Detect.)
--- NOTE | 2024-01-13 10:50 | HO.PM.IMPN ---
Subjective Subjective Date of Service: 01/13/24 Interval History: coughing bacteremic with GPCs in chains difficulty swallowing no fever Review of Systems Review of Systems: Yes all other systems are reviewed and are negative Physical Exam Vital Signs: Vital Signs: Last Vital Signs Temp 98.3 F 01/13/24 07:20 Pulse 80 01/13/24 08:47 Resp 17 01/13/24 07:20 BP 157/71 H 01/13/24 08:47 Pulse Ox 96 01/13/24 08:47 O2 Del Method Nasal Cannula 01/13/24 07:20 O2 Flow Rate 2.0 01/13/24 07:20 BMI result Body Mass Index 22.3 Gen: in no acute distress HEENT: sclera anicteric, moist mucus membranes Neck: supple Lungs: scattered rhonchi Heart: regular rate and rhythm, no murmurs Abd: soft, non-tender, non-distended Ext: no edema Skin: warm/well-perfused Neuro: alert and oriented to self and place only, no focal weakness Psych: appropriate affect Objective Data Active Medications Acetaminophen (Acetaminophen 325 Mg Tablet) 650 mg PO Q6H PRN PRN Reason: Pain, Mild (Pain Scale 1-3), fever or headache Albuterol/Ipratropium (Albuterol/Iprat 2.5/0.5mg 3 Ml Ampul.Neb) 3 ml INHALE RQ4H WHILE AWAKE PRN PRN Reason: shortness of breath or wheez Amlodipine Besylate (Amlodipine Besylate 2.5 Mg Tablet) 2.5 mg PO DAILY [facility]; Protocol Last Admin: 01/13/24 07:51 Dose: 2.5 mg Documented By: NELLIE Ascorbic Acid (Ascorbic Acid 250 Mg Tablet) 250 mg PO DAILY [facility] Last Admin: 01/13/24 07:53 Dose: Not Given Documented By: NELLIE Non-Admin Reason: Med Not Available Aspirin (Aspirin Enteric Coated 81 Mg Tablet.) 81 mg PO DAILY [facility] Last Admin: 01/13/24 07:52 Dose: 81 mg Documented By: NELLIE Atenolol (Atenolol 25 Mg Tablet) 25 mg PO DAILY [facility]; Protocol Last Admin: 01/13/24 07:52 Dose: 25 mg Documented By: NELLIE Atorvastatin Calcium (Atorvastatin Calcium 80 Mg Tablet) 80 mg PO DAILY [facility] Last Admin: 01/13/24 07:51 Dose: 80 mg Documented By: NELLIE Bupropion HCl (Bupropion Hcl 100 Mg Tablet) 100 mg PO BID [facility] Last Admin: 01/13/24 07:54 Dose: 100 mg Documented By: NELLIE Clopidogrel Bisulfate (Clopidogrel Bisulfate 75 Mg Tablet) 75 mg PO DAILY [facility] Last Admin: 01/13/24 07:52 Dose: 75 mg Documented By: NELLIE Cyanocobalamin (Cyanocobalamin (Vitamin B-12) 1,000 Mcg Tablet) 1,000 mcg PO DAILY [facility] Last Admin: 01/13/24 07:51 Dose: 1,000 mcg Documented By: NELLIE Ezetimibe (Ezetimibe 10 Mg Tablet) 10 mg PO DAILY [facility] Last Admin: 01/13/24 07:52 Dose: 10 mg Documented By: NELLIE Enoxaparin Sodium (Enoxaparin Sodium 30 Mg/0.3 Ml Syringe) 30 mg SUBCUT Q24H [facility] Last Admin: 01/12/24 16:30 Dose: 30 mg Documented By: JOHN Escitalopram Oxalate (Escitalopram Oxalate 5 Mg Tablet) 7.5 mg PO DAILY [facility] Last Admin: 01/13/24 07:51 Dose: 7.5 mg Documented By: NELLIE Fluticasone/Vilanterol (Fluticasone/Vilanterol 200/25 Blst.W.Dev) 1 puff INHALE RDAILY [facility] Last Admin: 01/13/24 10:10 Dose: Not Given Documented By: DARBY Non-Admin Reason: Med Not Available Folic Acid (Folic Acid 1 Mg Tablet) 1 mg PO DAILY [facility] Last Admin: 01/13/24 07:52 Dose: 1 mg Documented By: NELLIE Furosemide (Furosemide 20 Mg Tablet) 20 mg PO DAILY [facility]; Protocol Last Admin: 01/13/24 07:52 Dose: 20 mg Documented By: NELLIE Ceftriaxone Sodium 1 gm/ (Sodium Chloride) 50 mls @ 100 mls/hr IV Q24H [facility] Last Infusion: 01/12/24 17:38 Dose: Infused Documented By: CELESTE Doxycycline Hyclate 100 mg/ (Sodium Chloride) 250 mls @ 166.67 mls/hr IV Q12H [facility] Last Infusion: 01/13/24 10:15 Dose: Infused Documented By: NELLIE Vancomycin HCl 1,250 mg/ (Sodium Chloride) 250 mls @ 166.667 mls/hr IV ONCE ONE Stop: 01/13/24 12:29 Imipramine HCl (Imipramine Hcl 10 Mg Tablet) 10 mg PO BID [facility] Last Admin: 01/13/24 07:53 Dose: Not Given Documented By: NELLIE Non-Admin Reason: Med Not Available Magnesium Hydroxide (Milk Of Magnesia 30 Ml Oral.Susp) 30 ml PO DAILY PRN PRN Reason: Constipation Melatonin (Melatonin 3 Mg Tablet) 6 mg PO BEDTIME PRN PRN Reason: Insomnia Multivitamins/Vitamin C (Multivitamin Tablet) 1 tab PO DAILY [facility] Last Admin: 01/13/24 07:51 Dose: 1 tab Documented By: NELLIE Nitroglycerin (Nitroglycerin 0.4 Mg Tab.Subl) 0.4 mg SUBLINGUAL Q5M PRN PRN Reason: chest pain Ondansetron HCl (Ondansetron Hcl 4 Mg/2 Ml Vial) 4 mg IVPUSH Q4H PRN PRN Reason: Nausea and Vomiting Pantoprazole Sodium (Pantoprazole Sodium 20 Mg Tablet.) 40 mg PO BID@0630,1630 [facility] Last Admin: 01/13/24 07:51 Dose: 40 mg Documented By: NELLIE Pharmacy Consult (Consult Rx Vancomycin Dosing) 1 each MISCELLANE DAILY PRN PRN Reason: Consult order Prednisone (Prednisone 20 Mg Tablet) 40 mg PO DAILY [facility] Stop: 01/16/24 09:01 Last Admin: 01/13/24 07:51 Dose: 40 mg Documented By: NELLIE Sodium Chloride (0.9 % Sodium Chloride Flush 3 Ml Syringe) 3 ml IVFLUSH QSHIFT [facility] Last Admin: 01/13/24 07:45 Dose: 3 ml Documented By: NELLIE Trazodone HCl (Trazodone Hcl 50 Mg Tablet) 150 mg PO BEDTIME PRN PRN Reason: Insomnia Vitamin D (Cholecalciferol (Vitamin D3) 25 Mcg Tablet) 25 mcg PO DAILY [facility] Last Admin: 01/13/24 07:51 Dose: 25 mcg Documented By: NELLIE Labs 01/13/24 05:51 01/13/24 05:51 Labs: Laboratory Results - last 24 hr 01/12/24 01/12/24 01/12/24 01:27 10:35 12:52 MCV MCH MCHC RDW Plt Count MPV Absolute Nucleated RBC Nucleated RBC % (auto) Absolute Retic Percent Retic Immature Retic Fraction Retic Hgb Equivalent Hold Purple Top Anion Gap Estim Creat Clear Calc Estimated GFR Random Glucose Calcium Iron TIBC % Saturation Unsat Iron Binding Ferritin Lactate Dehydrogenase Procalcitonin 0.08 Hold Yellow Top Urine Color Dark Yellow Urine Appearance Clear Urine pH 5.5 Ur Specific [place] >= 1.030 H Urine Protein Trace Urine Glucose (UA) Negative Urine Ketones Negative Urine Blood Negative Urine Nitrite Negative Ur Leukocyte Esterase Negative COVID-19 (RENNY) Negative COVID-19 Clin Com See Note 01/12/24 01/12/24 01/13/24 15:54 15:57 05:51 MCV 93.9 MCH 30.7 MCHC 32.7 RDW 14.4 Plt Count 165 MPV 11.3 Absolute Nucleated RBC 0.000 Nucleated RBC % (auto) 0.0 Absolute Retic 0.038 Percent Retic 1.4 Immature Retic Fraction 22.8 H Retic Hgb Equivalent 33.9 Hold Purple Top SEE NOTE Anion Gap 14 Estim Creat Clear Calc 26.3 Estimated GFR 42 Random Glucose 125 H Calcium 8.8 Iron 27 L TIBC 210 L % Saturation 13 L Unsat Iron Binding 183 Ferritin 89 Lactate Dehydrogenase 322 H Procalcitonin Hold Yellow Top See Note Urine Color Urine Appearance Urine pH Ur Specific [place] Urine Protein Urine Glucose (UA) Urine Ketones Urine Blood Urine Nitrite Ur Leukocyte Esterase COVID-19 (RENNY) COVID-19 Clin Com Microbiology Microbiology Results: Microbiology 01/12/24 15:54 Blood Culture - Preliminary Blood - Venous Prelim: GPC Gram Stain only Assessment and Plan (1) Pneumonia: Status: Acute Plan d2 78yo M with CAD s/p PCI, PAD s/p femoral endarterectomy and multiple stents, COPD not on home O2, prediabetes, prostate CA s/p XRT, CKD3, and bipolar disease who came in after a mechanical fall. No acute traumatic injury but while awaiting STR placement, he became hypoxic and was found to have multifocal pneumonia. Now with bacteremia. AHRF due to multifocal pneumonia and COPD exacerbation GPC bacteremia - PSI score 100, class IV, 8.2-9.3% mortality, hospitalization indicated - 01/11- ceftriaxone, 01/11-01/12 doxycycline, 01/12- vancomycin, trend PCT, 01/12 follow BCx, urinary antigens for Legionella and pneumococcus pending - wean O2 as tolerated - prn nebulizer treatments hx dysphagia + esophageal stricture - HOTEL SERVICES SUPERVISOR evaluation + GI consultation; may need MBSS and/or repeat EGD/dilation HTN urgency - atenolol and amlodipine CAD PAD - ASA + clopidogrel, ezetimibe, atorvastatin bipolar disease - bupropion, citalopram, imipramine DAXA - CPAP at night VTE prophylaxis - enoxaparin dispo - STR In my clinical judgment, the patient requires continued inpatient hospitalization for the following reasons: IV ABX, hypoxia Total time managing care of this patient today: 50 minutes. Quality Stroke Does the patient have a stroke diagnosis?: No VTE Prior VTE?: No VTE Risk Level:: Medical - moderate - high VTE Device Contraindication: N/A - Device Ordered VTE Drug Contraindication: N/A - Med Ordered
[2024-01-13 11:29] LABS: SARS-CoV-2 PCR Not Detected (Not Detect.)
[2024-01-13] MEDS: vancomycin HCL 1,250 MG in 0.9 % Sodium Chloride 250 ML 166.67 MG IV (11:35)
--- NOTE | 2024-01-13 11:50 | PHA.PROG ---
Admission Date/Time: January 12, 2024 15:08 Indication: bacteremia Weight in k.9 kg Adjusted body weight in Kg: [place] body weight in Kg: Obesity Dosing Indication % IBW: BMI 22.3 Serum Creatinine - Last 168 Hours 01/12/24 01/13/24 01:27 05:51 Creatinine 1.62 H 1.58 H Estimated CrCl and GFR - Last 168 Hours 01/12/24 01/13/24 01:27 05:51 Estim Creat Clear Calc 25.7 26.3 Estimated GFR 41 42 Vancomycin Loading Dose: 1250mg x1 Current Vancomycin Dosing Regimen: 750 mg Q24H Vancomycin Monitoring using AUC goal of 400 - 600 range with trough as surrogate marker: 521 Date and Time for next Vancomycin Level to be drawn: 01/14 @1000 Pharmacist Comments on Vancomycin Plan: renal function poor, ordering trough after two doses, predicted trough 17. Vancomycin dosing will take advantage of [employer] as a clinical decision support tool that uses Bayesian modeling to calculate individual patient's pharmacokinetic parameters and forecast the patient's drug concentration time course with the target goal AUC 24 range of 400 - 600 mg/L/hr.
[2024-01-13] MEDS: oxyCODONE HCl Immed Release 5 MG TABLET PO ×2 (12:15→20:10)
--- NOTE | 2024-01-13 12:54 | MHC.SL.SWA ---
Speech Pathologist Impression: Moderate dysphagia d/t AMS and weakness Risk of Aspiration Due to: Medically Fragile Neurological Condition History of Pneumonia Poor PO Intake Reduced Cognition Weak Cough Dysphasia Diet Status: Pt resuming PO diet, on NDD1 with HTL. ST to continue assessing, AMS considered negative influence on pt tolerance of thin liquids. Liquid Consistency and Strategies for Safe Swallow: Liquid Intake Recommendation: Honey Thick Liquid Intake Strategies: Small Sips Solid Food Consistency: Dietary Recommendations: Pureed (NDD1) Additional Modifications to Solid Foods: Pt resuming PO with downgraded diet, NDD1 w/HTL. Given unclear etiology of dysphagia, pt may benefit from an MBSS depending on his tolerance over course of next treatment. Oral Medication Intake: Crushed with Puree Please contact the pharmacy regarding appropriate crushable or liquid drug formulations that are available whenever modified delivery is recommended. Compensatory Strategies and Precautions to be Taken for Safe Swallow: Sitting Upright (90 deg) Small Bites and Sips Rate of Ingestion Change Supervision While Eating and Drinking for Safe Swallow: Total Supervision (1:1) Foods to Avoid: Swallowing Recommended Treatments: Compens. Strategy Educat. Recommendation for Speech: Inpatient Speech Therapy Comment:Pt tolerating small amounts with slow pacing of slow moving, homogenous consistencies when alert and sitting upright. Pt unable to tolerate thin liquids as trialed during tx today (01/12). ST to continue assessing, determine appropriateness of MBSS to visualize physiological function of swallow. Frequency/Duration: Daily Date Range for Service Req: Admission Timeline to reassess: PRN Claims Auditor Clinican/Clinical Fellow: No Supervisory Statement: I have reviewed and agree with the student/clinical fellow's documentation: N/A Speech Language Pathologist: Zoila Abbott M.S., CCC-BRUSH OR BROOM CUTTER
--- NOTE | 2024-01-13 13:29 | PC.RT ---
RT called by RN to come see pt who is combative and short of breath . Upon arrival, Pt is combative with staff and family member. RT listened to lung sounds, clear bilateral, SATs 97% on 4L NC, RR 16. RT stated that pt is not appropriate for breathing tx at this time. MD notified of situation.
[2024-01-13] MEDS: cefTRIAXone sodium 1 GM in 0.9 % Sodium Chloride 50 ML IV (14:10)
--- NOTE | 2024-01-13 14:44 | MHC.CM.PN ---
This CM placed a second call to pts daughter/HCP Radha, per Radha, she has not had the chance to look into rehabs yet, she is with her father now and states he is not acting himself and she is concerned. Radha is aware of her dad having pneumonia and bacteremia and that he is not medically cleared at this time. Per Radha's request, she would like another day to consider the rehab options.
[2024-01-13] MEDS: Enoxaparin Sodium 30 MG/0.3 ML SYRINGE SUBCUT (16:43)
[2024-01-13] MEDS: Imipramine HCl 10 MG TABLET PO (20:10)
[2024-01-13] MEDS: traZODone HCL 50 MG TABLET 150 MG PO (20:10)
[2024-01-14] VITALS (10 sets, daily range): BP systolic 124–190; BP diastolic 52–81; PULSE 67–85; RESP 16–20; TEMP 36–36.6; O2SAT 84–98
[2024-01-14] MEDS: 0.9 % Sodium Chloride Flush 3 ML SYRINGE IVFLUSH ×4 (00:42→21:12)
[2024-01-14] MEDS: LORazepam 2 MG/ML VIAL 1 MG IVPUSH (02:13)
[2024-01-14] MEDS: LORazepam 2 MG/ML VIAL 0.5 MG IVPUSH (06:44)
--- NOTE | 2024-01-14 07:12 | PC.NURSE ---
Patient combative, confused , and refusing care overnight. Hospitalist notified. Ativan 1 mg IV ordered and administered with good effect.Patient was able to sleep for some time. When patient woke was extremely restless, pulled out IV ,and removing oxygen, O2 sats in the 80's without oxygen at present time. Hospitalist notified and ordered additional Ativan 0.5mg IV . Patient now resting with 1:1 sitter at bedside. VSS, Report given to oncoming RN.
--- NOTE | 2024-01-14 08:04 | PC.RT ---
pt unable to do inhaler and also not wear cpap due to combatiuveness.
--- NOTE | 2024-01-14 08:04 | PM.GICN ---
History of Present Illness Data of Consult Service Date: 01/14/24 Primary Care Provider: Jermaine Lopez MD [facility] Reason for consult: Dysphagia 78yo M with CAD s/p PCI, PAD s/p femoral endarterectomy and multiple stents, COPD not on home O2, prediabetes, prostate CA s/p XRT, CKD3, and bipolar disease who presented to the hospital after a mechanical fall and was found to have multifocal CAP. Gastroenterology has been consulted for dysphagia. Pt has longstanding hx of difficulty swallowing predominanntly to liquids. Has been seen by GI as outpatient and EGD 2022 without any obv stricture/web/ring. Empiric dilation was not helpful. [facility] Past Medical History Medical History Urinary urgency Prostate cancer Pre-op examination GERD (gastroesophageal reflux disease) CAD (coronary artery disease) Presence of stent in artery Lumbar vertebral fracture Hip pain, right Urinary frequency Dermatitis Non-toxic multinodular goiter Tinea corporis T12 compression fracture Peripheral vascular disease Hypercholesterolemia Thyroid nodule Vitamin B12 deficiency Chronic kidney disease (CKD) stage G3b/A1, moderately decreased glomerular filtration rate (GFR) between 30-44 mL/min/1.73 square meter and albuminuria creatinine ratio less than 30 mg/g Obstructive sleep apnea Dementia in Alzheimer's disease Bipolar disorder COPD (chronic obstructive pulmonary disease) Coronary artery disease Metacarpal bone fracture Impaired fasting glucose Osteoporosis DDD (degenerative disc disease), lumbar Family History Family History Father Thyroid cancer Mother Colon cancer Daughter Primary squamous cell carcinoma of throat Surgical History Surgical History History of vascular surgery History of heart artery stent History of esophagogastroduodenoscopy (EGD) H/O colonoscopy S/P fine needle aspiration H/O kyphoplasty History of esophageal dilatation History of cataract surgery History of orthopedic surgery History of angioplasty History of appendectomy Social History Social History Household Members: Children Household Members Other:: Daughter Housing: House Do you presently have visiting nurse or other home services: No Alcohol intake: former Comment: 1:1 Patient Tobacco Use Status: Former Tobacco user Tobacco use type: Cigarette Smoked in Last 30 Days: No e-Cigarette/Vaping Use: Never Used Second Hand Smoke Exposure: No Use of substances other than those prescribed or required for medical reasons: No Currently Displaying Signs/Symptoms of Drug Intoxication Withdrawal: No Advance Directives: No Advance Directives Information Provided: No Do you have a plan to hurt others: No Plan Nutrition Risks: Difficulty swallowing and On aspiration precautions service: No Current occupational status: disabled Current occupational exposures/hazards: No Cognitive needs: Yes (wheelchair, walker) Hearing needs: Yes (hearing aide) Vision needs: No Meds Allergies Allergy/AdvReac Type Severity Reaction Status Date / Time lorazepam AdvReac Severe agitation Uncoded 01/14/24 11:04 Active Medications: Current Medications Acetaminophen (Acetaminophen 325 Mg Tablet) 650 mg PO Q6H PRN PRN Reason: Pain, Mild (Pain Scale 1-3), fever or headache Albuterol/Ipratropium (Albuterol/Iprat 2.5/0.5mg 3 Ml Ampul.Neb) 3 ml INHALE RQ4H WHILE AWAKE PRN PRN Reason: shortness of breath or wheez Amlodipine Besylate (Amlodipine Besylate 5 Mg Tablet) 5 mg PO DAILY [facility]; Protocol Ascorbic Acid (Ascorbic Acid 250 Mg Tablet) 250 mg PO DAILY [facility] Last Admin: 01/13/24 07:53 Dose: Not Given Aspirin (Aspirin Enteric Coated 81 Mg Tablet.Dr) 81 mg PO DAILY [facility] Last Admin: 01/13/24 07:52 Dose: 81 mg Atenolol (Atenolol 25 Mg Tablet) 25 mg PO DAILY [facility]; Protocol Last Admin: 01/13/24 07:52 Dose: 25 mg Atorvastatin Calcium (Atorvastatin Calcium 80 Mg Tablet) 80 mg PO DAILY [facility] Last Admin: 01/13/24 07:51 Dose: 80 mg Bupropion HCl (Bupropion Hcl 100 Mg Tablet) 100 mg PO BID [facility] Last Admin: 01/13/24 20:10 Dose: 100 mg Clopidogrel Bisulfate (Clopidogrel Bisulfate 75 Mg Tablet) 75 mg PO DAILY [facility] Last Admin: 01/13/24 07:52 Dose: 75 mg Cyanocobalamin (Cyanocobalamin (Vitamin B-12) 1,000 Mcg Tablet) 1,000 mcg PO DAILY [facility] Last Admin: 01/13/24 07:51 Dose: 1,000 mcg Ezetimibe (Ezetimibe 10 Mg Tablet) 10 mg PO DAILY [facility] Last Admin: 01/13/24 07:52 Dose: 10 mg Enoxaparin Sodium (Enoxaparin Sodium 30 Mg/0.3 Ml Syringe) 30 mg SUBCUT Q24H [facility] Last Admin: 01/13/24 16:43 Dose: 30 mg Escitalopram Oxalate (Escitalopram Oxalate 5 Mg Tablet) 7.5 mg PO DAILY [facility] Last Admin: 01/13/24 07:51 Dose: 7.5 mg Fluticasone/Vilanterol (Fluticasone/Vilanterol 200/25 Blst.W.Dev) 1 puff INHALE RDAILY [facility] Last Admin: 01/14/24 08:04 Dose: Not Given Folic Acid (Folic Acid 1 Mg Tablet) 1 mg PO DAILY [facility] Last Admin: 01/13/24 07:52 Dose: 1 mg Furosemide (Furosemide 20 Mg Tablet) 20 mg PO DAILY [facility]; Protocol Last Admin: 01/13/24 07:52 Dose: 20 mg Ceftriaxone Sodium 1 gm/ (Sodium Chloride) 50 mls @ 100 mls/hr IV Q24H [facility] Last Infusion: 01/13/24 14:43 Dose: Infused Vancomycin HCl 750 mg/ Sodium (Chloride) 265 mls @ 265 mls/hr IV Q24H [facility] Imipramine HCl (Imipramine Hcl 10 Mg Tablet) 10 mg PO BID [facility] Last Admin: 01/13/24 20:10 Dose: 10 mg Magnesium Hydroxide (Milk Of Magnesia 30 Ml Oral.Susp) 30 ml PO DAILY PRN PRN Reason: Constipation Melatonin (Melatonin 3 Mg Tablet) 6 mg PO BEDTIME PRN PRN Reason: Insomnia Multivitamins/Vitamin C (Multivitamin Tablet) 1 tab PO DAILY [facility] Last Admin: 01/13/24 07:51 Dose: 1 tab Nitroglycerin (Nitroglycerin 0.4 Mg Tab.Subl) 0.4 mg SUBLINGUAL Q5M PRN PRN Reason: chest pain Ondansetron HCl (Ondansetron Hcl 4 Mg/2 Ml Vial) 4 mg IVPUSH Q4H PRN PRN Reason: Nausea and Vomiting Oxycodone HCl (Oxycodone Hcl Immed Release 5 Mg Tablet) 5 mg PO Q6H PRN PRN Reason: Pain, Severe (Pain Scale 7-10) Last Admin: 01/13/24 20:10 Dose: 5 mg Pantoprazole Sodium (Pantoprazole Sodium 20 Mg Tablet.) 40 mg PO BID@0630,1630 [facility] Last Admin: 01/14/24 06:09 Dose: Not Given Pharmacy Consult (Consult Rx Vancomycin Dosing) 1 each MISCELLANE DAILY PRN PRN Reason: Consult order Prednisone (Prednisone 20 Mg Tablet) 40 mg PO DAILY [facility] Stop: 01/16/24 09:01 Last Admin: 01/13/24 07:51 Dose: 40 mg Sodium Chloride (0.9 % Sodium Chloride Flush 3 Ml Syringe) 3 ml IVFLUSH QSHIFT [facility] Last Admin: 01/14/24 00:42 Dose: 3 ml Trazodone HCl (Trazodone Hcl 50 Mg Tablet) 150 mg PO BEDTIME PRN PRN Reason: Insomnia Last Admin: 01/13/24 20:10 Dose: 150 mg Vitamin D (Cholecalciferol (Vitamin D3) 25 Mcg Tablet) 25 mcg PO DAILY [facility] Last Admin: 01/13/24 07:51 Dose: 25 mcg Home Medications ?Medication ?Instructions ?Recorded ?Confirmed ?Last Taken ?Type cyanocobalamin (vitamin B-12) 1,000 mcg PO DAILY 03/22/20 01/12/24 01/11/24 History 1,000 mcg capsule trazodone 150 mg tablet 150 mg PO BEDTIME PRN Insomnia 03/22/20 01/12/24 Unknown History vitamin B complex 1 tab PO DAILY 03/22/20 01/12/24 01/11/24 History bupropion HCl 200 mg tablet,12 hr 200 mg PO DAILY 02/11/22 01/12/24 01/11/24 History sustained-release citalopram 10 mg tablet 15 mg PO DAILY 08/19/22 01/12/24 01/11/24 History ascorbic acid (vitamin C) 250 mg 250 mg PO DAILY 03/26/23 01/12/24 01/11/24 History tablet (Vitamin C) clopidogrel 75 mg tablet 75 mg PO DAILY 09/25/23 01/12/24 01/11/24 History denosumab 60 mg/mL subcutaneous 60 mg subcut [id number] 01/08/24 01/12/24 07/24/23 History syringe (Prolia) budesonide-formoterol HFA 160 2 puff inhalation BID 01/12/24 01/12/24 01/11/24 History mcg-4.5 mcg/actuation aerosol inhaler (Breyna) Physical Exam Vital Signs: Vital Signs: Last Vital Signs Temp 96.8 F 01/14/24 07:40 Pulse 78 01/14/24 07:40 Resp 20 01/14/24 07:40 BP 162/72 H 01/14/24 07:40 Pulse Ox 92 01/14/24 07:40 O2 Del Method Oxymask 01/14/24 07:40 O2 Flow Rate 4 01/14/24 07:40 BMI result Body Mass Index 22.3 Results Labs 01/13/24 05:51 01/14/24 09:12 Microbiology Microbiology Results: Microbiology 01/12/24 15:54 Blood - Venous Blood Culture - Preliminary No growth after 24 hours. 01/12/24 15:54 Blood - Venous Blood Culture - Preliminary Prelim: GPC Gram Stain only Assessment and Plan (1) Dysphagia: Status: Acute Procedures Date of Service Date of Service: 01/14/24
[2024-01-14 09:27] LABS: VBG Base Excess -0.6 mmol/L; VBG HCO3 20 mmol/L (22-26); VBG pCO2 21 mmHg; VBG pH 7.57 (7.32-7.43); VBG pO2 95 mmHg
[2024-01-14 09:28] LABS: Venous Blood Gas Refer to POC result
[2024-01-14 09:31] LABS: Ammonia 24 umol/L (13-55)
[2024-01-14 09:57] LABS: Alanine Aminotransferase 24 U/L (0-40); Albumin Level 3.2 g/dL (3.5-5.0); Alkaline Phosphatase 52 U/L (39-117); Aspartate Amino Transferase 52 U/L (5-37); Bilirubin Direct 0.2 mg/dL (0.0-0.5); Bilirubin Total 0.6 mg/dL (0.0-1.0); Total Protein 5.9 g/dL (6.5-8.0)
[2024-01-14 10:11] LABS: TSH reflex Free T4 1.15 uIU/mL (0.32-4.0)
[2024-01-14 10:25] LABS: Folate 16.7 ng/mL (> or = 4.0)
[2024-01-14 11:02] LABS: Vitamin B12 1955 pg/mL (200-900)
--- NOTE | 2024-01-14 11:06 | P.PNIM_ITS ---
Subjective Subjective Date of Service: 01/14/24 Interval History: Pt delirious; unable to obtain ROS Overnight was trying to pull out IVs and got 2 dose of IV lorazepam. Family very upset that he got Ativan last night. They say he has historically gotten very agitated with Ativan. He also had agitation with Seroquel but they feel this was due to a very high dose given [800 mg] and are OK with him getting Seroquel or other atypical antipsychotics. Review of Systems Review of Systems: Yes Unobtainable due to mental status Physical Exam 2 Vital Signs: Vital Signs: Last Vital Signs Temp 96.8 F 01/14/24 07:40 Pulse 78 01/14/24 09:32 Resp 20 01/14/24 07:40 BP 162/72 H 01/14/24 09:32 Pulse Ox 92 01/14/24 09:32 O2 Del Method Oxymask 01/14/24 07:40 O2 Flow Rate 4 01/14/24 07:40 BMI result Body Mass Index 22.3 Gen: agitated, delirious HEENT: sclera anicteric, moist mucus membranes Neck: supple Lungs: scattered rhonchi Heart: regular rate and rhythm, no murmurs Abd: soft, non-tender, non-distended Ext: no edema Skin: warm/well-perfused Neuro: alert and oriented to self only, agitated, no focal weakness Psych: impaired insight Objective Data Active Medications Acetaminophen (Acetaminophen 325 Mg Tablet) 650 mg PO Q6H PRN PRN Reason: Pain, Mild (Pain Scale 1-3), fever or headache Albuterol/Ipratropium (Albuterol/Iprat 2.5/0.5mg 3 Ml Ampul.Neb) 3 ml INHALE RQ4H WHILE AWAKE PRN PRN Reason: shortness of breath or wheez Amlodipine Besylate (Amlodipine Besylate 5 Mg Tablet) 5 mg PO DAILY [facility]; Protocol Last Admin: 01/14/24 08:57 Dose: Not Given Documented By: FLOYD Non-Admin Reason: drowsy Ascorbic Acid (Ascorbic Acid 250 Mg Tablet) 250 mg PO DAILY [facility] Last Admin: 01/14/24 08:57 Dose: Not Given Documented By: FLOYD Non-Admin Reason: drowsy Aspirin (Aspirin Enteric Coated 81 Mg Tablet.) 81 mg PO DAILY [facility] Last Admin: 01/14/24 08:57 Dose: Not Given Documented By: FLOYD Non-Admin Reason: drowsy Atenolol (Atenolol 25 Mg Tablet) 25 mg PO DAILY [facility]; Protocol Last Admin: 01/14/24 08:57 Dose: Not Given Documented By: FLOYD Non-Admin Reason: drowsy Atorvastatin Calcium (Atorvastatin Calcium 80 Mg Tablet) 80 mg PO DAILY [facility] Last Admin: 01/14/24 08:57 Dose: Not Given Documented By: FLOYD Non-Admin Reason: drowsy Bupropion HCl (Bupropion Hcl 100 Mg Tablet) 100 mg PO BID [facility] Last Admin: 01/14/24 08:57 Dose: Not Given Documented By: FLOYD Non-Admin Reason: drowsy Clopidogrel Bisulfate (Clopidogrel Bisulfate 75 Mg Tablet) 75 mg PO DAILY [facility] Last Admin: 01/14/24 08:58 Dose: Not Given Documented By: FLOYD Non-Admin Reason: drowsy Cyanocobalamin (Cyanocobalamin (Vitamin B-12) 1,000 Mcg Tablet) 1,000 mcg PO DAILY [facility] Last Admin: 01/14/24 08:58 Dose: Not Given Documented By: FLOYD Non-Admin Reason: drowsy Ezetimibe (Ezetimibe 10 Mg Tablet) 10 mg PO DAILY [facility] Last Admin: 01/14/24 08:59 Dose: Not Given Documented By: FLOYD Non-Admin Reason: drowsy Enoxaparin Sodium (Enoxaparin Sodium 30 Mg/0.3 Ml Syringe) 30 mg SUBCUT Q24H [facility] Last Admin: 01/13/24 16:43 Dose: 30 mg Documented By: KRISTAN Escitalopram Oxalate (Escitalopram Oxalate 5 Mg Tablet) 7.5 mg PO DAILY [facility] Last Admin: 01/14/24 08:58 Dose: Not Given Documented By: FLOYD Non-Admin Reason: drowsy Fluticasone/Vilanterol (Fluticasone/Vilanterol 200/25 Blst.W.Dev) 1 puff INHALE RDAILY [facility] Last Admin: 01/14/24 08:04 Dose: Not Given Documented By: SHAMIKA Non-Admin Reason: unable to do Folic Acid (Folic Acid 1 Mg Tablet) 1 mg PO DAILY [facility] Last Admin: 01/14/24 08:59 Dose: Not Given Documented By: FLOYD Non-Admin Reason: drowsy Furosemide (Furosemide 20 Mg Tablet) 20 mg PO DAILY [facility]; Protocol Last Admin: 01/14/24 08:59 Dose: Not Given Documented By: FLOYD Non-Admin Reason: drowsy Ceftriaxone Sodium 1 gm/ (Sodium Chloride) 50 mls @ 100 mls/hr IV Q24H [facility] Last Infusion: 01/13/24 14:43 Dose: Infused Documented By: NELLIE Vancomycin HCl 750 mg/ Sodium (Chloride) 265 mls @ 265 mls/hr IV Q24H [facility] Imipramine HCl (Imipramine Hcl 10 Mg Tablet) 10 mg PO BID [facility] Last Admin: 01/14/24 08:59 Dose: Not Given Documented By: FLOYD Non-Admin Reason: drowsy Magnesium Hydroxide (Milk Of Magnesia 30 Ml Oral.Susp) 30 ml PO DAILY PRN PRN Reason: Constipation Melatonin (Melatonin 3 Mg Tablet) 6 mg PO BEDTIME PRN PRN Reason: Insomnia Multivitamins/Vitamin C (Multivitamin Tablet) 1 tab PO DAILY [facility] Last Admin: 01/14/24 09:00 Dose: Not Given Documented By: FLOYD Non-Admin Reason: drowsy Nitroglycerin (Nitroglycerin 0.4 Mg Tab.Subl) 0.4 mg SUBLINGUAL Q5M PRN PRN Reason: chest pain Olanzapine (Olanzapine 2.5 Mg Tablet) 2.5 mg PO BEDTIME [facility] Ondansetron HCl (Ondansetron Hcl 4 Mg/2 Ml Vial) 4 mg IVPUSH Q4H PRN PRN Reason: Nausea and Vomiting Oxycodone HCl (Oxycodone Hcl Immed Release 5 Mg Tablet) 5 mg PO Q6H PRN PRN Reason: Pain, Severe (Pain Scale 7-10) Last Admin: 01/13/24 20:10 Dose: 5 mg Documented By: KRISTAN Pantoprazole Sodium (Pantoprazole Sodium 20 Mg Tablet.) 40 mg PO BID@0630,1630 [facility] Last Admin: 01/14/24 06:09 Dose: Not Given Documented By: KRISTAN Non-Admin Reason: Patient Refused Pharmacy Consult (Consult Rx Vancomycin Dosing) 1 each MISCELLANE DAILY PRN PRN Reason: Consult order Prednisone (Prednisone 20 Mg Tablet) 40 mg PO DAILY [facility] Stop: 01/16/24 09:01 Last Admin: 01/14/24 09:00 Dose: Not Given Documented By: FLOYD Non-Admin Reason: drowsy Sodium Chloride (0.9 % Sodium Chloride Flush 3 Ml Syringe) 3 ml IVFLUSH QSHIFT [facility] Last Admin: 01/14/24 09:01 Dose: 3 ml Documented By: FLOYD Trazodone HCl (Trazodone Hcl 50 Mg Tablet) 150 mg PO BEDTIME PRN PRN Reason: Insomnia Last Admin: 01/13/24 20:10 Dose: 150 mg Documented By: KRISTAN Vitamin D (Cholecalciferol (Vitamin D3) 25 Mcg Tablet) 25 mcg PO DAILY [facility] Last Admin: 01/14/24 08:57 Dose: Not Given Documented By: FLOYD Non-Admin Reason: drowsy Labs 01/13/24 05:51 01/13/24 05:51 Labs: Laboratory Results - last 24 hr 01/12/24 01/14/24 01/14/24 15:57 09:12 09:22 VBG pH 7.57 H VBG pCO2 21 VBG pO2 95 VBG HCO3 20 L VBG O2 Saturation 99.0 VBG Base Excess -0.6 Total Bilirubin 0.6 Direct Bilirubin 0.2 AST 52 H ALT 24 Alkaline Phosphatase 52 Ammonia 24 Total Protein 5.9 L Albumin 3.2 L Vitamin B12 1955 H Folate 16.7 TSH 1.15 Respiratory Panel Garcia See Note Adenovirus (Rapid PCR) Not Detected B.pert (TEM-PCR) Not Detected B.parapertussis DNA PCR Not Detected C. pneumoniae DNA (PCR) Not Detected Coronavirus OC43 (PCR) Not Detected Coronavirus HKU1 (PCR) Not Detected Coronavirus 229E (PCR) Not Detected Coronavirus NL63 (PCR) Not Detected Human Metapneumovir PCR Not Detected Influenza A (RT-PCR) Not Detected Influenza B (RT-PCR) Not Detected M. pneumoniae (PCR) Not Detected Parainfluenza 1 (PCR) Not Detected Parainfluenza 2 (PCR) Not Detected Parainfluenza 3 (PCR) Not Detected Parainfluenza 4 (PCR) Not Detected RSV (PCR) Not Detected Entero/Rhino (PCR) Not Detected SARS-CoV-2 RNA (RT-PCR) Not Detected Microbiology Microbiology Results: Microbiology 01/12/24 15:54 Blood Culture - Preliminary Blood - Venous No growth after 24 hours. 01/12/24 15:54 Blood Culture - Preliminary Blood - Venous Prelim: GPC Gram Stain only Assessment and Plan (1) Pneumonia: Status: Acute Plan d2 78yo M with CAD s/p PCI, PAD s/p femoral endarterectomy and multiple stents, COPD not on home O2, prediabetes, prostate CA s/p XRT, CKD3, and bipolar disease who came in after a mechanical fall. No acute traumatic injury but while awaiting STR placement, he became hypoxic and was found to have multifocal pneumonia. Now with bacteremia. AHRF due to multifocal pneumonia and COPD exacerbation GPC bacteremia, preliminary - PSI score 100, class IV, 8.2-9.3% mortality, hospitalization indicated - 01/11- ceftriaxone, 01/11-01/12 doxycycline, 01/12- vancomycin, trend PCT, follow BCx speciation + susceptibilities from 01/11, urinary antigens for Legionella and pneumococcus pending - wean O2 as tolerated - prn nebulizer treatments encephalopathy due to acute infection - will repeat CT head. TSH, B12, LFTs, NH3 checked. Psychiatry consult re: medications [he is on bupropion, citalopram, imipramine and has been on this combination for a long time] - olanzapine at hs in attempt to re-establish normal sleep-wake cycle; prn olanzapine rather than lorazepam if he has breakthrough agitation hx dysphagia + esophageal stricture - [employer] CLERK evaluation + GI consultation; MBSS and/or repeat EGD/dilation when mental status improved HTN urgency - continue atenolol; amlodipine increased CAD PAD - ASA + clopidogrel, ezetimibe, atorvastatin bipolar disease - bupropion, citalopram, imipramine DAXA - CPAP at night VTE prophylaxis - enoxaparin dispo - STR eventually Family updated at bedside In my clinical judgment, the patient requires continued inpatient hospitalization for the following reasons: IV ABX, hypoxia, delirium Total time managing care of this patient today: 60 minutes. Quality Stroke Does the patient have a stroke diagnosis?: No VTE Prior VTE?: No VTE Risk Level:: Medical - moderate - high VTE Device Contraindication: N/A - Device Ordered VTE Drug Contraindication: N/A - Med Ordered
--- NOTE | 2024-01-14 11:10 | PC.NURSE ---
Addendum entered by Nancie Brar RN 01/14/24 11:31: Daughter at the bedside at 11:30, states per baseline pt is A&Ox4 but forgetful at times. Original Note: At 0800 MD Peterson made aware pt respiratory effort/demand increasing, pt 87% on 3L NC, pt titrated up to 4L on oxymask saturating 88-92%. Pt orthopenic and tachypenic at this time. Per MD VBGs ordered, see results for details. Tele applied, HR SR-ST. Orders for tx to tele floor.
[2024-01-14 11:37] LABS: Anion Gap 14 (12-20); Blood Urea Nitrogen 44 mg/dL (9-16); Calcium 8.6 mg/dL (8.4-10.2); Carbon Dioxide 20 mmol/L (22-29); Chloride 115 mmol/L (96-108); Creatinine Clr Calc Pharmacy 26.8; Estimated Glomerular Filt Rate 43; Glucose Random 118 mg/dL (60-115); Magnesium 2.4 mg/dL (1.6-2.6); Potassium 3.6 mmol/L (3.3-5.1); Sodium 145 mmol/L (135-145)
[2024-01-14 11:49] LABS: Procalcitonin 2.49 ng/mL
--- NOTE | 2024-01-14 13:00 | MHC.SLORD ---
Addendum entered and electronically signed by Darshana Salvador MA, CCC-SAND BUFFER 01/14/24 15:45: SAND BUFFER attempted to see patient for PO trials, however, patient refusing. Will re-attempt tomorrow morning. Original Note: Speech Language Pathology Order Status: MBSS was scheduled at 12:30 today, but cancelled, as patient was obtunded and unable to participate. notified.
[2024-01-14] MEDS: vancomycin HCL 750 MG in 0.9 % Sodium Chloride 250 ML 265 MG IV (13:03)
[2024-01-14] MEDS: Enoxaparin Sodium 30 MG/0.3 ML SYRINGE SUBCUT (15:59)
[2024-01-14] MEDS: cefTRIAXone sodium 1 GM in 0.9 % Sodium Chloride 50 ML IV (15:59)
[2024-01-14] MEDS: Furosemide 40 MG/4 ML VIAL IVPUSH (17:09)
[2024-01-14] MEDS: methylPREDNISolone Sod Succ 40 MG/ML VIAL IVPUSH (17:09)
[2024-01-14] MEDS: Pantoprazole Sodium 40 MG/10 ML VIAL IVPUSH (17:09)
[2024-01-14] MEDS: OLANZapine 10 MG VIAL 2.5 MG IM ×2 (17:20→18:03)
[2024-01-14 21:08] LABS: Strep Pneumo Ag urine Not Detected (Not Detected)
[2024-01-14] MEDS: OLANZapine 2.5 MG TABLET PO (21:12)
[2024-01-14] MEDS: Acetaminophen 325 MG TABLET 650 MG PO (21:16)
[2024-01-15] VITALS (13 sets, daily range): BP systolic 112–190; BP diastolic 56–93; PULSE 78–142; RESP 14–30; TEMP 36.1–37.1; O2SAT 90–97
[2024-01-15] MEDS: OLANZapine 10 MG VIAL 2.5 MG IM ×2 (03:19→11:53)
[2024-01-15] MEDS: OLANZapine 10 MG VIAL 5 MG IM ×2 (04:12→22:13)
[2024-01-15] MEDS: Pantoprazole Sodium 40 MG/10 ML VIAL IVPUSH ×2 (05:27→15:50)
[2024-01-15 08:58] LABS: Legionella Ag Urine Not Detected (Not Detected)
[2024-01-15] MEDS: 0.9 % Sodium Chloride Flush 3 ML SYRINGE IVFLUSH ×2 (09:23→15:51)
[2024-01-15] MEDS: Furosemide 20 MG/2 ML VIAL IVPUSH (09:26)
[2024-01-15 10:52] LABS: Hematocrit 25.4 % (42.0-52.0); Hemoglobin 8.3 g/dl (14.0-18.0); Mean Corpuscular HGB Conc 32.7 g/dl (31.0-36.0); Mean Corpuscular Hemoglobin 30.6 pg (27.0-33.0); Mean Corpuscular Volume 93.7 fL (80.0-98.0); Mean Platelet Volume 10.9 fL (9.4-12.4); NRBC Pct Auto 0.3 /100WBC (0.0-0.2); Platelet Count 181 X10*3/uL (160-400); Red Blood Count 2.71 X10*6/uL (4.60-5.80); Red Cell Distribution Width 14.8 % (11.0-16.0); White Blood Count 13.8 X10*3/uL (4.8-10.8)
[2024-01-15 10:56] LABS: VBG HCO3 19 mmol/L (22-26); VBG pCO2 28 mmHg; VBG pH 7.43 (7.32-7.43); VBG pO2 31 mmHg
[2024-01-15 10:56] LABS: Venous Blood Gas Refer to POC result
[2024-01-15 11:04] LABS: Creatinine Clr Calc Pharmacy 20.4; Estimated Glomerular Filt Rate 32; Vancomycin Random 17.7 mcg/mL (15-20)
[2024-01-15 11:05] LABS: Anion Gap 20 (12-20); Blood Urea Nitrogen 58 mg/dL (9-16); Carbon Dioxide 20 mmol/L (22-29); Chloride 116 mmol/L (96-108); Creatinine Clr Calc Pharmacy 20.5; Estimated Glomerular Filt Rate 32; Glucose Random 128 mg/dL (60-115); Potassium 3.8 mmol/L (3.3-5.1); Sodium 152 mmol/L (135-145)
[2024-01-15 11:11] LABS: B Type Natriuretic Peptide 1564 pg/mL (<100)
[2024-01-15] MEDS: Piperacillin Sodium/Tazobactam 3.375 GM in 0.9 % Sodium Chloride 50 ML IV ×3 (11:32→22:19)
[2024-01-15] MEDS: Dextrose 5 % 1,000 ML 70 ML IVCONT (12:15)
--- NOTE | 2024-01-15 13:17 | HO.PM.IMPN ---
Subjective Subjective Date of Service: 01/15/24 Interval History: still quite agitated, somewhat combative, got Zyprexa 5mg IM this AM at 0400 will not take his meds no fever hypoxic Review of Systems Review of Systems: Yes Unobtainable due to mental status Physical Exam Vital Signs: Vital Signs: Last Vital Signs Temp 98.8 F 01/15/24 11:42 Pulse 84 01/15/24 11:42 Resp 20 01/15/24 11:42 BP 144/70 H 01/15/24 09:26 Pulse Ox 96 01/15/24 11:42 O2 Del Method Oxymask 01/15/24 11:42 O2 Flow Rate 7 01/15/24 11:42 BMI result Body Mass Index 22.3 Gen: agitated, delirious HEENT: sclera anicteric, moist mucus membranes Neck: supple Lungs: scattered rhonchi Heart: regular rate and rhythm, no murmurs Abd: soft, non-tender, non-distended Ext: no edema Skin: warm/well-perfused Neuro: alert and oriented to self only, agitated, no focal weakness Psych: impaired insight Objective Data Active Medications Acetaminophen (Acetaminophen 325 Mg Tablet) 650 mg PO Q6H PRN PRN Reason: Pain, Mild (Pain Scale 1-3), fever or headache Last Admin: 01/14/24 21:16 Dose: 650 mg Documented By: CARRILLO Albuterol/Ipratropium (Albuterol/Iprat 2.5/0.5mg 3 Ml Ampul.Neb) 3 ml INHALE RQ4H WHILE AWAKE PRN PRN Reason: shortness of breath or wheez Amlodipine Besylate (Amlodipine Besylate 5 Mg Tablet) 5 mg PO DAILY [facility]; Protocol Last Admin: 01/14/24 08:57 Dose: Not Given Documented By: FLOYD Non-Admin Reason: drowsy Ascorbic Acid (Ascorbic Acid 250 Mg Tablet) 250 mg PO DAILY [facility] Last Admin: 01/14/24 08:57 Dose: Not Given Documented By: FLOYD Non-Admin Reason: drowsy Aspirin (Aspirin Enteric Coated 81 Mg Tablet.) 81 mg PO DAILY [facility] Last Admin: 01/14/24 08:57 Dose: Not Given Documented By: FLOYD Non-Admin Reason: drowsy Atenolol (Atenolol 25 Mg Tablet) 25 mg PO DAILY [facility]; Protocol Last Admin: 01/14/24 08:57 Dose: Not Given Documented By: FLOYD Non-Admin Reason: drowsy Atorvastatin Calcium (Atorvastatin Calcium 80 Mg Tablet) 80 mg PO DAILY [facility] Last Admin: 01/14/24 08:57 Dose: Not Given Documented By: FLOYD Non-Admin Reason: drowsy Bupropion HCl (Bupropion Hcl 100 Mg Tablet) 100 mg PO BID [facility] Last Admin: 01/14/24 08:57 Dose: Not Given Clopidogrel Bisulfate (Clopidogrel Bisulfate 75 Mg Tablet) 75 mg PO DAILY [facility] Last Admin: 01/14/24 08:58 Dose: Not Given Documented By: FLOYD Non-Admin Reason: drowsy Cyanocobalamin (Cyanocobalamin (Vitamin B-12) 1,000 Mcg Tablet) 1,000 mcg PO DAILY [facility] Last Admin: 01/14/24 08:58 Dose: Not Given Documented By: FLOYD Non-Admin Reason: drowsy Ezetimibe (Ezetimibe 10 Mg Tablet) 10 mg PO DAILY [facility] Last Admin: 01/14/24 08:59 Dose: Not Given Documented By: FLOYD Non-Admin Reason: drowsy Enoxaparin Sodium (Enoxaparin Sodium 30 Mg/0.3 Ml Syringe) 30 mg SUBCUT Q24H [facility] Last Admin: 01/14/24 15:59 Dose: 30 mg Documented By: RODDY Escitalopram Oxalate (Escitalopram Oxalate 5 Mg Tablet) 7.5 mg PO DAILY [facility] Last Admin: 01/14/24 08:58 Dose: Not Given Folic Acid (Folic Acid 1 Mg Tablet) 1 mg PO DAILY [facility] Last Admin: 01/14/24 08:59 Dose: Not Given Documented By: FLOYD Non-Admin Reason: drowsy Furosemide (Furosemide 20 Mg Tablet) 20 mg PO DAILY [facility]; Protocol Last Admin: 01/14/24 08:59 Dose: Not Given Documented By: FLOYD Non-Admin Reason: drowsy Furosemide (Furosemide 20 Mg/2 Ml Vial) 20 mg IVPUSH BID@0900,1800 [facility]; Protocol Last Admin: 01/15/24 09:26 Dose: 20 mg Documented By: ANASTASIIA Piperacillin Sod/Tazobactam (Sod 3.375 gm/ Sodium Chloride) 50 mls @ 100 mls/hr IV Q6H [facility] Last Infusion: 01/15/24 12:26 Dose: Infused Documented By: ANASTASIIA Vancomycin HCl 500 mg/ Sodium (Chloride) 110 mls @ 110 mls/hr IV Q24H [facility] Dextrose (D5w) 1,000 mls @ 70 mls/hr IVCONT .[id number] [facility] Last Admin: 01/15/24 12:15 Dose: 70 mls/hr Documented By: ANASTASIIA Imipramine HCl (Imipramine Hcl 10 Mg Tablet) 10 mg PO BID [facility] Last Admin: 01/14/24 08:59 Dose: Not Given Methylprednisolone Sodium Succinate (Methylprednisolone Sod Succ 40 Mg/Ml Vial) 40 mg IVPUSH Q24H [facility] Last Admin: 01/14/24 17:09 Dose: 40 mg Documented By: RODDY Multivitamins/Vitamin C (Multivitamin Tablet) 1 tab PO DAILY [facility] Last Admin: 01/14/24 09:00 Dose: Not Given Documented By: FLOYD Non-Admin Reason: drowsy Nitroglycerin (Nitroglycerin 0.4 Mg Tab.Subl) 0.4 mg SUBLINGUAL Q5M PRN PRN Reason: chest pain Olanzapine (Olanzapine 2.5 Mg Tablet) 2.5 mg PO BEDTIME [facility] Last Admin: 01/14/24 21:12 Dose: 2.5 mg Documented By: CARRILLO Olanzapine (Olanzapine 10 Mg Vial) 2.5 mg IM Q12H PRN PRN Reason: severe agitation Last Admin: 01/15/24 11:53 Dose: 2.5 mg Documented By: ANASTASIIA Ondansetron HCl (Ondansetron Hcl 4 Mg/2 Ml Vial) 4 mg IVPUSH Q4H PRN PRN Reason: Nausea and Vomiting Oxycodone HCl (Oxycodone Hcl Immed Release 5 Mg Tablet) 5 mg PO Q6H PRN PRN Reason: Pain, Severe (Pain Scale 7-10) Last Admin: 01/13/24 20:10 Dose: 5 mg Documented By: KRISTAN Pantoprazole Sodium (Pantoprazole Sodium 40 Mg/10 Ml Vial) 40 mg IVPUSH BID@0630,1630 [facility] Last Admin: 01/15/24 05:27 Dose: 40 mg Documented By: CARRILLO Pharmacy Consult (Consult Rx Vancomycin Dosing) 1 each MISCELLANE DAILY PRN PRN Reason: Consult order Sodium Chloride (0.9 % Sodium Chloride Flush 3 Ml Syringe) 3 ml IVFLUSH QSHIFT [facility] Last Admin: 01/15/24 09:23 Dose: 3 ml Documented By: BROMinnie Trazodone HCl (Trazodone Hcl 50 Mg Tablet) 150 mg PO BEDTIME PRN PRN Reason: Insomnia Last Admin: 01/13/24 20:10 Dose: 150 mg Documented By: KRISTAN Vitamin D (Cholecalciferol (Vitamin D3) 25 Mcg Tablet) 25 mcg PO DAILY [facility] Last Admin: 01/14/24 08:57 Dose: Not Given Documented By: FLOYD Non-Admin Reason: drowsy Labs 01/15/24 10:44 01/15/24 10:44 Labs: Laboratory Results - last 24 hr 01/12/24 01/15/24 01/15/24 15:57 10:44 10:44 MCV 93.7 MCH 30.6 MCHC 32.7 RDW 14.8 Plt Count 181 MPV 10.9 Absolute Nucleated RBC 0.040 H Nucleated RBC % (auto) 0.3 H VBG pH VBG pCO2 VBG pO2 VBG HCO3 VBG O2 Saturation VBG Base Excess Anion Gap 20 Estim Creat Clear Calc 20.5 20.4 Estimated GFR 32 Random Glucose Calcium B-Natriuretic Peptide Random Vancomycin Ur L.pneumophila Ag Not Detected Ur Strep pneumoniae Ag Not Detected 01/15/24 01/15/24 10:44 10:51 MCV MCH MCHC RDW Plt Count MPV Absolute Nucleated RBC Nucleated RBC % (auto) VBG pH 7.43 VBG pCO2 28 VBG pO2 31 VBG HCO3 19 L VBG O2 Saturation 41.0 VBG Base Excess -4.0 Anion Gap Estim Creat Clear Calc Estimated GFR 32 Random Glucose 128 H Calcium 9.0 B-Natriuretic Peptide 1564 H Random Vancomycin 17.7 Ur L.pneumophila Ag Ur Strep pneumoniae Ag Impressions Chest X-Ray 01/14/24 20:50 IMPRESSION: Diffuse, patchy bilateral airspace opacities, right greater than left. Findings are significantly increased when compared to the recent chest CT. Electronically signed by: Andrea Michelle MD 01/14/2024 09:35 PM EDT RP Microbiology Microbiology Results: Microbiology 01/12/24 15:54 Blood Culture - Preliminary Blood - Venous No growth after 48 hours. 01/12/24 15:54 Blood Culture - Final Blood - Venous Streptococcus viridans group Assessment and Plan (1) Pneumonia: Status: Acute Plan d4 78yo M with CAD s/p PCI, PAD s/p femoral endarterectomy and multiple stents, COPD not on home O2, prediabetes, prostate CA s/p XRT, CKD3, and bipolar disease who came in after a mechanical fall. No acute traumatic injury but while awaiting STR placement, he became hypoxic and was found to have multifocal pneumonia. Now with bacteremia. AHRF due to multifocal pneumonia and COPD exacerbation [PSI score 100, class IV, 8.2-9.3% mortality, hospitalization indicated] - 01/11-01/14 ceftriaxone, 01/11-01/12 doxycycline, 01/12- vancomycin, 01/14- piperacillin-tazobactam, trend PCT, BCx from 01/11 grew Strep viridans which is a contaminant, urinary antigens for Legionella and pneumococcus negative, MRSA swab pending - wean O2 as tolerated - prn nebulizer treatments encephalopathy due to acute infection and toxic-metabolic - CT head unrevealing, labs reviewed; repleting free water - Family concerned re: medication withdrawal. He did get escitalopram ,imipramine, and 1 of 2 doses of bupropion yesterday. Discussed with pt's psychiatrist Juhi Peck. 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 Regardless, will try go give his bupropion and citalopram with small amount of pudding or applesauce [the imipramine is actually prescribed for nocturia by his urologist, not for psychiatric reasons]. - olanzapine at hs in attempt to re-establish normal sleep-wake cycle; prn olanzapine rather than lorazepam if he has breakthrough agitation [he's had paradoxical agitation with lorazepam in past] hyperNa, acute - free water deficit 1.7L, replete with D5W over 24h hx dysphagia + esophageal stricture - [employer] following, cannot do MBSS due to agitation, will place on NDD1 solids/honey liquids for now - GI consulted, not stable for EGD at this point HTN urgency - continue atenolol; amlodipine held CAD PAD - ASA + clopidogrel, ezetimibe, atorvastatin bipolar disease - bupropion, citalopram nocturia - imipramine DAXA - CPAP at night when encephalopathy resolves VTE prophylaxis - enoxaparin dispo - STR eventually Family updated at bedside In my clinical judgment, the patient requires continued inpatient hospitalization for the following reasons: IV ABX, hypoxia, delirium Total time managing care of this patient today: 55 minutes. Quality Stroke Does the patient have a stroke diagnosis?: No VTE Prior VTE?: No VTE Risk Level:: Medical - moderate - high VTE Device Contraindication: N/A - Device Ordered VTE Drug Contraindication: N/A - Med Ordered
--- NOTE | 2024-01-15 13:38 | PC.NURSE ---
Per family request oral medication ordered by provider, medication was crushed and mixed in applesauce, patient refused to take medication, family at bedside witnessed patient refusal to take medication. Patient continue to be combative, pushing away and trying to hit staff.
[2024-01-15 13:40] LABS: MRSA Nasal PCR NEGATIVE (Negative); SA Nasal PCR POSITIVE (Negative)
--- NOTE | 2024-01-15 14:39 | P.CDIM_ITS ---
PROVIDER RESPONSE TEXT: To clarify, the appropriate diagnosis supported by the clinical indicators: Metabolic QUERY TEXT: PHYSICIAN'S DOCUMENTATION REQUEST Date of Query: 01/14/2024 12:50 PM EDT Patient Name: Jorge Luis Giles Admit Date: 01/12/2024 Dear Delmi Peterson MD, A review of the medical record indicates additional documentation may be needed. Please review below and update the documentation accordingly. Clinical Indicators: Progress note dated 01/13 - Encephalopathy due to acute infection. Agitation, delirious, alert and oriented to self only. Pneumonia, COPD, GPC bacteremia. Based on the above, please further specify, in the Progress Notes, the known or suspected type of the documented encephalopathy: Metabolic Toxic Toxic metabolic Other (explain) Clinically unable to determine (explain) Thank you, Raquel Hankins, CCS, CDIS Use of terms such as suspected, likely, concern for, or probable (associated with a specific diagnosi s that is being evaluated, monitored, or treated as if it exists) are acceptable and can be coded in the inpatient se tting, when documented at the time of discharge. Please use your independent medical judgment in providing your response. THIS QUERY IS PART OF THE PERMANENT MEDICAL RECORD
--- NOTE | 2024-01-15 15:12 | P.CNPS_ITS ---
History of Present Illness Date of Service: t Chief Complaint: pneumonia Reason for Consult: Agitation Requesting physician: Delmi Peterson Discussed with referring provider: Yes Sources of Information: patient interviewed and chart reviewed HPI Narrative: The patient is an 78-year-old male with several medical comorbidities such as prostate cancer, dysphagia, diabetes type 2, HTN, atherosclerotic vascular disease, GERD, peripheral vascular disease, CAD and DDD who was brought to the emergency room for altered mental status. Initially, he was assessed in the emergency room admitted into the medical neves for continuation of care apparently he was diagnosed of pneumonia. He had been very disorganized agitated, pulling out his IV and he needed to be chemically restrain with Zyprexa and later on Ativan. On interview, the patient was severely disorganized unable to provide any information about his medical problems he was nonsensical. There were no family members around who can provide collateral information but according to the chart the patient carries a diagnosis of bipolar disorder and he had been on other antidepressants in the past. We review her list of medications and it is clear that the patient is on delirium due to his pneumonia unable to participate on treatment plan or take any informed decisions at this point.. Past Psychiatric History: As per the chart past history of bipolar disorder he is on several antidepressants. Apparently, historically he had been on high doses of Seroquel in the past. Medical Evaluation Reviewed: Yes Review of Systems Review of Systems Yes Unobtainable due to mental status [facility] Medical History Urinary urgency Prostate cancer Pre-op examination GERD (gastroesophageal reflux disease) CAD (coronary artery disease) Presence of stent in artery Lumbar vertebral fracture Hip pain, right Urinary frequency Dermatitis Non-toxic multinodular goiter Tinea corporis T12 compression fracture Peripheral vascular disease Hypercholesterolemia Thyroid nodule Vitamin B12 deficiency Chronic kidney disease (CKD) stage G3b/A1, moderately decreased glomerular filtration rate (GFR) between 30-44 mL/min/1.73 square meter and albuminuria creatinine ratio less than 30 mg/g Obstructive sleep apnea Dementia in Alzheimer's disease Bipolar disorder COPD (chronic obstructive pulmonary disease) Coronary artery disease Metacarpal bone fracture Impaired fasting glucose Osteoporosis DDD (degenerative disc disease), lumbar Surgical History History of vascular surgery History of heart artery stent History of esophagogastroduodenoscopy (EGD) H/O colonoscopy S/P fine needle aspiration H/O kyphoplasty History of esophageal dilatation History of cataract surgery History of orthopedic surgery History of angioplasty History of appendectomy Family History: Unknown Substance History: Unknown Trauma History: Unknown Diagnostics Vital Signs (24Hr): Vital Signs - 24 hr 01/14/24 16:00 01/14/24 20:00 01/14/24 20:05 Temperature 97.8 F 97.3 F Pulse Rate 81 85 Respiratory Rate 17 19 Blood Pressure 180/52 H 124/76 Pulse Oximetry 92 98 84 L Oxygen Delivery Method Oxymask Oxymask Oxymask Oxygen Flow Rate 3 3 01/14/24 20:07 01/15/24 00:00 01/15/24 03:58 Temperature 97.8 F 97.3 F Pulse Rate 84 86 Respiratory Rate 20 20 Blood Pressure 112/56 L Pulse Oximetry 91 L 96 Oxygen Delivery Method Oxymask Oxymask Oxygen Flow Rate 7 01/15/24 08:24 01/15/24 09:26 01/15/24 11:42 Temperature 98.8 F Pulse Rate 86 84 Respiratory Rate 20 Blood Pressure 144/70 H Pulse Oximetry 96 Oxygen Delivery Method Oxymask Oxygen Flow Rate 7 BMI result Body Mass Index 22.3 Labs 01/15/24 10:44 01/15/24 10:44 Labs: Laboratory Results - last 48 hr 01/12/24 01/14/24 01/14/24 15:57 09:12 09:22 WBC RBC Hgb Hct MCV MCH MCHC RDW Plt Count MPV Absolute Nucleated RBC Nucleated RBC % (auto) VBG pH 7.57 H VBG pCO2 21 VBG pO2 95 VBG HCO3 20 L VBG O2 Saturation 99.0 VBG Base Excess -0.6 Sodium 145 Potassium 3.6 Chloride 115 H Carbon Dioxide 20 L Anion Gap 14 BUN 44 H Creatinine 1.55 H Estim Creat Clear Calc 26.8 Estimated GFR 43 Random Glucose 118 H Calcium 8.6 Magnesium 2.4 Total Bilirubin 0.6 Direct Bilirubin 0.2 AST 52 H ALT 24 Alkaline Phosphatase 52 Ammonia 24 B-Natriuretic Peptide Total Protein 5.9 L Albumin 3.2 L Vitamin B12 1955 H Folate 16.7 Procalcitonin 2.49 TSH 1.15 Nasal Screen MRSA (PCR) Nasal S. aureus Screen Nasal MRSA/S.aureus Interp Random Vancomycin Ur L.pneumophila Ag Not Detected Ur Strep pneumoniae Ag Not Detected 01/15/24 01/15/24 01/15/24 10:44 10:44 10:44 WBC 13.8 H RBC 2.71 L Hgb 8.3 L Hct 25.4 L MCV 93.7 MCH 30.6 MCHC 32.7 RDW 14.8 Plt Count 181 MPV 10.9 Absolute Nucleated RBC 0.040 H Nucleated RBC % (auto) 0.3 H VBG pH VBG pCO2 VBG pO2 VBG HCO3 VBG O2 Saturation VBG Base Excess Sodium 152 H Potassium 3.8 Chloride 116 H Carbon Dioxide 20 L Anion Gap 20 BUN 58 H Creatinine 2.03 H 2.04 H Estim Creat Clear Calc 20.5 20.4 Estimated GFR 32 Random Glucose Calcium Magnesium Total Bilirubin Direct Bilirubin AST ALT Alkaline Phosphatase Ammonia B-Natriuretic Peptide Total Protein Albumin Vitamin B12 Folate Procalcitonin TSH Nasal Screen MRSA (PCR) Nasal S. aureus Screen Nasal MRSA/S.aureus Interp Random Vancomycin Ur L.pneumophila Ag Ur Strep pneumoniae Ag 01/15/24 01/15/24 01/15/24 10:44 10:51 11:49 WBC RBC Hgb Hct MCV MCH MCHC RDW Plt Count MPV Absolute Nucleated RBC Nucleated RBC % (auto) VBG pH 7.43 VBG pCO2 28 VBG pO2 31 VBG HCO3 19 L VBG O2 Saturation 41.0 VBG Base Excess -4.0 Sodium Potassium Chloride Carbon Dioxide Anion Gap BUN Creatinine Estim Creat Clear Calc Estimated GFR 32 Random Glucose 128 H Calcium 9.0 Magnesium Total Bilirubin Direct Bilirubin AST ALT Alkaline Phosphatase Ammonia B-Natriuretic Peptide 1564 H Total Protein Albumin Vitamin B12 Folate Procalcitonin TSH Nasal Screen MRSA (PCR) NEGATIVE Nasal S. aureus Screen POSITIVE A Nasal MRSA/S.aureus Interp SEE NOTE Random Vancomycin 17.7 Ur L.pneumophila Ag Ur Strep pneumoniae Ag Imaging Radiology Impressions: ITS Impressions Cervical Spine CT 01/12/24 01:09 IMPRESSION: CT head: *No acute intracranial abnormalities. *Moderate chronic microangiopathic ischemic changes. CT cervical spine: *No acute abnormalities. *Diffuse osteopenia. *The visualized lung apices demonstrate centrilobular emphysema. Electronically signed by: Tomer Franz MD 01/12/2024 04:01 AM EDT Hip/Pelvis X-Ray 01/12/24 01:09 IMPRESSION: LEFT HIP: 1. No acute abnormalities. 2. Diffuse osteopenia. CHEST and left RIBS: 1. No acute cardiopulmonary abnormalities. 2. No acute left rib fractures identified. 3. Diffuse osteopenia 4. Vertebroplasty cement within the T6, T7 and T8 vertebral bodies. 5. Chronic vertebral body compression deformities of T10, T12 and L1 unchanged compared with 08/19/2022. LUMBAR SPINE: 1. No acute abnormalities identified. 2. Vertebral plasty cement within the L3, L4 and L5 vertebral bodies. 3. T12 and L1 vertebral body compression deformities unchanged compared with 08/19/2022. 4. Marked diffuse osteopenia. 5. Bilateral common iliac stents. Electronically signed by: Tomer Franz MD 01/12/2024 05:50 AM EDT RP Ribs X-Ray 01/12/24 01:09 IMPRESSION: LEFT HIP: 1. No acute abnormalities. 2. Diffuse osteopenia. CHEST and left RIBS: 1. No acute cardiopulmonary abnormalities. 2. No acute left rib fractures identified. 3. Diffuse osteopenia 4. Vertebroplasty cement within the T6, T7 and T8 vertebral bodies. 5. Chronic vertebral body compression deformities of T10, T12 and L1 unchanged compared with 08/19/2022. LUMBAR SPINE: 1. No acute abnormalities identified. 2. Vertebral plasty cement within the L3, L4 and L5 vertebral bodies. 3. T12 and L1 vertebral body compression deformities unchanged compared with 08/19/2022. 4. Marked diffuse osteopenia. 5. Bilateral common iliac stents. Electronically signed by: Tomer Franz MD 01/12/2024 05:[address] 01/12/24 01:32 IMPRESSION: CT head: *No acute intracranial abnormalities. *Moderate chronic microangiopathic ischemic changes. CT cervical spine: *No acute abnormalities. *Diffuse osteopenia. *The visualized lung apices demonstrate centrilobular emphysema. Electronically signed by: Tomer Franz MD 01/12/2024 04:01 AM EDT RP Lumbar Spine X-Ray 01/12/24 04:30 IMPRESSION: LEFT HIP: 1. No acute abnormalities. 2. Diffuse osteopenia. CHEST and left RIBS: 1. No acute cardiopulmonary abnormalities. 2. No acute left rib fractures identified. 3. Diffuse osteopenia 4. Vertebroplasty cement within the T6, T7 and T8 vertebral bodies. 5. Chronic vertebral body compression deformities of T10, T12 and L1 unchanged compared with 08/19/2022. LUMBAR SPINE: 1. No acute abnormalities identified. 2. Vertebral plasty cement within the L3, L4 and L5 vertebral bodies. 3. T12 and L1 vertebral body compression deformities unchanged compared with 08/19/2022. 4. Marked diffuse osteopenia. 5. Bilateral common iliac stents. Electronically signed by: Tomer Franz MD 01/12/2024 05:50 AM EDT Hip X-Ray 01/12/24 04:31 IMPRESSION: LEFT HIP: 1. No acute abnormalities. 2. Diffuse osteopenia. CHEST and left RIBS: 1. No acute cardiopulmonary abnormalities. 2. No acute left rib fractures identified. 3. Diffuse osteopenia 4. Vertebroplasty cement within the T6, T7 and T8 vertebral bodies. 5. Chronic vertebral body compression deformities of T10, T12 and L1 unchanged compared with 08/19/2022. LUMBAR SPINE: 1. No acute abnormalities identified. 2. Vertebral plasty cement within the L3, L4 and L5 vertebral bodies. 3. T12 and L1 vertebral body compression deformities unchanged compared with 08/19/2022. 4. Marked diffuse osteopenia. 5. Bilateral common iliac stents. Electronically signed by: Tomer Franz MD 01/12/2024 05:50 AM EDT Chest CTA 01/12/24 09:36 IMPRESSION: 1. No evidence of pulmonary emboli. 2. Bilateral lower lobe and right middle lobe consolidations. VTE: negative. Fleischner guidelines were followed. Electronically signed by: Graeme Ram MD 01/12/2024 01:59 PM EDT RP Head CT 01/14/24 11:43 IMPRESSION: No acute intracranial hemorrhage or mass effect. Electronically signed by: Andrea Michelle MD 01/14/2024 12:56 PM EDT Chest X-Ray 01/14/24 20:50 IMPRESSION: Diffuse, patchy bilateral airspace opacities, right greater than left. Findings are significantly increased when compared to the recent chest CT. Electronically signed by: Andrea Michelle MD 01/14/2024 09:35 PM EDT RP Mental Status Exam Mental Status Exam Patient Appearance: Appropriate (On hospital gowns) Patient Orientation: Person Level of Consciousness: Awake, Disoriented and Restless Patient Behavior: Asleep, Restless and Resistive to Care Mood Description: Apprehensive Affect Description: Blunted Patient Cognition Impaired: Yes Ability to Follow Directions: Poor Speech Pattern: Impoverished Hallucinations: None Delusions: Ideas of Reference Thought Process: Incoherent and Illogical Thought Content: positive for Poverty of Content and positive for Thought Blocking Judgement: Poor Medications Medications Current Medications Acetaminophen (Acetaminophen 325 Mg Tablet) 650 mg PO Q6H PRN PRN Reason: Pain, Mild (Pain Scale 1-3), fever or headache Last Admin: 01/14/24 21:16 Dose: 650 mg Albuterol/Ipratropium (Albuterol/Iprat 2.5/0.5mg 3 Ml Ampul.Neb) 3 ml INHALE RQ4H WHILE AWAKE PRN PRN Reason: shortness of breath or wheez Amlodipine Besylate (Amlodipine Besylate 5 Mg Tablet) 5 mg PO DAILY [facility]; Protocol Last Admin: 01/14/24 08:57 Dose: Not Given Ascorbic Acid (Ascorbic Acid 250 Mg Tablet) 250 mg PO DAILY [facility] Last Admin: 01/14/24 08:57 Dose: Not Given Aspirin (Aspirin Enteric Coated 81 Mg Tablet.Dr) 81 mg PO DAILY [facility] Last Admin: 01/14/24 08:57 Dose: Not Given Atenolol (Atenolol 25 Mg Tablet) 25 mg PO DAILY [facility]; Protocol Last Admin: 01/14/24 08:57 Dose: Not Given Atorvastatin Calcium (Atorvastatin Calcium 80 Mg Tablet) 80 mg PO DAILY [facility] Last Admin: 01/14/24 08:57 Dose: Not Given Bupropion HCl (Bupropion Hcl 100 Mg Tablet) 100 mg PO BID [facility] Last Admin: 01/14/24 08:57 Dose: Not Given Clopidogrel Bisulfate (Clopidogrel Bisulfate 75 Mg Tablet) 75 mg PO DAILY [facility] Last Admin: 01/14/24 08:58 Dose: Not Given Cyanocobalamin (Cyanocobalamin (Vitamin B-12) 1,000 Mcg Tablet) 1,000 mcg PO DAILY [facility] Last Admin: 01/14/24 08:58 Dose: Not Given Ezetimibe (Ezetimibe 10 Mg Tablet) 10 mg PO DAILY [facility] Last Admin: 01/14/24 08:59 Dose: Not Given Enoxaparin Sodium (Enoxaparin Sodium 30 Mg/0.3 Ml Syringe) 30 mg SUBCUT Q24H [facility] Last Admin: 01/14/24 15:59 Dose: 30 mg Escitalopram Oxalate (Escitalopram Oxalate 5 Mg Tablet) 7.5 mg PO DAILY [facility] Last Admin: 01/14/24 08:58 Dose: Not Given Folic Acid (Folic Acid 1 Mg Tablet) 1 mg PO DAILY [facility] Last Admin: 01/14/24 08:59 Dose: Not Given Furosemide (Furosemide 20 Mg Tablet) 20 mg PO DAILY [facility]; Protocol Last Admin: 01/14/24 08:59 Dose: Not Given Furosemide (Furosemide 20 Mg/2 Ml Vial) 40 mg IVPUSH BID@0900,1800 [facility]; Protocol Piperacillin Sod/Tazobactam (Sod 3.375 gm/ Sodium Chloride) 50 mls @ 100 mls/hr IV Q6H [facility] Last Infusion: 01/15/24 12:26 Dose: Infused Vancomycin HCl 500 mg/ Sodium (Chloride) 110 mls @ 110 mls/hr IV Q24H [facility] Dextrose (D5w) 1,000 mls @ 70 mls/hr IVCONT .[id number] [facility] Last Admin: 01/15/24 12:15 Dose: 70 mls/hr Imipramine HCl (Imipramine Hcl 10 Mg Tablet) 10 mg PO BID [facility] Last Admin: 01/14/24 08:59 Dose: Not Given Methylprednisolone Sodium Succinate (Methylprednisolone Sod Succ 40 Mg/Ml Vial) 40 mg IVPUSH Q24H [facility] Last Admin: 01/14/24 17:09 Dose: 40 mg Multivitamins/Vitamin C (Multivitamin Tablet) 1 tab PO DAILY [facility] Last Admin: 01/14/24 09:00 Dose: Not Given Nitroglycerin (Nitroglycerin 0.4 Mg Tab.Subl) 0.4 mg SUBLINGUAL Q5M PRN PRN Reason: chest pain Olanzapine (Olanzapine 2.5 Mg Tablet) 2.5 mg PO BEDTIME [facility] Last Admin: 01/14/24 21:12 Dose: 2.5 mg Olanzapine (Olanzapine 10 Mg Vial) 2.5 mg IM Q12H PRN PRN Reason: severe agitation Last Admin: 01/15/24 11:53 Dose: 2.5 mg Ondansetron HCl (Ondansetron Hcl 4 Mg/2 Ml Vial) 4 mg IVPUSH Q4H PRN PRN Reason: Nausea and Vomiting Oxycodone HCl (Oxycodone Hcl Immed Release 5 Mg Tablet) 5 mg PO Q6H PRN PRN Reason: Pain, Severe (Pain Scale 7-10) Last Admin: 01/13/24 20:10 Dose: 5 mg Pantoprazole Sodium (Pantoprazole Sodium 40 Mg/10 Ml Vial) 40 mg IVPUSH BID@0630,1630 [facility] Last Admin: 01/15/24 05:27 Dose: 40 mg Pharmacy Consult (Consult Rx Vancomycin Dosing) 1 each MISCELLANE DAILY PRN PRN Reason: Consult order Sodium Chloride (0.9 % Sodium Chloride Flush 3 Ml Syringe) 3 ml IVFLUSH QSHIFT [facility] Last Admin: 01/15/24 09:23 Dose: 3 ml Trazodone HCl (Trazodone Hcl 50 Mg Tablet) 150 mg PO BEDTIME PRN PRN Reason: Insomnia Last Admin: 01/13/24 20:10 Dose: 150 mg Vitamin D (Cholecalciferol (Vitamin D3) 25 Mcg Tablet) 25 mcg PO DAILY [facility] Last Admin: 01/14/24 08:57 Dose: Not Given Allergies Allergies Allergy/AdvReac Type Severity Reaction Status Date / Time lorazepam AdvReac Severe agitation Uncoded 01/14/24 11:04 Assessment & Plan Assessment & Plan (1) Delirium: Status: Acute Code(s): R41.0 - Disorientation, unspecified (2) Pneumonia: Status: Acute Code(s): J18.9 - Pneumonia, unspecified organism (3) Anemia: Status: Acute Code(s): D64.9 - Anemia, unspecified (4) Prostate cancer: Status: Acute Code(s): C61 - Malignant neoplasm of prostate (5) Closed head injury: Status: Acute Code(s): S09.90XA - Unspecified injury of head, initial encounter Plan The patient is an elderly male with a past history of bipolar disorder, Alzheimer's dementia and several medical comorbidities admitted for altered mental status, recent fall and pneumonia. The patient had been extremely agitated on clear delirium unable to participate on treatment plan more treatment. Diagnosis 1. Delirium due to pneumonia. 2. Pneumonia 3. HTN 4. CAD 5. Prostate cancer Plan 1. Increase Zyprexa up to 5 mg p.o. q.h.s. as to target mood lability and delirium. The use of antipsychotics would be to target the delirium. 2. Start Zyprexa Zydis 5 mg p.o. Q 4 hours p.r.n. agitation. Zyprexa Zydis does not need to be swallow by the patient, the dissolvable tablet that can be used easily. 3. Avoid benzodiazepines, benzodiazepine scan disinhibited the patient and worsen the delirium. 4. If Zyprexa Zydis can not be used, Zyprexa IM can be used. Do not exceed more than 30 mg of Zyprexa day. 4. Reassessment as demand. Total time managing care of this patient today __30__ minutes. Patient educated on: diagnosis Informed Consent: does not understand
[2024-01-15] MEDS: methylPREDNISolone Sod Succ 40 MG/ML VIAL IVPUSH ×2 (15:50→18:45)
[2024-01-15] MEDS: Enoxaparin Sodium 30 MG/0.3 ML SYRINGE SUBCUT (15:50)
--- NOTE | 2024-01-15 15:59 | MHC.CM.PN ---
Per rounds and EMR review, pt requires ongoing care for Acute respiratory failure with hypoxia and sepsis due to pneumonia. CM called pt.'s dtr to ask which STR she prefers, she said she would return call, have not heard back. DCP: STR, referrals will go out when pt. improves, he has delerium at this time.
--- NOTE | 2024-01-15 17:37 | MHC.SLORD ---
Speech Language Pathology Order Status: MBSS was scheduled for 1pm today, but cancelled, as RN reported patient was combative, non-compliant, spitting, refusing meds PO and won?t eat apple sauce. MBSS cancelled x2 in the past 48 hours d/t patient's mental status. Spoke to Dr. Peterson. Patient will be started on a conservative diet pureed (NDD1) solids and honey thick liquids with careful feeding and close monitoring of patient's tolerance and respiratory status. Patient will need 1:1 assistance: give small bites, check oral cavity periodically to ensure it is clear before giving subsequent bite, cue for dry swallows between bites, liquids by teaspoon only, upright position during PO intake and at least 30 minutes afterwards. Maintain routine oral care (ideally before PO presentation). Discontinue feeding if patient exhibits any difficulty swallowing or changes to respiratory status, upper airway congestion, or any overt s/s of aspiration. DIRECT MARKETING INTERN will continue to follow.
[2024-01-15] MEDS: Furosemide 20 MG/2 ML VIAL 40 MG IVPUSH (18:00)
[2024-01-15 18:47] LABS: VBG Base Excess -2.9 mmol/L; VBG HCO3 18 mmol/L (22-26); VBG pCO2 22 mmHg; VBG pH 7.52 (7.32-7.43); VBG pO2 80 mmHg
[2024-01-15 18:48] LABS: Venous Blood Gas Refer to POC result
[2024-01-15 19:02] LABS: Anion Gap 20 (12-20); Blood Urea Nitrogen 63 mg/dL (9-16); Calcium 8.7 mg/dL (8.4-10.2); Carbon Dioxide 17 mmol/L (22-29); Chloride 117 mmol/L (96-108); Creatinine Clr Calc Pharmacy 19.6; Estimated Glomerular Filt Rate 30; Glucose Random 172 mg/dL (60-115); Potassium 3.6 mmol/L (3.3-5.1); Sodium 150 mmol/L (135-145)
[2024-01-15 19:05] LABS: D Dimer High Sensitivity 726 NG/ML
--- NOTE | 2024-01-15 19:16 | PM.EVENT ---
Event Note Date of Service: 01/15/24 Event Note: Pt seen and examined, becoming increasing more hypoxic. BNP level high, +fluid balance, mild rales on exam. CXR, vbg requested, and will be put on HighFlo, IV lasix ordered. Nitropaste for high BP Time Spent With Patient Time: Total time managing care of this patient today ____ minutes.
--- NOTE | 2024-01-15 19:45 | PC.NURSE ---
Oxygen sat dropping to low 80s, after adjustment of finger probe O2 sats rise to high 80 to low 90s but kept dropping, patient noticed to be tachypneic, still agitated and combative, removing oxymask, BP elevated manual check 180/84 possibly bp read not correct due to patients inability to stay still for the reading. O2 flow increased to 7L oxymask and provider notified. Patient still in low 80s - RT notified and at bedside.
--- NOTE | 2024-01-15 19:55 | PM.EVENT ---
Event Note Date of Service: 01/15/24 Event Note: Patient seen and evaluated. Patient with dyspnea and tachypnea. Bilateral crackles upon examination. Reviewed xray and BNP. Will order additional lasix as patient's creatinine is 2.12 (likely cardio renal) Time Spent With Patient Time: Total time managing care of this patient today ____ minutes.
[2024-01-15] MEDS: Furosemide 40 MG/4 ML VIAL IVPUSH (20:16)
[2024-01-15] MEDS: vancomycin HCL 500 MG in 0.9 % Sodium Chloride 100 ML 110 MG IV (23:10)
[2024-01-16] VITALS (15 sets, daily range): BP systolic 142–185; BP diastolic 66–96; PULSE 75–100; RESP 14–24; TEMP 36.2–38.4; O2SAT 84–101
[2024-01-16] MEDS: methylPREDNISolone Sod Succ 40 MG/ML VIAL IVPUSH ×3 (03:27→20:56)
[2024-01-16] MEDS: Piperacillin Sodium/Tazobactam 3.375 GM in 0.9 % Sodium Chloride 50 ML IV ×4 (03:27→21:39)
[2024-01-16] MEDS: Pantoprazole Sodium 40 MG/10 ML VIAL IVPUSH ×2 (05:49→16:49)
[2024-01-16 07:52] LABS: Hematocrit 26.4 % (42.0-52.0); Hemoglobin 8.8 g/dl (14.0-18.0); Mean Corpuscular HGB Conc 33.3 g/dl (31.0-36.0); Mean Corpuscular Hemoglobin 30.6 pg (27.0-33.0); Mean Corpuscular Volume 91.7 fL (80.0-98.0); Mean Platelet Volume 11.1 fL (9.4-12.4); NRBC Pct Auto 0.2 /100WBC (0.0-0.2); Platelet Count 200 X10*3/uL (160-400); Red Blood Count 2.88 X10*6/uL (4.60-5.80); Red Cell Distribution Width 14.7 % (11.0-16.0); White Blood Count 14.2 X10*3/uL (4.8-10.8)
[2024-01-16 08:15] LABS: B Type Natriuretic Peptide 974 pg/mL (<100)
[2024-01-16 08:29] LABS: Alanine Aminotransferase 68 U/L (0-40); Albumin Level 3.3 g/dL (3.5-5.0); Alkaline Phosphatase 65 U/L (39-117); Anion Gap 22 (12-20); Aspartate Amino Transferase 199 U/L (5-37); Bilirubin Total 1.4 mg/dL (0.0-1.0); Blood Urea Nitrogen 75 mg/dL (9-16); C Reactive Protein 25.25 mg/dL (< or = 0.50); Calcium 8.9 mg/dL (8.4-10.2); Carbon Dioxide 18 mmol/L (22-29); Chloride 117 mmol/L (96-108); Creatinine Clr Calc Pharmacy 15.2; Estimated Glomerular Filt Rate 23; Glucose Random 174 mg/dL (60-115); Magnesium 2.5 mg/dL (1.6-2.6); Potassium 3.6 mmol/L (3.3-5.1); Sodium 153 mmol/L (135-145); Total Protein 6.5 g/dL (6.5-8.0)
[2024-01-16 09:05] LABS: Procalcitonin 3.94 ng/mL
[2024-01-16] MEDS: Furosemide 20 MG/2 ML VIAL 40 MG IVPUSH (09:52)
[2024-01-16] MEDS: Nitroglycerin 2 % Oint 1 GM Packet 0.5 INCH TRANSDERMA (09:53)
[2024-01-16] MEDS: 0.9 % Sodium Chloride Flush 3 ML SYRINGE IVFLUSH ×2 (09:58→20:46)
[2024-01-16 10:19] LABS: Appearance Urine Clear; Color Urine Yellow; Glucose Urine UA Negative (Negative); Leukocyte Esterase Urine Trace (Negative); Nitrite Urine Negative (Negative); PH 5.5 (5.0-9.0); Specific Gravity - Urine 1.015 (1.005-1.025); UMIC TRIGGER UA YES; Urine Blood Large (3+) (Negative); Urine Ketones Negative (Negative); Urine Protein 30 (1+) mg/dL (Neg-Trace)
[2024-01-16 10:22] LABS: Bacteria Urine None Seen (None Seen); RBC Urine >20 /HPF (0-2); Squamous Epithelial Cell Urine 0-2 /HPF (0-2); WBC Urine 0-5 /HPF (0-5)
[2024-01-16 10:46] LABS: Creatinine Urine 32.84 mg/dL
--- NOTE | 2024-01-16 11:50 | PM.CNCAR ---
History of Present Illness History of Present Illness Date of Service: 01/16/24 Requesting physician: Delmi Peterson Consult reason: other (Hypoxemic respiratory failure, elevated BNP) Chief complaint: pneumonia Narrative: I was consulted to see Jorge Luis in cardiology consultation today. Patient due to his acute medical illness is not a very good historian. Family was present at bedside and says he is very confused but on further questioning he said he has low better than yesterday. Patient admitted with fall and had injury and was waiting for placement but then started having clinical deterioration with progressive hypoxemic respiratory failure requiring high flow oxygen. Yesterday was extremely confused and encephalopathic. He seems to have improved with his confusion today and identifying his family members. Family members very concerned about this. Because of his worsening shortness of breath BNP was done and it was quite elevated. Subsequent chest x-ray shows diffuse infiltrative findings. He was given Lasix although his creatinine is worsening from 2-2.7. He is also hypernatremic. Clinically he has not had any other signs of fluid overload with no leg edema abdominal distention JVD. He on questioning says he is not feeling short of breath but has increased workup breathing. Denies any chest pain. Needs a back pain and headaches. No arrhythmias noted. He has also shown increased white blood cell count. Is significantly anemic. Inflammatory markers are increased. EKG on admission showed normal sinus rhythm with nonspecific ST changes at QT prolongation. No repeat EKGs been done Review of Systems Review of Systems: Yes Unobtainable due to mental status Neurologic: Reports confusion Psychiatric: Psychiatric: Reports confusion [facility] Past Medical History Medical History Urinary urgency Prostate cancer Pre-op examination GERD (gastroesophageal reflux disease) CAD (coronary artery disease) Presence of stent in artery Lumbar vertebral fracture Hip pain, right Urinary frequency Dermatitis Non-toxic multinodular goiter Tinea corporis T12 compression fracture Peripheral vascular disease Hypercholesterolemia Thyroid nodule Vitamin B12 deficiency Chronic kidney disease (CKD) stage G3b/A1, moderately decreased glomerular filtration rate (GFR) between 30-44 mL/min/1.73 square meter and albuminuria creatinine ratio less than 30 mg/g Obstructive sleep apnea Dementia in Alzheimer's disease Bipolar disorder COPD (chronic obstructive pulmonary disease) Coronary artery disease Metacarpal bone fracture Impaired fasting glucose Osteoporosis DDD (degenerative disc disease), lumbar Family History Family History Father Thyroid cancer Mother Colon cancer Daughter Primary squamous cell carcinoma of throat Surgical History Surgical History History of vascular surgery History of heart artery stent History of esophagogastroduodenoscopy (EGD) H/O colonoscopy S/P fine needle aspiration H/O kyphoplasty History of esophageal dilatation History of cataract surgery History of orthopedic surgery History of angioplasty History of appendectomy Social History Social History Household Members: Children Household Members Other:: Daughter Housing: House Do you presently have visiting nurse or other home services: No Alcohol intake: former Comment: 1:1 sitter Patient Tobacco Use Status: Former Tobacco user Tobacco use type: Cigarette Smoked in Last 30 Days: No e-Cigarette/Vaping Use: Never Used Second Hand Smoke Exposure: No Use of substances other than those prescribed or required for medical reasons: No Currently Displaying Signs/Symptoms of Drug Intoxication Withdrawal: No Advance Directives: No Advance Directives Information Provided: No Do you have a plan to hurt others: No Plan Nutrition Risks: Difficulty swallowing and On aspiration precautions service: No Current occupational status: disabled Current occupational exposures/hazards: No Cognitive needs: Yes (wheelchair, walker) Hearing needs: Yes (hearing aide) Vision needs: No Meds Allergies Allergy/AdvReac Type Severity Reaction Status Date / Time lorazepam AdvReac Severe agitation Uncoded 01/14/24 11:04 Active Medications: Current Medications Acetaminophen (Acetaminophen 325 Mg Tablet) 650 mg PO Q6H PRN PRN Reason: Pain, Mild (Pain Scale 1-3), fever or headache Last Admin: 01/14/24 21:16 Dose: 650 mg Albuterol/Ipratropium (Albuterol/Iprat 2.5/0.5mg 3 Ml Ampul.Neb) 3 ml INHALE RQ4H WHILE AWAKE PRN PRN Reason: shortness of breath or wheez Amlodipine Besylate (Amlodipine Besylate 5 Mg Tablet) 5 mg PO DAILY NESS; Protocol Last Admin: 01/14/24 08:57 Dose: Not Given Ascorbic Acid (Ascorbic Acid 250 Mg Tablet) 250 mg PO DAILY NESS Last Admin: 01/14/24 08:57 Dose: Not Given Aspirin (Aspirin Enteric Coated 81 Mg Tablet.Dr) 81 mg PO DAILY [facility] Last Admin: 01/16/24 08:36 Dose: Not Given Atenolol (Atenolol 25 Mg Tablet) 25 mg PO DAILY [facility]; Protocol Last Admin: 01/16/24 08:36 Dose: Not Given Atorvastatin Calcium (Atorvastatin Calcium 80 Mg Tablet) 80 mg PO DAILY [facility] Last Admin: 01/16/24 08:37 Dose: Not Given Bupropion HCl (Bupropion Hcl 100 Mg Tablet) 100 mg PO BID [facility] Last Admin: 01/16/24 08:37 Dose: Not Given Clopidogrel Bisulfate (Clopidogrel Bisulfate 75 Mg Tablet) 75 mg PO DAILY [facility] Last Admin: 01/16/24 08:37 Dose: Not Given Cyanocobalamin (Cyanocobalamin (Vitamin B-12) 1,000 Mcg Tablet) 1,000 mcg PO DAILY [facility] Last Admin: 01/16/24 08:38 Dose: Not Given Ezetimibe (Ezetimibe 10 Mg Tablet) 10 mg PO DAILY [facility] Last Admin: 01/14/24 08:59 Dose: Not Given Enoxaparin Sodium (Enoxaparin Sodium 30 Mg/0.3 Ml Syringe) 30 mg SUBCUT Q24H [facility] Last Admin: 01/15/24 15:50 Dose: 30 mg Escitalopram Oxalate (Escitalopram Oxalate 5 Mg Tablet) 7.5 mg PO DAILY [facility] Last Admin: 01/16/24 08:38 Dose: Not Given Folic Acid (Folic Acid 1 Mg Tablet) 1 mg PO DAILY [facility] Last Admin: 01/16/24 08:39 Dose: Not Given Furosemide (Furosemide 20 Mg Tablet) 20 mg PO DAILY [facility]; Protocol Last Admin: 01/14/24 08:59 Dose: Not Given Piperacillin Sod/Tazobactam (Sod 3.375 gm/ Sodium Chloride) 50 mls @ 100 mls/hr IV Q6H [facility] Last Admin: 01/16/24 09:53 Dose: 100 mls/hr Vancomycin HCl 500 mg/ Sodium (Chloride) 110 mls @ 110 mls/hr IV Q24H [facility] Last Infusion: 01/16/24 00:10 Dose: Infused Dextrose (D5w) 1,000 mls @ 70 mls/hr IVCONT .[id number] [facility] Last Admin: 01/16/24 05:42 Dose: Not Given Imipramine HCl (Imipramine Hcl 10 Mg Tablet) 10 mg PO BID [facility] Last Admin: 01/16/24 08:39 Dose: Not Given Methylprednisolone Sodium Succinate (Methylprednisolone Sod Succ 40 Mg/Ml Vial) 40 mg IVPUSH Q8H [facility] Last Admin: 01/16/24 03:27 Dose: 40 mg Multivitamins/Vitamin C (Multivitamin Tablet) 1 tab PO DAILY [facility] Last Admin: 01/14/24 09:00 Dose: Not Given Nitroglycerin (Nitroglycerin 0.4 Mg Tab.Subl) 0.4 mg SUBLINGUAL Q5M PRN PRN Reason: chest pain Nitroglycerin (Nitroglycerin 2 % Oint 1 Gm Packet) 0.5 inch TRANSDERMA RQ6H WHILE AWAKE [facility] Last Admin: 01/16/24 09:53 Dose: 0.5 inch Olanzapine (Olanzapine 10 Mg Vial) 2.5 mg IM Q12H PRN PRN Reason: severe agitation Last Admin: 01/15/24 11:53 Dose: 2.5 mg Olanzapine (Olanzapine 5 Mg Tablet) 5 mg PO BEDTIME [facility] Last Admin: 01/16/24 02:00 Dose: Not Given Olanzapine (Olanzapine Odt 10 Mg Tab.Rapdis) 5 mg TRANSLINGU Q4H PRN PRN Reason: Agitation and psychosis Ondansetron HCl (Ondansetron Hcl 4 Mg/2 Ml Vial) 4 mg IVPUSH Q4H PRN PRN Reason: Nausea and Vomiting Oxycodone HCl (Oxycodone Hcl Immed Release 5 Mg Tablet) 5 mg PO Q6H PRN PRN Reason: Pain, Severe (Pain Scale 7-10) Last Admin: 01/13/24 20:10 Dose: 5 mg Pantoprazole Sodium (Pantoprazole Sodium 40 Mg/10 Ml Vial) 40 mg IVPUSH BID@0630,1630 [facility] Last Admin: 01/16/24 05:49 Dose: 40 mg Pharmacy Consult (Consult Rx Vancomycin Dosing) 1 each MISCELLANE DAILY PRN PRN Reason: Consult order Sodium Chloride (0.9 % Sodium Chloride Flush 3 Ml Syringe) 3 ml IVFLUSH QSHIFT [facility] Last Admin: 01/16/24 09:58 Dose: 3 ml Trazodone HCl (Trazodone Hcl 50 Mg Tablet) 150 mg PO BEDTIME PRN PRN Reason: Insomnia Last Admin: 01/13/24 20:10 Dose: 150 mg Vitamin D (Cholecalciferol (Vitamin D3) 25 Mcg Tablet) 25 mcg PO DAILY [facility] Last Admin: 01/14/24 08:57 Dose: Not Given Home Medications ?Medication ?Instructions ?Recorded ?Confirmed ?Last Taken ?Type cyanocobalamin (vitamin B-12) 1,000 mcg PO DAILY 03/22/20 01/12/24 01/11/24 History 1,000 mcg capsule trazodone 150 mg tablet 150 mg PO BEDTIME PRN Insomnia 03/22/20 01/12/24 Unknown History vitamin B complex 1 tab PO DAILY 03/22/20 01/12/24 01/11/24 History bupropion HCl 200 mg tablet,12 hr 200 mg PO DAILY 02/11/22 01/12/24 01/11/24 History sustained-release citalopram 10 mg tablet 15 mg PO DAILY 08/19/22 01/12/24 01/11/24 History ascorbic acid (vitamin C) 250 mg 250 mg PO DAILY 03/26/23 01/12/24 01/11/24 History tablet (Vitamin C) clopidogrel 75 mg tablet 75 mg PO DAILY 09/25/23 01/12/24 01/11/24 History denosumab 60 mg/mL subcutaneous 60 mg subcut [id number] 01/08/24 01/12/24 07/24/23 History syringe (Prolia) budesonide-formoterol HFA 160 2 puff inhalation BID 01/12/24 01/12/24 01/11/24 History mcg-4.5 mcg/actuation aerosol inhaler (Breyna) Physical Exam Vital Signs: Vital Signs: Last Vital Signs Temp 97.6 F 01/16/24 07:25 Pulse 80 01/16/24 09:53 Resp 14 01/16/24 11:10 BP 148/96 H 01/16/24 09:53 Pulse Ox 88 L 01/16/24 07:25 O2 Del Method High Flow Nasal C annula 01/16/24 07:25 O2 Flow Rate 50 01/16/24 07:25 FiO2 90 01/16/24 07:25 BMI result Body Mass Index 22.3 Const: General: alert, awake, in distress mild and respiratory and confusion Nutritional Appearance: malnourished and other (Frail) Orientation/consciousness: confusion HEENT: Head: Yes normocephalic and Yes atraumatic Neck: Neck: Yes trachea midline, Yes supple and Yes no JVD Resp: Effort & Inspection: labored Auscultation: crackles (coarse) Cardio: Jugular venous distension: no JVD Rate: regular rate Rhythm: regular rhythm Heart sounds: S1 normal heart sound present, S2 normal heart sound present, no click, no gallops and no murmurs GI: Auscultation: normal bowel sounds Skin: General skin exam: no rashes or lesions noted Neuro: General: moves all extremities and confusion Extrem: General: Yes no clubbing, cyanosis or edema Objective Labs and Meds 01/16/24 07:12 01/16/24 07:12 Lab results: Laboratory Results - last 24 hr 01/15/24 01/15/24 01/15/24 11:49 18:37 18:43 WBC RBC Hgb Hct MCV MCH MCHC RDW Plt Count MPV Absolute Nucleated RBC Nucleated RBC % (auto) D-Dimer High Sensitivty 726 VBG pH 7.52 H VBG pCO2 22 VBG pO2 80 VBG HCO3 18 L VBG O2 Saturation 96.0 VBG Base Excess -2.9 Sodium 150 H Potassium 3.6 Chloride 117 H Carbon Dioxide 17 L Anion Gap 20 BUN 63 H Creatinine 2.12 H Estim Creat Clear Calc 19.6 Estimated GFR 30 Random Glucose 172 H Calcium 8.7 Magnesium Total Bilirubin AST ALT Alkaline Phosphatase C-Reactive Protein B-Natriuretic Peptide Total Protein Albumin Procalcitonin Urine Color Urine Appearance Urine pH Ur Specific [place] Urine Protein Urine Glucose (UA) Urine Ketones Urine Blood Urine Nitrite Ur Leukocyte Esterase Urine RBC Urine WBC Ur Squamous Epith Cells Urine Bacteria Hyaline Casts Ur Random Sodium Urine Creatinine Nasal Screen MRSA (PCR) NEGATIVE Nasal S. aureus Screen POSITIVE A Nasal MRSA/S.aureus Interp SEE NOTE 01/16/24 01/16/24 07:12 10:07 WBC 14.2 H RBC 2.88 L Hgb 8.8 L Hct 26.4 L MCV 91.7 MCH 30.6 MCHC 33.3 RDW 14.7 Plt Count 200 MPV 11.1 Absolute Nucleated RBC 0.030 H Nucleated RBC % (auto) 0.2 D-Dimer High Sensitivty VBG pH VBG pCO2 VBG pO2 VBG HCO3 VBG O2 Saturation VBG Base Excess Sodium 153 H Potassium 3.6 Chloride 117 H Carbon Dioxide 18 L Anion Gap 22 H BUN 75 H Creatinine 2.73 H Estim Creat Clear Calc 15.2 Estimated GFR 23 Random Glucose 174 H Calcium 8.9 Magnesium 2.5 Total Bilirubin 1.4 H AST 199 H ALT 68 H Alkaline Phosphatase 65 C-Reactive Protein 25.25 H B-Natriuretic Peptide 974 H Total Protein 6.5 Albumin 3.3 L Procalcitonin 3.94 Urine Color Yellow Urine Appearance Clear Urine pH 5.5 Ur Specific [place] 1.015 Urine Protein 30 (1+) H Urine Glucose (UA) Negative Urine Ketones Negative Urine Blood Large (3+) H Urine Nitrite Negative Ur Leukocyte Esterase Trace H Urine RBC >20 H Urine WBC 0-5 Ur Squamous Epith Cells 0-2 Urine Bacteria None Seen Hyaline Casts 3-5 Ur Random Sodium 102.0 Urine Creatinine 32.84 Nasal Screen MRSA (PCR) Nasal S. aureus Screen Nasal MRSA/S.aureus Interp Imaging Radiologist's impression: Impressions Chest X-Ray 01/15/24 19:15 IMPRESSION: Diffuse patchy bilateral airspace opacities, mild improved from prior. Electronically signed by: Antoinette Archibald MD 01/15/2024 07:44 PM EDT RP Assessment and Plan (1) Acute hypoxemic respiratory failure: Status: Acute Acute hypoxemic respiratory failure in this elderly gentleman admitted with fall and placement issues but then subsequently deteriorated clinically with signs of worsening respiratory status and hypoxemia requiring high flow oxygen. BNP was elevated in the 1500 range and subsequently downgraded to 974 after oxygen therapy. This is probably suggestive of hypoxemia induced RV strain. Clinically does not appear to be in overt heart failure. Has received Lasix in his creatinine has worsened. At this point time I will hold off on further diuretic therapy. Will obtain an echocardiogram to assess his LV and RV systolic function as well as to assess for volume status if possible if patient lost. Patient was not cooperative yesterday but seemed to be more cooperative today and will obtain an echocardiogram to assess it. For now continue oxygen and supportive care. Could have aspiration pneumonia leading to overall sepsis syndrome and worsening organ function. Discussed with the family at bedside. No evidence of cardiac ischemia at this point time. Will follow if need be Procedures Date of Service Date of Service: 01/16/24
--- NOTE | 2024-01-16 13:04 | PM.CNPUL ---
History of Present Illness History of Present Illness Consult date: 01/16/24 Chief complaint: pneumonia Narrative: This is an inpatient pulmonary consulation. The patient is not able to give any history due to his current mental state. The patient is a 78yo M with CAD s/p PCI, PAD s/p femoral endarterectomy and multiple stents, COPD not on home O2, prediabetes, prostate CA s/p XRT, CKD3, and bipolar disease. He lives with his daughter. Last night, he tripped on something on the floor and fell backwards, hitting his head. No loss of conscioussness. He came to the ED and was evaluated for traumatic injury, of which there was none on CT or plain film. Due to weakness requiring 2-person assist, he was placed in physician observation awaiting STR placement. However, he became hypoxic and was placed on 2L O2 via NC. CTA was done, personally reviwed by me, which was negative for PE but did show bilateral lower and right middle lobe consolidation. He was given IV ceftriaxone and doxycycline. Kept NPO and then switched to zosyn and vancomycin. He was also placed on solumedrol. Review of Systems Review of Systems: Yes Unobtainable due to mental condition and Unobtainable due to mental status Neurologic: Reports confusion Psychiatric: Psychiatric: Reports confusion PMFSH Past Medical History Medical History (Updated 01/17/24 @ 10:37 by Raul Adame MD) ARDS (adult respiratory distress syndrome) Urinary urgency Prostate cancer Pre-op examination GERD (gastroesophageal reflux disease) CAD (coronary artery disease) Presence of stent in artery Lumbar vertebral fracture Hip pain, right Urinary frequency Dermatitis Non-toxic multinodular goiter Tinea corporis T12 compression fracture Peripheral vascular disease Hypercholesterolemia Thyroid nodule Vitamin B12 deficiency Chronic kidney disease (CKD) stage G3b/A1, moderately decreased glomerular filtration rate (GFR) between 30-44 mL/min/1.73 square meter and albuminuria creatinine ratio less than 30 mg/g Obstructive sleep apnea Dementia in Alzheimer's disease Bipolar disorder COPD (chronic obstructive pulmonary disease) Coronary artery disease Metacarpal bone fracture Impaired fasting glucose Osteoporosis DDD (degenerative disc disease), lumbar Family History Family History Father Thyroid cancer Mother Colon cancer Daughter Primary squamous cell carcinoma of throat Surgical History Surgical History History of vascular surgery History of heart artery stent History of esophagogastroduodenoscopy (EGD) H/O colonoscopy S/P fine needle aspiration H/O kyphoplasty History of esophageal dilatation History of cataract surgery History of orthopedic surgery History of angioplasty History of appendectomy Social History Social History Household Members: Children Household Members Other:: Daughter Housing: House Do you presently have visiting nurse or other home services: No Alcohol intake: former Comment: 1:1 sitter Patient Tobacco Use Status: Former Tobacco user Tobacco use type: Cigarette Smoked in Last 30 Days: No e-Cigarette/Vaping Use: Never Used Second Hand Smoke Exposure: No Use of substances other than those prescribed or required for medical reasons: No Currently Displaying Signs/Symptoms of Drug Intoxication Withdrawal: No Advance Directives: No Advance Directives Information Provided: No Do you have a plan to hurt others: No Plan Nutrition Risks: Difficulty swallowing and On aspiration precautions service: No Current occupational status: disabled Current occupational exposures/hazards: No Cognitive needs: Yes (wheelchair, walker) Hearing needs: Yes (hearing aide) Vision needs: No Meds Allergies Allergy/AdvReac Type Severity Reaction Status Date / Time lorazepam AdvReac Severe agitation Uncoded 01/14/24 11:04 Active Medications: Current Medications Acetaminophen (Acetaminophen 325 Mg Tablet) 650 mg PO Q6H PRN PRN Reason: Pain, Mild (Pain Scale 1-3), fever or headache Last Admin: 01/14/24 21:16 Dose: 650 mg Albuterol/Ipratropium (Albuterol/Iprat 2.5/0.5mg 3 Ml Ampul.Neb) 3 ml INHALE RQ4H WHILE AWAKE PRN PRN Reason: shortness of breath or wheez Amlodipine Besylate (Amlodipine Besylate 5 Mg Tablet) 5 mg PO DAILY [facility]; Protocol Last Admin: 01/14/24 08:57 Dose: Not Given Ascorbic Acid (Ascorbic Acid 250 Mg Tablet) 250 mg PO DAILY [facility] Last Admin: 01/14/24 08:57 Dose: Not Given Aspirin (Aspirin Enteric Coated 81 Mg Tablet.) 81 mg PO DAILY [facility] Last Admin: 01/16/24 08:36 Dose: Not Given Atenolol (Atenolol 25 Mg Tablet) 25 mg PO DAILY [facility]; Protocol Last Admin: 01/16/24 08:36 Dose: Not Given Atorvastatin Calcium (Atorvastatin Calcium 80 Mg Tablet) 80 mg PO DAILY [facility] Last Admin: 01/16/24 08:37 Dose: Not Given Bupropion HCl (Bupropion Hcl 100 Mg Tablet) 100 mg PO BID [facility] Last Admin: 01/16/24 08:37 Dose: Not Given Clopidogrel Bisulfate (Clopidogrel Bisulfate 75 Mg Tablet) 75 mg PO DAILY [facility] Last Admin: 01/16/24 08:37 Dose: Not Given Cyanocobalamin (Cyanocobalamin (Vitamin B-12) 1,000 Mcg Tablet) 1,000 mcg PO DAILY [facility] Last Admin: 01/16/24 08:38 Dose: Not Given Ezetimibe (Ezetimibe 10 Mg Tablet) 10 mg PO DAILY [facility] Last Admin: 01/14/24 08:59 Dose: Not Given Enoxaparin Sodium (Enoxaparin Sodium 30 Mg/0.3 Ml Syringe) 30 mg SUBCUT Q24H [facility] Last Admin: 01/15/24 15:50 Dose: 30 mg Escitalopram Oxalate (Escitalopram Oxalate 5 Mg Tablet) 7.5 mg PO DAILY [facility] Last Admin: 01/16/24 08:38 Dose: Not Given Folic Acid (Folic Acid 1 Mg Tablet) 1 mg PO DAILY [facility] Last Admin: 01/16/24 08:39 Dose: Not Given Furosemide (Furosemide 20 Mg Tablet) 20 mg PO DAILY [facility]; Protocol Last Admin: 01/14/24 08:59 Dose: Not Given Piperacillin Sod/Tazobactam (Sod 3.375 gm/ Sodium Chloride) 50 mls @ 100 mls/hr IV Q6H [facility] Last Infusion: 01/16/24 12:45 Dose: Infused Vancomycin HCl 500 mg/ Sodium (Chloride) 110 mls @ 110 mls/hr IV Q24H [facility] Last Infusion: 01/16/24 00:10 Dose: Infused Dextrose (D5w) 1,000 mls @ 70 mls/hr IVCONT .[id number] [facility] Last Admin: 01/16/24 05:42 Dose: Not Given Imipramine HCl (Imipramine Hcl 10 Mg Tablet) 10 mg PO BID [facility] Last Admin: 01/16/24 08:39 Dose: Not Given Methylprednisolone Sodium Succinate (Methylprednisolone Sod Succ 40 Mg/Ml Vial) 40 mg IVPUSH Q8H [facility] Multivitamins/Vitamin C (Multivitamin Tablet) 1 tab PO DAILY [facility] Last Admin: 01/14/24 09:00 Dose: Not Given Nitroglycerin (Nitroglycerin 0.4 Mg Tab.Subl) 0.4 mg SUBLINGUAL Q5M PRN PRN Reason: chest pain Nitroglycerin (Nitroglycerin 2 % Oint 1 Gm Packet) 0.5 inch TRANSDERMA RQ6H WHILE AWAKE [facility] Last Admin: 01/16/24 09:53 Dose: 0.5 inch Olanzapine (Olanzapine 10 Mg Vial) 2.5 mg IM Q12H PRN PRN Reason: severe agitation Last Admin: 01/15/24 11:53 Dose: 2.5 mg Olanzapine (Olanzapine 5 Mg Tablet) 5 mg PO BEDTIME [facility] Last Admin: 01/16/24 02:00 Dose: Not Given Olanzapine (Olanzapine Odt 10 Mg Tab.Rapdis) 5 mg TRANSLINGU Q4H PRN PRN Reason: Agitation and psychosis Ondansetron HCl (Ondansetron Hcl 4 Mg/2 Ml Vial) 4 mg IVPUSH Q4H PRN PRN Reason: Nausea and Vomiting Oxycodone HCl (Oxycodone Hcl Immed Release 5 Mg Tablet) 5 mg PO Q6H PRN PRN Reason: Pain, Severe (Pain Scale 7-10) Last Admin: 01/13/24 20:10 Dose: 5 mg Pantoprazole Sodium (Pantoprazole Sodium 40 Mg/10 Ml Vial) 40 mg IVPUSH BID@0630,1630 [facility] Last Admin: 01/16/24 05:49 Dose: 40 mg Pharmacy Consult (Consult Rx Vancomycin Dosing) 1 each MISCELLANE DAILY PRN PRN Reason: Consult order Sodium Chloride (0.9 % Sodium Chloride Flush 3 Ml Syringe) 3 ml IVFLUSH QSHIFT [facility] Last Admin: 01/16/24 09:58 Dose: 3 ml Trazodone HCl (Trazodone Hcl 50 Mg Tablet) 150 mg PO BEDTIME PRN PRN Reason: Insomnia Last Admin: 01/13/24 20:10 Dose: 150 mg Vitamin D (Cholecalciferol (Vitamin D3) 25 Mcg Tablet) 25 mcg PO DAILY [facility] Last Admin: 01/14/24 08:57 Dose: Not Given Home Medications ?Medication ?Instructions ?Recorded ?Confirmed ?Last Taken ?Type cyanocobalamin (vitamin B-12) 1,000 mcg PO DAILY 03/22/20 01/12/24 01/11/24 History 1,000 mcg capsule trazodone 150 mg tablet 150 mg PO BEDTIME PRN Insomnia 03/22/20 01/12/24 Unknown History vitamin B complex 1 tab PO DAILY 03/22/20 01/12/24 01/11/24 History bupropion HCl 200 mg tablet,12 hr 200 mg PO DAILY 02/11/22 01/12/24 01/11/24 History sustained-release citalopram 10 mg tablet 15 mg PO DAILY 08/19/22 01/12/24 01/11/24 History ascorbic acid (vitamin C) 250 mg 250 mg PO DAILY 03/26/23 01/12/24 01/11/24 History tablet (Vitamin C) clopidogrel 75 mg tablet 75 mg PO DAILY 09/25/23 01/12/24 01/11/24 History denosumab 60 mg/mL subcutaneous 60 mg subcut [id number] 01/08/24 01/12/24 07/24/23 History syringe (Prolia) budesonide-formoterol HFA 160 2 puff inhalation BID 01/12/24 01/12/24 01/11/24 History mcg-4.5 mcg/actuation aerosol inhaler (Breyna) Physical Exam Vital Signs: Vital Signs: Last Vital Signs Temp 97.3 F 01/16/24 12:00 Pulse 86 01/16/24 12:00 Resp 19 01/16/24 12:00 BP 165/86 H 01/16/24 12:00 Pulse Ox 90 L 01/16/24 12:00 O2 Del Method High Flow Nasal C annula 01/16/24 12:00 O2 Flow Rate 50 01/16/24 12:00 FiO2 90 01/16/24 12:00 BMI result Body Mass Index 22.3 Const: General: awake and confusion Nutritional Appearance: malnourished and other (Frail) Orientation/consciousness: confusion HEENT: Head: Yes normocephalic and Yes atraumatic Neck: Neck: Yes trachea midline, Yes supple and Yes no JVD Resp: Effort & Inspection: decreased respiratory effort Auscultation: crackles (coarse) and diminished lung sounds Cardio: Rate: regular rate Rhythm: regular rhythm Heart sounds: S1 normal heart sound present, S2 normal heart sound present, no click, no gallops and no murmurs GI: Auscultation: normal bowel sounds Skin: General skin exam: no rashes or lesions noted Neuro: General: moves all extremities and confusion Extrem: General: Yes no clubbing, cyanosis or edema Results Laboratory Findings 01/17/24 07:09 01/17/24 07:09 Abnormal lab findings: Abnormal Labs 01/12/24 01/12/24 01/12/24 01:26 01:27 12:52 WBC RBC 2.90 L Hgb 8.8 L Hct 26.6 L Lymph % (Auto) 17.3 L Absolute Nucleated RBC Nucleated RBC % (auto) Immature Retic Fraction VBG pH VBG HCO3 Sodium Chloride 113 H Carbon Dioxide Anion Gap BUN 34 H Creatinine 1.62 H Random Glucose 140 H Iron TIBC % Saturation Total Bilirubin AST ALT Lactate Dehydrogenase C-Reactive Protein B-Natriuretic Peptide 643 H Total Protein 6.3 L Albumin 3.3 L Vitamin B12 Ur Specific [place] >= 1.030 H Urine Protein Urine Blood Ur Leukocyte Esterase Urine RBC Nasal S. aureus Screen 01/13/24 01/14/24 01/14/24 05:51 09:12 09:22 WBC RBC 2.61 L Hgb 8.0 L Hct 24.5 L Lymph % (Auto) Absolute Nucleated RBC Nucleated RBC % (auto) Immature Retic Fraction 22.8 H VBG pH 7.57 H VBG HCO3 20 L Sodium Chloride 113 H 115 H Carbon Dioxide 20 L Anion Gap BUN 32 H 44 H Creatinine 1.58 H 1.55 H Random Glucose 125 H 118 H Iron 27 L TIBC 210 L % Saturation 13 L Total Bilirubin AST 52 H ALT Lactate Dehydrogenase 322 H C-Reactive Protein B-Natriuretic Peptide Total Protein 5.9 L Albumin 3.2 L Vitamin B12 1955 H Ur Specific [place] Urine Protein Urine Blood Ur Leukocyte Esterase Urine RBC Nasal S. aureus Screen 01/15/24 01/15/24 01/15/24 10:44 10:44 10:51 WBC 13.8 H RBC 2.71 L Hgb 8.3 L Hct 25.4 L Lymph % (Auto) Absolute Nucleated RBC 0.040 H Nucleated RBC % (auto) 0.3 H Immature Retic Fraction VBG pH VBG HCO3 19 L Sodium 152 H Chloride 116 H Carbon Dioxide 20 L Anion Gap BUN 58 H Creatinine 2.03 H 2.04 H Random Glucose 128 H Iron TIBC % Saturation Total Bilirubin AST ALT Lactate Dehydrogenase C-Reactive Protein B-Natriuretic Peptide 1564 H Total Protein Albumin Vitamin B12 Ur Specific [place] Urine Protein Urine Blood Ur Leukocyte Esterase Urine RBC Nasal S. aureus Screen 01/15/24 01/15/24 01/15/24 11:49 18:37 18:43 WBC RBC Hgb Hct Lymph % (Auto) Absolute Nucleated RBC Nucleated RBC % (auto) Immature Retic Fraction VBG pH 7.52 H VBG HCO3 18 L Sodium 150 H Chloride 117 H Carbon Dioxide 17 L Anion Gap BUN 63 H Creatinine 2.12 H Random Glucose 172 H Iron TIBC % Saturation Total Bilirubin AST ALT Lactate Dehydrogenase C-Reactive Protein B-Natriuretic Peptide Total Protein Albumin Vitamin B12 Ur Specific [place] Urine Protein Urine Blood Ur Leukocyte Esterase Urine RBC Nasal S. aureus Screen POSITIVE A 01/16/24 01/16/24 07:12 10:07 WBC 14.2 H RBC 2.88 L Hgb 8.8 L Hct 26.4 L Lymph % (Auto) Absolute Nucleated RBC 0.030 H Nucleated RBC % (auto) Immature Retic Fraction VBG pH VBG HCO3 Sodium 153 H Chloride 117 H Carbon Dioxide 18 L Anion Gap 22 H BUN 75 H Creatinine 2.73 H Random Glucose 174 H Iron TIBC % Saturation Total Bilirubin 1.4 H AST 199 H ALT 68 H Lactate Dehydrogenase C-Reactive Protein 25.25 H B-Natriuretic Peptide 974 H Total Protein Albumin 3.3 L Vitamin B12 Ur Specific [place] Urine Protein 30 (1+) H Urine Blood Large (3+) H Ur Leukocyte Esterase Trace H Urine RBC >20 H Nasal S. aureus Screen Microbiology: Microbiology 01/12/24 15:54 Blood - Venous Blood Culture - Preliminary No growth after 48 hours. 01/12/24 15:54 Blood - Venous Blood Culture - Final Streptococcus viridans group Assessment and Plan (1) Acute hypoxemic respiratory failure: Status: Acute (2) Delirium: Status: Acute (3) Pneumonia: Qualifiers: Pneumonia type: aspiration pneumonia Aspiration pneumonia type: unspecified Laterality: bilateral Lung location: unspecified part of lung Qualified Code(s): J69.0 - Pneumonitis due to inhalation of food and vomit Status: Acute (4) ARDS (adult respiratory distress syndrome): Status: Acute Plan continue Zosyn/vanco continue solumedrol continue HF to keep pox>88% Keep HOB elevated diuresis as tolerated poor prognosis with multple organ dysfuction, guarded DNR/DNI Procedures Date of Service Date of Service: 01/17/24
--- NOTE | 2024-01-16 13:39 | P.PNIM_ITS ---
Subjective Subjective Date of Service: 01/16/24 Interval History: less agitated though did get Zyprexa 10 mg IM overnight on HFNC 100% fiO2 50Lpm Review of Systems Review of Systems: Yes Unobtainable due to mental status Physical Exam 2 Vital Signs: Vital Signs: Last Vital Signs Temp 97.3 F 01/16/24 12:00 Pulse 86 01/16/24 12:00 Resp 19 01/16/24 12:00 BP 165/86 H 01/16/24 12:00 Pulse Ox 90 L 01/16/24 12:00 O2 Del Method High Flow Nasal C annula 01/16/24 12:00 O2 Flow Rate 50 01/16/24 12:00 FiO2 90 01/16/24 12:00 BMI result Body Mass Index 22.3 Gen: confused, ill-appearing HEENT: sclera anicteric, moist mucus membranes Neck: supple Lungs: inspiratory crackles at bases Heart: regular rate and rhythm, no murmurs Abd: soft, non-tender, non-distended Ext: no edema Skin: warm/well-perfused Neuro: alert and oriented to self only, no focal weakness Psych: impaired insight Objective Data Active Medications Acetaminophen (Acetaminophen 325 Mg Tablet) 650 mg PO Q6H PRN PRN Reason: Pain, Mild (Pain Scale 1-3), fever or headache Last Admin: 01/14/24 21:16 Dose: 650 mg Documented By: CARRILLO Albuterol/Ipratropium (Albuterol/Iprat 2.5/0.5mg 3 Ml Ampul.Neb) 3 ml INHALE RQ4H WHILE AWAKE PRN PRN Reason: shortness of breath or wheez Amlodipine Besylate (Amlodipine Besylate 5 Mg Tablet) 5 mg PO DAILY [facility]; Protocol Last Admin: 01/14/24 08:57 Dose: Not Given Documented By: FLOYD Non-Admin Reason: drowsy Ascorbic Acid (Ascorbic Acid 250 Mg Tablet) 250 mg PO DAILY [facility] Last Admin: 01/14/24 08:57 Dose: Not Given Documented By: FLOYD Non-Admin Reason: drowsy Aspirin (Aspirin Enteric Coated 81 Mg Tablet.) 81 mg PO DAILY [facility] Last Admin: 01/16/24 08:36 Dose: Not Given Documented By: JAMIE Non-Admin Reason: pt unable to take PO meds Atenolol (Atenolol 25 Mg Tablet) 25 mg PO DAILY [facility]; Protocol Last Admin: 01/16/24 08:36 Dose: Not Given Documented By: JAMIE Non-Admin Reason: pt unable to take PO meds Atorvastatin Calcium (Atorvastatin Calcium 80 Mg Tablet) 80 mg PO DAILY [facility] Last Admin: 01/16/24 08:37 Dose: Not Given Documented By: JAMIE Non-Admin Reason: pt unable to take PO meds Bupropion HCl (Bupropion Hcl 100 Mg Tablet) 100 mg PO BID [facility] Last Admin: 01/16/24 08:37 Dose: Not Given Documented By: JAMIE Non-Admin Reason: pt unable to take PO meds Clopidogrel Bisulfate (Clopidogrel Bisulfate 75 Mg Tablet) 75 mg PO DAILY [facility] Last Admin: 01/16/24 08:37 Dose: Not Given Documented By: JAMIE Non-Admin Reason: PT unable to take PO meds Cyanocobalamin (Cyanocobalamin (Vitamin B-12) 1,000 Mcg Tablet) 1,000 mcg PO DAILY [facility] Last Admin: 01/16/24 08:38 Dose: Not Given Documented By: JAMIE Non-Admin Reason: Pt unabel to take PO meds Ezetimibe (Ezetimibe 10 Mg Tablet) 10 mg PO DAILY [facility] Last Admin: 01/14/24 08:59 Dose: Not Given Documented By: FLOYD Non-Admin Reason: drowsy Enoxaparin Sodium (Enoxaparin Sodium 30 Mg/0.3 Ml Syringe) 30 mg SUBCUT Q24H [facility] Last Admin: 01/15/24 15:50 Dose: 30 mg Documented By: ANASTASIIA Escitalopram Oxalate (Escitalopram Oxalate 5 Mg Tablet) 7.5 mg PO DAILY [facility] Last Admin: 01/16/24 08:38 Dose: Not Given Documented By: JAMIE Non-Admin Reason: Pt unable to take PO meds Folic Acid (Folic Acid 1 Mg Tablet) 1 mg PO DAILY [facility] Last Admin: 01/16/24 08:39 Dose: Not Given Documented By: JAMIE Non-Admin Reason: unable to give PO meds Furosemide (Furosemide 20 Mg Tablet) 20 mg PO DAILY [facility]; Protocol Last Admin: 01/14/24 08:59 Dose: Not Given Documented By: FLOYD Non-Admin Reason: drowsy Piperacillin Sod/Tazobactam (Sod 3.375 gm/ Sodium Chloride) 50 mls @ 100 mls/hr IV Q6H [facility] Last Infusion: 01/16/24 12:45 Dose: Infused Documented By: JAMIE Vancomycin HCl 500 mg/ Sodium (Chloride) 110 mls @ 110 mls/hr IV Q24H [facility] Last Infusion: 01/16/24 00:10 Dose: Infused Documented By: PAUL Dextrose (D5w) 1,000 mls @ 70 mls/hr IVCONT .[id number] [facility] Last Admin: 01/16/24 05:42 Dose: Not Given Documented By: PAUL Non-Admin Reason: IV Running Imipramine HCl (Imipramine Hcl 10 Mg Tablet) 10 mg PO BID [facility] Last Admin: 01/16/24 08:39 Dose: Not Given Documented By: JAMIE Non-Admin Reason: unable to give PO meds Methylprednisolone Sodium Succinate (Methylprednisolone Sod Succ 40 Mg/Ml Vial) 40 mg IVPUSH Q8H [facility] Multivitamins/Vitamin C (Multivitamin Tablet) 1 tab PO DAILY [facility] Last Admin: 01/14/24 09:00 Dose: Not Given Documented By: FLOYD Non-Admin Reason: drowsy Nitroglycerin (Nitroglycerin 0.4 Mg Tab.Subl) 0.4 mg SUBLINGUAL Q5M PRN PRN Reason: chest pain Nitroglycerin (Nitroglycerin 2 % Oint 1 Gm Packet) 0.5 inch TRANSDERMA RQ6H WHILE AWAKE [facility] Last Admin: 01/16/24 09:53 Dose: 0.5 inch Documented By: JAMIE Olanzapine (Olanzapine 10 Mg Vial) 2.5 mg IM Q12H PRN PRN Reason: severe agitation Last Admin: 01/15/24 11:53 Dose: 2.5 mg Documented By: ANASTASIIA Olanzapine (Olanzapine 5 Mg Tablet) 5 mg PO BEDTIME [facility] Last Admin: 01/16/24 02:00 Dose: Not Given Documented By: PAUL Non-Admin Reason: not tolerating p.o Olanzapine (Olanzapine Odt 10 Mg Tab.Rapdis) 5 mg TRANSLINGU Q4H PRN PRN Reason: Agitation and psychosis Ondansetron HCl (Ondansetron Hcl 4 Mg/2 Ml Vial) 4 mg IVPUSH Q4H PRN PRN Reason: Nausea and Vomiting Oxycodone HCl (Oxycodone Hcl Immed Release 5 Mg Tablet) 5 mg PO Q6H PRN PRN Reason: Pain, Severe (Pain Scale 7-10) Last Admin: 01/13/24 20:10 Dose: 5 mg Documented By: KRISTAN Pantoprazole Sodium (Pantoprazole Sodium 40 Mg/10 Ml Vial) 40 mg IVPUSH BID@0630,1630 [facility] Last Admin: 01/16/24 05:49 Dose: 40 mg Documented By: PAUL Pharmacy Consult (Consult Rx Vancomycin Dosing) 1 each MISCELLANE DAILY PRN PRN Reason: Consult order Sodium Chloride (0.9 % Sodium Chloride Flush 3 Ml Syringe) 3 ml IVFLUSH QSHIFT [facility] Last Admin: 01/16/24 09:58 Dose: 3 ml Documented By: JAMIE Trazodone HCl (Trazodone Hcl 50 Mg Tablet) 150 mg PO BEDTIME PRN PRN Reason: Insomnia Last Admin: 01/13/24 20:10 Dose: 150 mg Documented By: KRISTAN Vitamin D (Cholecalciferol (Vitamin D3) 25 Mcg Tablet) 25 mcg PO DAILY [facility] Last Admin: 01/14/24 08:57 Dose: Not Given Documented By: FLOYD Non-Admin Reason: drowsy Labs 01/16/24 07:12 01/16/24 07:12 Labs: Laboratory Results - last 24 hr 01/15/24 01/15/24 01/15/24 11:49 18:37 18:43 MCV MCH MCHC RDW Plt Count MPV Absolute Nucleated RBC Nucleated RBC % (auto) D-Dimer High Sensitivty 726 VBG pH 7.52 H VBG pCO2 22 VBG pO2 80 VBG HCO3 18 L VBG O2 Saturation 96.0 VBG Base Excess -2.9 Anion Gap 20 Estim Creat Clear Calc 19.6 Estimated GFR 30 Random Glucose 172 H Calcium 8.7 Magnesium Total Bilirubin AST ALT Alkaline Phosphatase C-Reactive Protein B-Natriuretic Peptide Total Protein Albumin Procalcitonin Urine Color Urine Appearance Urine pH Ur Specific [place] Urine Protein Urine Glucose (UA) Urine Ketones Urine Blood Urine Nitrite Ur Leukocyte Esterase Urine RBC Urine WBC Ur Squamous Epith Cells Urine Bacteria Hyaline Casts Ur Random Sodium Urine Creatinine Nasal Screen MRSA (PCR) NEGATIVE Nasal S. aureus Screen POSITIVE A Nasal MRSA/S.aureus Interp SEE NOTE 01/16/24 01/16/24 07:12 10:07 MCV 91.7 MCH 30.6 MCHC 33.3 RDW 14.7 Plt Count 200 MPV 11.1 Absolute Nucleated RBC 0.030 H Nucleated RBC % (auto) 0.2 D-Dimer High Sensitivty VBG pH VBG pCO2 VBG pO2 VBG HCO3 VBG O2 Saturation VBG Base Excess Anion Gap 22 H Estim Creat Clear Calc 15.2 Estimated GFR 23 Random Glucose 174 H Calcium 8.9 Magnesium 2.5 Total Bilirubin 1.4 H AST 199 H ALT 68 H Alkaline Phosphatase 65 C-Reactive Protein 25.25 H B-Natriuretic Peptide 974 H Total Protein 6.5 Albumin 3.3 L Procalcitonin 3.94 Urine Color Yellow Urine Appearance Clear Urine pH 5.5 Ur Specific [place]more 1.015 Urine Protein 30 (1+) H Urine Glucose (UA) Negative Urine Ketones Negative Urine Blood Large (3+) H Urine Nitrite Negative Ur Leukocyte Esterase Trace H Urine RBC >20 H Urine WBC 0-5 Ur Squamous Epith Cells 0-2 Urine Bacteria None Seen Hyaline Casts 3-5 Ur Random Sodium 102.0 Urine Creatinine 32.84 Nasal Screen MRSA (PCR) Nasal S. aureus Screen Nasal MRSA/S.aureus Interp Impressions Chest X-Ray 01/15/24 19:15 IMPRESSION: Diffuse patchy bilateral airspace opacities, mild improved from prior. Electronically signed by: Antoinette Archibald MD 01/15/2024 07:44 PM EDT RP Assessment and Plan (1) Pneumonia: Status: Acute Plan d5 78yo M with CAD s/p PCI, PAD s/p femoral endarterectomy and multiple stents, COPD not on home O2, prediabetes, prostate CA s/p XRT, CKD3, and bipolar disease who came in after a mechanical fall. No acute traumatic injury but while awaiting STR placement, he became hypoxic and was found to have multifocal pneumonia. Now with bacteremia. AHRF due to multifocal pneumonia and COPD exacerbation [PSI score 100, class IV, 8.2-9.3% mortality, hospitalization indicated] - 01/11-10/11 ceftriaxone, 01/11-01/12 doxycycline, 01/12- vancomycin, 01/14- piperacillin-tazobactam, trend PCT, BCx from 01/11 grew Strep viridans which is a contaminant, urinary antigens for Legionella and pneumococcus negative, MRSA swab positive - continue HFNC. Will consult Pulmonology and Critical Care. Discuss goals of care with family. - prn nebulizer treatments question of suspected CHF exacerbation, unknown EF - Cardiology consult, TTE. Per Cardiology unlikely CHF is contributing to his current hypoxia and recommendation is to hold furosemide KEVIN/CKD3 - ATN from pneumonia? doubt cardiorenal. renal US, urine studies + Nephrology consult pending. encephalopathy due to acute infection and toxic-metabolic - CT head unrevealing, labs reviewed; repleting free water via IV - Family concerned re: medication withdrawal. He did get escitalopram ,imipramine, and 1 of 2 doses of bupropion yesterday. Discussed with pt's psychiatrist Juhi Peck. 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 Regardless, will try go give his bupropion and citalopram with small amount of pudding or applesauce [the imipramine is actually prescribed for nocturia by his urologist, not for psychiatric reasons]. Pt did not tolerate taking these yesterday. - olanzapine at hs in attempt to re-establish normal sleep-wake cycle; prn olanzapine rather than lorazepam if he has breakthrough agitation [he's had paradoxical agitation with lorazepam in past] hyperNa, acute - continue D5W, recheck BMP in AM hx dysphagia + esophageal stricture - MANDARIN SPEAKING NANNY following, cannot do MBSS due to agitation, will place on NDD1 solids/honey liquids for now - GI consulted, not stable for EGD at this point HTN urgency - continue atenolol; amlodipine held CAD PAD - ASA + clopidogrel, ezetimibe, atorvastatin bipolar disease - bupropion, citalopram nocturia - imipramine DAXA - CPAP at night when encephalopathy resolves VTE prophylaxis - enoxaparin dispo - STR eventually Family updated at bedside In my clinical judgment, the patient requires continued inpatient hospitalization for the following reasons: IV ABX, hypoxia, delirium Total time managing care of this patient today: 60 minutes. Quality Stroke Does the patient have a stroke diagnosis?: No VTE Prior VTE?: No VTE Risk Level:: Medical - moderate - high VTE Device Contraindication: N/A - Device Ordered VTE Drug Contraindication: N/A - Med Ordered
--- NOTE | 2024-01-16 13:41 | CA_ITS ---
Transthoracic Echocardiogram Patient (Last, First, Middle): Jorge Luis Giles X Gender: Male Date of : 1945 Age: 78 Procedure Date: 01/16/2024 Procedure Type: Transthoracic Echocardiogram [place] [facility] [place] Height: 152.4 cm Weight: 51.71 kg BSA: 1.47 m2 Heart Rate: bpm BP: 143 / 70 mmHg Director Sports: VANDANA Referring MD: Delmi Peterson MD Ball Points Inspector: Lito Washburn MD Symptoms: CHF Study Quality: Adequate with contrast ECG Rhythm: Sinus Conclusions: - 1. Technically limited study due to off axis disease as patient was in sitting position 2. Normal LV ejection fraction 55-60% 3. Normal RV systolic function 4. Mild aortic regurgitation 5. Normal RV systolic pressure 6. No gross pericardial effusion Findings Procedure Information Contrast agent, definity, is being given per protocol without apparent complications. The study quality is limited by an uncooperative patient. Left Ventricle The left ventricle was not well visualized. Normal left ventricular cavity size. There is normal left ventricular wall thickness. The left ventricular systolic function is normal. The visually estimated ejection fraction is between 55-60%. Spectral Doppler is indicative of an impaired relaxation filling pattern. E/E prime ratio is between 8 and 15 consistent with indeterminate filling pressures. Right Ventricle Normal right ventricular cavity size and systolic function. Atria The left atrium was not well visualized. Interatrial shunt cannot be excluded. The right atrium was not well visualized. Aortic Valve There is mild calcification of the aortic valve. There is mild thickening of the aortic valve. There is mild aortic valve regurgitation. Mitral Valve The mitral valve was not well visualized. There is trace mitral valve regurgitation. There is no mitral valve stenosis. Pulmonic Valve The pulmonic valve was not well visualized. Tricuspid Valve Likely normal tricuspid valve structure and function. There is mild tricuspid valve regurgitation. The right ventricular systolic pressure is normal. The right ventricular systolic pressure is 32 mmHg. Normal right atrial pressure. There is no evidence of pulmonary hypertension. Great Vessels The pulmonary artery was not well visualized. Small plaque is seen in the sino tubular ridge. Venous The inferior vena cava is normal in size and collapses greater than 50% with inspiration. Pericardium/Pleural There is no evidence of pericardial effusion. Prior Study Comparison No significant change compared to prior study dated: 08/19/2018. Measurements 2D Linear Measurements IVSd: 1.06 0.6-0.9/0.6-1.0 cm LVIDd: 3.25 3.9-5.3/4.2-5.9 cm LVIDd Index: 2.21 2.4-3.2/2.2-3.1 cm/m2 LVIDs: 2.73 2.0-3.6 cm LVPWd: 1.01 0.7-1.1 cm LA Diam: 3.30 2.7-3.8/3.0-4.0 cm LAIDs Index: 2.24 1.5-2.3 cm/m2 LV Mass: 120.89 67-162/88-224 g LV Mass Index: 82.24 43-95/49-115 g/m2 LVOT Diam: 2.00 3.0+(-)1.3 cm 2D Systolic Function EF 4C: 57.60 >55% EF 2C: 43.60 >55% EF BiP: 51.50 >55% Mitral Valve MV Pk E: 0.54 MV PK A: 0.93 MV Decel Time: 298.00 E/A: 0.60 E'Lateral: 6.42 E'Medial: 4.90 E/E' Med: 11.10 E/E' Lat: 8.50 PHT: 87.00 MVA PHT: 2.53 Decel [place]: 1.82 Aortic Valve AoV Pk Lucas: 1.64 AoV Mn Lucas: 1.15 AoV VTI: 0.34 AoV Pk Grad: 11.00 Aov Mn Grad: 6.00 LEW Cont.VTI: 1.59 LVOT LVOT Pk Lucas: 1.02 LVOT Mn Lucas: 0.64 LVOT VTI: 0.17 LVOT Pk Grad: 4.00 LVOT Mn Grad: 2.00 LVOT Diam: 2.00 LVOT Area: 3.14 Diastolic Function MV Pk E: 0.54 MV Pk A: 0.93 E/A: 0.60 E'Medial: 4.90 E/E' Med: 11.10 E' Laterial: 6.42 E/E' Lat: 8.50 Right Ventricle TAPSE (mm): 20.30 TVS' Lucas: 20.10 Tricuspid Valve TR Pk Lucas: 2.67 TR Pk Grad: 29.00 RA Press: 3.00 RVSP: 32.00 Great Vessels Aorta Sinus of Valsalva: 3.93 2.0-3.[address] [place]: 2.36 1.7-3.4 cm Ao Asc: 3.50 2.1-3.4 cm Updated in Other Vendor System with Status of Final Lito Washburn MD electronically signed on 01/17/2024 12:51:14 PM with status of Final
[2024-01-16] MEDS: Enoxaparin Sodium 30 MG/0.3 ML SYRINGE SUBCUT (14:27)
[2024-01-16] MEDS: Dextrose 5 % 1,000 ML 70 ML IVCONT (16:26)
[2024-01-16] MEDS: Morphine Sulfate 2 MG/ML CARTRIDGE IVPUSH (18:35)
[2024-01-16] MEDS: Acetaminophen 1,000 MG/100 ML PIGGYBACK 400 MG IV (20:57)
[2024-01-16] MEDS: Albumin Human 25 % 100 ML 133.33 ML IV (21:17)
--- NOTE | 2024-01-16 21:21 | PM.EVENT ---
Event Note Date of Service: 01/25/24 Event Note: Chart reviewed KEVIN Most likely due to hypoperfusion from dehydration r/o Vanco induced tubular injury Keep I> O With hypotonic fluids Check vanco levels and adjust dose Full consult to follow Time Spent With Patient Time: Total time managing care of this patient today ____ minutes.
[2024-01-16 21:28] LABS: Lactic Acid 1.4 mmol/L (0.5-2.0)
[2024-01-16 21:33] LABS: Vancomycin Random 20.3 mcg/mL (15-20)
--- NOTE | 2024-01-16 21:48 | HE.PHANOTE ---
Vancomycin Creatinine rising (01/13 = 1.55 ; 01/14=2.03; 01/15 =2.73). Level after 3 doses = 20.3. Holding dose tonight, getting level in AM on 01/16 and will restart vancomycin if level comes down significantly. Watch Creatinine.
[2024-01-17] VITALS (21 sets, daily range): BP systolic 111–158; BP diastolic 52–79; PULSE 63–110; RESP 12–26; TEMP 36.2–37.7; O2SAT 89–99
[2024-01-17] MEDS: Morphine Sulfate 2 MG/ML CARTRIDGE IVPUSH ×4 (00:16→20:07)
[2024-01-17] MEDS: OLANZapine ODT 10 MG TAB.RAPDIS 5 MG TRANSLINGU (01:09)
[2024-01-17] MEDS: Piperacillin Sodium/Tazobactam 3.375 GM in 0.9 % Sodium Chloride 50 ML IV ×2 (03:29→09:19)
[2024-01-17] MEDS: methylPREDNISolone Sod Succ 40 MG/ML VIAL IVPUSH ×3 (04:30→20:20)
[2024-01-17] MEDS: Dextrose 5 % 1,000 ML 70 ML IVCONT ×2 (04:34→20:30)
[2024-01-17] MEDS: Pantoprazole Sodium 40 MG/10 ML VIAL IVPUSH ×2 (06:20→15:49)
[2024-01-17 07:19] LABS: Venous Blood Gas Refer to POC result
[2024-01-17 07:21] LABS: VBG Base Excess -1.8 mmol/L; VBG HCO3 22 mmol/L (22-26); VBG pCO2 35 mmHg; VBG pO2 82 mmHg
[2024-01-17 07:23] LABS: Hemoglobin 7.8 g/dl (14.0-18.0); Mean Corpuscular HGB Conc 31.2 g/dl (31.0-36.0); Mean Corpuscular Hemoglobin 29.5 pg (27.0-33.0); Mean Corpuscular Volume 94.7 fL (80.0-98.0); Mean Platelet Volume 10.9 fL (9.4-12.4); NRBC Pct Auto 0.4 /100WBC (0.0-0.2); Platelet Count 174 X10*3/uL (160-400); Red Blood Count 2.64 X10*6/uL (4.60-5.80)
[2024-01-17 07:29] LABS: Vancomycin Random 18.2 mcg/mL (15-20)
[2024-01-17 07:38] LABS: B Type Natriuretic Peptide 414 pg/mL (<100)
[2024-01-17 07:42] LABS: Alanine Aminotransferase 75 U/L (0-40); Albumin Level 3.4 g/dL (3.5-5.0); Alkaline Phosphatase 56 U/L (39-117); Anion Gap 21 (12-20); Aspartate Amino Transferase 136 U/L (5-37); Blood Urea Nitrogen 99 mg/dL (9-16); Calcium 8.1 mg/dL (8.4-10.2); Carbon Dioxide 22 mmol/L (22-29); Chloride 114 mmol/L (96-108); Creatinine Clr Calc Pharmacy 11.5; Estimated Glomerular Filt Rate 16; Glucose Random 226 mg/dL (60-115); Magnesium 2.6 mg/dL (1.6-2.6); Potassium 3.4 mmol/L (3.3-5.1); Sodium 154 mmol/L (135-145); Total Protein 6.3 g/dL (6.5-8.0)
[2024-01-17] MEDS: Clopidogrel Bisulfate 75 MG TABLET PO (09:23)
[2024-01-17] MEDS: Folic Acid 1 MG TABLET PO (09:23)
[2024-01-17] MEDS: Linezolid/D5W 600 MG/300 ML PIGGYBACK 300 MG IV ×2 (10:22→20:22)
--- NOTE | 2024-01-17 12:17 | PC.NURSE ---
pt is AxOx1, awake w eye opens, reported no pain when asked. pt family at bedside and insisted to have pain meds given. MD notified w pain med given per MD approval.
--- NOTE | 2024-01-17 12:33 | P.PNIM_ITS ---
Subjective Subjective Date of Service: 01/17/24 Interval History: Febrile overnight to 101.1; BCx sent Remains on HFNC 50 Lpm 100% fiO2. Mental status improved though; recognizing family and verbalizing a little bit. Cr + Na worsening. RN tried to give PO meds with applesauce but immediately had a wet cough Review of Systems Review of Systems: Yes Unobtainable due to mental status Physical Exam 2 Vital Signs: Vital Signs: Last Vital Signs Temp 97.3 F 01/17/24 07:55 Pulse 86 01/17/24 07:55 Resp 14 01/17/24 12:31 BP 145/61 H 01/17/24 07:55 Pulse Ox 95 01/17/24 07:55 O2 Del Method High Flow Nasal C annula 01/17/24 07:55 O2 Flow Rate 55 01/17/24 07:55 FiO2 100 01/17/24 07:55 BMI result Body Mass Index 22.3 Gen: confused, ill-appearing but in no resp distress and denies pain HEENT: sclera anicteric, moist mucus membranes Neck: supple Lungs: inspiratory crackles at bases Heart: regular rate and rhythm, no murmurs Abd: soft, non-tender, non-distended Ext: no edema Skin: warm/well-perfused Neuro: alert and oriented to self only, no focal weakness Psych: impaired insight Objective Data Active Medications Acetaminophen (Acetaminophen 325 Mg Tablet) 650 mg PO Q6H PRN PRN Reason: Pain, Mild (Pain Scale 1-3), fever or headache Last Admin: 01/14/24 21:16 Dose: 650 mg Documented By: CARRILLO Albuterol/Ipratropium (Albuterol/Iprat 2.5/0.5mg 3 Ml Ampul.Neb) 3 ml INHALE RQ4H WHILE AWAKE PRN PRN Reason: shortness of breath or wheez Amlodipine Besylate (Amlodipine Besylate 5 Mg Tablet) 5 mg PO DAILY [facility]; Protocol Last Admin: 01/14/24 08:57 Dose: Not Given Documented By: FLOYD Non-Admin Reason: drowsy Ascorbic Acid (Ascorbic Acid 250 Mg Tablet) 250 mg PO DAILY [facility] Last Admin: 01/14/24 08:57 Dose: Not Given Documented By: FLOYD Non-Admin Reason: drowsy Aspirin (Aspirin Enteric Coated 81 Mg Tablet.) 81 mg PO DAILY [facility] Last Admin: 01/16/24 08:36 Dose: Not Given Documented By: JAMIE Non-Admin Reason: pt unable to take PO meds Atenolol (Atenolol 25 Mg Tablet) 25 mg PO DAILY [facility]; Protocol Last Admin: 01/16/24 08:36 Dose: Not Given Documented By: JAMIE Non-Admin Reason: pt unable to take PO meds Atorvastatin Calcium (Atorvastatin Calcium 80 Mg Tablet) 80 mg PO DAILY [facility] Last Admin: 01/16/24 08:37 Dose: Not Given Documented By: JAMIE Non-Admin Reason: pt unable to take PO meds Bupropion HCl (Bupropion Hcl 100 Mg Tablet) 100 mg PO BID [facility] Last Admin: 01/16/24 20:37 Dose: Not Given Documented By: EVELINA Non-Admin Reason: NPO Clopidogrel Bisulfate (Clopidogrel Bisulfate 75 Mg Tablet) 75 mg PO DAILY [facility] Last Admin: 01/17/24 09:23 Dose: 75 mg Documented By: APPLE Cyanocobalamin (Cyanocobalamin (Vitamin B-12) 1,000 Mcg Tablet) 1,000 mcg PO DAILY [facility] Last Admin: 01/16/24 08:38 Dose: Not Given Documented By: JAMIE Non-Admin Reason: Pt unabel to take PO meds Ezetimibe (Ezetimibe 10 Mg Tablet) 10 mg PO DAILY [facility] Last Admin: 01/14/24 08:59 Dose: Not Given Documented By: FLOYD Non-Admin Reason: drowsy Enoxaparin Sodium (Enoxaparin Sodium 30 Mg/0.3 Ml Syringe) 30 mg SUBCUT Q24H [facility] Last Admin: 01/16/24 14:27 Dose: 30 mg Documented By: JAMIE Escitalopram Oxalate (Escitalopram Oxalate 5 Mg Tablet) 7.5 mg PO DAILY [facility] Last Admin: 01/16/24 08:38 Dose: Not Given Documented By: JAMIE Non-Admin Reason: Pt unable to take PO meds Folic Acid (Folic Acid 1 Mg Tablet) 1 mg PO DAILY [facility] Last Admin: 01/17/24 09:23 Dose: 1 mg Documented By: APPLE Furosemide (Furosemide 20 Mg Tablet) 20 mg PO DAILY [facility]; Protocol Last Admin: 01/14/24 08:59 Dose: Not Given Documented By: FLOYD Non-Admin Reason: drowsy Dextrose (D5w) 1,000 mls @ 70 mls/hr IVCONT .[id number] [facility] Last Admin: 01/17/24 04:34 Dose: 70 mls/hr Documented By: EVELINA Linezolid (Zyvox/D5w) 600 mg in 300 mls @ 300 mls/hr IV Q12H [facility] Last Infusion: 01/17/24 11:22 Dose: Infused Documented By: APPLE Piperacillin Sod/Tazobactam (Sod 4.5 gm/ Sodium Chloride) 100 mls @ 200 mls/hr IV Q12H [facility] Imipramine HCl (Imipramine Hcl 10 Mg Tablet) 10 mg PO BID [facility] Last Admin: 01/16/24 20:37 Dose: Not Given Documented By: EVELINA Non-Admin Reason: NPO Methylprednisolone Sodium Succinate (Methylprednisolone Sod Succ 40 Mg/Ml Vial) 40 mg IVPUSH Q8H [facility] Last Admin: 01/17/24 12:04 Dose: 40 mg Documented By: APPLE Morphine Sulfate (Morphine Sulfate 2 Mg/Ml Cartridge) 2 mg IVPUSH Q3H PRN; Protocol PRN Reason: dyspnea or pain 4-10 Last Admin: 01/17/24 12:11 Dose: 2 mg Documented By: APPLE Multivitamins/Vitamin C (Multivitamin Tablet) 1 tab PO DAILY [facility] Last Admin: 01/14/24 09:00 Dose: Not Given Documented By: FLOYD Non-Adriana Reason: drowsy Nitroglycerin (Nitroglycerin 0.4 Mg Tab.Subl) 0.4 mg SUBLINGUAL Q5M PRN PRN Reason: chest pain Olanzapine (Olanzapine 10 Mg Vial) 2.5 mg IM Q12H PRN PRN Reason: severe agitation Last Admin: 01/15/24 11:53 Dose: 2.5 mg Documented By: ANASTASIIA Olanzapine (Olanzapine 5 Mg Tablet) 5 mg PO BEDTIME [facility] Last Admin: 01/16/24 02:00 Dose: Not Given Documented By: PAUL Non-Admin Reason: not tolerating p.o Olanzapine (Olanzapine Odt 10 Mg Tab.Rapdis) 5 mg TRANSLINGU Q4H PRN PRN Reason: Agitation and psychosis Last Admin: 01/17/24 01:09 Dose: 5 mg Documented By: EVELINA Ondansetron HCl (Ondansetron Hcl 4 Mg/2 Ml Vial) 4 mg IVPUSH Q4H PRN PRN Reason: Nausea and Vomiting Oxycodone HCl (Oxycodone Hcl Immed Release 5 Mg Tablet) 5 mg PO Q6H PRN PRN Reason: Pain, Severe (Pain Scale 7-10) Last Admin: 01/13/24 20:10 Dose: 5 mg Documented By: KRISTAN Pantoprazole Sodium (Pantoprazole Sodium 40 Mg/10 Ml Vial) 40 mg IVPUSH BID@0630,1630 [facility] Last Admin: 01/17/24 06:20 Dose: 40 mg Documented By: EVELINA Sodium Chloride (0.9 % Sodium Chloride Flush 3 Ml Syringe) 3 ml IVFLUSH QSHIFT [facility] Last Admin: 01/17/24 09:11 Dose: Not Given Documented By: APPLE Non-Admin Reason: IV Running Trazodone HCl (Trazodone Hcl 50 Mg Tablet) 150 mg PO BEDTIME PRN PRN Reason: Insomnia Last Admin: 01/13/24 20:10 Dose: 150 mg Documented By: KRISTAN Vitamin D (Cholecalciferol (Vitamin D3) 25 Mcg Tablet) 25 mcg PO DAILY [facility] Last Admin: 01/14/24 08:57 Dose: Not Given Documented By: FLOYD Non-Admin Reason: drowsy Labs 01/17/24 07:09 01/17/24 07:09 Labs: Laboratory Results - last 24 hr 01/16/24 01/17/24 01/17/24 21:04 07:09 07:17 MCV 94.7 MCH 29.5 MCHC 31.2 RDW 15.0 Plt Count 174 MPV 10.9 Absolute Nucleated RBC 0.050 H Nucleated RBC % (auto) 0.4 H Hold Purple Top SEE NOTE Hold Blue Top SEE NOTE VBG pH 7.40 VBG pCO2 35 VBG pO2 82 VBG HCO3 22 VBG O2 Saturation 95.0 VBG Base Excess -1.8 Anion Gap 21 H Estim Creat Clear Calc 11.5 Estimated GFR 16 Random Glucose 226 H Lactic Acid 1.4 Calcium 8.1 L D Magnesium 2.6 Total Bilirubin 1.0 AST 136 H ALT 75 H Alkaline Phosphatase 56 B-Natriuretic Peptide 414 H Total Protein 6.3 L Albumin 3.4 L Random Vancomycin 20.3 H 18.2 Microbiology Microbiology Results: Microbiology 01/16/24 10:07 Urine Culture - Final Urine Catheterized - Leung Catheter No growth. Assessment and Plan (1) Pneumonia: Status: Acute Plan d6 78yo M with CAD s/p PCI, PAD s/p femoral endarterectomy and multiple stents, COPD not on home O2, prediabetes, prostate CA s/p XRT, CKD3, and bipolar disease who came in after a mechanical fall. No acute traumatic injury but while awaiting STR placement, he became hypoxic and was found to have multifocal pneumonia. Now with bacteremia. acute hypoxic respiratory failure due to multifocal pneumonia and COPD exacerbation, concern for ARDS - 01/11-01/14 ceftriaxone, 01/11-01/12 doxycycline, 01/12-01/16 vancomycin - 01/16- linezolid, 01/14- piperacillin-tazobactam - trend PCT - BCx from 01/11 grew Strep viridans which is a contaminant, urinary antigens for Legionella and pneumococcus negative, MRSA swab positive - due to fever of 101.1 on 01/15, BCx re-sent and also will recheck RSV/flu/Covid [RPP 01/11 was negative] - continue HFNC. Consulted Pulmonology, Cardiology, and Critical Care. Doubt CHF. Furosemide discontinued. Pt made DNR/DNI/no NIPPV but continue all other treatments - on methylprednisolone 40mg q8h + nebs KEVIN/CKD3 - suspect ATN from pneumonia vs. vancomycin toxicity. doubt cardiorenal. Nephrology consulted. vancomycin discontinued and switched to linezolid. encephalopathy due to acute infection and toxic-metabolic - CT head unrevealing, labs reviewed; repleting free water via IV - Family concerned re: medication withdrawal. He did get escitalopram, imipramine, and 1 of 2 doses of bupropion on 01/12. Discussed with pt's psychiatrist Juhi Peck on 01/13. 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 Once taking POs safely, resume bupropion and citalopram [the imipramine is actually prescribed for nocturia by his urologist, not for psychiatric reasons]. Pt did not tolerate taking these yesterday nor today. - olanzapine at hs in attempt to re-establish normal sleep-wake cycle; prn olanzapine rather than lorazepam if he has breakthrough agitation [he's had paradoxical agitation with lorazepam in past] hyperNa, acute - free water deficit 1700 mL; continue D5W, recheck BMP in AM hx dysphagia + esophageal stricture - RUG INSPECTOR HELPER following, cannot do MBSS due to agitation. NPO for now. Will start PPN, obtain PICC then change to TPN. - GI consulted, not stable for EGD at this point HTN urgency - atenolol + amlodipine on hold CAD PAD - ASA + clopidogrel, ezetimibe, atorvastatin all on hold bipolar disease - bupropion + citalopram on hold nocturia - imipramine on hold VTE prophylaxis - change enoxaparin to UFH given worsening renal function dispo - STR eventually Family [daughter Radha] updated at bedside In my clinical judgment, the patient requires continued inpatient hospitalization for the following reasons: IV ABX, hypoxia, delirium Total time managing care of this patient today: 55 minutes. Quality Stroke Does the patient have a stroke diagnosis?: No VTE Prior VTE?: No VTE Risk Level:: Medical - moderate - high VTE Device Contraindication: N/A - Device Ordered VTE Drug Contraindication: N/A - Med Ordered
[2024-01-17] MEDS: Artificial Tears 15 ML DROPS 2 DROP EYE-BOTH ×2 (13:01→20:32)
[2024-01-17] MEDS: Heparin Sodium,Porcine 5,000 UNIT/ML VIAL 5000 UNIT SUBCUT (13:01)
[2024-01-17 13:27] LABS: Influenza A PCR NEGATIVE (Negative); Influenza B PCR NEGATIVE (Negative); Resp Syncy Virus RNA Qual PCR NEGATIVE (Negative); SARS COV2 PCR INHOUSE NEGATIVE (Negative)
[2024-01-17] MEDS: Piperacillin Sodium/Tazobactam 4.5 GM in 0.9 % Sodium Chloride 100 ML IV (20:20)
[2024-01-18] VITALS (12 sets, daily range): BP systolic 135–165; BP diastolic 58–84; PULSE 62–115; RESP 16–20; TEMP 36.1–37.6; O2SAT 90–100; BMI 22.3
[2024-01-18] MEDS: Heparin Sodium,Porcine 5,000 UNIT/ML VIAL 5000 UNIT SUBCUT ×3 (01:26→23:57)
[2024-01-18] MEDS: Artificial Tears 15 ML DROPS 2 DROP EYE-BOTH ×3 (05:11→21:26)
[2024-01-18] MEDS: Pantoprazole Sodium 40 MG/10 ML VIAL IVPUSH ×2 (05:11→16:34)
[2024-01-18] MEDS: methylPREDNISolone Sod Succ 40 MG/ML VIAL IVPUSH ×3 (05:11→21:48)
[2024-01-18 07:14] LABS: Alanine Aminotransferase 65 U/L (0-40); Alkaline Phosphatase 53 U/L (39-117); Anion Gap 17 (12-20); Aspartate Amino Transferase 56 U/L (5-37); Bilirubin Total 0.6 mg/dL (0.0-1.0); Blood Urea Nitrogen 97 mg/dL (9-16); C Reactive Protein 13.85 mg/dL (< or = 0.50); Calcium 7.8 mg/dL (8.4-10.2); Carbon Dioxide 21 mmol/L (22-29); Chloride 113 mmol/L (96-108); Creatinine Clr Calc Pharmacy 11.5; Estimated Glomerular Filt Rate 16; Glucose Random 248 mg/dL (60-115); Magnesium 2.6 mg/dL (1.6-2.6); Phosphorus 4.4 mg/dL (2.7-4.5); Potassium 3.3 mmol/L (3.3-5.1); Sodium 148 mmol/L (135-145); Total Protein 5.8 g/dL (6.5-8.0)
[2024-01-18 07:38] LABS: Hematocrit 24.5 % (42.0-52.0); Hemoglobin 7.8 g/dl (14.0-18.0); Mean Corpuscular HGB Conc 31.8 g/dl (31.0-36.0); Mean Corpuscular Hemoglobin 30.1 pg (27.0-33.0); Mean Corpuscular Volume 94.6 fL (80.0-98.0); Mean Platelet Volume 11.5 fL (9.4-12.4); NRBC Pct Auto 0.3 /100WBC (0.0-0.2); Platelet Count 163 X10*3/uL (160-400); Red Blood Count 2.59 X10*6/uL (4.60-5.80); White Blood Count 14.7 X10*3/uL (4.8-10.8)
[2024-01-18] MEDS: Piperacillin Sodium/Tazobactam 4.5 GM in 0.9 % Sodium Chloride 100 ML IV ×2 (07:51→21:25)
[2024-01-18] MEDS: Morphine Sulfate 2 MG/ML CARTRIDGE IVPUSH (07:52)
[2024-01-18 07:53] LABS: B Type Natriuretic Peptide 169 pg/mL (<100)
[2024-01-18] MEDS: Linezolid/D5W 600 MG/300 ML PIGGYBACK 300 MG IV ×2 (08:45→21:47)
--- NOTE | 2024-01-18 09:42 | P.PNIM_ITS ---
Subjective Subjective Date of Service: 01/18/24 Interval History: dry eyes Physical Exam 2 Vital Signs: Vital Signs: Last Vital Signs Temp 97.9 F 01/18/24 07:59 Pulse 75 01/18/24 07:59 Resp 20 01/18/24 07:59 BP 135/68 01/18/24 07:59 Pulse Ox 100 01/18/24 07:59 O2 Del Method High Flow Nasal C annula 01/18/24 07:59 O2 Flow Rate 55 01/18/24 07:59 FiO2 100 01/18/24 07:59 BMI result Body Mass Index 22.3 Gen: confused, ill-appearing but in no resp distress and denies pain HEENT: sclera anicteric, moist mucus membranes Neck: supple Lungs: inspiratory crackles at bases Heart: regular rate and rhythm, no murmurs Abd: soft, non-tender, non-distended Ext: no edema Skin: warm/well-perfused Neuro: alert and oriented to self only, no focal weakness Psych: impaired insight Objective Data Active Medications Acetaminophen (Acetaminophen 325 Mg Tablet) 650 mg PO Q6H PRN PRN Reason: Pain, Mild (Pain Scale 1-3), fever or headache Last Admin: 01/14/24 21:16 Dose: 650 mg Documented By: CARRILLO Albuterol/Ipratropium (Albuterol/Iprat 2.5/0.5mg 3 Ml Ampul.Neb) 3 ml INHALE RQ4H WHILE AWAKE PRN PRN Reason: shortness of breath or wheez Amlodipine Besylate (Amlodipine Besylate 5 Mg Tablet) 5 mg PO DAILY [facility]; Protocol Last Admin: 01/14/24 08:57 Dose: Not Given Documented By: FLOYD Non-Admin Reason: drowsy Artificial Tears (Artificial Tears 15 Ml Drops) 2 drop EYE-BOTH Q8H [facility] Last Admin: 01/18/24 05:11 Dose: 2 drop Documented By: CHERYL Ascorbic Acid (Ascorbic Acid 250 Mg Tablet) 250 mg PO DAILY [facility] Last Admin: 01/14/24 08:57 Dose: Not Given Documented By: FLOYD Non-Admin Reason: drowsy Aspirin (Aspirin Enteric Coated 81 Mg Tablet.Dr) 81 mg PO DAILY [facility] Last Admin: 01/16/24 08:36 Dose: Not Given Documented By: JAMIE Non-Admin Reason: pt unable to take PO meds Atenolol (Atenolol 25 Mg Tablet) 25 mg PO DAILY [facility]; Protocol Last Admin: 01/16/24 08:36 Dose: Not Given Documented By: JAMIE Non-Admin Reason: pt unable to take PO meds Atorvastatin Calcium (Atorvastatin Calcium 80 Mg Tablet) 80 mg PO DAILY [facility] Last Admin: 01/16/24 08:37 Dose: Not Given Documented By: JAMIE Non-Admin Reason: pt unable to take PO meds Bupropion HCl (Bupropion Hcl 100 Mg Tablet) 100 mg PO BID [facility] Last Admin: 01/16/24 20:37 Dose: Not Given Documented By: EVELINA Non-Admin Reason: NPO Clopidogrel Bisulfate (Clopidogrel Bisulfate 75 Mg Tablet) 75 mg PO DAILY [facility] Last Admin: 01/18/24 07:38 Dose: Not Given Documented By: APPLE Non-Admin Reason: NPO Cyanocobalamin (Cyanocobalamin (Vitamin B-12) 1,000 Mcg Tablet) 1,000 mcg PO DAILY [facility] Last Admin: 01/16/24 08:38 Dose: Not Given Documented By: JAMIE Non-Admin Reason: Pt unabel to take PO meds Ezetimibe (Ezetimibe 10 Mg Tablet) 10 mg PO DAILY [facility] Last Admin: 01/14/24 08:59 Dose: Not Given Documented By: FLOYD Non-Admin Reason: drowsy Escitalopram Oxalate (Escitalopram Oxalate 5 Mg Tablet) 7.5 mg PO DAILY [facility] Last Admin: 01/16/24 08:38 Dose: Not Given Documented By: JAMIE Non-Admin Reason: Pt unable to take PO meds Folic Acid (Folic Acid 1 Mg Tablet) 1 mg PO DAILY [facility] Last Admin: 01/18/24 07:39 Dose: Not Given Documented By: APPLE Non-Admin Reason: NPO Furosemide (Furosemide 20 Mg Tablet) 20 mg PO DAILY [facility]; Protocol Last Admin: 01/14/24 08:59 Dose: Not Given Documented By: FLOYD Non-Admin Reason: drowsy Heparin Sodium (Porcine) (Heparin Sodium,Porcine 5,000 Unit/Ml Vial) 5,000 unit SUBCUT Q12H [facility] Last Admin: 01/18/24 01:26 Dose: 5,000 unit Documented By: CHERYL Dextrose (D5w) 1,000 mls @ 70 mls/hr IVCONT .[id number] [facility] Last Admin: 01/17/24 20:30 Dose: 70 mls/hr Documented By: CHERYL Linezolid (Zyvox/D5w) 600 mg in 300 mls @ 300 mls/hr IV Q12H [facility] Last Admin: 01/18/24 08:45 Dose: 300 mls/hr Documented By: APPLE Piperacillin Sod/Tazobactam (Sod 4.5 gm/ Sodium Chloride) 100 mls @ 200 mls/hr IV Q12H [facility] Last Infusion: 01/18/24 08:21 Dose: Infused Documented By: APPLE Imipramine HCl (Imipramine Hcl 10 Mg Tablet) 10 mg PO BID [facility] Last Admin: 01/16/24 20:37 Dose: Not Given Documented By: EVELINA Non-Admin Reason: NPO Methylprednisolone Sodium Succinate (Methylprednisolone Sod Succ 40 Mg/Ml Vial) 40 mg IVPUSH Q8H [facility] Last Admin: 01/18/24 05:11 Dose: 40 mg Documented By: CHERYL Morphine Sulfate (Morphine Sulfate 2 Mg/Ml Cartridge) 2 mg IVPUSH Q3H PRN; Protocol PRN Reason: dyspnea or pain 4-10 Last Admin: 01/18/24 07:52 Dose: 2 mg Documented By: APPLE Multivitamins/Vitamin C (Multivitamin Tablet) 1 tab PO DAILY [facility] Last Admin: 01/14/24 09:00 Dose: Not Given Documented By: FLOYD Non-Admin Reason: drowsy Nitroglycerin (Nitroglycerin 0.4 Mg Tab.Subl) 0.4 mg SUBLINGUAL Q5M PRN PRN Reason: chest pain Olanzapine (Olanzapine 10 Mg Vial) 2.5 mg IM Q12H PRN PRN Reason: severe agitation Last Admin: 01/15/24 11:53 Dose: 2.5 mg Documented By: ANASTASIIA Olanzapine (Olanzapine 5 Mg Tablet) 5 mg PO BEDTIME [facility] Last Admin: 01/16/24 02:00 Dose: Not Given Documented By: PAUL Non-Admin Reason: not tolerating p.o Olanzapine (Olanzapine Odt 10 Mg Tab.Rapdis) 5 mg TRANSLINGU Q4H PRN PRN Reason: Agitation and psychosis Last Admin: 01/17/24 01:09 Dose: 5 mg Documented By: EVELINA Ondansetron HCl (Ondansetron Hcl 4 Mg/2 Ml Vial) 4 mg IVPUSH Q4H PRN PRN Reason: Nausea and Vomiting Pantoprazole Sodium (Pantoprazole Sodium 40 Mg/10 Ml Vial) 40 mg IVPUSH BID@0630,1630 [facility] Last Admin: 01/18/24 05:11 Dose: 40 mg Documented By: CHERYL Pharmacy Consult (Consult Rx Parenteral Nutrition Ordering) 1 each MISCELLANE DAILY [facility] Sodium Chloride (0.9 % Sodium Chloride Flush 3 Ml Syringe) 3 ml IVFLUSH QSHIFT [facility] Last Admin: 01/18/24 07:38 Dose: Not Given Documented By: APPLE Non-Admin Reason: IV Running Trazodone HCl (Trazodone Hcl 50 Mg Tablet) 150 mg PO BEDTIME PRN PRN Reason: Insomnia Last Admin: 01/13/24 20:10 Dose: 150 mg Documented By: KRISTAN Vitamin D (Cholecalciferol (Vitamin D3) 25 Mcg Tablet) 25 mcg PO DAILY [facility] Last Admin: 01/14/24 08:57 Dose: Not Given Documented By: FLOYD Non-Admin Reason: drowsy Labs 01/18/24 06:24 01/18/24 06:24 Labs: Laboratory Results - last 24 hr 01/17/24 01/18/24 12:35 06:24 MCV 94.6 MCH 30.1 MCHC 31.8 RDW 15.0 Plt Count 163 MPV 11.5 Absolute Nucleated RBC 0.050 H Nucleated RBC % (auto) 0.3 H Anion Gap 17 Estim Creat Clear Calc 11.5 Estimated GFR 16 Random Glucose 248 H Calcium 7.8 L Phosphorus 4.4 Magnesium 2.6 Total Bilirubin 0.6 AST 56 H ALT 65 H Alkaline Phosphatase 53 C-Reactive Protein 13.85 H B-Natriuretic Peptide 169 H Total Protein 5.8 L Albumin 3.0 L Procalcitonin 2.50 Influenza Type A (PCR) NEGATIVE Influenza Type B (PCR) NEGATIVE RSV RNA Qual (PCR) NEGATIVE SARS-CoV-2 RNA (RT-PCR) NEGATIVE Microbiology Microbiology Results: Microbiology 01/16/24 21:04 Blood Culture - Preliminary Blood - Venous No growth after 24 hours. 01/16/24 21:04 Blood Culture - Preliminary Blood - Venous No growth after 24 hours. 01/12/24 15:54 Blood Culture - Final Blood - Venous No growth after 5 days. 01/16/24 10:07 Urine Culture - Final Urine Catheterized - Leung Catheter No growth. Assessment and Plan (1) Pneumonia: Status: Acute Plan 78M PMH CAD s/p PCI, PAD s/p femoral endarterectomy and multiple stents, COPD not on home O2, prediabetes, prostate CA s/p XRT, CKD3, and bipolar disease who came in after a mechanical fall. No acute traumatic injury but while awaiting STR placement, he became hypoxic and was found to have multifocal pneumonia, bacteremia. acute hypoxic respiratory failure due to multifocal pneumonia and COPD exacerbation, concern for ARDS 01/11-01/14 ceftriaxone, 01/11-01/12 doxycycline, 01/12-01/16 vancomycin 01/16- linezolid, 01/14- piperacillin-tazobactam BCx from 01/11 grew Strep viridans which is a contaminant, urinary antigens for Legionella and pneumococcus negative, MRSA swab positive due to fever of 101.1 on 01/15, BCx re-sent - so far negative, RSV/flu/Covid negative 01/17/24 [RPP 01/11 was negative] continue HFNC. Consulted Pulmonology, Cardiology, and Critical Care. Doubt CHF. Furosemide discontinued. Pt made DNR/DNI/no NIPPV but continue all other treatments on methylprednisolone 40mg q8h + nebs KEVIN/CKD3 suspected ATN from pneumonia vs. vancomycin toxicity. doubt cardiorenal. Nephrology consulted. vancomycin discontinued and switched to linezolid. encephalopathy due to acute infection and toxic-metabolic CT head unrevealing, labs reviewed; repleting free water via IV Family concerned re: medication withdrawal. He did get escitalopram, imipramine, and 1 of 2 doses of bupropion on 01/12. Discussed with pt's psychiatrist Juhi Peck on 01/13. 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 Once taking POs safely, resume bupropion and citalopram [the imipramine is actually prescribed for nocturia by his urologist, not for psychiatric reasons]. Pt did not tolerate taking these yesterday nor today. olanzapine at hs in attempt to re-establish normal sleep-wake cycle; prn olanzapine rather than lorazepam if he has breakthrough agitation [he's had paradoxical agitation with lorazepam in past] hyperNa, acute continue D5W, monitor bmp, sodium improving hx dysphagia + esophageal stricture WILDLIFE BIOLOGY TECHNICIAN following, cannot do MBSS due to agitation. NPO for now. starting PPN, obtain PICC then change to TPN. GI consulted, not stable for EGD at this point HTN urgency improved atenolol + amlodipine on hold CAD PAD ASA + clopidogrel, ezetimibe, atorvastatin all on hold while npo bipolar disease bupropion + citalopram on hold nocturia imipramine on hold VTE prophylaxis UFH dispo STR eventually reason for continued hospitalization: IV ABX, hypoxia, delirium Total time managing care of this patient today: 55 minutes. Quality Stroke Does the patient have a stroke diagnosis?: No VTE Prior VTE?: No VTE Risk Level:: Medical - moderate - high VTE Device Contraindication: N/A - Device Ordered VTE Drug Contraindication: N/A - Med Ordered
--- NOTE | 2024-01-18 10:34 | MHC.CLN ---
RE: CONSULT TO START PPN PT IS NPO REVIEWED LABS DISCUSSED WITH PHARMACY RECOMMEND PPN AT 40ML/HR TO PROVIDE 490KCALS, 41G PROTEIN, 96G DEXTROSE REPLETE LYTES NEEDED PT TO HAVE PICC LINE PLACED-WILL TRANSITION TO TPN WHEN COMPLETED
[2024-01-18] MEDS: Dextrose 5 % 1,000 ML 70 ML IVCONT (11:58)
--- NOTE | 2024-01-18 12:52 | MHC.SL.SWA ---
Speech Pathologist Impression: Risk of Aspiration, Oropharyngeal Dysphagia Risk of Aspiration Due to: Medically Fragile Neurological Condition History of Pneumonia Poor PO Intake Reduced Cognition Weak Cough Dysphasia Diet Status: Continue NPO STRICT Liquid Consistency and Strategies for Safe Swallow: Liquid Intake Recommendation: NPO Solid Food Consistency: Dietary Recommendations: NPO Additional Modifications to Solid Foods: Patient with weak, ineffective, wet cough after swallowing trace amounts of thin and honey thick consistencies by spoon. Patient spitting up blood tinged secretions, noted to desat after intake. Recommend NPO strict at this time d/t worsening chest imaging and overt s/s of aspiration with trace PO. Continue frequent oral care for hygiene and comfort, elevate HoB. Per MD: starting PPN, obtain PICC then change to TPN. Oral Medication Intake: NPO Please contact the pharmacy regarding appropriate crushable or liquid drug formulations that are available whenever modified delivery is recommended. Supervision While Eating and Drinking for Safe Swallow: PO with AUTO CUSTOMIZE PAINTER Swallowing Recommended Treatments: Compens. Strategy Educat. Recommendation for Speech: Inpatient Speech Therapy Comment: Frequency/Duration: Daily Date Range for Service Req: Admission Timeline to reassess: PRN Negotiator Clinican/Clinical Fellow: No Supervisory Statement: I have reviewed and agree with the student/clinical fellow's documentation: N/A Speech Language Pathologist: Darshana Salvador M.A., CCC-AUTO CUSTOMIZE PAINTER
[2024-01-18] MEDS: Parenteral Nutrition 960 ML 40 ML IV (21:24)
[2024-01-18] MEDS: 0.9 % Sodium Chloride Flush 3 ML SYRINGE IVFLUSH (21:48)
[2024-01-19] VITALS (15 sets, daily range): BP systolic 144–190; BP diastolic 64–76; PULSE 60–991; RESP 16–24; TEMP 36.1–37.3; O2SAT 88–97
[2024-01-19] MEDS: Dextrose 5 % 1,000 ML 70 ML IVCONT (05:18)
[2024-01-19] MEDS: Artificial Tears 15 ML DROPS 2 DROP EYE-BOTH ×3 (05:29→21:38)
[2024-01-19] MEDS: methylPREDNISolone Sod Succ 40 MG/ML VIAL IVPUSH ×2 (05:41→11:07)
[2024-01-19] MEDS: Pantoprazole Sodium 40 MG/10 ML VIAL IVPUSH ×2 (05:41→15:49)
[2024-01-19] MEDS: Labetalol HCL 100 MG/20 ML VIAL 10 MG IVPUSH (07:49)
[2024-01-19] MEDS: Piperacillin Sodium/Tazobactam 4.5 GM in 0.9 % Sodium Chloride 100 ML IV ×2 (07:50→21:38)
[2024-01-19] MEDS: Linezolid/D5W 600 MG/300 ML PIGGYBACK 300 MG IV ×2 (08:33→21:38)
[2024-01-19 09:16] LABS: Hematocrit 25.3 % (42.0-52.0); Hemoglobin 8.2 g/dl (14.0-18.0); Mean Corpuscular HGB Conc 32.4 g/dl (31.0-36.0); Mean Corpuscular Hemoglobin 30.6 pg (27.0-33.0); Mean Corpuscular Volume 94.4 fL (80.0-98.0); Mean Platelet Volume 11.7 fL (9.4-12.4); NRBC Pct Auto 0.3 /100WBC (0.0-0.2); Platelet Count 154 X10*3/uL (160-400); Red Blood Count 2.68 X10*6/uL (4.60-5.80); Red Cell Distribution Width 14.9 % (11.0-16.0); White Blood Count 15.6 X10*3/uL (4.8-10.8)
--- NOTE | 2024-01-19 09:52 | MHC.CLN ---
F/U PT TO REMAIN NPO PER SPOOLING MACHINE OPERATOR LABS AND PICC LINE PENDING DISCUSSED WITH PHARMACY; REQUESTED TRIG LEVEL RECOMMEND PPN INCREASE TO 60ML/HR TO PROVIDE 734KCALS, 61G PROTEIN, 144G DEXTROSE REPLETE LYTES NEEDED
[2024-01-19 10:10] LABS: Anion Gap 18 (12-20); Blood Urea Nitrogen 97 mg/dL (9-16); Calcium 7.8 mg/dL (8.4-10.2); Carbon Dioxide 18 mmol/L (22-29); Chloride 110 mmol/L (96-108); Creatinine Clr Calc Pharmacy 13.5; Estimated Glomerular Filt Rate 20; Glucose Fasting 370 mg/dL (60-99); Potassium 3.1 mmol/L (3.3-5.1); Sodium 143 mmol/L (135-145)
--- NOTE | 2024-01-19 10:18 | HO.PM.IMPN ---
Subjective Subjective Date of Service: 01/19/24 Interval History: much more alert today Physical Exam Vital Signs: Vital Signs: Last Vital Signs Temp 98.4 F 01/19/24 07:06 Pulse 68 01/19/24 09:19 Resp 20 01/19/24 07:28 BP 180/76 H 01/19/24 09:58 Pulse Ox 92 01/19/24 09:19 O2 Del Method High Flow Nasal C annula 01/19/24 07:06 O2 Flow Rate 50 01/19/24 07:06 FiO2 65 01/19/24 07:06 BMI result Body Mass Index 22.3 Gen: alert oriented dtimes 3, ill-appearing but in no resp distress and denies pain HEENT: sclera anicteric, moist mucus membranes Neck: supple Lungs: inspiratory crackles at bases Heart: regular rate and rhythm, no murmurs Abd: soft, non-tender, non-distended Ext: no edema Skin: warm/well-perfused Objective Data Active Medications Acetaminophen (Acetaminophen 325 Mg Tablet) 650 mg PO Q6H PRN PRN Reason: Pain, Mild (Pain Scale 1-3), fever or headache Last Admin: 01/14/24 21:16 Dose: 650 mg Documented By: CARRILLO Albuterol/Ipratropium (Albuterol/Iprat 2.5/0.5mg 3 Ml Ampul.Neb) 3 ml INHALE RQ4H WHILE AWAKE PRN PRN Reason: shortness of breath or wheez Amlodipine Besylate (Amlodipine Besylate 5 Mg Tablet) 5 mg PO DAILY [facility]; Protocol Last Admin: 01/14/24 08:57 Dose: Not Given Documented By: FLOYD Non-Admin Reason: drowsy Artificial Tears (Artificial Tears 15 Ml Drops) 2 drop EYE-BOTH Q8H [facility] Last Admin: 01/19/24 05:29 Dose: 2 drop Documented By: CARRILLO Ascorbic Acid (Ascorbic Acid 250 Mg Tablet) 250 mg PO DAILY [facility] Last Admin: 01/14/24 08:57 Dose: Not Given Documented By: FOLYD Non-Admin Reason: drowsy Aspirin (Aspirin Enteric Coated 81 Mg Tablet.Dr) 81 mg PO DAILY [facility] Last Admin: 01/16/24 08:36 Dose: Not Given Documented By: JAMIE Non-Admin Reason: pt unable to take PO meds Atenolol (Atenolol 25 Mg Tablet) 25 mg PO DAILY [facility]; Protocol Last Admin: 01/16/24 08:36 Dose: Not Given Documented By: JAMIE Non-Admin Reason: pt unable to take PO meds Atorvastatin Calcium (Atorvastatin Calcium 80 Mg Tablet) 80 mg PO DAILY [facility] Last Admin: 01/16/24 08:37 Dose: Not Given Documented By: JAMIE Non-Admin Reason: pt unable to take PO meds Bupropion HCl (Bupropion Hcl 100 Mg Tablet) 100 mg PO BID [facility] Last Admin: 01/16/24 20:37 Dose: Not Given Documented By: EVELINA Non-Admin Reason: NPO Clopidogrel Bisulfate (Clopidogrel Bisulfate 75 Mg Tablet) 75 mg PO DAILY [facility] Last Admin: 01/19/24 07:59 Dose: Not Given Documented By: APPLE Non-Admin Reason: NPO Cyanocobalamin (Cyanocobalamin (Vitamin B-12) 1,000 Mcg Tablet) 1,000 mcg PO DAILY [facility] Last Admin: 01/16/24 08:38 Dose: Not Given Documented By: JAMIE Non-Admin Reason: Pt unabel to take PO meds Ezetimibe (Ezetimibe 10 Mg Tablet) 10 mg PO DAILY [facility] Last Admin: 01/14/24 08:59 Dose: Not Given Documented By: FLOYD Non-Admin Reason: drowsy Escitalopram Oxalate (Escitalopram Oxalate 5 Mg Tablet) 7.5 mg PO DAILY [facility] Last Admin: 01/16/24 08:38 Dose: Not Given Documented By: JAMIE Non-Admin Reason: Pt unable to take PO meds Folic Acid (Folic Acid 1 Mg Tablet) 1 mg PO DAILY [facility] Last Admin: 01/19/24 07:59 Dose: Not Given Documented By: APPLE Non-Admin Reason: NPO Furosemide (Furosemide 20 Mg Tablet) 20 mg PO DAILY [facility]; Protocol Last Admin: 01/14/24 08:59 Dose: Not Given Documented By: FLOYD Non-Admin Reason: drowsy Heparin Sodium (Porcine) (Heparin Sodium,Porcine 5,000 Unit/Ml Vial) 5,000 unit SUBCUT Q12H [facility] Last Admin: 01/18/24 23:57 Dose: 5,000 unit Documented By: CARRILLO Linezolid (Zyvox/D5w) 600 mg in 300 mls @ 300 mls/hr IV Q12H [facility] Last Infusion: 01/19/24 09:33 Dose: Infused Documented By: APPLE Piperacillin Sod/Tazobactam (Sod 4.5 gm/ Sodium Chloride) 100 mls @ 200 mls/hr IV Q12H [facility] Last Infusion: 01/19/24 08:20 Dose: Infused Documented By: APPLE Nutrition (Parenteral) (Parenteral Nutrition) 960 mls @ 40 mls/hr IV .Q24H [facility]; Protocol Stop: 01/19/24 20:59 Last Admin: 01/18/24 21:24 Dose: 40 mls/hr Documented By: CARRILLO Imipramine HCl (Imipramine Hcl 10 Mg Tablet) 10 mg PO BID [facility] Last Admin: 01/16/24 20:37 Dose: Not Given Documented By: EVELINA Non-Admin Reason: NPO Methylprednisolone Sodium Succinate (Methylprednisolone Sod Succ 40 Mg/Ml Vial) 40 mg IVPUSH Q8H [facility] Last Admin: 01/19/24 05:41 Dose: 40 mg Documented By: CARRILLO Morphine Sulfate (Morphine Sulfate 2 Mg/Ml Cartridge) 2 mg IVPUSH Q3H PRN; Protocol PRN Reason: dyspnea or pain 4-10 Last Admin: 01/18/24 07:52 Dose: 2 mg Documented By: APPLE Multivitamins/Vitamin C (Multivitamin Tablet) 1 tab PO DAILY [facility] Last Admin: 01/14/24 09:00 Dose: Not Given Documented By: FLOYD Non-Admin Reason: drowsy Nitroglycerin (Nitroglycerin 0.4 Mg Tab.Subl) 0.4 mg SUBLINGUAL Q5M PRN PRN Reason: chest pain Olanzapine (Olanzapine 10 Mg Vial) 2.5 mg IM Q12H PRN PRN Reason: severe agitation Last Admin: 01/15/24 11:53 Dose: 2.5 mg Documented By: ANASTASIIA Olanzapine (Olanzapine 5 Mg Tablet) 5 mg PO BEDTIME [facility] Last Admin: 01/16/24 02:00 Dose: Not Given Documented By: PAUL Non-Admin Reason: not tolerating p.o Olanzapine (Olanzapine Odt 10 Mg Tab.Rapdis) 5 mg TRANSLINGU Q4H PRN PRN Reason: Agitation and psychosis Last Admin: 01/17/24 01:09 Dose: 5 mg Documented By: EVELINA Ondansetron HCl (Ondansetron Hcl 4 Mg/2 Ml Vial) 4 mg IVPUSH Q4H PRN PRN Reason: Nausea and Vomiting Pantoprazole Sodium (Pantoprazole Sodium 40 Mg/10 Ml Vial) 40 mg IVPUSH BID@0630,1630 [facility] Last Admin: 01/19/24 05:41 Dose: 40 mg Documented By: CARRILLO Pharmacy Consult (Consult Rx Parenteral Nutrition Ordering) 1 each MISCELLANE DAILY [facility] Sodium Chloride (0.9 % Sodium Chloride Flush 3 Ml Syringe) 3 ml IVFLUSH QSHIFT [facility] Last Admin: 01/19/24 07:49 Dose: Not Given Documented By: APPLE Non-Admin Reason: IV Running Trazodone HCl (Trazodone Hcl 50 Mg Tablet) 150 mg PO BEDTIME PRN PRN Reason: Insomnia Last Admin: 01/13/24 20:10 Dose: 150 mg Documented By: KRISTAN Vitamin D (Cholecalciferol (Vitamin D3) 25 Mcg Tablet) 25 mcg PO DAILY [facility] Last Admin: 01/14/24 08:57 Dose: Not Given Documented By: FLOYD Non-Admin Reason: drowsy Labs 01/19/24 09:08 01/19/24 09:08 Labs: Laboratory Results - last 24 hr 01/19/24 09:08 MCV 94.4 MCH 30.6 MCHC 32.4 RDW 14.9 Plt Count 154 L MPV 11.7 Absolute Nucleated RBC 0.040 H Nucleated RBC % (auto) 0.3 H Anion Gap 18 Estim Creat Clear Calc 13.5 Estimated GFR 20 Fasting Glucose 370 H* Calcium 7.8 L Microbiology Microbiology Results: Microbiology 01/16/24 21:04 Blood Culture - Preliminary Blood - Venous No growth after 48 hours. 01/16/24 21:04 Blood Culture - Preliminary Blood - Venous No growth after 48 hours. Assessment and Plan (1) Pneumonia: Status: Acute Plan 78M PMH CAD s/p PCI, PAD s/p femoral endarterectomy and multiple stents, COPD not on home O2, prediabetes, prostate CA s/p XRT, CKD3, and bipolar disease who came in after a mechanical fall. No acute traumatic injury but while awaiting STR placement, he became hypoxic and was found to have multifocal pneumonia, bacteremia. acute hypoxic respiratory failure due to multifocal pneumonia and COPD exacerbation, concern for ARDS 01/11-01/14 ceftriaxone, 01/11-01/12 doxycycline, 01/12-01/16 vancomycin 01/16- linezolid, 01/14- piperacillin-tazobactam BCx from 01/11 grew Strep viridans which is likely a contaminant, urinary antigens for Legionella and pneumococcus negative, MRSA swab positive due to fever of 101.1 on 01/15, BCx re-sent - so far negative, RSV/flu/Covid negative 01/17/24 [RPP 01/11 was negative] continue to wean HFNC. Consulted Pulmonology, Cardiology, and Critical Care. Doubt CHF. Furosemide discontinued. Pt made DNR/DNI/no NIPPV but continue all other treatments on methylprednisolone 40mg q8h - will decrease to daily + nebs KEVIN/CKD3 suspected ATN from pneumonia vs. vancomycin toxicity. doubt cardiorenal. Nephrology consulted (rtane). vancomycin discontinued and switched to linezolid. hyperglycemia check a1c, insulin encephalopathy due to acute infection and toxic-metabolic CT head unrevealing, labs reviewed; repleting free water via IV Family concerned re: medication withdrawal. He did get escitalopram, imipramine, and 1 of 2 doses of bupropion on 01/12. Discussed with pt's psychiatrist Juhi Peck on 01/13. 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 Once taking POs safely, resume bupropion and citalopram [the imipramine is actually prescribed for nocturia by his urologist, not for psychiatric reasons]. Pt did not tolerate taking these yesterday nor today. olanzapine at hs in attempt to re-establish normal sleep-wake cycle; prn olanzapine rather than lorazepam if he has breakthrough agitation [he's had paradoxical agitation with lorazepam in past] hyperNa, acute resolved, monitor bmp hx dysphagia + esophageal stricture FURNACE SETTER following, cannot do MBSS due to agitation. NPO for now. starting PPN, obtain PICC then change to TPN. GI consulted, not stable for EGD at this point HTN urgency atenolol + amlodipine on hold while npo CAD PAD ASA + clopidogrel, ezetimibe, atorvastatin all on hold while npo bipolar disease bupropion + citalopram on hold nocturia imipramine on hold VTE prophylaxis UFH dispo STR eventually reason for continued hospitalization: IV ABX, hypoxia Total time managing care of this patient today: 55 minutes. Quality Stroke Does the patient have a stroke diagnosis?: No VTE Prior VTE?: No VTE Risk Level:: Medical - moderate - high VTE Device Contraindication: N/A - Device Ordered VTE Drug Contraindication: N/A - Med Ordered
[2024-01-19 10:34] LABS: Estimated Average Glucose 120 mg/dL; Hemoglobin A1C 86.5932 umol/L; Hemoglobin A1c % 5.8 % (<6.0); Total Hemoglobin (HGBA1C) 2143.4479 umol/L
[2024-01-19 10:50] LABS: Albumin Level 2.8 g/dL (3.5-5.0); Magnesium 2.7 mg/dL (1.6-2.6); Phosphorus 3.1 mg/dL (2.7-4.5)
[2024-01-19 10:54] LABS: Glucose, Whole Blood 363 mg/dL (60-115)
[2024-01-19] MEDS: Insulin Lispro 100 UNIT/ML 3 ML VIAL SUBCUT ×3 (11:07→21:59)
--- NOTE | 2024-01-19 11:29 | MHC.SLORD ---
Speech Language Pathology Order Status: MBSS on hold given Pt's O2 requirements (55L Hi-Flow NC). MATHEMATICS ACADEMIC CHAIR consulted with RT and MD, plan is to continue with plan for PICC line to receive TPN and monitor appropriateness for instrumental swallow evaluation in the coming days. MATHEMATICS ACADEMIC CHAIR continuing to follow closely.
[2024-01-19] MEDS: Heparin Sodium,Porcine 5,000 UNIT/ML VIAL 5000 UNIT SUBCUT ×2 (13:10→23:29)
[2024-01-19] MEDS: Morphine Sulfate 2 MG/ML CARTRIDGE IVPUSH ×3 (13:13→23:28)
--- NOTE | 2024-01-19 13:27 | P.CNID_ITS ---
History of Present Illness Data of Consult Service Date: 01/18/24 Primary Care Provider: MD JACKY Dalal Reason for consult: lung infiltrates He presents with shortness of breath as well as dry cough and is on high flow oxygen. There was concern over weakness and falling. Chest CT shows left lower and right lower and right middle lung infiltrates and MANISH only clear. Blood cultures are negative. Review of Systems 2 Review of Systems: Yes Unobtainable due to mental condition PMFSH Past Medical History Medical History ARDS (adult respiratory distress syndrome) Urinary urgency Prostate cancer Pre-op examination GERD (gastroesophageal reflux disease) CAD (coronary artery disease) Presence of stent in artery Lumbar vertebral fracture Hip pain, right Urinary frequency Dermatitis Non-toxic multinodular goiter Tinea corporis T12 compression fracture Peripheral vascular disease Hypercholesterolemia Thyroid nodule Vitamin B12 deficiency Chronic kidney disease (CKD) stage G3b/A1, moderately decreased glomerular filtration rate (GFR) between 30-44 mL/min/1.73 square meter and albuminuria creatinine ratio less than 30 mg/g Obstructive sleep apnea Dementia in Alzheimer's disease Bipolar disorder COPD (chronic obstructive pulmonary disease) Coronary artery disease Metacarpal bone fracture Impaired fasting glucose Osteoporosis DDD (degenerative disc disease), lumbar Family History Family History Father Thyroid cancer Mother Colon cancer Daughter Primary squamous cell carcinoma of throat Family history: reviewed and not pertinent Surgical History Surgical History History of vascular surgery History of heart artery stent History of esophagogastroduodenoscopy (EGD) H/O colonoscopy S/P fine needle aspiration H/O kyphoplasty History of esophageal dilatation History of cataract surgery History of orthopedic surgery History of angioplasty History of appendectomy Social History Social History Household Members: Children Household Members Other:: Daughter Housing: House Do you presently have visiting nurse or other home services: No Alcohol intake: former Comment: 1:1 Patient Tobacco Use Status: Former Tobacco user Tobacco use type: Cigarette Smoked in Last 30 Days: No e-Cigarette/Vaping Use: Never Used Second Hand Smoke Exposure: No Use of substances other than those prescribed or required for medical reasons: No Currently Displaying Signs/Symptoms of Drug Intoxication Withdrawal: No Advance Directives: No Advance Directives Information Provided: No Do you have a plan to hurt others: No Plan Nutrition Risks: Difficulty swallowing and On aspiration precautions service: No Current occupational status: disabled Current occupational exposures/hazards: No Cognitive needs: Yes (wheelchair, walker) Hearing needs: Yes (hearing aide) Vision needs: No Meds Allergies Allergy/AdvReac Type Severity Reaction Status Date / Time lorazepam AdvReac Severe agitation Uncoded 01/14/24 11:04 Active Medications: Current Medications Acetaminophen (Acetaminophen 325 Mg Tablet) 650 mg PO Q6H PRN PRN Reason: Pain, Mild (Pain Scale 1-3), fever or headache Last Admin: 01/14/24 21:16 Dose: 650 mg Albuterol/Ipratropium (Albuterol/Iprat 2.5/0.5mg 3 Ml Ampul.Neb) 3 ml INHALE RQ4H WHILE AWAKE PRN PRN Reason: shortness of breath or wheez Amlodipine Besylate (Amlodipine Besylate 5 Mg Tablet) 5 mg PO DAILY [facility]; Protocol Last Admin: 01/14/24 08:57 Dose: Not Given Artificial Tears (Artificial Tears 15 Ml Drops) 2 drop EYE-BOTH Q8H [facility] Last Admin: 01/19/24 13:14 Dose: 2 drop Ascorbic Acid (Ascorbic Acid 250 Mg Tablet) 250 mg PO DAILY [facility] Last Admin: 01/14/24 08:57 Dose: Not Given Aspirin (Aspirin Enteric Coated 81 Mg Tablet.Dr) 81 mg PO DAILY [facility] Last Admin: 01/16/24 08:36 Dose: Not Given Atenolol (Atenolol 25 Mg Tablet) 25 mg PO DAILY [facility]; Protocol Last Admin: 01/16/24 08:36 Dose: Not Given Atorvastatin Calcium (Atorvastatin Calcium 80 Mg Tablet) 80 mg PO DAILY [facility] Last Admin: 01/16/24 08:37 Dose: Not Given Bupropion HCl (Bupropion Hcl 100 Mg Tablet) 100 mg PO BID [facility] Last Admin: 01/16/24 20:37 Dose: Not Given Clopidogrel Bisulfate (Clopidogrel Bisulfate 75 Mg Tablet) 75 mg PO DAILY [facility] Last Admin: 01/19/24 07:59 Dose: Not Given Cyanocobalamin (Cyanocobalamin (Vitamin B-12) 1,000 Mcg Tablet) 1,000 mcg PO DAILY [facility] Last Admin: 01/16/24 08:38 Dose: Not Given Ezetimibe (Ezetimibe 10 Mg Tablet) 10 mg PO DAILY [facility] Last Admin: 01/14/24 08:59 Dose: Not Given Escitalopram Oxalate (Escitalopram Oxalate 5 Mg Tablet) 7.5 mg PO DAILY [facility] Last Admin: 01/16/24 08:38 Dose: Not Given Folic Acid (Folic Acid 1 Mg Tablet) 1 mg PO DAILY [facility] Last Admin: 01/19/24 07:59 Dose: Not Given Furosemide (Furosemide 20 Mg Tablet) 20 mg PO DAILY [facility]; Protocol Last Admin: 01/14/24 08:59 Dose: Not Given Glucose (Glucose Gel 15 Gm Gel..Gram.) 15 gm PO Q15M PRN; Protocol PRN Reason: per Hypoglycemia Standing Ord. Heparin Sodium (Porcine) (Heparin Sodium,Porcine 5,000 Unit/Ml Vial) 5,000 unit SUBCUT Q12H [facility] Last Admin: 01/19/24 13:10 Dose: 5,000 unit Linezolid (Zyvox/D5w) 600 mg in 300 mls @ 300 mls/hr IV Q12H [facility] Last Infusion: 01/19/24 09:33 Dose: Infused Piperacillin Sod/Tazobactam (Sod 4.5 gm/ Sodium Chloride) 100 mls @ 200 mls/hr IV Q12H [facility] Last Infusion: 01/19/24 08:20 Dose: Infused Nutrition (Parenteral) (Parenteral Nutrition) 960 mls @ 40 mls/hr IV .Q24H [facility]; Protocol Stop: 01/19/24 20:59 Last Admin: 01/18/24 21:24 Dose: 40 mls/hr Dextrose (D10) 250 mls @ 750 mls/hr IV Q15M PRN; Protocol PRN Reason: per Hypoglycemia Standing Ord. Nutrition (Parenteral) (Parenteral Nutrition) 1,440 mls @ 60 mls/hr IV .Q24H [facility]; Protocol Stop: 01/20/24 20:59 Imipramine HCl (Imipramine Hcl 10 Mg Tablet) 10 mg PO BID [facility] Last Admin: 01/16/24 20:37 Dose: Not Given Insulin Human Lispro (Insulin Lispro 100 Unit/Ml 3 Ml Vial) 0 unit SUBCUT Q6H [facility]; Protocol Last Admin: 01/19/24 11:07 Dose: 10 unit Methylprednisolone Sodium Succinate (Methylprednisolone Sod Succ 40 Mg/Ml Vial) 40 mg IVPUSH Q24H [facility] Last Admin: 01/19/24 11:07 Dose: 40 mg Morphine Sulfate (Morphine Sulfate 2 Mg/Ml Cartridge) 2 mg IVPUSH Q3H PRN; Protocol PRN Reason: dyspnea or pain 4-10 Last Admin: 01/19/24 13:13 Dose: 2 mg Multivitamins/Vitamin C (Multivitamin Tablet) 1 tab PO DAILY [facility] Last Admin: 01/14/24 09:00 Dose: Not Given Nitroglycerin (Nitroglycerin 0.4 Mg Tab.Subl) 0.4 mg SUBLINGUAL Q5M PRN PRN Reason: chest pain Olanzapine (Olanzapine 10 Mg Vial) 2.5 mg IM Q12H PRN PRN Reason: severe agitation Last Admin: 01/15/24 11:53 Dose: 2.5 mg Olanzapine (Olanzapine 5 Mg Tablet) 5 mg PO BEDTIME [facility] Last Admin: 01/16/24 02:00 Dose: Not Given Olanzapine (Olanzapine Odt 10 Mg Tab.Rapdis) 5 mg TRANSLINGU Q4H PRN PRN Reason: Agitation and psychosis Last Admin: 01/17/24 01:09 Dose: 5 mg Ondansetron HCl (Ondansetron Hcl 4 Mg/2 Ml Vial) 4 mg IVPUSH Q4H PRN PRN Reason: Nausea and Vomiting Pantoprazole Sodium (Pantoprazole Sodium 40 Mg/10 Ml Vial) 40 mg IVPUSH BID@0630,1630 [facility] Last Admin: 01/19/24 05:41 Dose: 40 mg Pharmacy Consult (Consult Rx Parenteral Nutrition Ordering) 1 each MISCELLANE DAILY [facility] Sodium Chloride (0.9 % Sodium Chloride Flush 3 Ml Syringe) 3 ml IVFLUSH QSHIFT [facility] Last Admin: 01/19/24 07:49 Dose: Not Given Trazodone HCl (Trazodone Hcl 50 Mg Tablet) 150 mg PO BEDTIME PRN PRN Reason: Insomnia Last Admin: 01/13/24 20:10 Dose: 150 mg Vitamin D (Cholecalciferol (Vitamin D3) 25 Mcg Tablet) 25 mcg PO DAILY [facility] Last Admin: 01/14/24 08:57 Dose: Not Given Home Medications ?Medication ?Instructions ?Recorded ?Confirmed ?Last Taken ?Type cyanocobalamin (vitamin B-12) 1,000 mcg PO DAILY 03/22/20 01/12/24 01/11/24 History 1,000 mcg capsule trazodone 150 mg tablet 150 mg PO BEDTIME PRN Insomnia 03/22/20 01/12/24 Unknown History vitamin B complex 1 tab PO DAILY 03/22/20 01/12/24 01/11/24 History bupropion HCl 200 mg tablet,12 hr 200 mg PO DAILY 02/11/22 01/12/24 01/11/24 History sustained-release citalopram 10 mg tablet 15 mg PO DAILY 08/19/22 01/12/24 01/11/24 History ascorbic acid (vitamin C) 250 mg 250 mg PO DAILY 03/26/23 01/12/24 01/11/24 History tablet (Vitamin C) clopidogrel 75 mg tablet 75 mg PO DAILY 09/25/23 01/12/24 01/11/24 History denosumab 60 mg/mL subcutaneous 60 mg subcut [id number] 01/08/24 01/12/24 07/24/23 History syringe (Prolia) budesonide-formoterol HFA 160 2 puff inhalation BID 01/12/24 01/12/24 01/11/24 History mcg-4.5 mcg/actuation aerosol inhaler (Breyna) Physical Exam 2 Vital Signs: Vital Signs: Last Vital Signs Temp 99.1 F 01/19/24 11:09 Pulse 71 01/19/24 11:09 Resp 20 01/19/24 11:10 BP 170/64 H 01/19/24 11:09 Pulse Ox 92 01/19/24 11:09 O2 Del Method High Flow Nasal C annula 01/19/24 11:09 O2 Flow Rate 50 01/19/24 11:09 FiO2 77 01/19/24 11:09 BMI result Body Mass Index 22.3 Const: General: cooperative HEENT: Head: Yes normal to inspection Face and sinus: Yes normal facial exam Mouth: Normal oral and palatal mucosa present Teeth and gingiva: d entition normal Eyes: General: appearance normal, both eyes and all related structures P upils: Equal, round and reactive pupils present Resp: Other: high flow rhonchi bases Cardio: Rate: regular rate Rhythm: regular rhythm GI: Palpation (GI): Soft to palpation and nontender : General: Yes no CVA tenderness Back/Spine/Pelvis: Back: no CVA tenderness Skin: General skin exam: no rashes or lesions noted Neuro: General: moves all extremities Cranial nerves: Yes Equal, round and reactive pupils present Extrem: General: Yes normal to inspection Psych: Appearance: grossly normal Results Labs 01/19/24 09:08 01/19/24 09:08 Labs: Short CBC 01/19/24 Range/Units 09:08 WBC 15.6 H (4.8-10.8) X10*3/uL Hgb 8.2 L (14.0-18.0) g/dl Hct 25.3 L (42.0-52.0) % Plt Count 154 L (160-400) X10*3/uL BMP 01/19/24 09:08 Sodium 143 Potassium 3.1 L Chloride 110 H Carbon Dioxide 18 L BUN 97 H Creatinine 3.08 H Calcium 7.8 L Liver Function 01/19/24 Range/Units 09:08 Albumin 2.8 L (3.5-5.0) g/dL Microbiology Microbiology Results: Microbiology 01/16/24 21:04 Blood - Venous Blood Culture - Preliminary No growth after 48 hours. 01/16/24 21:04 Blood - Venous Blood Culture - Preliminary No growth after 48 hours. 01/12/24 15:54 Blood - Venous Blood Culture - Final No growth after 5 days. 01/16/24 10:07 Urine Catheterized - Leung Catheter Urine Culture - Final No growth. 01/12/24 15:54 Blood - Venous Blood Culture - Final Streptococcus viridans group Assessment and Plan (1) ARDS (adult respiratory distress syndrome): Status: Acute (2) Delirium: Status: Acute Plan There is concern over CHF,atypical pneumonia.aspiration pneumonia. He is currently on linezolid and zosyn Consider add Doxycycline IV if still symptomatic tomorrow.
[2024-01-19] MEDS: 0.9 % Sodium Chloride Flush 3 ML SYRINGE IVFLUSH ×2 (15:49→23:29)
--- NOTE | 2024-01-19 15:56 | P.PICC_ITS ---
PICC Line Insertion NPICC Diagnosis: pneumonia, sepsis, dysphasia Indication: TPN and antibiotics Pertinent Labs: Reviewed Technique: Following informed consent including risks, benefits and alternatives and using sterile technique including cap and mask, sterile gown, glove and drape, the right arm was prepped and draped in the usual sterile fashion of full barrier technique with [facility]. Following completion of [place] Protocol the skin and soft tissues were anesthetized with 1% Lidocaine plain. Using ultrasound guidance, The right basilic vein access was obtained in a single attempt by this RN. Over an 0.018 wire through peel-away sheath, a 5 [place] triple lumen PASV PICC line was positioned. Catheter length is 43 cm internal length, the ext ernal length is a the external 0 colt, for a total trimmed length of 43 cm. The procedure was performed in S272. Tip verification was performed by Heather Moffett with Sherlock 3CG. Tip located in SVC. Ultrasound was used to document vein patency and for needle entry. A formal ultrasound picture and cardiac rhythm strip was recorded. V[employer] Stretcher has released the line for use and it is currently dressed with a StatLock, Tegaderm, and CHG disc. Verification has been performed for blood return and line patency. Arm Circumference: 25 cm Equipment: Auramist PowerPICC Solo HF Catheter with Sherlock 3CG Tip Positioning System (TPS) Stylet Catheter Type: 5 [place]itan triple lumen PASV PICC Lot #: [id number]
[2024-01-19 16:09] LABS: Glucose, Whole Blood 235 mg/dL (60-115)
[2024-01-19] MEDS: Parenteral Nutrition 1,440 ML 60 ML IV (21:39)
[2024-01-19 21:40] LABS: Glucose, Whole Blood 186 mg/dL (60-115)
[2024-01-20] VITALS: BP 132/60; PULSE 83; RESP 20; TEMP 36.5; O2SAT 93
[2024-01-20 04:00] VITALS: BP 142/62; PULSE 83; RESP 20; TEMP 36.4; O2SAT 91
[2024-01-20 05:02] LABS: Glucose, Whole Blood 230 mg/dL (60-115)
[2024-01-20 05:05] VITALS: O2SAT 29
[2024-01-20 05:07] LABS: ABG Base Excess -12.3 mmol/L; ABG HCO3 17 mmol/L (22-26); ABG pCO2 56 mmHg (32-45); ABG pH 7.08 (7.35-7.45); ABG pO2 35 mmHg (83-108)
[2024-01-20 06:05] VITALS: O2SAT 29
--- NOTE | 2024-01-20 06:12 | P.EN_ITS ---
Event Note Date of Service: 01/20/24 Event Note: Note Asked to confirm of Mr. Jorge Luis Giles by supervisor respiratory, Betty. Patient in bed with eyes closed with no spontaneous respiratory effort. No palpable carotid pulse, no heart or respiratory sounds, pupils fixed and dilated pupils, no corneal reflex. confirmed at 01/20/2024 at 5:23 AM. Time Spent With Patient Time: Total time managing care of this patient today ____ minutes.
--- NOTE | 2024-01-20 06:17 | PM.EVENT ---
Event Note Date of Service: 01/20/24 Event Note: 4:37 am - contacted by REAGAN Alanis to notify patient's O2 sat dropped to 11%, change in his mental status and breathing labored. RT placed him on high flow and NRB mask. On my evaluation, patient was unresponsive/comatose state with eyes open (no spontaneous blinking noted and no corneal reflex) and having agonal breathing. ABGs stat showed pH of 7.08, CO2 56 and PO2 of 35. Patient is DNR/DNI with poor prognosis. I contacted his daughter Danny Guidry and informed Mr. Giles is actively dying. I informed her he has developed worsening respiratory failure due to multifocal PNA + ARDS, he also has multiple underlying chronic advance medical problems and has multiorgan failure. She came to the hospital to see him and say goodbye. My condolences to the family. Time Spent With Patient Time: Total time managing care of this patient today ____ minutes.
--- NOTE | 2024-01-20 06:20 | PC.NURSE ---
Patient desat into the 70's and then 02 dropped into to 11 on high flow. BP and HR was within normal level. Patient breathing as labored and using his accessory muscles to breath. Skin was pale, and cold to touch. MD notified, RT come. Patients 02 eventual and HR dropped. Patient .
--- NOTE | 2024-01-20 07:48 | PM.CNNEP ---
History of Present Illness Reason for Consult Consult date: 01/20/24 Chief Complaint Chief complaint: pneumonia History of Present Illness Narrative: 78yo M with pmh of stage 3 CKD on backdrop of HTN, CAD s/p PCI, PAD s/p femoral endarterectomy and multiple stents, COPD not on home O2, prediabetes, prostate CA s/p XRT, and bipolar disease. Initially seen for fall in ER- he became hypoxic and was placed on 2L O2 via NC. CTA was done, which was negative for PE but showed bilateral lower and right middle lobe consolidation. He has a chronic cough recently productive of some clear sputum. No dyspnea. No chest pain. No fever. history of dysphagia- s/p balloon dilation for esophageal stricture- he is pending a swallow eval when admitted. nephrology consulted for kevin His primary truck switcher is Dr.Slater GORDON Past Medical History Medical History ARDS (adult respiratory distress syndrome) Urinary urgency Prostate cancer Pre-op examination GERD (gastroesophageal reflux disease) CAD (coronary artery disease) Presence of stent in artery Lumbar vertebral fracture Hip pain, right Urinary frequency Dermatitis Non-toxic multinodular goiter Tinea corporis T12 compression fracture Peripheral vascular disease Hypercholesterolemia Thyroid nodule Vitamin B12 deficiency Chronic kidney disease (CKD) stage G3b/A1, moderately decreased glomerular filtration rate (GFR) between 30-44 mL/min/1.73 square meter and albuminuria creatinine ratio less than 30 mg/g Obstructive sleep apnea Dementia in Alzheimer's disease Bipolar disorder COPD (chronic obstructive pulmonary disease) Coronary artery disease Metacarpal bone fracture Impaired fasting glucose Osteoporosis DDD (degenerative disc disease), lumbar Family History Family History Father Thyroid cancer Mother Colon cancer Daughter Primary squamous cell carcinoma of throat Family history: reviewed and not pertinent Surgical History Surgical History History of vascular surgery History of heart artery stent History of esophagogastroduodenoscopy (EGD) H/O colonoscopy S/P fine needle aspiration H/O kyphoplasty History of esophageal dilatation History of cataract surgery History of orthopedic surgery History of angioplasty History of appendectomy Social History Social History Household Members: Children Household Members Other:: Daughter Housing: House Do you presently have visiting nurse or other home services: No Alcohol intake: former Comment: 1:1 Patient Tobacco Use Status: Former Tobacco user Tobacco use type: Cigarette Smoked in Last 30 Days: No e-Cigarette/Vaping Use: Never Used Second Hand Smoke Exposure: No Use of substances other than those prescribed or required for medical reasons: No Currently Displaying Signs/Symptoms of Drug Intoxication Withdrawal: No Advance Directives: No Advance Directives Information Provided: No Do you have a plan to hurt others: No Plan Nutrition Risks: Difficulty swallowing and On aspiration precautions service: No Current occupational status: disabled Current occupational exposures/hazards: No Cognitive needs: Yes (wheelchair, walker) Hearing needs: Yes (hearing aide) Vision needs: No Meds Allergies Allergy/AdvReac Type Severity Reaction Status Date / Time lorazepam AdvReac Severe agitation Uncoded 01/14/24 11:04 Active Medications: Current Medications Acetaminophen (Acetaminophen 325 Mg Tablet) 650 mg PO Q6H PRN PRN Reason: Pain, Mild (Pain Scale 1-3), fever or headache Last Admin: 01/14/24 21:16 Dose: 650 mg Amlodipine Besylate (Amlodipine Besylate 5 Mg Tablet) 5 mg PO DAILY [facility]; Protocol Last Admin: 01/14/24 08:57 Dose: Not Given Artificial Tears (Artificial Tears 15 Ml Drops) 2 drop EYE-BOTH Q8H [facility] Last Admin: 01/20/24 05:58 Dose: Not Given Ascorbic Acid (Ascorbic Acid 250 Mg Tablet) 250 mg PO DAILY [facility] Last Admin: 01/14/24 08:57 Dose: Not Given Aspirin (Aspirin Enteric Coated 81 Mg Tablet.Dr) 81 mg PO DAILY [facility] Last Admin: 01/16/24 08:36 Dose: Not Given Atenolol (Atenolol 25 Mg Tablet) 25 mg PO DAILY [facility]; Protocol Last Admin: 01/16/24 08:36 Dose: Not Given Atorvastatin Calcium (Atorvastatin Calcium 80 Mg Tablet) 80 mg PO DAILY [facility] Last Admin: 01/16/24 08:37 Dose: Not Given Bupropion HCl (Bupropion Hcl 100 Mg Tablet) 100 mg PO BID [facility] Last Admin: 01/16/24 20:37 Dose: Not Given Clopidogrel Bisulfate (Clopidogrel Bisulfate 75 Mg Tablet) 75 mg PO DAILY [facility] Last Admin: 01/19/24 07:59 Dose: Not Given Cyanocobalamin (Cyanocobalamin (Vitamin B-12) 1,000 Mcg Tablet) 1,000 mcg PO DAILY [facility] Last Admin: 01/16/24 08:38 Dose: Not Given Ezetimibe (Ezetimibe 10 Mg Tablet) 10 mg PO DAILY [facility] Last Admin: 01/14/24 08:59 Dose: Not Given Escitalopram Oxalate (Escitalopram Oxalate 5 Mg Tablet) 7.5 mg PO DAILY [facility] Last Admin: 01/16/24 08:38 Dose: Not Given Folic Acid (Folic Acid 1 Mg Tablet) 1 mg PO DAILY [facility] Last Admin: 01/19/24 07:59 Dose: Not Given Furosemide (Furosemide 20 Mg Tablet) 20 mg PO DAILY [facility]; Protocol Last Admin: 01/14/24 08:59 Dose: Not Given Glucose (Glucose Gel 15 Gm Gel..Gram.) 15 gm PO Q15M PRN; Protocol PRN Reason: per Hypoglycemia Standing Ord. Heparin Sodium (Porcine) (Heparin Sodium,Porcine 5,000 Unit/Ml Vial) 5,000 unit SUBCUT Q12H [facility] Last Admin: 01/19/24 23:29 Dose: 5,000 unit Linezolid (Zyvox/D5w) 600 mg in 300 mls @ 300 mls/hr IV Q12H [facility] Last Infusion: 01/19/24 22:38 Dose: Infused Piperacillin Sod/Tazobactam (Sod 4.5 gm/ Sodium Chloride) 100 mls @ 200 mls/hr IV Q12H [facility] Last Infusion: 01/19/24 22:08 Dose: Infused Dextrose (D10) 250 mls @ 750 mls/hr IV Q15M PRN; Protocol PRN Reason: per Hypoglycemia Standing Ord. Nutrition (Parenteral) (Parenteral Nutrition) 1,440 mls @ 60 mls/hr IV .Q24H [facility]; Protocol Stop: 01/20/24 20:59 Last Admin: 01/19/24 21:39 Dose: 60 mls/hr Imipramine HCl (Imipramine Hcl 10 Mg Tablet) 10 mg PO BID [facility] Last Admin: 01/16/24 20:37 Dose: Not Given Insulin Human Lispro (Insulin Lispro 100 Unit/Ml 3 Ml Vial) 0 unit SUBCUT Q6H [facility]; Protocol Last Admin: 01/20/24 05:57 Dose: Not Given Methylprednisolone Sodium Succinate (Methylprednisolone Sod Succ 40 Mg/Ml Vial) 40 mg IVPUSH Q24H [facility] Last Admin: 01/19/24 11:07 Dose: 40 mg Morphine Sulfate (Morphine Sulfate 2 Mg/Ml Cartridge) 2 mg IVPUSH Q3H PRN; Protocol PRN Reason: dyspnea or pain 4-10 Last Admin: 01/19/24 23:28 Dose: 2 mg Multivitamins/Vitamin C (Multivitamin Tablet) 1 tab PO DAILY [facility] Last Admin: 01/14/24 09:00 Dose: Not Given Nitroglycerin (Nitroglycerin 0.4 Mg Tab.Subl) 0.4 mg SUBLINGUAL Q5M PRN PRN Reason: chest pain Olanzapine (Olanzapine 10 Mg Vial) 2.5 mg IM Q12H PRN PRN Reason: severe agitation Last Admin: 01/15/24 11:53 Dose: 2.5 mg Olanzapine (Olanzapine 5 Mg Tablet) 5 mg PO BEDTIME [facility] Last Admin: 01/16/24 02:00 Dose: Not Given Olanzapine (Olanzapine Odt 10 Mg Tab.Rapdis) 5 mg TRANSLINGU Q4H PRN PRN Reason: Agitation and psychosis Last Admin: 01/17/24 01:09 Dose: 5 mg Ondansetron HCl (Ondansetron Hcl 4 Mg/2 Ml Vial) 4 mg IVPUSH Q4H PRN PRN Reason: Nausea and Vomiting Pharmacy Consult (Consult Rx Parenteral Nutrition Ordering) 1 each MISCELLANE DAILY [facility] Sodium Chloride (0.9 % Sodium Chloride Flush 3 Ml Syringe) 3 ml IVFLUSH QSHIFT [facility] Last Admin: 01/19/24 23:29 Dose: 3 ml Trazodone HCl (Trazodone Hcl 50 Mg Tablet) 150 mg PO BEDTIME PRN PRN Reason: Insomnia Last Admin: 01/13/24 20:10 Dose: 150 mg Vitamin D (Cholecalciferol (Vitamin D3) 25 Mcg Tablet) 25 mcg PO DAILY [facility] Last Admin: 01/14/24 08:57 Dose: Not Given Home Medications ?Medication ?Instructions ?Recorded ?Confirmed ?Last Taken ?Type cyanocobalamin (vitamin B-12) 1,000 mcg PO DAILY 03/22/20 01/12/24 01/11/24 History 1,000 mcg capsule trazodone 150 mg tablet 150 mg PO BEDTIME PRN Insomnia 03/22/20 01/12/24 Unknown History vitamin B complex 1 tab PO DAILY 03/22/20 01/12/24 01/11/24 History bupropion HCl 200 mg tablet,12 hr 200 mg PO DAILY 02/11/22 01/12/24 01/11/24 History sustained-release citalopram 10 mg tablet 15 mg PO DAILY 08/19/22 01/12/24 01/11/24 History ascorbic acid (vitamin C) 250 mg 250 mg PO DAILY 03/26/23 01/12/24 01/11/24 History tablet (Vitamin C) clopidogrel 75 mg tablet 75 mg PO DAILY 09/25/23 01/12/24 01/11/24 History denosumab 60 mg/mL subcutaneous 60 mg subcut [id number] 01/08/24 01/12/24 07/24/23 History syringe (Prolia) budesonide-formoterol HFA 160 2 puff inhalation BID 01/12/24 01/12/24 01/11/24 History mcg-4.5 mcg/actuation aerosol inhaler (Breyna) Physical Exam Vital Signs: Last Vital Signs Temp 97.6 F 01/20/24 04:00 Pulse 83 01/20/24 04:00 Resp 20 01/20/24 04:00 BP 142/62 H 01/20/24 04:00 Pulse Ox 91 L 01/20/24 04:00 O2 Del Method BiPAP 01/20/24 00:00 O2 Flow Rate 55 01/19/24 15:39 FiO2 81 01/20/24 04:00 BMI result Body Mass Index 22.3 Results Lab Results 01/19/24 09:08 01/19/24 09:08 Lab results: Chemistry 01/18/24 01/19/24 06:24 09:08 Sodium 148 H 143 Potassium 3.3 3.1 L Carbon Dioxide 21 L 18 L BUN 97 H 97 H Creatinine 3.62 H 3.08 H Calcium 7.8 L 7.8 L Phosphorus 4.4 3.1 Hematology 01/18/24 01/19/24 06:24 09:08 WBC 14.7 H 15.6 H Hgb 7.8 L 8.2 L Plt Count 163 154 L Assessment and Plan Plan 78 Y/O wM STAGE 3 CKD HYPERTENSIVE COPD PATIENT 1. CKD 3: stable ( Scr 1.5-1.8) KEVIN- cr peaked at 3.6---> 3.08--> kevin likely atn from multifactorial etiology of hypovolemia, dehydration and septic atn avoid vanco and nephrotoxins hypernatremia - due to free water deficit - improved with hydration/ d5w now 2. HTN: controlled; goal < 130/80, continue amlodipine, atenolol 3. Metabolic Bone Disease of CKD: cont to track CA, Phos, HCO3, PTH and vit D levels and treat accordingly 4. HLD 5. Back Pain 6. Anemia 7. Edema: controlled 8. HyperK on/off as outpatient - now controlled w diet PLAN: repeat renal labs cont current meds; avoid NSAIDs; follow PTH/Vit D levels; HOld home med lasix. he likely had edema from hfpef if signif Uprot will consider adding SGLT2i as outpatient Procedures Date of Service Date of Service: 01/20/24
--- NOTE | 2024-01-27 11:37 | P.DN_ITS ---
Discharge Sum: Prov Provider Primary care physician: Jermaine Lopez MD Discharge Sum: Summary Date and Time Date of admission: from initial hpi: 78yo M with CAD s/p PCI, PAD s/p femoral endarterectomy and multiple stents, COPD not on home O2, prediabetes, prostate CA s/p XRT, CKD3, and bipolar disease. He lives with his daughter. Last night, he tripped on something on the floor and fell backwards, hitting his head. No loss of conscioussness. He came to the ED and was evaluated for traumatic injury, of which there was none on CT or plain film. Due to weakness requiring 2-person assist, he was placed in physician observation awaiting STR placement. However, he became hypoxic and was placed on 2L O2 via NC. CTA was done, which was negative for PE but did show bilateral lower and right middle lobe consolidation. He was given IV ceftriaxone and doxycycline. He has a chronic cough recently productive of some clear sputum. No real dyspnea. No chest pain. No fever. Notably, he has a history of dysphagia and has undergone balloon dilation for esophageal stricture, most recently in March 2023. His daughter says he has a lot of trouble swallowing liquids but not solids and he is supposed to see an [employer] next week. His major complaint at this point is mid back pain. hospital course: Patient was admitted for acute hypoxic respiratory failure due to multifocal pneumonia and COPD exacerbation complicated by ARDS with concern for aspiration. Was treated with broad-spectrum antibiotics. Blood culture from 01/11 grew strep viridans. MRSA swab positive. Was given steroids and bronchodilators. For acute kidney injury on CKD 3 patient's antibiotics were adjusted. Was seen by Nephrology. For acute toxic metabolic encephalopathy, multifactorial due to acute hypernatremia, hypoxia, pneumonia. Mental status slowly improved over admission, on day prior to expiration was alert and oriented x4. For dysphagia due to esophageal stricture patient was unable to tolerate MV SS and was started on PPN. For hypertension, coronary disease, peripheral vascular disease Arian medications were held as unable to take pills. Due to poor prognosis patient's code status was changed to DNR/DNI. On a.m. of 01/20/2024 patient's saturations noted to suddenly drop, followed by bradycardia and asystole. Likely this was an aspiration event. Patient . Additional Data Attending physician: Jermaine Lopez MD
== END 2024-01-20 08:30 | disposition expired | DRG 193 ==
LOC: HO.ED 14:52 → HO.EDOVER 15:19 → HO.S3 23:27 → HO.IMC 01-14 10:42
PROVIDERS: Internal Medicine; Registered Nurse Emergency; Student in an Organized Health Care Education/Training Program; Admitting Provider Family Medicine; Emergency Provider Emergency Medicine; PCP Internal Medicine; Visit Provider Student in an Organized Health Care Education/Training Program
DX: J18.9 Pneumonia, unspecified organism (principal); G92.8 Other toxic encephalopathy; G93.41 Metabolic encephalopathy; N17.0 Acute kidney failure with tubular necrosis; J80 Acute respiratory distress syndrome; E87.0 Hyperosmolality and hypernatremia; F05 Delirium due to known physiological condition; I16.0 Hypertensive urgency; E11.51 Type 2 diabetes mellitus with diabetic peripheral angiopathy without gangrene; F31.9 Bipolar disorder, unspecified; G47.33 Obstructive sleep apnea (adult) (pediatric); E11.22 Type 2 diabetes mellitus with diabetic chronic kidney disease; D50.9 Iron deficiency anemia, unspecified; R35.1 Nocturia; J69.0 Pneumonitis due to inhalation of food and vomit; Z66 Do not resuscitate; J43.9 Emphysema, unspecified; I35.1 Nonrheumatic aortic (valve) insufficiency; I12.9 Hypertensive chronic kidney disease with stage 1 through stage 4 chronic kidney disease, or unspecified chronic kidney disease; Z95.5 Presence of coronary angioplasty implant and graft; N18.30 Chronic kidney disease, stage 3 unspecified; I25.10 Atherosclerotic heart disease of native coronary artery without angina pectoris; Z20.822 Contact with and (suspected) exposure to COVID-19; Z79.02 Long term (current) use of antithrombotics/antiplatelets; Z79.82 Long term (current) use of aspirin; Z79.899 Other long term (current) drug therapy
CPT/HCPCS: 0241U; 36415; 36573; 36600; 70450; 71045; 71101; 71250; 71275; 72100; 72125; 73502; 76775; 80048; 80053; 80076; 80202; 81001; 81003; 82040; 82140; 82565; 82570; 82607; 82728; 82746; 82803; 82947; 83036; 83540; 83605; 83615; 83690; 83735; 83880; 84100; 84145; 84300; 84443; 84484; 85025; 85027; 85045; 85379; 86140; 87040; 87086; 87205; 87449; 87633; 87635; 87640; 87641; 87899; 92526; 93005; 93306; 97110; 97116; 97162; 99285; C1751; C1758; J0131; J0360; J0696; J1644; J1650; J1920; J1940; J2020; J2060; J2270; J2359; J2470; J2543; J2919; J3370; J3371; P9047; Q9957; Q9967

== ENCOUNTER 2024-01-12 15:08 | Outpatient (BNV) | payer MEDICARE, MEDICAID, SELFPAY | END 2024-01-16 13:41 | PROVIDERS: Admitting Provider Family Medicine; Emergency Provider Emergency Medicine; PCP Internal Medicine; Visit Provider Internal Medicine Cardiovascular Disease | DX: I35.1 Nonrheumatic aortic (valve) insufficiency (principal); I36.1 Nonrheumatic tricuspid (valve) insufficiency | CPT/HCPCS: 93306 ==

== ENCOUNTER → 2024-01-12 15:08 | Outpatient (BNV) | payer MEDICARE, MEDICAID, SELFPAY | PROVIDERS: Admitting Provider Family Medicine; Emergency Provider Emergency Medicine; PCP Internal Medicine; Visit Provider Hospitalist | DX: J96.01 Acute respiratory failure with hypoxia (principal); R41.0 Disorientation, unspecified; J69.0 Pneumonitis due to inhalation of food and vomit | CPT/HCPCS: 99223 ==

== ENCOUNTER → 2024-01-12 15:08 | Outpatient (BNV) | payer MEDICARE, MEDICAID, SELFPAY | PROVIDERS: Admitting Provider Family Medicine; Emergency Provider Emergency Medicine; PCP Internal Medicine; Visit Provider Internal Medicine | DX: R13.10 Dysphagia, unspecified (principal); K22.2 Esophageal obstruction; K22.4 Dyskinesia of esophagus; J96.01 Acute respiratory failure with hypoxia; J69.0 Pneumonitis due to inhalation of food and vomit | CPT/HCPCS: 99222 ==

== ENCOUNTER → 2024-01-12 15:08 | Outpatient (BNV) | payer MEDICARE, MEDICAID, SELFPAY | PROVIDERS: Admitting Provider Family Medicine; Emergency Provider Emergency Medicine; PCP Internal Medicine; Visit Provider Internal Medicine | DX: J80 Acute respiratory distress syndrome (principal); R41.0 Disorientation, unspecified | CPT/HCPCS: 99222 ==

== ENCOUNTER → 2024-01-12 15:08 | Outpatient (BNV) | payer MEDICARE, MEDICAID, SELFPAY | PROVIDERS: Admitting Provider Family Medicine; Emergency Provider Emergency Medicine; PCP Internal Medicine; Visit Provider Family Medicine | DX: J69.0 Pneumonitis due to inhalation of food and vomit (principal) | CPT/HCPCS: 99223; 99233; 99499 ==

== ENCOUNTER → 2024-01-12 15:08 | Outpatient (BNV) | payer MEDICARE, MEDICAID, SELFPAY | PROVIDERS: Admitting Provider Family Medicine; Emergency Provider Emergency Medicine; PCP Internal Medicine; Visit Provider Psychiatry & Neurology Psychiatry | DX: F31.9 Bipolar disorder, unspecified (principal); R41.0 Disorientation, unspecified; J18.9 Pneumonia, unspecified organism; C61 Malignant neoplasm of prostate | CPT/HCPCS: 99232 ==

== ENCOUNTER → 2024-01-12 15:08 | Outpatient (BNV) | payer MEDICARE, MEDICAID, SELFPAY | PROVIDERS: Admitting Provider Family Medicine; Emergency Provider Emergency Medicine; PCP Internal Medicine; Visit Provider Internal Medicine Cardiovascular Disease | DX: J96.01 Acute respiratory failure with hypoxia (principal) | CPT/HCPCS: 99222 ==

== ENCOUNTER → 2024-01-19 08:30 | Outpatient (BNV) | payer MEDICARE, MEDICAID, SELFPAY | PROVIDERS: PCP Internal Medicine; Visit Provider Internal Medicine | DX: J18.9 Pneumonia, unspecified organism (principal) | CPT/HCPCS: 99238 ==